=== PATIENT | male | born 1960 | race Hispanic/Latino ===

== ENCOUNTER 2017-05-25 09:56 | Inpatient (IN) | payer MEDICAID, OTHER ==
--- NOTE | 2017-05-25 10:19 | ED PDOC ---
Arrival/HPI - General Chief Complaint: Chest Pain Time Seen by Provider: 05/25/17 10:01 - History of Present Illness Narrative History of Present Illness (Text): 56 y/o M c PMHx cardiomyopathy BIBEMS s/p 100J cardioversion. Patient complaining of general weakness, abdominal pain x 1 week. Gradually worsening over the week and some chest pain that began yesterday. Patient called EMS this morning, found appearing pale, weak, and with ventricular tachycardia with a pulse. Patient was given Ketamine for sedation and cardioverted. Patient given amiodarone 150mg. Patient currently sedated, breathing spontaneously but unable to answer questions. HPI/ROS unobtainble. Past Medical History - Infectious Disease Hx of Infectious Diseases: None - Tetanus Immunization Tetanus Immunization: Unknown - Cardiac Hx Cardiac Arrhythmia: Yes (vtach) Hx Congestive Heart Failure: Yes Hx Hypertension: Yes Hx Peripheral Edema: Yes Other/Comment: cardiomyopathy - Pulmonary Hx Respiratory Disorders: No - Neurological Hx Neurological Disorder: No - HEENT Hx HEENT Disorder: No - Renal Hx Renal Disorder: No - Endocrine/Metabolic Hx Endocrine Disorders: No - Hematological/Oncological Hx Blood Disorders: No - Integumentary Hx Dermatological Disorder: No - Musculoskeletal/Rheumatological Hx Falls: No - Gastrointestinal Hx Gastrointestinal Disorders: No - Genitourinary/Gynecological Hx Genitourinary Disorders: No - Psychiatric Hx Psychophysiologic Disorder: (morbidly obese) Hx Substance Use: No - Suicidal Assessment Feels Threatened In Home Enviroment: No Family/Social History Family/Social History: Unknown Family HX Smoking Status: Never Smoked Hx Alcohol Use: No Hx Substance Use: No Allergies/Home Meds Allergies/Adverse Reactions: Allergies No Known Allergies Allergy (Verified 05/25/17 10:02) Home Medications: Home Meds Medication Instructions Recorded Confirmed Aspirin [Ecotrin] 81 mg PO DAILY 05/25/17 05/25/17 Atorvastatin [Lipitor] 20 mg PO DAILY 05/25/17 05/25/17 Carvedilol [Coreg] 25 mg PO DAILY 05/25/17 05/25/17 Eplerenone [Inspra] 25 mg PO DAILY 05/25/17 05/25/17 Furosemide [Lasix] 20 mg PO DAILY 05/25/17 05/25/17 Levothyroxine [Synthroid] 0.088 mg PO DAILY 05/25/17 05/25/17 Magnesium [[employer] Magnesium] 250 mg PO DAILY 05/25/17 05/25/17 Review of Systems - Review of Systems Systems not reviewed;Unavailable: Other (Sedated) Physical Exam - Physical Exam Narrative Physical Exam (Text): Gen: Sedated Head: NC Eyes: No scleral icterus ENT: MMM Neck: Supple Chest: No ICD Resp: Breathing spontaneously Abd: Soft Extremities: No swelling Neuro: Sedated Vital Signs Temp Pulse Resp BP Pulse Ox 05/25/17 13:10 56 L 18 99 05/25/17 12:56 70 140/50 L 05/25/17 12:33 57 L 18 140/50 L 100 05/25/17 11:25 52 L 16 96/55 L 100 05/25/17 10:34 52 L 16 69/34 L 100 05/25/17 10:08 97.4 F L 52 L 17 97/36 L 100 Medical Decision Making ED Course and Treatment: Plan: -- CT Abd & Pelvis W/O Contrast -- EKG -- Labs -- Chest X-ray -- amiodarone drip, Aspirin -- Reassess and disposition Progress Notes: EKG Afib, QRS 134ms, T wave inversions, no ST elevations PROCEDURE: Chest X-ray Dictator : Mercy Castaneda Report Date : 05/25/2017 11:08:54 IMPRESSION: Cardiomegaly with interval pulmonary venous congestion/ interstitial pulmonary edema. No gross pleural effusions noted Dr. Osorio consulted for cardiology, agrees with amiodarone drip, check magnesium. No further Vtach episodes, patient's BP stable. Dr. Costello accepts patient to ICU. Dr. Werner accepts patient to hospitalist service. - Lab Interpretations Lab Results: 05/25/17 10:10 05/25/17 10:10 Lab Results 05/25/17 10:10: Magnesium 3.8 H 05/25/17 10:10: Sodium 128 L, Potassium 4.8, Chloride 92 L, Carbon Dioxide 25, Anion Gap 16, BUN 93 H, Creatinine 2.8 H, Est GFR ( Amer) 29, Est GFR ( Non-Af Amer) 24, Random Glucose 116 H, Calcium 8.8, Total Bilirubin 0.9, AST 103 H, ALT 274 H, Alkaline Phosphatase 123, Total Creatine Kinase 58, Troponin I 0.10 D, NT-Pro-B Natriuret Pep 50695 H, Total Protein 6.2, Albumin 3.5, Globulin 2.7, Albumin/Globulin Ratio 1.3 05/25/17 10:10: PT 14.7 H, INR 1.27 H, APTT 23.5 L 05/25/17 10:10: WBC 15.9 H D, RBC 4.08, Hgb 12.6 L, Hct 36.5 L, MCV 89.5, MCH 30.9, MCHC 34.5, RDW 12.7, Plt Count 163, MPV 11.1 H, Gran % 75.1 H, Lymph % ( Auto) 12.2 L, [place] % (Auto) 12.6 H, Eos % (Auto) 0.1 L, Baso % (Auto) 0.0, Gran # 11.94 H, Lymph # (Auto) 1.9, [place] # (Auto) 2.0 H, Eos # (Auto) 0.0, Baso # ( Auto) 0.00 - RAD Interpretation Radiology Orders: 05/25/17 10:09 CHEST PORTABLE [RAD] Stat 05/25/17 10:15 ABD & PELVIS W/O PO OR IV CONT [CT] Stat - Medication Orders Current Medication Orders: Amiodarone HCl (Cordarone) 400 mg PO TID BEATRIZ Stop: 05/27/17 23:59 Amiodarone HCl (Cordarone) 200 mg PO DAILY BEATRIZ Aspirin (Ecotrin) 81 mg PO DAILY BEATRIZ Enoxaparin Sodium (Lovenox) 30 mg SC DAILY BEATRIZ PRN Reason: Protocol Furosemide (Lasix) 40 mg IV 0800,1400 BEATRIZ Amiodarone HCl/Dextrose (Nexterone 360 Mg In D5w 200 Ml (Premix)) 360 mg in 200 mls @ 33.333 mls/hr IV .Q6H BEATRIZ; 1 MG/MIN PRN Reason: Protocol Last Admin: 05/25/17 12:54 Dose: 33.333 mls/hr eMAR Start Stop Document 05/25/17 12:54 [email or web address] (Rec: 05/25/17 12:55 [email or web address] [facility] [id number] Intravenous Solution Start Date 05/25/17 Start Time 12:55 End Date 05/25/17 Sodium Chloride (Sodium Chloride 0.9%) 1,000 mls @ 50 mls/hr IV .Q20H BEATRIZ Stop: 05/26/17 23:59 Levothyroxine Sodium (Synthroid) 88 mcg PO 0730 BEATRIZ Lisinopril (Zestril) 2.5 mg PO DAILY BEATRIZ Pantoprazole Sodium (Protonix Ec Tab) 40 mg PO DAILY BEATRIZ Spironolactone (Aldactone) 25 mg PO BID BEATRIZ Discontinued Medications Amiodarone HCl (Cordarone) 400 mg PO STAT STA Stop: 05/25/17 12:46 Last Admin: 05/25/17 12:56 Dose: 400 mg MAR Pulse and Blood Pressure Document 05/25/17 12:56 [email or web address] (Rec: 05/25/17 12:56 [email or web address] [facility] [id number] Pulse Pulse Rate (60-90) 70 Blood Pressure Blood Pressure (100/60-150/90) 140/50 Aspirin (Aspirin) 325 mg PO STAT STA Stop: 05/25/17 11:38 Last Admin: 05/25/17 12:08 Dose: 325 mg Carvedilol (Coreg) 3.125 mg PO STAT STA Stop: 05/25/17 12:53 Furosemide (Lasix) 40 mg IV ONCE ONE Stop: 05/25/17 12:50 Disposition/Present on Arrival - Present on Arrival Any Indicators Present on Arrival: No History of DVT/PE: No History of Uncontrolled Diabetes: No Urinary Catheter: No History of Decub. Ulcer: No History Surgical Site Infection Following: None - Disposition Have Diagnosis and Disposition been Completed?: Yes Diagnosis: Ventricular tachycardia, Acute renal insufficiency, Congestive heart failure Disposition: HOSPITALIZED Disposition Time: 12:06 Patient Plan: Admission, ICU Condition: GUARDED
[2017-05-25 10:23] LABS: EOS % 0.1 % (1.5-5.0); GRAN # 11.94 (1.4-6.5); GRAN % 75.1 % (50.0-68.0); HEMOGLOBIN 12.6 g/dL (14.0-18.0); LYMPH # 1.9 (1.2-3.4); LYMPH % 12.2 % (22.0-35.0); MEAN CELL VOLUME 89.5 fl (80.0-105.0); MEAN CORPUSCULAR HEMOGLOBIN 30.9 pg (25.0-35.0); MEAN CORPUSCULAR HGB CONC 34.5 g/dl (31.0-37.0); MEAN PLATELET VOLUME 11.1 fl (7.0-11.0); MONO % 12.6 % (1.0-6.0); RBC 4.08 10^6/uL (3.5-6.1); RED CELL DISTRIBUTION WIDTH 12.7 % (11.5-14.5); WHITE BLOOD COUNT 15.9 10^3/ul (4.5-11.0)
[2017-05-25 10:32] LABS: PROTHROMBIN TIME 14.7 SECONDS (9.4-12.5)
[2017-05-25 10:33] LABS: INR 1.27 (0.93-1.08); PARTIAL THROMBOPLASTIN TIME 23.5 Seconds (25.1-36.5)
[2017-05-25 10:34] LABS: ALB/GLOB RATIO 1.3 (1.1-1.8); ALBUMIN 3.5 g/dL (3.0-4.8); CALCIUM 8.8 mg/dL (8.4-10.5)
[2017-05-25 10:46] LABS: TROPONIN I 0.1 ng/mL
--- NOTE | 2017-05-25 11:10 | RAD ---
HISTORY: ventricular tachycardia COMPARISON: 01/01/2013 FINDINGS: LUNGS: No consolidation PLEURA: No significant pleural effusion identified, no pneumothorax apparent. CARDIOVASCULAR: Cardiomegaly- similar Interval increase symmetrical bilateral pulmonary venous congestion -interstitial pulmonary edema suspect OSSEOUS STRUCTURES: No significant abnormalities. VISUALIZED UPPER ABDOMEN: Normal. OTHER FINDINGS: None. IMPRESSION: Cardiomegaly with interval pulmonary venous congestion/ interstitial pulmonary edema. No gross pleural effusions noted
[2017-05-25] MEDS ORDERED: Amiodarone 360 mg/D5W 200 ml 360 MG/200 ML BAG IV SCH (12:00)
[2017-05-25] MEDS ORDERED: Sodium Chloride 0.9% 1,000 ML IV SCH (13:00)
[2017-05-25] MEDS ORDERED: Enoxaparin 120 mg Syringe SC SCH (13:00)
--- NOTE | 2017-05-25 13:20 | CP.CCUPN ---
CCU Subjective - Physician Review Subjective (Free Text): 05/25/17 13:11 56yo male pt with h\\o CHF presented after an episode of Ventricular Tachycardia this morning. Pt stated he has not been feeling well since last week. He has multiple episodes of nausea and vomiting (NB, NB). Was lethargic and weak. he thought he had a "stomach virus" and did not seek any medical help. He tried to stay hydrated by drinking roxy-atif. Over the past few days his condition was getting worse, he was dizzy, weak , short of breath and unable to ambulate feeling near-syncope. Today he had chest pain. It was 5\\10 in intensity, sharp , would come and go, was located in the middle of his chest, was not radiating. Pt's family have called EMS . Upon EMS arrival pt was found in Ventricular Tachycardia. Pt was shocked and given amiodarone and transported to the hospital. In ED pt was started on Amiodarone drip and cardiology team was consulted. PMH: CHF, [place] PSH: denies Social: does not smoke or use ETOH or drugs CCU Objective - Vital Signs / Intake & Output Vital Signs (Last 4 hours): Vital Signs Pulse Resp BP Pulse Ox 05/25/17 13:10 56 L 18 99 05/25/17 12:56 70 140/50 L 05/25/17 12:33 57 L 18 140/50 L 100 - Physical Exam Head: Positive for: Atraumatic Pupils: Positive for: PERRL Conjunctiva: Positive for: Normal Mouth: Positive for: Moist Mucous Membranes Neck: Positive for: Normal Range of Motion. Negative for: JVD Respiratory/Chest: Positive for: Good Air Exchange, Rhonchi. Negative for: Respiratory Distress Cardiovascular: Positive for: Regular Rate and Rhythm, Normal S1, S2. Negative for: Murmurs Abdomen: Positive for: Normal Bowel Sounds. Negative for: Tenderness, Distention Upper Extremity: Positive for: Normal Inspection. Negative for: Edema, Erythema Lower Extremity: Positive for: Normal Inspection, Edema (non-pitting). Negative for: Erythema Neurological: Positive for: Speech Normal, Motor Func Grossly Intact Skin: Positive for: Warm, Dry. Negative for: Rashes Psychiatric: Positive for: Alert, Oriented x 3, Normal Insight - Medications Active Medications: Active Medications Generic Name Dose Route Start Last Admin Trade Name Freq PRN Reason Stop Dose Admin Amiodarone HCl 400 mg 05/25/17 14:00 Cordarone PO 05/27/17 23:59 TID BEATRIZ Amiodarone HCl 200 mg 05/28/17 10:00 Cordarone PO DAILY BEATRIZ Aspirin 81 mg 05/26/17 10:00 Ecotrin PO DAILY BEATRIZ Enoxaparin Sodium 30 mg 05/26/17 10:00 Lovenox SC DAILY BEATRIZ Protocol Furosemide 40 mg 05/26/17 08:00 Lasix IV 0800,1400 BEATRIZ Amiodarone HCl/Dextrose 360 mg in 200 mls @ 33.333 mls/hr 05/25/17 12:00 12:54 Nexterone 360 Mg In D5w 200 Ml (Premix) IV 33.333 mls/hr .Q6H BEATRIZ Administration Protocol 1 MG/MIN Sodium Chloride 1,000 mls @ 50 mls/hr 05/25/17 13:00 Sodium Chloride 0.9% IV 05/26/17 23:59 .Q20H BEATRIZ Levothyroxine Sodium 88 mcg 05/26/17 07:30 Synthroid PO 0730 BEATRIZ Lisinopril 2.5 mg 05/26/17 10:00 Zestril PO DAILY COUNTS INCLUDE 234 BEDS AT THE [facility] Spironolactone 25 mg 05/25/17 18:00 Aldactone PO BID BEATRIZ Review of Systems - Review of Systems Systems not reviewed;Unavailable: Acuity of Condition Critical Care Progress Note - Ventilator Checklist Head of Bed 30 Degrees: Yes PUD Prophalyxis: Yes DVT Prophylaxis: Yes Assessment/Plan - Assessment and Plan (Free Text) Plan: Ventricular Tachycardia\\ ho CHF \\ CAD \\ HUNTER \\ Elevated LFT \\ Hyponatremia \\ Hypothyroidism -hemodynamic monitoring to maintain MAP>65 -continue amiodarone drip as per cardiology team -f\\u serial CE and ECG; f\\u Echo -continue ASA; lisinopril and spironolactone if B\\P tolerates -o2 supplementation to maintain Spo2>90 Pao2>60; currently comfortable on NC -f\\u Bun\\Cr and U\\o; monitor and replace e-lites; monitor serial Na+ level -insert folley for accurate I\\O; renal US; renal team eval -f\\u LFT; RUQ US -continue synthroid and f\\u TSH -PO diet and aspiration precautions -DVT \\ PUD prophylaxis CCM eval time 37min
--- NOTE | 2017-05-25 13:44 | CP.PCM.HP ---
<TheresaKelporter - Last Filed: 05/25/17 15:43> History of Present Illness - History of Present Illness History of Present Illness: Lia Cardenas DO PGY1 - IM H&P for Dr. Werner CC: Fatigue, chest pain, abdominal pain HPI: 56 yo M with PMH of nonischemic cardiomyopathy with estimated EF 15-20% in 2013 presents brought by ambulance which was called because he was fatigued with chest pain at home. Patient was noted to be in ventricular tachycardia in the field and was successfully cardioverted in the field. Patient reports that he has been feeling ill for the past two weeks, with generalized weakness, fatigue, dyspnea on exertion, chest pain, abdominal pain, palpitations associated with chest pain, and a presyncopal episode yesterday. Patient reports that he can walk about 100 feet before he becomes dyspneic. Patient reports strict compliance with his medications and no recent dietary changes. Patient denies cough, fever, chills, diarrhea, constipation. Does admit to nausea with one episode of bilious, nonbloody emesis yesterday. Remainder of 12 point ROS was obtained and was negative. 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 All: NKDA Present on Admission - Present on Admission Any Indicators Present on Admission: No Past Patient History - Infectious Disease Hx of Infectious Diseases: None - Tetanus Immunizations Tetanus Immunization: Unknown - Past Social History Smoking Status: Never Smoked - CARDIAC Hx Cardia Arrhythmia: Yes (vtach) Hx Congestive Heart Failure: Yes Hx Hypertension: Yes Hx Peripheral Edema: Yes Other/Comment: cardiomyopathy - PULMONARY Hx Respiratory Disorders: No - NEUROLOGICAL Hx Neurological Disorder: No - HEENT Hx HEENT Problems: No - RENAL Hx Chronic Kidney Disease: No - ENDOCRINE/METABOLIC Hx Endocrine Disorders: No - HEMATOLOGICAL/ONCOLOGICAL Hx Blood Disorders: No - INTEGUMENTARY Hx Dermatological Problems: No - MUSCULOSKELETAL/RHEUMATOLOGICAL Hx Falls: No - GASTROINTESTINAL Hx Gastrointestinal Disorders: No - GENITOURINARY/GYNECOLOGICAL Hx Genitourinary Disorders: No - PSYCHIATRIC Hx Psychophysiologic Disorder: (morbidly obese) Hx Substance Use: No - SURGICAL HISTORY Hx Surgeries: Yes (throat) Meds Allergies/Adverse Reactions: Allergies Allergy/AdvReac Type Severity Reaction Status Date / Time No Known Allergies Allergy Verified 05/25/17 10:02 Physical Exam - Constitutional Appears: Non-toxic, No Acute Distress - Head Exam Head Exam: ATRAUMATIC, NORMOCEPHALIC - Eye Exam Eye Exam: EOMI, Normal appearance, PERRL - ENT Exam ENT Exam: Mucous Membranes Moist - Neck Exam Neck exam: Positive for: Normal Inspection Additional comments: No JVD - Respiratory Exam Respiratory Exam: Clear to Auscultation Bilateral, NORMAL BREATHING PATTERN. absent: Accessory Muscle Use, Rales, Rhonchi, Wheezes, Respiratory Distress - Cardiovascular Exam Cardiovascular Exam: Irregular Rhythm, +S1, +S2. absent: Diastolic murmur, JVD , +S4 Additional comments: Intermittent bradycardia and tachycardia - GI/Abdominal Exam GI & Abdominal Exam: Normal Bowel Sounds, Soft. absent: Distended, Firm, Rebound, Rigid, Tenderness - Extremities Exam Extremities exam: Positive for: normal capillary refill, normal inspection. 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% noted on cardiac cath in 2013 presents complaining of fatigue, chest pain, dyspnea, abdominal pain, now s/p cardioversion for vtach Chest pain, fatigue, and dyspnea, likely 2/2 CHF; r/o ACS - CXR on admission shows pulmonary vascular congestion; patient has severely elevated BNP - Initial troponin indeterminate; continue to trend - Initial EKG shows hyperacute T-wave inversions in leads II, III, and aVF; repeat EKG in AM - Ordered echocardiogram - Start Lasix 40mg IV BID - Strict I&O; HOB > 30; daily weight - A1c, lipid panel, TSH ordered - Continue BB, ASA; hold ACEi/ARB, statin, aldactone, as below Ventricular tachycardia s/p cardioversion - Admit to ICU for monitoring - Patient received IV and PO amiodarone in ER; will titrate to PO amiodarone tomorrow - Continue BB Acute renal failure - Likely 2/2 hypoperfusion 2/2 CHF vs ischemia 2/2 transient hypotension - Ordered urine urea and creatinine to calculate FEUrea - Hold ACEi/ARB and aldactone pending repeat labs - Gentle hydration with IVF - CT A/P and Abd US ordered - Renally dose medications - Requested nephro consult; appreciate recs Atrial fibrillation - ?new onset atrial fibrillation noted on EKG - patient does not endorse a history of afib - Will discuss with cardio for consideration for anticoagulation - Recheck EKG in AM Transaminemia - Likely 2/2 congestion 2/2 CHF vs ischemia 2/2 transient hypotension - Avoid hepatotoxic medications; hold statin - CT A/P ordered; Abd US ordered - Recheck with AM labs Leukocytosis - Likely reactive - Ordered procalcitonin, blood cultures, and UA - Recheck with AM labs Hyponatremia - Likely 2/2 hypervolemia 2/2 CHF and ARF - Should improve with IV lasix - Ordered Urine osmolality and random sodium; ordered serum osmolality - Recheck with AM labs History of hypothyroidism - Continue home synthroid - Ordered TSH GI/DVT Ppx: Protonix and Lovenox, renally dosed Case discussed and plan reviewed with attending, Dr. Werner <Lenny Werner - Last Filed: 05/27/17 16:24> Results - Vital Signs Recent Vital Signs: Last Vital Signs Temp 97.8 F 05/27/17 11:36 Pulse 63 05/27/17 11:36 Resp 16 05/27/17 11:36 BP 118/73 05/27/17 13:44 Pulse Ox 96 05/27/17 06:00 - Labs Result Diagrams: 05/27/17 06:20 05/27/17 06:20 Labs: Laboratory Results - last 24 hr 05/26/17 05/26/17 05/27/17 17:19 19:27 01:31 WBC RBC Hgb Hct MCV MCH MCHC RDW Plt Count MPV Gran % Lymph % (Auto) [place] % (Auto) Eos % (Auto) Baso % (Auto) Gran # Lymph # (Auto) [place] # (Auto) Eos # (Auto) Baso # (Auto) APTT 46.2 H Sodium 135 Potassium 4.6 Chloride 93 L Carbon Dioxide 30 Anion Gap 17 BUN 78 H Creatinine 1.8 H Est GFR ( Amer) 48 Est GFR (Non-Af Amer) 40 Random Glucose 107 Calcium 9.3 Total Bilirubin AST ALT Alkaline Phosphatase Total Protein Albumin Globulin Albumin/Globulin Ratio Ur Random Creatinine U Random Total Protein Urine Microalbumin < 6.0 05/27/17 05/27/17 05/27/17 01:31 01:35 06:20 WBC 11.9 H RBC 4.85 Hgb 15.0 Hct 43.2 MCV 89.1 MCH 30.9 MCHC 34.7 RDW 13.2 Plt Count 218 MPV 9.6 Gran % 56.0 Lymph % (Auto) 26.5 [place] % (Auto) 16.5 H Eos % (Auto) 0.9 L Baso % (Auto) 0.1 Gran # 6.67 H Lymph # (Auto) 3.2 [place] # (Auto) 2.0 H Eos # (Auto) 0.1 Baso # (Auto) 0.01 APTT 113.6 H* Sodium Potassium Chloride Carbon Dioxide Anion Gap BUN Creatinine Est GFR ( Amer) Est GFR (Non-Af Amer) Random Glucose Calcium Total Bilirubin AST ALT Alkaline Phosphatase Total Protein Albumin Globulin Albumin/Globulin Ratio Ur Random Creatinine 28 U Random Total Protein 11 Urine Microalbumin 05/27/17 05/27/17 06:20 09:20 WBC RBC Hgb Hct MCV MCH MCHC RDW Plt Count MPV Gran % Lymph % (Auto) [place] % (Auto) Eos % (Auto) Baso % (Auto) Gran # Lymph # (Auto) [place] # (Auto) Eos # (Auto) Baso # (Auto) APTT 73.0 H Sodium 137 Potassium 4.3 Chloride 96 L Carbon Dioxide 31 Anion Gap 15 BUN 59 H Creatinine 1.4 Est GFR ( Amer) > 60 Est GFR (Non-Af Amer) 53 Random Glucose 88 Calcium 8.8 Total Bilirubin 1.4 H AST 61 H D ALT 235 H Alkaline Phosphatase 114 Total Protein 6.7 Albumin 3.6 Globulin 3.1 Albumin/Globulin Ratio 1.2 Ur Random Creatinine U Random Total Protein Urine Microalbumin Attending/Attestation - Attestation I have personally seen and examined this patient.: Yes I have fully participated in the care of the patient.: Yes I have reviewed all pertinent clinical information: Yes Notes (Text): 05/27/17 16:16 Medical record note made by the resident after discussion with my direction and input after the patient was personally seen and examined by me. I have reviewed the chart and agree that the record accurately reflects by personal performance of the history, physical exam, data review, and medical decision-making, in the course for the patient. I have also personally directed the plan of care. 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 Patient is on Amiodrone, will start on IV lasix, will get 2D echo, will get BUN and creatinin. We will also monitor patient LFT. Management plan was discussed in detail with patient. Education was provided.
--- NOTE | 2017-05-25 14:22 | CT ---
PROCEDURE: CT Abdomen and Pelvis without intravenous contrast HISTORY: abdominal pain COMPARISON: None. TECHNIQUE: Without. Contrast Dose: None Radiation dose: Total exam DLP = 1033 mGy-cm. This CT exam was performed using one or more of the following dose reduction techniques: Automated exposure control, adjustment of the mA and/or kV according to patient size, and/or use of iterative reconstruction technique. FINDINGS: LOWER THORAX: Mostly posterior and lesser right middle lobe trace pleural thickening/minimal pleural effusion minimal discoid atelectatic changes. LIVER: Unremarkable. No gross lesion on this noncontrast study or ductal dilatation. GALLBLADDER AND BILE DUCTS: Small but otherwise unremarkable PANCREAS: Unremarkable. No gross lesion or ductal dilatation. SPLEEN: Unremarkable. ADRENALS: Unremarkable. No mass. KIDNEYS AND URETERS: Unremarkable. No hydronephrosis. No solid mass. VASCULATURE: Unremarkable. No aortic aneurysm. BOWEL: Probable scattered diverticulosis. No bowel obstruction or gross focal diverticulitis appearance appreciated. No obstruction. No gross mural thickening. APPENDIX: Identification of the appendix is problematic - what may be the appendix may have based appendicolith within it less than a cm in size. No definite inflammatory changes surrounding this site are noted. No mention of prior appendectomy PERITONEUM: There is nonspecific vague stranding inflammatory changes along the right posterior gutter. . Some nonspecific perirenal any ded abilio pancreatic and borderline abilio gallbladder fat trace inflammatory changes suggested. The chronicity of these findings is unknown -may be chronic. No free fluid. No free air. LYMPH NODES: Unremarkable. No enlarged lymph nodes. BLADDER: Unremarkable. REPRODUCTIVE: Unremarkable. BONES: Minimal compression deformity of the superior L2 and L1 vertebral bodies for (versus prominent Schmorl's node indentations here noted. The chronicity of this appearance is not known. Minimal anterior subluxation of L4 relative to L5 noted - this is attributed to degenerative ligamentous laxity given the facet hypertrophic arthrosis here and also at the L5-S1 level. Degenerative disc disease changes noted. No lytic lesions seen. No gross spondylolysis noted. OTHER FINDINGS: Please note peritoneal mid section for nonspecific thin tear rec peritoneal minimal stranding inflammatory changes present. Source and chronicity unclear Small fat only containing umbilical hernia IMPRESSION: No bowel obstruction or free air. . Nonspecific mesenteric and peritoneal mild stranding inflammatory changes as referenced above. Identification of normal appendix is problematic -possible appendicolith, sub cm without surrounding immediate inflammatory changes here noted. If patient has had a prior appendectomy,, then a calcified mesenteric lymph node would be favored Osseous changes as above
--- NOTE | 2017-05-25 14:37 | US ---
HISTORY: HUNTER and elevated lft COMPARISON: Correlation made with the same-day CT abdomen and pelvis TECHNIQUE: Sonographic evaluation of the abdomen. FINDINGS: LIVER: Measures 20.1 cm. Per this ultrasound the liver is enlarged Diffuse increase echogenicity of the liver parenchyma compatible with hepatic steatosis. No mass. No intrahepatic bile duct dilatation. (Less evident on the noncontrast CT study) GALLBLADDER: Unremarkable. No gallstones. COMMON BILE DUCT: Measures 1.7 mm. No stones. No dilatation. PANCREAS: Not visualized due to obscuring bowel gas. Limited exam due to large body habitus. RIGHT KIDNEY: Measures 10.7 x 5.7 x 5.5cm. Normal echogenicity. No calculus, mass, or hydronephrosis. LEFT KIDNEY: Measures 11.2 x 6.1 x 6.0cm. Normal echogenicity. No calculus, mass, or hydronephrosis. SPLEEN: Normal in size and contour. No mass. AORTA: No aneurysmal dilatation. IVC: Unremarkable. OTHER FINDINGS: None. IMPRESSION: Limited exam due to large patient, and gassy status. Per this exam (less apparent on the noncontrast CT), hepatic steatosis and liver enlargement suggested
[2017-05-25 16:57] VITALS: BMI 36.6
[2017-05-25] MEDS ORDERED: Influenza Vaccine 60 mcg/0.5 mL SYR (4YR UP) IM ONE (16:58)
[2017-05-25] MEDS ORDERED: Pneumococcal 23-Valent Vaccine IM ONE (16:58)
[2017-05-25 19:33] LABS: CREATININE,RANDOM URINE 69 mg/dL
[2017-05-25 21:43] LABS: CALCIUM 8.9 mg/dL (8.4-10.5)
[2017-05-25 22:28] LABS: TROPONIN I 3.24 ng/mL
--- NOTE | 2017-05-25 22:43 | CP.PCM.CON ---
History of Present Illness - History of Present Illness History of Present Illness: 56 yo M w/ pmh of htn, non-ischemic cardiomyopathy, called EMS after feeling fatigued and having palpitations; on the field, patient found to be in sustained V-tach and was cardioverted before being brought to ED; found to be in acute renal failure for which nephrology is being consulted; Patient's medical history pertinent for being found to have dilated cardiomyopathy with severe systolic dysfunction 5 years ago (EF ~15%); at that time, he was placed on inotropic support with improvement in symptoms and renal function; cardiac cath at that time revealed no CAD; patient was discharged and has since been 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[employer] [facility] at [facility]; AICD placement was contemplated but was deferred as EF had improved significantly (>50% per patient recently; patient's disability was subsequently cancelled a few months ago and 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 absent: Diarrhea - Genitourinary Genitourinary: absent: Dysuria Additional comments: somewhat weak urinary stream (chronic); - Musculoskeletal Musculoskeletal: absent: Arthralgias, Back Pain - Neurological Neurological: absent: Dizziness, Headaches Past Patient History - Infectious Disease Hx of Infectious Diseases: None - Tetanus Immunizations Tetanus Immunization: Unknown - Past Medical History & Family History Past Medical History?: Yes Past Family History: Reviewed and not pertinent - Past Social History Smoking Status: Never Smoked - CARDIAC Hx Cardia Arrhythmia: Yes (vtach) Hx Congestive Heart Failure: Yes Hx Hypertension: Yes Hx Peripheral Edema: Yes Other/Comment: cardiomyopathy - PULMONARY Hx Respiratory Disorders: No - NEUROLOGICAL Hx Neurological Disorder: No - HEENT Hx HEENT Problems: No - RENAL Hx Chronic Kidney Disease: No - ENDOCRINE/METABOLIC Hx Endocrine Disorders: No - HEMATOLOGICAL/ONCOLOGICAL Hx Blood Disorders: No - INTEGUMENTARY Hx Dermatological Problems: No - MUSCULOSKELETAL/RHEUMATOLOGICAL Hx Falls: No - GASTROINTESTINAL Hx Gastrointestinal Disorders: No - GENITOURINARY/GYNECOLOGICAL Hx Genitourinary Disorders: No - PSYCHIATRIC Hx Psychophysiologic Disorder: (morbidly obese) Hx Substance Use: No - SURGICAL HISTORY Hx Surgeries: Yes (throat) Meds Allergies/Adverse Reactions: Allergies Allergy/AdvReac Type Severity Reaction Status Date / Time No Known Allergies Allergy Verified 05/25/17 10:02 - Medications Medications: Current Medications Amiodarone HCl (Cordarone) 200 mg PO DAILY [facility] Aspirin (Ecotrin) 81 mg PO DAILY [facility] Enoxaparin Sodium (Lovenox) 30 mg SC DAILY [facility] PRN Reason: Protocol Furosemide (Lasix) 40 mg IV 0800,1400 [facility] Furosemide (Lasix) 40 mg IVP ONCE ONE Stop: 05/26/17 00:00 Levothyroxine Sodium (Synthroid) 88 mcg PO 0730 [facility] Lisinopril (Zestril) 2.5 mg PO DAILY [facility] Pantoprazole Sodium (Protonix Ec Tab) 40 mg PO DAILY [facility] Spironolactone (Aldactone) 25 mg PO BID [facility] Physical Exam - Constitutional Appears: Non-toxic, No Acute Distress - Eye Exam Eye Exam: absent: Scleral icterus - ENT Exam ENT Exam: Mucous Membranes Moist - Respiratory Exam Respiratory Exam: Clear to Auscultation Bilateral. absent: Rales, Rhonchi, Wheezes, Respiratory Distress - Cardiovascular Exam Cardiovascular Exam: RRR, +S1, +S2 Additional comments: mildly elevated JVD; - GI/Abdominal Exam GI & Abdominal Exam: Soft. absent: Distended, Tenderness - Exam Exam: absent: Scrotal Swelling, Bladder Distension Additional comments: guillen in place - Extremities Exam Additional comments: trace lower leg edema b/l - Neurological Exam Neurological exam: Alert, Oriented x3 - Psychiatric Exam Psychiatric exam: Normal Affect, Normal Mood - Skin Skin Exam: Normal Color Additional comments: distal ext cool to touch Results - Vital Signs Recent Vital Signs: Last Vital Signs Temp 97 F L 05/25/17 16:25 Pulse 74 05/25/17 18:05 Resp 17 05/25/17 16:25 BP 90/41 L 05/25/17 18:05 Pulse Ox 99 05/25/17 13:10 - Labs Result Diagrams: 05/25/17 10:10 05/25/17 21:25 Labs: Laboratory Results - last 24 hr 05/25/17 05/25/17 05/25/17 16:44 18:11 18:11 Sodium Potassium Chloride Carbon Dioxide Anion Gap BUN Creatinine Est GFR ( Amer) Est GFR (Non-Af Amer) Random Glucose Calcium Magnesium Lactate Dehydrogenase Total Creatine Kinase Troponin I 3.78 H* D Ur Random Creatinine 69 Ur Random Sodium 44 Ur Random Urea Nitrogn 521 05/25/17 21:25 Sodium 131 L Potassium 4.1 Chloride 92 L Carbon Dioxide 28 Anion Gap 16 BUN 99 H Creatinine 2.4 H Est GFR ( Amer) 34 Est GFR (Non-Af Amer) 28 Random Glucose 87 Calcium 8.9 Magnesium 3.2 H Lactate Dehydrogenase 586 Total Creatine Kinase 138 Troponin I 3.24 H* Ur Random Creatinine Ur Random Sodium Ur Random Urea Nitrogn - Imaging and Cardiology Chest x-ray Status: Image reviewed by me Additional comment: pulmonary edema noted; Assessment & Plan (1) Congestive heart failure Assessment and Plan: Acute severely decompensated systolic CHF; in the setting of NSTEMI and sustained v-tach; had been well-compensated per patient's history up until current events/symptoms; repeat echo done, awaiting results; -started on diuretics by cardiology, lasix 40 mg IVP given this afternoon; recommend to continue q8h and hold IVF; repeat bmp this evening to assess for improvement in renal function; -monitor K and maintain >4.0; Status: Acute (2) Acute renal insufficiency Assessment and Plan: Acute renal failure; responding to diuretics thus far with 700 cc UO after guillen placed (no hydronephrosis on US done earlier today); likely cardiorenal etiology but still awaiting urine studies (UA, lytes); -diuretics as above; may need inotropic support but patient had V-tach earlier and more recently with pauses on monitor, defer to cardiology; -avoid nephrotoxic agents Status: Acute (3) Hypermagnesemia Assessment and Plan: In the setting of acute renal failure and while on PO supplementation; level of 3.8 likely not high enough to cause cardiac conduction abnormalities; corrected Ca level normal; should correct with adequate urine output; continue to hold further supplementation unless patient becomes hypomagnesemic; Status: Acute (4) NSTEMI (non-ST elevated myocardial infarction) Assessment and Plan: Unclear if this is a result of sustained V-tach or the cause of it; if cardiac cath needed, should wait until renal function stabilizes; start IV contrast prophylaxis with IVF 6-12 hrs before procedure; Status: Acute (5) Ventricular tachycardia Assessment and Plan: Now on amiodarone; need to avoid hypokalemia; Status: Acute - Assessment and Plan (Free Text) Assessment: Critical care time spent > 35 minutes
--- NOTE | 2017-05-26 04:03 | CON ---
DATE: 05/25/2017 REASON FOR CONSULTATION AND FOLLOWUP: Feeling very weak; lethargy; V-fib, status post cardioverted. HISTORY OF PRESENT ILLNESS: This is a 56-year-old male with past medical history of nonischemic cardiomyopathy, status post cardiac catheterization 3 years ago, was sent to [facility] for defibrillator later on according to the patient, EF improved. Initially, the patient did not want defibrillator, but later on the EF improved and treating physician at [facility] deferred the defibrillator, who was having weak; lethargy symptoms; mild feverish feeling , nausea and vomiting, multiple times he vomited, so this morning, called the ambulance. While the patient was en route to the hospital, found to be V-fib cardioverted and now the patient is in the ER. Denies any chest pain, denies any palpitation, denies any shortness of breath, but feeling very weak and lethargic. Past history significant for nonischemic cardiomyopathy, history of similar episode in 2012, where the patient had a cardiac catheterization done later on and was sent to the [facility] for defibrillator; had history of dilated cardiomyopathy; chronic leg edema, and marked obesity at that time. PAST MEDICAL HISTORY: As mentioned; obesity and history of VTE at that time in 01/05/2013. PREVIOUS CARDIAC WORKUP: As follows; patient had a cardiac catheterization in 01/05/[address] Valentin Flynn that shows mitral regurgitation 1+; hypokinesis consistent with cardiomyopathy; nonischemic with left main essentially free of significant disease; LAD is free of significant disease, circumflex essentially is free of significant disease; right coronary artery was normal, so essentially the cardiac catheterization in 01/05/2013, shows normal coronaries; ejection fraction 15% to 20% dated 01/05/2013, and he was transferred to [facility] for defibrillator, but possibly the patient never got the defibrillator. SOCIAL HISTORY: Denies smoking. Denies any history of alcohol abuse. When the patient was young, heavy alcohol abuser. Most likely this is cardiomyopathy, nonischemic secondary to alcohol abuse. CURRENT MEDICATIONS: The patient is taking at home magnesium 250 mg daily, levothyroxine 0.88 mg daily, Lasix 20 mg daily, Inspra 25 mg daily, Coreg 25 mg daily, atorvastatin 25 mg daily, and baby aspirin 81 mg daily. REVIEW OF SYSTEMS: As per HPI. PHYSICAL EXAMINATION: GENERAL: Height of the patient is 6 feet, weight of 270 pounds, body mass index 36.7 kg/m2. VITAL SIGNS: Temperature afebrile, heart rate 70, blood pressure 140/50. HEENT: PERRLA. Extraocular muscles intact. NECK: Supple. No carotid bruit or thyromegaly. CHEST: Clear to auscultation. HEART: S1 and S2, regular. ABDOMEN: Soft. EXTREMITIES: Clubbing and cyanosis negative. LABORATORY DATA: On admission, EKG shows atrial fibrillation, incomplete left bundle T-wave inversion II, III, aVF. WBC 15.9, hemoglobin 12.6, hematocrit 36.5, and platelet count 163. Chemistry shows sodium 128, potassium 4.8, chloride 95, carbon dioxide 25, anion gap of 16, BUN 93, creatinine 2.8. IMPRESSION: Acute kidney injury; diabetes, hypertension; hyperlipidemia, elevated WBC; rule out flu; rule out sepsis and nonischemic cardiomyopathy, ejection fraction of 15%-20%, status post cardiac catheterization on 01/05/2013, absolutely normal coronaries, being followed at the [facility] and suggested defibrillator. According to the patient, later on, ejection fraction improved and was deferred. I recommended load with amiodarone. Continue gentle hydration. Continue IV Lasix. significant enlargement and congestive heart failure. We will discontinue Lovenox because the creatinine clearance is 24 mL an hour. We will put Lovenox from tomorrow for deep vein thrombosis prophylaxis and start Coreg 3.125 mg, low dose of NETTA inhibitors and we will put Aldactone 25 mg b.i.d. as well as put amiodarone. We will monitor. Get echo to assess left ventricular function, most likely the ventricular fibrillation is secondary to underlying nonischemic cardiomyopathy and flu-like symptoms and sepsis. We will put panculture. Start Aldactone as mentioned, Coreg, lisinopril and amiodarone 400 mg p.o. b.i.d. for 3 days followed by 200 mg once a day. Follow up the lab in the morning and echo to assist left ventricular function. Further recommendation during the hospital course. We will follow with you. We will also get lipid profile, TSH, and hemoglobin A1c. Follow up serial CPK, troponin. Thank you, Dr. Lenny Werner, for providing us the opportunity in taking care of Storm [place]. Lenny Osorio MD
[2017-05-26 06:55] LABS: BASO # 0.01 K/mm3 (0.0-2.0); BASO % 0.1 % (0.0-3.0); EOS % 0.1 % (1.5-5.0); GRAN # 11.18 (1.4-6.5); GRAN % 81.4 % (50.0-68.0); HEMOGLOBIN 14.2 g/dL (14.0-18.0); LYMPH # 1.2 (1.2-3.4); LYMPH % 8.8 % (22.0-35.0); MEAN CELL VOLUME 88.1 fl (80.0-105.0); MEAN CORPUSCULAR HEMOGLOBIN 30.7 pg (25.0-35.0); MEAN CORPUSCULAR HGB CONC 34.9 g/dl (31.0-37.0); MONO # 1.3 (0.1-0.6); MONO % 9.6 % (1.0-6.0); RBC 4.62 10^6/uL (3.5-6.1); RED CELL DISTRIBUTION WIDTH 12.6 % (11.5-14.5); WHITE BLOOD COUNT 13.7 10^3/ul (4.5-11.0)
[2017-05-26 07:07] LABS: ALB/GLOB RATIO 1.3 (1.1-1.8); ALBUMIN 3.8 g/dL (3.0-4.8); CALCIUM 9.2 mg/dL (8.4-10.5)
[2017-05-26 07:45] LABS: TROPONIN I 1.47 ng/mL
[2017-05-26] MEDS: Levothyroxine 88 MCG TAB PO SCH (08:30)
--- NOTE | 2017-05-26 09:02 | CP.PCM.PN ---
<Lia Cardenas - Last Filed: 05/26/17 13:16> Subjective - Date & Time of Evaluation Date of Evaluation: 05/26/17 Time of Evaluation: 07:30 - Subjective Subjective: Lia Cardenas DO PGY1 - IM Progress Note Patient seen and examined at bedside in the ICU. Patient reports resolution in chest pain and shortness of breath. Patient had elevated troponins overnight, but without chest pain. Denies any palpitations overnight. Denies fever, chills , nausea, vomiting, diarrhea, constipation. Reports that abdominal pain resolves when he passes gas, admits to feeling bloated, which resolves when he passes gas. Objective - Vital Signs/Intake and Output Vital Signs (last 24 hours): Temp Pulse Resp BP Pulse Ox 97.4 F L 89 26 H 110/62 98 05/26/17 06:00 05/26/17 06:00 05/26/17 06:00 05/26/17 06:00 05/26/17 06:00 Intake and Output: 05/26/17 05/26/17 06:59 18:59 Intake Total 0 Output Total 4300 Balance -4300 - Medications Medications: Current Medications Amiodarone HCl (Cordarone) 200 mg PO DAILY [facility] Aspirin (Ecotrin) 81 mg PO DAILY [facility] Enoxaparin Sodium (Lovenox) 30 mg SC DAILY [facility] PRN Reason: Protocol Furosemide (Lasix) 40 mg IV 0800,1400 [facility] Levothyroxine Sodium (Synthroid) 88 mcg PO 0730 [facility] Lisinopril (Zestril) 2.5 mg PO DAILY [facility] Pantoprazole Sodium (Protonix Ec Tab) 40 mg PO DAILY [facility] Spironolactone (Aldactone) 25 mg PO BID [facility] - Labs Labs: 05/26/17 06:25 05/26/17 06:25 PT 14.7 SECONDS (9.4-12.5) H 05/25/17 10:10 INR 1.27 (0.93-1.08) H 05/25/17 10:10 APTT 23.5 Seconds (25.1-36.5) L 05/25/17 10:10 - Constitutional Appears: Non-toxic, No Acute Distress - Head Exam Head Exam: ATRAUMATIC, NORMOCEPHALIC - Eye Exam Eye Exam: EOMI, Normal appearance, PERRL - ENT Exam ENT Exam: Mucous Membranes Moist - Neck Exam Neck Exam: Normal Inspection - Respiratory Exam Respiratory Exam: Clear to Ausculation Bilateral, NORMAL BREATHING PATTERN - Cardiovascular Exam Cardiovascular Exam: Irregular Rhythm, +S1, +S2 - GI/Abdominal Exam GI & Abdominal Exam: Soft, Normal Bowel Sounds. 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% noted on cardiac cath in 2013 presents complaining of fatigue, chest pain, dyspnea, abdominal pain, now s/p cardioversion for vtach Chest pain, fatigue, and dyspnea, likely 2/2 CHF; r/o ACS - Initial troponin indeterminate; serial trops trended up then plateued and downdtrended; likely 2/2 myocardial injury 2/2 cardioversion, less likely NSTEMI - Patient also has acute renal failure and CHF, which also contribute to troponin elevation - Start heparin drip for possible NSTEMI and new onset afib (as below) - Initial EKG shows hyperacute T-wave inversions in leads II, III, and aVF; repeat EKG pending - Echo done, pending read - Lasix decreased to 20mg IV BID per nephro - Patient diuresing well, I/O -4900 overnight; possibly overdiuresing - Strict I&O; HOB > 30; daily weight - A1c, lipid panel, TSH wnl - Continue BB, ASA; Resume aldactone; hold ACEi/ARB, statin, as below Ventricular tachycardia s/p cardioversion - Patient in ICU for monitoring; had intermittent bradycardia overnight per nurse - Patient intermittently tachycardic on exam today; continue amiodarone 200mg PO BID - Continue low dose BB; continue to monitor Acute renal failure - Improving; Likely 2/2 hypoperfusion 2/2 CHF vs ischemia 2/2 transient hypotension - FEUrea 18%, implies prerenal etiology - Continue to hold ACEi/ARB; resume aldactone - CT A/P shows nonspecific mild peritoneal stranding and inflammatory changes; Abd US unremarkable - Renally dose medications - Requested nephro consult; appreciate recs Atrial fibrillation - ?new onset atrial fibrillation noted on initial EKG - patient does not endorse a history of afib - HR on exam irregular and unstable, ranging 60's-100's - Start heparin drip as above - Repeat EKG pending Transaminemia - Likely 2/2 congestion 2/2 CHF vs ischemia 2/2 transient hypotension - Avoid hepatotoxic medications; hold statin - CT A/P ordered; Abd US ordered - Recheck with AM labs Leukocytosis - Likely reactive - Ordered procalcitonin, blood cultures, and UA - Recheck with AM labs Hyponatremia - Likely 2/2 hypervolemia 2/2 CHF and ARF - Resolved History of hypothyroidism - Continue home synthroid - TSH wnl GI/DVT Ppx: Protonix and heparin drip Case discussed and plan reviewed with attending, Dr. Werner <Lenny Werner - Last Filed: 05/27/17 16:26> Objective - Vital Signs/Intake and Output Vital Signs (last 24 hours): Temp Pulse Resp BP Pulse Ox 97.8 F 63 16 118/73 96 05/27/17 11:36 05/27/17 11:36 05/27/17 11:36 05/27/17 13:44 05/27/17 06:00 Intake and Output: 05/27/17 05/27/17 06:59 18:59 Intake Total 1160 300 Output Total 2300 400 Balance -1140 -100 - Medications Medications: Current Medications Amiodarone HCl (Cordarone) 200 mg PO DAILY [facility] Last Admin: 05/27/17 11:10 Dose: 200 mg Aspirin (Ecotrin) 81 mg PO DAILY [facility] Last Admin: 05/27/17 11:11 Dose: 81 mg Carvedilol (Coreg) 3.125 mg PO BID [facility] Furosemide (Lasix) 20 mg PO Q8H [facility] Last Admin: 05/27/17 13:44 Dose: 20 mg Heparin Sodium/Sodium Chloride (Heparin 31670 Units/250ml 1/2 Normal Saline) 25 ,000 units in 250 mls @ 14.724 mls/hr IV .[id number] [facility]; 12 UNITS/KG/HR PRN Reason: Protocol Last Admin: 05/27/17 03:21 Dose: Not Given Levothyroxine Sodium (Synthroid) 88 mcg PO 0730 [facility] Last Admin: 05/27/17 08:42 Dose: 88 mcg Lisinopril (Zestril) 2.5 mg PO DAILY [facility] Last Admin: 05/27/17 11:08 Dose: 2.5 mg Pantoprazole Sodium (Protonix Ec Tab) 40 mg PO DAILY [facility] Last Admin: 05/27/17 11:10 Dose: 40 mg Spironolactone (Aldactone) 25 mg PO BID [facility] Last Admin: 05/27/17 11:11 Dose: 25 mg Warfarin Sodium (Coumadin) 5 mg PO 1800 [facility] PRN Reason: Protocol Warfarin Sodium (Coumadin) 7.5 mg PO 1800 [facility] PRN Reason: Protocol Stop: 05/28/17 23:59 - Labs Labs: 05/27/17 06:20 05/27/17 06:20 PT 14.7 SECONDS (9.4-12.5) H 05/25/17 10:10 INR 1.27 (0.93-1.08) H 05/25/17 10:10 APTT 73.0 Seconds (25.1-36.5) H 05/27/17 09:20 Attending/Attestation - Attestation I have personally seen and examined this patient.: Yes I have fully participated in the care of the patient.: Yes I have reviewed all pertinent clinical information, including history, physical exam and plan: Yes Notes (Text): 05/27/17 16:24 Medical record note made by the resident after discussion with my direction and input after the patient was personally seen and examined by me. I have reviewed the chart and agree that the record accurately reflects by personal performance of the history, physical exam, data review, and medical decision-making, in the course for the patient. I have also personally directed the plan of care.
[2017-05-26] MEDS ORDERED: Potassium Chloride 20 mEq ER Tab PO STA (09:04)
[2017-05-26] MEDS: Pantoprazole 40 mg EC Tab PO SCH (09:40)
[2017-05-26] MEDS ORDERED: Enoxaparin 30 mg Syringe SC SCH (10:00)
--- NOTE | 2017-05-26 10:00 | CP.CCUPN ---
<Milan Ortiz - Last Filed: 05/26/17 10:21> CCU Subjective - Physician Review Subjective (Free Text): Patient seen and examined bedside. No issues overnight. Patient says he is feeling better. Denies chest pain, shortness of breath, nausea, vomiting or any other complaints at this time. 05/26/17 09:55 Critical Care Time Spent (in minutes): 35 CCU Objective - Vital Signs / Intake & Output Vital Signs (Last 4 hours): Vital Signs Temp Pulse Resp BP Pulse Ox 05/26/17 08:58 113/72 05/26/17 06:00 97.4 F L 89 26 H 110/62 98 Intake and Output (Last 8hrs): Intake & Output 05/25/17 05/26/17 05/26/17 22:59 06:59 14:59 Intake Total 560 0 Output Total 1050 4300 Balance -490 -4300 Weight 270 lb 8 oz Intake: IV 200 0 Left Forearm 200 0 Right Antecubital 0 Oral 360 0 Tube Feeding 0 TPN/PPN 0 Blood Product 0 Lipid 0 Albumin 0 Other 0 Output: Urine 1050 4300 Urethral (Hardy) 1050 4300 Stool 0 Urine/Stool Mix 0 Emesis 0 Oral Regurgitation 0 Other 0 Other: Voiding Method Urinal # Voids Urethral (Hardy) 0 # Bowel Movements 0 1 - Physical Exam Head: Positive for: Atraumatic, Normocephalic Pupils: Positive for: PERRL Conjunctiva: Positive for: Normal Mouth: Positive for: Moist Mucous Membranes Neck: Positive for: Normal Range of Motion. Negative for: JVD Respiratory/Chest: Positive for: Good Air Exchange. Negative for: Respiratory Distress Cardiovascular: Positive for: Regular Rate and Rhythm, Normal S1, S2. Negative for: Murmurs Abdomen: Positive for: Normal Bowel Sounds. Negative for: Tenderness, Distention Upper Extremity: Positive for: Normal Inspection. Negative for: Edema, Erythema Lower Extremity: Positive for: Normal Inspection, Edema (non-pitting). Negative for: Erythema Neurological: Positive for: GCS=15, CN II-XII Intact, Speech Normal, Motor Func Grossly Intact Skin: Positive for: Warm, Dry. Negative for: Rashes Psychiatric: Positive for: Alert, Oriented x 3, Normal Insight - Medications Active Medications: Active Medications Generic Name Dose Route Start Last Admin Trade Name Freq PRN Reason Stop Dose Admin Amiodarone HCl 200 mg 05/28/17 10:00 Cordarone PO DAILY BEATRIZ Aspirin 81 mg 05/26/17 10:00 05/26/17 09:39 Ecotrin PO 81 mg DAILY BEATRIZ Administration Enoxaparin Sodium 30 mg 05/26/17 10:00 05/26/17 09:40 Lovenox SC 30 mg DAILY BEATRIZ Administration Protocol Furosemide 40 mg 05/26/17 08:00 05/26/17 08:58 Lasix IV 40 mg 0800,1400 BEATRIZ Administration Levothyroxine Sodium 88 mcg 05/26/17 07:30 05/26/17 08:30 Synthroid PO 88 mcg 0730 BEATRIZ Administration Lisinopril 2.5 mg 05/26/17 10:00 Zestril PO DAILY BEATRIZ Pantoprazole Sodium 40 mg 05/26/17 10:00 05/26/17 09:40 Protonix Ec Tab PO 40 mg DAILY BEATRIZ Administration Spironolactone 25 mg 05/25/17 18:00 05/26/17 09:39 Aldactone PO 25 mg BID BEATRIZ Administration - Patient Studies Lab Studies: Lab Studies 05/26/17 05/26/17 05/26/17 Range/Units 06:25 06:25 06:25 WBC 13.7 H (4.5-11.0) 10^3/ul RBC 4.62 (3.5-6.1) 10^6/uL Hgb 14.2 (14.0-18.0) g/dL Hct 40.7 L (42.0-52.0) % MCV 88.1 (80.0-105.0) fl MCH 30.7 (25.0-35.0) pg MCHC 34.9 (31.0-37.0) g/dl RDW 12.6 (11.5-14.5) % Plt Count 206 (120.0-450.0) 10^3/uL MPV 10.0 (7.0-11.0) fl Gran % 81.4 H (50.0-68.0) % Lymph % (Auto) 8.8 L (22.0-35.0) % [place] % (Auto) 9.6 H (1.0-6.0) % Eos % (Auto) 0.1 L (1.5-5.0) % Baso % (Auto) 0.1 (0.0-3.0) % Gran # 11.18 H (1.4-6.5) Lymph # (Auto) 1.2 (1.2-3.4) [place] # (Auto) 1.3 H (0.1-0.6) Eos # (Auto) 0.0 (0.0-0.7) Baso # (Auto) 0.01 (0.0-2.0) K/mm3 Sodium 135 (132-148) mmol/L Potassium 3.8 (3.6-5.0) mmol/L Chloride 93 L (98-107) mmol/L Carbon Dioxide 31 (21-33) mmol/L Anion Gap 15 (10-20) BUN 92 H (7-21) mg/dL Creatinine 1.9 H (0.8-1.5) mg/dl Est GFR ( Amer) 45 Est GFR (Non-Af Amer) 37 Random Glucose 107 (70-110) mg/dL Calcium 9.2 (8.4-10.5) mg/dL Phosphorus 4.1 (2.5-4.5) mg/dL Magnesium 2.8 H (1.7-2.2) mg/dL Total Bilirubin 1.4 H (0.2-1.3) mg/dL AST 84 H (17-59) U/L ALT 273 H (7-56) U/L Alkaline Phosphatase 143 H (38-126) U/L Lactate Dehydrogenase 623 (333-699) U/L Total Creatine Kinase 88 (35-230) U/L Troponin I 1.47 H* D ng/mL Total Protein 6.7 (5.8-8.3) g/dL Albumin 3.8 (3.0-4.8) g/dL Globulin 3.0 gm/dL Albumin/Globulin Ratio 1.3 (1.1-1.8) Triglycerides 59 (35-160) mg/dL Cholesterol 73 L (130-200) mg/dL LDL Cholesterol Direct 35 (0-129) mg/dL HDL Cholesterol 33 (29-60) mg/dL TSH 3rd Generation 0.87 (0.46-4.68) mIU/mL Ur Random Creatinine mg/dL Ur Random Sodium meq/L Ur Random Urea Nitrogn mg/dL 05/25/17 05/25/17 05/25/17 Range/Units 21:25 18:11 18:11 WBC (4.5-11.0) 10^3/ul RBC (3.5-6.1) 10^6/uL Hgb (14.0-18.0) g/dL Hct (42.0-52.0) % MCV (80.0-105.0) fl MCH (25.0-35.0) pg MCHC (31.0-37.0) g/dl RDW (11.5-14.5) % Plt Count (120.0-450.0) 10^3/uL MPV (7.0-11.0) fl Gran % (50.0-68.0) % Lymph % (Auto) (22.0-35.0) % [place] % (Auto) (1.0-6.0) % Eos % (Auto) (1.5-5.0) % Baso % (Auto) (0.0-3.0) % Gran # (1.4-6.5) Lymph # (Auto) (1.2-3.4) [place] # (Auto) (0.1-0.6) Eos # (Auto) (0.0-0.7) Baso # (Auto) (0.0-2.0) K/mm3 Sodium 131 L (132-148) mmol/L Potassium 4.1 (3.6-5.0) mmol/L Chloride 92 L (98-107) mmol/L Carbon Dioxide 28 (21-33) mmol/L Anion Gap 16 (10-20) BUN 99 H (7-21) mg/dL Creatinine 2.4 H (0.8-1.5) mg/dl Est GFR ( Amer) 34 Est GFR (Non-Af Amer) 28 Random Glucose 87 (70-110) mg/dL Calcium 8.9 (8.4-10.5) mg/dL Phosphorus (2.5-4.5) mg/dL Magnesium 3.2 H (1.7-2.2) mg/dL Total Bilirubin (0.2-1.3) mg/dL AST (17-59) U/L ALT (7-56) U/L Alkaline Phosphatase (38-126) U/L Lactate Dehydrogenase 586 (333-699) U/L Total Creatine Kinase 138 (35-230) U/L Troponin I 3.24 H* ng/mL Total Protein (5.8-8.3) g/dL Albumin (3.0-4.8) g/dL Globulin gm/dL Albumin/Globulin Ratio (1.1-1.8) Triglycerides (35-160) mg/dL Cholesterol (130-200) mg/dL LDL Cholesterol Direct (0-129) mg/dL HDL Cholesterol (29-60) mg/dL TSH 3rd Generation (0.46-4.68) mIU/mL Ur Random Creatinine 69 mg/dL Ur Random Sodium 44 meq/L Ur Random Urea Nitrogn 521 mg/dL 05/25/17 Range/Units 16:44 WBC (4.5-11.0) 10^3/ul RBC (3.5-6.1) 10^6/uL Hgb (14.0-18.0) g/dL Hct (42.0-52.0) % MCV (80.0-105.0) fl MCH (25.0-35.0) pg MCHC (31.0-37.0) g/dl RDW (11.5-14.5) % Plt Count (120.0-450.0) 10^3/uL MPV (7.0-11.0) fl Gran % (50.0-68.0) % Lymph % (Auto) (22.0-35.0) % [place] % (Auto) (1.0-6.0) % Eos % (Auto) (1.5-5.0) % Baso % (Auto) (0.0-3.0) % Gran # (1.4-6.5) Lymph # (Auto) (1.2-3.4) [place] # (Auto) (0.1-0.6) Eos # (Auto) (0.0-0.7) Baso # (Auto) (0.0-2.0) K/mm3 Sodium (132-148) mmol/L Potassium (3.6-5.0) mmol/L Chloride (98-107) mmol/L Carbon Dioxide (21-33) mmol/L Anion Gap (10-20) BUN (7-21) mg/dL Creatinine (0.8-1.5) mg/dl Est GFR ( Amer) Est GFR (Non-Af Amer) Random Glucose (70-110) mg/dL Calcium (8.4-10.5) mg/dL Phosphorus (2.5-4.5) mg/dL Magnesium (1.7-2.2) mg/dL Total Bilirubin (0.2-1.3) mg/dL AST (17-59) U/L ALT (7-56) U/L Alkaline Phosphatase (38-126) U/L Lactate Dehydrogenase (333-699) U/L Total Creatine Kinase (35-230) U/L Troponin I 3.78 H* D ng/mL Total Protein (5.8-8.3) g/dL Albumin (3.0-4.8) g/dL Globulin gm/dL Albumin/Globulin Ratio (1.1-1.8) Triglycerides (35-160) mg/dL Cholesterol (130-200) mg/dL LDL Cholesterol Direct (0-129) mg/dL HDL Cholesterol (29-60) mg/dL TSH 3rd Generation (0.46-4.68) mIU/mL Ur Random Creatinine mg/dL Ur Random Sodium meq/L Ur Random Urea Nitrogn mg/dL Laboratory Results - last 24 hr 05/25/17 05/25/17 05/25/17 16:44 18:11 18:11 WBC RBC Hgb Hct MCV MCH MCHC RDW Plt Count MPV Gran % Lymph % (Auto) [place] % (Auto) Eos % (Auto) Baso % (Auto) Gran # Lymph # (Auto) [place] # (Auto) Eos # (Auto) Baso # (Auto) Sodium Potassium Chloride Carbon Dioxide Anion Gap BUN Creatinine Est GFR ( Amer) Est GFR (Non-Af Amer) Random Glucose Calcium Phosphorus Magnesium Total Bilirubin AST ALT Alkaline Phosphatase Lactate Dehydrogenase Total Creatine Kinase Troponin I 3.78 H* D Total Protein Albumin Globulin Albumin/Globulin Ratio Triglycerides Cholesterol LDL Cholesterol Direct HDL Cholesterol TSH 3rd Generation Ur Random Creatinine 69 Ur Random Sodium 44 Ur Random Urea Nitrogn 521 05/25/17 05/26/17 05/26/17 21:25 06:25 06:25 WBC 13.7 H RBC 4.62 Hgb 14.2 Hct 40.7 L MCV 88.1 MCH 30.7 MCHC 34.9 RDW 12.6 Plt Count 206 MPV 10.0 Gran % 81.4 H Lymph % (Auto) 8.8 L [place] % (Auto) 9.6 H Eos % (Auto) 0.1 L Baso % (Auto) 0.1 Gran # 11.18 H Lymph # (Auto) 1.2 [place] # (Auto) 1.3 H Eos # (Auto) 0.0 Baso # (Auto) 0.01 Sodium 131 L 135 Potassium 4.1 3.8 Chloride 92 L 93 L Carbon Dioxide 28 31 Anion Gap 16 15 BUN 99 H 92 H Creatinine 2.4 H 1.9 H Est GFR ( Amer) 34 45 Est GFR (Non-Af Amer) 28 37 Random Glucose 87 107 Calcium 8.9 9.2 Phosphorus 4.1 Magnesium 3.2 H 2.8 H Total Bilirubin 1.4 H AST 84 H ALT 273 H Alkaline Phosphatase 143 H Lactate Dehydrogenase 586 623 Total Creatine Kinase 138 88 Troponin I 3.24 H* 1.47 H* D Total Protein 6.7 Albumin 3.8 Globulin 3.0 Albumin/Globulin Ratio 1.3 Triglycerides 59 Cholesterol 73 L LDL Cholesterol Direct 35 HDL Cholesterol 33 TSH 3rd Generation Ur Random Creatinine Ur Random Sodium Ur Random Urea Nitrogn 05/26/17 06:25 WBC RBC Hgb Hct MCV MCH MCHC RDW Plt Count MPV Gran % Lymph % (Auto) [place] % (Auto) Eos % (Auto) Baso % (Auto) Gran # Lymph # (Auto) [place] # (Auto) Eos # (Auto) Baso # (Auto) Sodium Potassium Chloride Carbon Dioxide Anion Gap BUN Creatinine Est GFR ( Amer) Est GFR (Non-Af Amer) Random Glucose Calcium Phosphorus Magnesium Total Bilirubin AST ALT Alkaline Phosphatase Lactate Dehydrogenase Total Creatine Kinase Troponin I Total Protein Albumin Globulin Albumin/Globulin Ratio Triglycerides Cholesterol LDL Cholesterol Direct HDL Cholesterol TSH 3rd Generation 0.87 Ur Random Creatinine Ur Random Sodium Ur Random Urea Nitrogn EKG/Cardiology Studies: Cardiology / EKG Studies 05/26/17 EKG [ELECTROCARDIOGRAM] Urgent Comment: Reason For Exam: arrythmia 05/26/17 08:18 EKG [ELECTROCARDIOGRAM] Urgent Comment: Reason For Exam: arrythmia Review of Systems - Cardiovascular Cardiovascular: absent: Chest Pain, Chest Pain at Rest, Dyspnea - Respiratory Respiratory: absent: Cough, Dyspnea - Gastrointestinal Gastrointestinal: absent: Abdominal Pain, Nausea, Vomiting Critical Care Progress Note - Nutrition Nutrition: Nutrition Category Date Time Status Heart Healthy Diet [DIET] Diets 05/25/17 Dinner Ordered Assessment/Plan - Assessment and Plan (Free Text) Assessment: 56 yo M with PMH of 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 Patient was started on amiodarone drip, which was then held due to bradycardia. Patient currently on PO medication. Plan: Ventricular tachycardia s/p cardioversion - PO amiodarone - Continue meds - cardio following - f/u echo elevated Troponinis -troponins 1.47 -started on heparin per primary team -cardiology aware and following Acute renal failure - Renally dose medications - nephro, consulted, Mughni follow recs - follow renal function - IOs - replace lytes as needed - renal US Transamineminitis - Avoid hepatotoxic medications; hold statin - CT A/P ordered; Abd US: hepatic steatosis - follow up LFTS Leukocytosis - Likely reactive - procalcitonin, blood cultures, and UA pending - Recheck with AM labs Hyponatremia-resolved - Recheck with AM labs History of hypothyroidism - Continue home synthroid - Ordered TSH GI/DVT Ppx: Protonix and Lovenox, renally dosed <Marshall Alfred - Last Filed: 05/26/17 13:03> CCU Objective - Vital Signs / Intake & Output Vital Signs (Last 4 hours): Vital Signs Temp Pulse Resp BP 05/26/17 12:00 98.5 F 72 20 05/26/17 10:27 92 H 104/71 05/26/17 10:23 104/71 Intake and Output (Last 8hrs): Intake & Output 05/25/17 05/26/17 05/26/17 22:59 06:59 14:59 Intake Total 560 0 Output Total 1050 4300 Balance -490 -4300 Weight 270 lb 8 oz Intake: IV 200 0 Left Forearm 200 0 Right Antecubital 0 Oral 360 0 Tube Feeding 0 TPN/PPN 0 Blood Product 0 Lipid 0 Albumin 0 Other 0 Output: Urine 1050 4300 Urethral (Hardy) 1050 4300 Stool 0 Urine/Stool Mix 0 Emesis 0 Oral Regurgitation 0 Other 0 Other: Voiding Method Urinal # Voids Urethral (Hardy) 0 # Bowel Movements 0 1 - Medications Active Medications: Active Medications Generic Name Dose Route Start Last Admin Trade Name Freq PRN Reason Stop Dose Admin Amiodarone HCl 200 mg 05/26/17 10:15 05/26/17 10:27 Cordarone PO 200 mg DAILY BEATRIZ Administration Aspirin 81 mg 05/26/17 10:00 05/26/17 09:39 Ecotrin PO 81 mg DAILY BEATRIZ Administration Furosemide 20 mg 05/26/17 18:00 Lasix IVP BID BEATRIZ Heparin Sodium/Sodium Chloride 25,000 units in 250 mls @ 14.724 mls/hr 10:15 05/26/17 10:40 Heparin 72491 Units/250ml 1/2 Normal Saline IV 12 units/kg/hr .[id number] BEATRIZ 14.724 mls/hr Protocol Administration 12 UNITS/KG/HR Levothyroxine Sodium 88 mcg 05/26/17 07:30 05/26/17 08:30 Synthroid PO 88 mcg 0730 BEATRIZ Administration Lisinopril 2.5 mg 05/26/17 10:00 05/26/17 10:23 Zestril PO Not Given DAILY BEATRIZ Pantoprazole Sodium 40 mg 05/26/17 10:00 05/26/17 09:40 Protonix Ec Tab PO 40 mg DAILY BEATRIZ Administration Spironolactone 25 mg 05/25/17 18:00 05/26/17 09:39 Aldactone PO 25 mg BID BEATRIZ Administration - Patient Studies Lab Studies: Lab Studies 05/26/17 05/26/17 05/26/17 Range/Units 10:30 06:25 06:25 WBC (4.5-11.0) 10^3/ul RBC (3.5-6.1) 10^6/uL Hgb (14.0-18.0) g/dL Hct (42.0-52.0) % MCV (80.0-105.0) fl MCH (25.0-35.0) pg MCHC (31.0-37.0) g/dl RDW (11.5-14.5) % Plt Count (120.0-450.0) 10^3/uL MPV (7.0-11.0) fl Gran % (50.0-68.0) % Lymph % (Auto) (22.0-35.0) % [place] % (Auto) (1.0-6.0) % Eos % (Auto) (1.5-5.0) % Baso % (Auto) (0.0-3.0) % Gran # (1.4-6.5) Lymph # (Auto) (1.2-3.4) [place] # (Auto) (0.1-0.6) Eos # (Auto) (0.0-0.7) Baso # (Auto) (0.0-2.0) K/mm3 Sodium (132-148) mmol/L Potassium (3.6-5.0) mmol/L Chloride (98-107) mmol/L Carbon Dioxide (21-33) mmol/L Anion Gap (10-20) BUN (7-21) mg/dL Creatinine (0.8-1.5) mg/dl Est GFR ( Amer) Est GFR (Non-Af Amer) Random Glucose (70-110) mg/dL Hemoglobin A1c 5.7 (4.2-6.5) % Calcium (8.4-10.5) mg/dL Phosphorus (2.5-4.5) mg/dL Magnesium (1.7-2.2) mg/dL Total Bilirubin (0.2-1.3) mg/dL AST (17-59) U/L ALT (7-56) U/L Alkaline Phosphatase (38-126) U/L Lactate Dehydrogenase (333-699) U/L Total Creatine Kinase (35-230) U/L Troponin I ng/mL Total Protein (5.8-8.3) g/dL Albumin (3.0-4.8) g/dL Globulin gm/dL Albumin/Globulin Ratio (1.1-1.8) Triglycerides (35-160) mg/dL Cholesterol (130-200) mg/dL LDL Cholesterol Direct (0-129) mg/dL HDL Cholesterol (29-60) mg/dL TSH 3rd Generation 0.87 (0.46-4.68) mIU/mL Urine Color Light yellow (YELLOW) Urine Appearance Clear (CLEAR) Urine pH 6.0 (4.7-8.0) Ur Specific [place] 1.010 (1.005-1.035) Urine Protein Negative (<30 mg/dL) mg/dL Urine Glucose (UA) Negative (NEGATIVE) mg/dL Urine Ketones Negative (NEGATIVE) mg/dL Urine Blood Moderate H (NEGATIVE) Urine Nitrate Negative (NEGATIVE) Urine Bilirubin Negative (NEGATIVE) Urine Urobilinogen 0.2 (<1 E.U./dL) E.U./dL Ur Leukocyte Esterase Trace H (NEGATIVE) Dalila/uL Urine RBC 25 - 30 (0-2) /hpf Urine WBC 2 - 5 (0-6) /hpf Ur Epithelial Cells None (0-5) /hpf Amorphous Sediment Few Urine Bacteria Mod (NEG) Urine Osmolality (300-1000) mosm/kg Ur Random Creatinine mg/dL Ur Random Sodium meq/L Ur Random Urea Nitrogn mg/dL 05/26/17 05/26/17 05/25/17 Range/Units 06:25 06:25 21:25 WBC 13.7 H (4.5-11.0) 10^3/ul RBC 4.62 (3.5-6.1) 10^6/uL Hgb 14.2 (14.0-18.0) g/dL Hct 40.7 L (42.0-52.0) % MCV 88.1 (80.0-105.0) fl MCH 30.7 (25.0-35.0) pg MCHC 34.9 (31.0-37.0) g/dl RDW 12.6 (11.5-14.5) % Plt Count 206 (120.0-450.0) 10^3/uL MPV 10.0 (7.0-11.0) fl Gran % 81.4 H (50.0-68.0) % Lymph % (Auto) 8.8 L (22.0-35.0) % [place] % (Auto) 9.6 H (1.0-6.0) % Eos % (Auto) 0.1 L (1.5-5.0) % Baso % (Auto) 0.1 (0.0-3.0) % Gran # 11.18 H (1.4-6.5) Lymph # (Auto) 1.2 (1.2-3.4) [place] # (Auto) 1.3 H (0.1-0.6) Eos # (Auto) 0.0 (0.0-0.7) Baso # (Auto) 0.01 (0.0-2.0) K/mm3 Sodium 135 131 L (132-148) mmol/L Potassium 3.8 4.1 (3.6-5.0) mmol/L Chloride 93 L 92 L (98-107) mmol/L Carbon Dioxide 31 28 (21-33) mmol/L Anion Gap 15 16 (10-20) BUN 92 H 99 H (7-21) mg/dL Creatinine 1.9 H 2.4 H (0.8-1.5) mg/dl Est GFR ( Amer) 45 34 Est GFR (Non-Af Amer) 37 28 Random Glucose 107 87 (70-110) mg/dL Hemoglobin A1c (4.2-6.5) % Calcium 9.2 8.9 (8.4-10.5) mg/dL Phosphorus 4.1 (2.5-4.5) mg/dL Magnesium 2.8 H 3.2 H (1.7-2.2) mg/dL Total Bilirubin 1.4 H (0.2-1.3) mg/dL AST 84 H (17-59) U/L ALT 273 H (7-56) U/L Alkaline Phosphatase 143 H (38-126) U/L Lactate Dehydrogenase 623 586 (333-699) U/L Total Creatine Kinase 88 138 (35-230) U/L Troponin I 1.47 H* D 3.24 H* ng/mL Total Protein 6.7 (5.8-8.3) g/dL Albumin 3.8 (3.0-4.8) g/dL Globulin 3.0 gm/dL Albumin/Globulin Ratio 1.3 (1.1-1.8) Triglycerides 59 (35-160) mg/dL Cholesterol 73 L (130-200) mg/dL LDL Cholesterol Direct 35 (0-129) mg/dL HDL Cholesterol 33 (29-60) mg/dL TSH 3rd Generation (0.46-4.68) mIU/mL Urine Color (YELLOW) Urine Appearance (CLEAR) Urine pH (4.7-8.0) Ur Specific [place] (1.005-1.035) Urine Protein (<30 mg/dL) mg/dL Urine Glucose (UA) (NEGATIVE) mg/dL Urine Ketones (NEGATIVE) mg/dL Urine Blood (NEGATIVE) Urine Nitrate (NEGATIVE) Urine Bilirubin (NEGATIVE) Urine Urobilinogen (<1 E.U./dL) E.U./dL Ur Leukocyte Esterase (NEGATIVE) [place]/uL Urine RBC (0-2) /hpf Urine WBC (0-6) /hpf Ur Epithelial Cells (0-5) /hpf Amorphous Sediment Urine Bacteria (NEG) Urine Osmolality (300-1000) mosm/kg Ur Random Creatinine mg/dL Ur Random Sodium meq/L Ur Random Urea Nitrogn mg/dL 05/25/17 05/25/17 05/25/17 Range/Units 18:11 18:11 16:44 WBC (4.5-11.0) 10^3/ul RBC (3.5-6.1) 10^6/uL Hgb (14.0-18.0) g/dL Hct (42.0-52.0) % MCV (80.0-105.0) fl MCH (25.0-35.0) pg MCHC (31.0-37.0) g/dl RDW (11.5-14.5) % Plt Count (120.0-450.0) 10^3/uL MPV (7.0-11.0) fl Gran % (50.0-68.0) % Lymph % (Auto) (22.0-35.0) % [place] % (Auto) (1.0-6.0) % Eos % (Auto) (1.5-5.0) % Baso % (Auto) (0.0-3.0) % Gran # (1.4-6.5) Lymph # (Auto) (1.2-3.4) [place] # (Auto) (0.1-0.6) Eos # (Auto) (0.0-0.7) Baso # (Auto) (0.0-2.0) K/mm3 Sodium (132-148) mmol/L Potassium (3.6-5.0) mmol/L Chloride (98-107) mmol/L Carbon Dioxide (21-33) mmol/L Anion Gap (10-20) BUN (7-21) mg/dL Creatinine (0.8-1.5) mg/dl Est GFR ( Amer) Est GFR (Non-Af Amer) Random Glucose (70-110) mg/dL Hemoglobin A1c (4.2-6.5) % Calcium (8.4-10.5) mg/dL Phosphorus (2.5-4.5) mg/dL Magnesium (1.7-2.2) mg/dL Total Bilirubin (0.2-1.3) mg/dL AST (17-59) U/L ALT (7-56) U/L Alkaline Phosphatase (38-126) U/L Lactate Dehydrogenase (333-699) U/L Total Creatine Kinase (35-230) U/L Troponin I 3.78 H* D ng/mL Total Protein (5.8-8.3) g/dL Albumin (3.0-4.8) g/dL Globulin gm/dL Albumin/Globulin Ratio (1.1-1.8) Triglycerides (35-160) mg/dL Cholesterol (130-200) mg/dL LDL Cholesterol Direct (0-129) mg/dL HDL Cholesterol (29-60) mg/dL TSH 3rd Generation (0.46-4.68) mIU/mL Urine Color (YELLOW) Urine Appearance (CLEAR) Urine pH (4.7-8.0) Ur Specific [place] (1.005-1.035) Urine Protein (<30 mg/dL) mg/dL Urine Glucose (UA) (NEGATIVE) mg/dL Urine Ketones (NEGATIVE) mg/dL Urine Blood (NEGATIVE) Urine Nitrate (NEGATIVE) Urine Bilirubin (NEGATIVE) Urine Urobilinogen (<1 E.U./dL) E.U./dL Ur Leukocyte Esterase (NEGATIVE) [place]/uL Urine RBC (0-2) /hpf Urine WBC (0-6) /hpf Ur Epithelial Cells (0-5) /hpf Amorphous Sediment Urine Bacteria (NEG) Urine Osmolality 369 (300-1000) mosm/kg Ur Random Creatinine 69 mg/dL Ur Random Sodium 44 meq/L Ur Random Urea Nitrogn 521 mg/dL Laboratory Results - last 24 hr 05/25/17 05/25/17 05/25/17 16:44 18:11 18:11 WBC RBC Hgb Hct MCV MCH MCHC RDW Plt Count MPV Gran % Lymph % (Auto) [place] % (Auto) Eos % (Auto) Baso % (Auto) Gran # Lymph # (Auto) [place] # (Auto) Eos # (Auto) Baso # (Auto) Sodium Potassium Chloride Carbon Dioxide Anion Gap BUN Creatinine Est GFR ( Amer) Est GFR (Non-Af Amer) Random Glucose Hemoglobin A1c Calcium Phosphorus Magnesium Total Bilirubin AST ALT Alkaline Phosphatase Lactate Dehydrogenase Total Creatine Kinase Troponin I 3.78 H* D Total Protein Albumin Globulin Albumin/Globulin Ratio Triglycerides Cholesterol LDL Cholesterol Direct HDL Cholesterol TSH 3rd Generation Urine Color Urine Appearance Urine pH Ur Specific [place] Urine Protein Urine Glucose (UA) Urine Ketones Urine Blood Urine Nitrate Urine Bilirubin Urine Urobilinogen Ur Leukocyte Esterase Urine RBC Urine WBC Ur Epithelial Cells Amorphous Sediment Urine Bacteria Urine Osmolality 369 Ur Random Creatinine 69 Ur Random Sodium 44 Ur Random Urea Nitrogn 521 05/25/17 05/26/17 05/26/17 21:25 06:25 06:25 WBC 13.7 H RBC 4.62 Hgb 14.2 Hct 40.7 L MCV 88.1 MCH 30.7 MCHC 34.9 RDW 12.6 Plt Count 206 MPV 10.0 Gran % 81.4 H Lymph % (Auto) 8.8 L [place] % (Auto) 9.6 H Eos % (Auto) 0.1 L Baso % (Auto) 0.1 Gran # 11.18 H Lymph # (Auto) 1.2 [place] # (Auto) 1.3 H Eos # (Auto) 0.0 Baso # (Auto) 0.01 Sodium 131 L 135 Potassium 4.1 3.8 Chloride 92 L 93 L Carbon Dioxide 28 31 Anion Gap 16 15 BUN 99 H 92 H Creatinine 2.4 H 1.9 H Est GFR ( Amer) 34 45 Est GFR (Non-Af Amer) 28 37 Random Glucose 87 107 Hemoglobin A1c Calcium 8.9 9.2 Phosphorus 4.1 Magnesium 3.2 H 2.8 H Total Bilirubin 1.4 H AST 84 H ALT 273 H Alkaline Phosphatase 143 H Lactate Dehydrogenase 586 623 Total Creatine Kinase 138 88 Troponin I 3.24 H* 1.47 H* D Total Protein 6.7 Albumin 3.8 Globulin 3.0 Albumin/Globulin Ratio 1.3 Triglycerides 59 Cholesterol 73 L LDL Cholesterol Direct 35 HDL Cholesterol 33 TSH 3rd Generation Urine Color Urine Appearance Urine pH Ur Specific [place] Urine Protein Urine Glucose (UA) Urine Ketones Urine Blood Urine Nitrate Urine Bilirubin Urine Urobilinogen Ur Leukocyte Esterase Urine RBC Urine WBC Ur Epithelial Cells Amorphous Sediment Urine Bacteria Urine Osmolality Ur Random Creatinine Ur Random Sodium Ur Random Urea Nitrogn 03/21/18 03/21/18 03/21/18 06:25 06:25 10:30 WBC RBC Hgb Hct MCV MCH MCHC RDW Plt Count MPV Gran % Lymph % (Auto) [place] % (Auto) Eos % (Auto) Baso % (Auto) Gran # Lymph # (Auto) [place] # (Auto) Eos # (Auto) Baso # (Auto) Sodium Potassium Chloride Carbon Dioxide Anion Gap BUN Creatinine Est GFR ( Amer) Est GFR (Non-Af Amer) Random Glucose Hemoglobin A1c 5.7 Calcium Phosphorus Magnesium Total Bilirubin AST ALT Alkaline Phosphatase Lactate Dehydrogenase Total Creatine Kinase Troponin I Total Protein Albumin Globulin Albumin/Globulin Ratio Triglycerides Cholesterol LDL Cholesterol Direct HDL Cholesterol TSH 3rd Generation 0.87 Urine Color Light yellow Urine Appearance Clear Urine pH 6.0 Ur Specific [place] 1.010 Urine Protein Negative Urine Glucose (UA) Negative Urine Ketones Negative Urine Blood Moderate H Urine Nitrate Negative Urine Bilirubin Negative Urine Urobilinogen 0.2 Ur Leukocyte Esterase Trace H Urine RBC 25 - 30 Urine WBC 2 - 5 Ur Epithelial Cells None Amorphous Sediment Few Urine Bacteria Mod Urine Osmolality Ur Random Creatinine Ur Random Sodium Ur Random Urea Nitrogn EKG/Cardiology Studies: Cardiology / EKG Studies 05/26/17 EKG [ELECTROCARDIOGRAM] Urgent Comment: Reason For Exam: arrythmia 05/26/17 08:18 EKG [ELECTROCARDIOGRAM] Urgent Comment: Reason For Exam: arrythmia Critical Care Progress Note - Nutrition Nutrition: Nutrition Category Date Time Status Heart Healthy Diet [DIET] Diets 05/25/17 Dinner Ordered Attending/Attestation - Attestation I have personally seen and examined this patient.: Yes I have fully participated in the care of the patient.: Yes I have reviewed all pertinent clinical information: Yes Notes (Text): 05/26/17 13:03 The patient was seen and examined at the bedside. Patient care was discussed with resident and ICU team in MDR rounds. Medical records, lab studies, and imaging were reviewed and management issues were discussed and formulated. Last 24H events reviewed. Agree with above treatment plans as outlined in 's note CCM f\u 25min
[2017-05-26] MEDS: Heparin25000 units/250ml 1/2NS 25,000 UNITS/250 ML BAG IV SCH ×2 (10:40→23:32)
[2017-05-26 10:41] LABS: URINE BILIRUBIN NEGATIVE (NEGATIVE); URINE BLOOD MODERATE (NEGATIVE); URINE GLUCOSE (UA) NEGATIVE (NEGATIVE); URINE LEUKOCYTE ESTERASE TRACE Leu/uL (NEGATIVE); URINE PROTEIN NEGATIVE mg/dL (<30 mg/dL); URINE UROBILINOGEN 0.2 E.U./dL (<1 E.U./dL)
[2017-05-26 10:45] LABS: URINE APPEARANCE CLEAR (CLEAR); URINE COLOR LIGHT YELLOW (YELLOW)
[2017-05-26 10:54] LABS: URINE BACTERIA MOD (NEG); URINE RBC 25 - 30 /hpf (0-2)
[2017-05-26 10:55] LABS: URINE AMORPHOUS SEDIMENT FEW
--- NOTE | 2017-05-26 11:12 | CARD ---
APPROVED REPORT EKG Measurement Heart [id number] <Conclusion> Atrial fibrillation Left axis deviation Nonspecific intraventricular block T wave abnormality, consider inferior ischemia or digitalis effect Abnormal ECG
[2017-05-26 11:51] LABS: OSMOLALITY,URINE 369 mosm/kg (300-1000)
--- NOTE | 2017-05-26 11:51 | CARD ---
APPROVED REPORT EKG Measurement Heart [id number] <Conclusion> Atrial fibrillation with slow ventricular response with premature ventricular or aberrantly conducted complexes Left axis deviation Nonspecific intraventricular block Cannot rule out Septal infarct, age undetermined-Correlate Clinically. Marked T wave abnormality, consider inferolateral ischemia Abnormal ECG
--- NOTE | 2017-05-26 16:27 | PN ---
DATE: 05/26/2017 REASON FOR CONSULTATION: Followup status post wide-complex tachycardia status post V-fib, cardioverted; cardiomyopathy, nonischemic. SUBJECTIVE: The patient denies any chest pain, shortness of breath, any palpitation. OBJECTIVE: GENERAL: Not in any apparent distress. VITAL SIGNS: Temperature afebrile, heart rate 89, blood pressure 113/72. HEENT: PERRLA. Extraocular muscles intact. NECK: Supple. No carotid bruit. No thyromegaly. CHEST: Clear to auscultation. HEART: S1 and S2 regular. ABDOMEN: Soft. EXTREMITIES: Clubbing and cyanosis negative. LABORATORY DATA: Blood workup as follows; WBC 13.7, hemoglobin 14.8, hematocrit 40.7, platelet count 206. Chemistry shows sodium 135, potassium 3.8, chloride 93, carbon dioxide , anion gap of 15, BUN 19, creatinine 1.9. Creatinine clearance 37 mL an hour. Troponin 1.47. IMPRESSION: Acute kidney injury on chronic renal insufficiency, nonischemic cardiomyopathy, status post cardiac catheterization in 2012, normal coronaries. Positive troponin secondary to cardioversion as well as renal insufficiency. Creatinine clearance 20 mL an hour. Now, the patient is in atrial fibrillation. RECOMMENDATION: We will get echo to assess the LV function. EKG: Continue amiodarone, cut down to 200 mg daily because LFT is going up and monitor function. Low-dose carvedilol as blood pressure is tolerated. Not on NETTA inhibitors because of the renal insufficiency. Continue gentle hydration. Continue IV fluid. If remain renal function stable, we will start low-dose of NETTA inhibitors. We will try to get in the touch with Dr. Moura at [phone]. The patient needs defibrillator. Eventually, we will follow with you. Thank you, Dr. Werner, for providing us the opportunity in taking care of the patient, Brandin Parsons. Lenny Osorio MD
[2017-05-26 19:41] LABS: CALCIUM 9.3 mg/dL (8.4-10.5)
--- NOTE | 2017-05-26 22:57 | CARD ---
APPROVED REPORT EXAM: Two-dimensional and M-mode echocardiogram with Doppler and color Doppler. INDICATION CMP, S/P V FIB 2D DIMENSIONS Left Atrium (2D)6.1 (1.6-4.0cm)IVSd1.0 (0.7-1.1cm) LVDd5.6 (3.9-5.9cm)PWd1.1 (0.7-1.1cm) LVDs4.8 (2.5-4.0cm)FS (%) 15.6 % LVEF (%)32.7 (>50%) M-Mode DIMENSIONS Aortic Root3.10 (2.2-3.7cm)Aortic Cusp Exc.2.20 (1.5-2.0cm) Aortic Valve AoV Peak Hvzdbzin044.0cm/Marcus Peak GR.5mmHg Mitral Valve MV E Dhbbovyn14.3cm/sMV A Adjepwqd73.0cm/sE/A ratio2.0 TDI Lateral E' Peak V11.90cm/sE/Lateral E'8.3E/Medial E'0.0 Pulmonary Valve PV Peak Wreaedxc50.3cm/sPV Peak Grad.1mmHg Tricuspid Valve TR Peak Pkumruzm744jv/sRAP WANSYIJN17aiEaFZ Peak Gr.40mmHg SOBG02bhKd LEFT VENTRICLE The left ventricle is normal size. There is normal left ventricular wall thickness. The systolic function is moderately to severely impaired.EF-20-25% There is global hypokinesis of the left ventricle. A fib No left ventricle thrombus noted on this study. There is no ventricular septal defect visualized. There is no left ventricular aneurysm. There is no mass noted in the left ventricle. RIGHT VENTRICLE The right ventricle is mildly to moderately dilated. There is normal right ventricular wall thickness. Systolic function is mildly to moderately reduced. ATRIA The left atrium is moderately dilated. The right atrium is mildly dilated. The interatrial septum is intact with no evidence for an atrial septal defect. AORTIC VALVE The aortic valve is thickened but opens well. No aortic regurgitation is present. There is no aortic valvular stenosis. There is no aortic valvular vegetation. MITRAL VALVE The mitral valve is thickened but opens well. Mitral regurgitation is moderate. There is no mitral valve stenosis. There is no evidence of mitral valve prolapse. TRICUSPID VALVE The tricuspid valve leaflets are thickened , but open well. There is moderate tricuspid regurgitation.RVSP-50 mmof hg There is mild pulmonary hypertension. There is no tricuspid valve stenosis. There is no tricuspid valve prolapse or vegetation. PULMONIC VALVE The pulmonic valve is not well visualized. GREAT VESSELS The aortic root is normal in size. The ascending aorta is normal in size. The pulmonary artery is normal. The IVC is dilated. PERICARDIAL EFFUSION There is no pleural effusion. There is no pericardial effusion. <Conclusion> Four chamber dilatation, C/w CMP, Ef-20-25% Moderate MR/TR. RVSP-50 mmof Hg. no vegetattion or thrombus noted.
[2017-05-27 03:02] LABS: CREATININE,RANDOM URINE 28 mg/dL; TOTAL PROTEIN,RANDOM URINE 11 mg/L
[2017-05-27] MEDS: Heparin25000 units/250ml 1/2NS 25,000 UNITS/250 ML BAG IV SCH ×2 (03:21→20:32)
--- NOTE | 2017-05-27 04:52 | CP.PCM.PN ---
Subjective - Date & Time of Evaluation Date of Evaluation: 05/26/17 Time of Evaluation: 10:00 - Subjective Subjective: Patient denies any shortness of breath, chest pain or palpitations; responding well to diuretics; Objective - Vital Signs/Intake and Output Vital Signs (last 24 hours): Temp Pulse Resp BP Pulse Ox 98.9 F 96 H 20 122/70 100 05/27/17 00:01 05/27/17 02:00 05/27/17 00:01 05/27/17 00:01 05/27/17 00:01 Intake and Output: 05/26/17 05/27/17 18:59 06:59 Intake Total 1300 890 Output Total 2450 600 Balance -1150 290 - Medications Medications: Current Medications Amiodarone HCl (Cordarone) 200 mg PO DAILY [facility] Last Admin: 05/26/17 10:27 Dose: 200 mg Aspirin (Ecotrin) 81 mg PO DAILY [facility] Last Admin: 05/26/17 09:39 Dose: 81 mg Furosemide (Lasix) 20 mg IVP Q8H [facility] Last Admin: 05/26/17 23:38 Dose: 20 mg Heparin Sodium/Sodium Chloride (Heparin 50935 Units/250ml 1/2 Normal Saline) 25 ,000 units in 250 mls @ 14.724 mls/hr IV .[id number] [facility]; 12 UNITS/KG/HR PRN Reason: Protocol Last Admin: 05/27/17 03:21 Dose: Not Given Levothyroxine Sodium (Synthroid) 88 mcg PO 0730 [facility] Last Admin: 05/26/17 08:30 Dose: 88 mcg Lisinopril (Zestril) 2.5 mg PO DAILY [facility] Last Admin: 05/26/17 10:23 Dose: Not Given Pantoprazole Sodium (Protonix Ec Tab) 40 mg PO DAILY [facility] Last Admin: 05/26/17 09:40 Dose: 40 mg Spironolactone (Aldactone) 25 mg PO BID [facility] Last Admin: 05/26/17 17:25 Dose: 25 mg - Labs Labs: 05/26/17 06:25 05/26/17 19:27 PT 14.7 SECONDS (9.4-12.5) H 05/25/17 10:10 INR 1.27 (0.93-1.08) H 05/25/17 10:10 APTT 113.6 Seconds (25.1-36.5) H* 05/27/17 01:35 - Constitutional Appears: Well, No Acute Distress - Eye Exam Eye Exam: absent: Scleral icterus - ENT Exam ENT Exam: Mucous Membranes Moist - Respiratory Exam Respiratory Exam: Clear to Ausculation Bilateral. absent: Rales, Respiratory Distress - Cardiovascular Exam Cardiovascular Exam: Tachycardia, +S1, +S2 - GI/Abdominal Exam GI & Abdominal Exam: Soft. absent: Distended, Tenderness - Exam Additional comments: guillen in place - Extremities Exam Additional comments: trace leg edema; - Neurological Exam Neurological Exam: Alert, Awake - Psychiatric Exam Psychiatric exam: Normal Affect, Normal Mood. absent: Agitated - Skin Skin Exam: Warm. 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 (can expect some increase in serum creatiniine) -daily standing weights; I/O; Status: Acute (2) Acute renal insufficiency Assessment & Plan: No proteinuria on UA (still awaiting quantitative value), consistent with cardiorenal etiology of HUNTER; improving with volume removal via diuretics; repeat labs this evening showing BUN also decreasing; goal is to have gradual but continuous diuresis; -diuretic changes as above -avoid nephrotoxic agents -if cardiac cath deemed necessary due to NSTEMI, should wait till serum creatinine stabilizes Status: Acute (3) Hypermagnesemia Assessment & Plan: Improving, continue to hold mag supplementation and monitor dailiy; Status: Acute (4) NSTEMI (non-ST elevated myocardial infarction) Assessment & Plan: see above Status: Acute (5) Ventricular tachycardia Status: Acute (6) Transaminitis Assessment & Plan: Likely related to volume overload, continue diuresis as above; Status: Acute
[2017-05-27 07:15] LABS: BASO # 0.01 K/mm3 (0.0-2.0); BASO % 0.1 % (0.0-3.0); EOS # 0.1 (0.0-0.7); EOS % 0.9 % (1.5-5.0); GRAN # 6.67 (1.4-6.5); LYMPH # 3.2 (1.2-3.4); LYMPH % 26.5 % (22.0-35.0); MEAN CELL VOLUME 89.1 fl (80.0-105.0); MEAN CORPUSCULAR HEMOGLOBIN 30.9 pg (25.0-35.0); MEAN CORPUSCULAR HGB CONC 34.7 g/dl (31.0-37.0); MEAN PLATELET VOLUME 9.6 fl (7.0-11.0); MONO % 16.5 % (1.0-6.0); RBC 4.85 10^6/uL (3.5-6.1); RED CELL DISTRIBUTION WIDTH 13.2 % (11.5-14.5); WHITE BLOOD COUNT 11.9 10^3/ul (4.5-11.0)
[2017-05-27 07:45] LABS: ALB/GLOB RATIO 1.2 (1.1-1.8); ALBUMIN 3.6 g/dL (3.0-4.8); ALT/SGPT 235 U/L (7-56); AST/SGOT 61 U/L (17-59); BLOOD UREA NITROGEN 59 mg/dL (7-21); CALCIUM 8.8 mg/dL (8.4-10.5); GFR AFRICAN-AMERICAN > 60; GFR NON-AFRICAN AMERICAN 53
[2017-05-27] MEDS: Levothyroxine 88 MCG TAB PO SCH (08:42)
[2017-05-27] MEDS: Pantoprazole 40 mg EC Tab PO SCH (11:10)
--- NOTE | 2017-05-27 11:17 | CP.PCM.PN ---
<Lia Cardenas - Last Filed: 05/27/17 10:38> Subjective - Date & Time of Evaluation Date of Evaluation: 05/27/17 Time of Evaluation: 07:30 - Subjective Subjective: Lia Cardenas DO PGY1 - IM Progress Note Patient seen and examined at bedside. Patient denies chest pain or shortness of breath, and is no longer complaining of abdominal pain. Patient's heart rate was controlled. Denies any palpitations overnight. Denies fever, chills, nausea , vomiting, diarrhea, constipation. Patient is agreeable to starting anticoagulation, and is considering AICD placement, would like to discuss with his . Objective - Vital Signs/Intake and Output Vital Signs (last 24 hours): Temp Pulse Resp BP Pulse Ox 97.8 F 88 20 117/82 96 05/27/17 06:00 05/27/17 06:00 05/27/17 06:00 05/27/17 08:41 05/27/17 06:00 Intake and Output: 05/27/17 05/27/17 06:59 18:59 Intake Total 1160 Output Total 2300 Balance -1140 - Medications Medications: Current Medications Amiodarone HCl (Cordarone) 200 mg PO DAILY [facility] Last Admin: 05/26/17 10:27 Dose: 200 mg Aspirin (Ecotrin) 81 mg PO DAILY [facility] Last Admin: 05/26/17 09:39 Dose: 81 mg Furosemide (Lasix) 20 mg IVP Q8H [facility] Last Admin: 05/27/17 08:41 Dose: 20 mg Heparin Sodium/Sodium Chloride (Heparin 18201 Units/250ml 1/2 Normal Saline) 25 ,000 units in 250 mls @ 14.724 mls/hr IV .[id number] [facility]; 12 UNITS/KG/HR PRN Reason: Protocol Last Admin: 05/27/17 03:21 Dose: Not Given Levothyroxine Sodium (Synthroid) 88 mcg PO 0730 [facility] Last Admin: 05/27/17 08:42 Dose: 88 mcg Lisinopril (Zestril) 2.5 mg PO DAILY [facility] Last Admin: 05/26/17 10:23 Dose: Not Given Pantoprazole Sodium (Protonix Ec Tab) 40 mg PO DAILY [facility] Last Admin: 05/26/17 09:40 Dose: 40 mg Spironolactone (Aldactone) 25 mg PO BID [facility] Last Admin: 05/26/17 17:25 Dose: 25 mg Warfarin Sodium (Coumadin) 5 mg PO 1800 [facility] PRN Reason: Protocol - Labs Labs: 05/27/17 06:20 05/27/17 06:20 PT 14.7 SECONDS (9.4-12.5) H 05/25/17 10:10 INR 1.27 (0.93-1.08) H 05/25/17 10:10 APTT 73.0 Seconds (25.1-36.5) H 05/27/17 09:20 - Additional Findings Additional findings: - Constitutional Appears: Non-toxic, No Acute Distress - Head Exam Head Exam: ATRAUMATIC, NORMOCEPHALIC - Eye Exam Eye Exam: EOMI, Normal appearance, PERRL - ENT Exam ENT Exam: Mucous Membranes Moist - Neck Exam Neck Exam: Normal Inspection - Respiratory Exam Respiratory Exam: Clear to Ausculation Bilateral, NORMAL BREATHING PATTERN - Cardiovascular Exam Cardiovascular Exam: Irregular Rhythm, +S1, +S2 - GI/Abdominal Exam GI & Abdominal Exam: Soft, Normal Bowel Sounds. 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% noted on cardiac cath in 2013 presents complaining of fatigue, chest pain, dyspnea, abdominal pain, now s/p cardioversion for vtach; on heparin drip for new onset atrial fibrillation and possible NSTEMI Acute CHF exacerbation, with elevated troponins - Elevated troponins indicate possible NSTEMI, more likely 2/2 cardioversion - Continue heparin drip; Start coumadin 5mg PO; bridging to therapeutic INR - Initial EKG shows hyperacute T-wave inversions in leads II, III, and aVF; repeat EKG atrial fibrillation, T wave inversions improved - Echo shows four chamber dilation, EF 20-25%, moderate MR/TR, RVSP 50, no thrombus - Patient will require assessment for AICD placement - Lasix 20mg IV Q8, per nephro - Patient diuresing well, I/O -2300 - Strict I&O; HOB > 30; daily weight - Continue BB, ASA; Resume aldactone ACEi/ARB; hold statin, as below Ventricular tachycardia s/p cardioversion - Patient in telemetry for monitoring; no further episodes of bradycardia on monitor - Continue amiodarone 200mg PO daily per cardio - Continue low dose BB; continue to monitor Acute renal failure - Improving; Likely 2/2 hypoperfusion 2/2 CHF vs ischemia 2/2 transient hypotension - Resume ACEi/ARB; continue aldactone - Renally dose medications - Requested nephro consult; appreciate recs Atrial fibrillation - New onset atrial fibrillation noted on initial and repeat EKG - HR on exam irregular and unstable, ranging 60's-100's - Continue heparin drip for bridging; start coumadin 5mg daily with daily INR check Transaminemia - Improving; Likely 2/2 congestion 2/2 CHF vs ischemia 2/2 transient hypotension - Avoid hepatotoxic medications; hold statin - Recheck with AM labs Leukocytosis - Improving; Likely reactive - Ordered procalcitonin; blood cultures negative - Recheck with AM labs History of hypothyroidism - Continue home synthroid - TSH wnl GI/DVT Ppx: Protonix and heparin drip Case discussed and plan reviewed with attending, Dr. Werner <Lenny Werner - Last Filed: 05/27/17 16:31> Objective - Vital Signs/Intake and Output Vital Signs (last 24 hours): Temp Pulse Resp BP Pulse Ox 97.8 F 63 16 118/73 96 05/27/17 11:36 05/27/17 11:36 05/27/17 11:36 05/27/17 13:44 05/27/17 06:00 Intake and Output: 05/27/17 05/27/17 06:59 18:59 Intake Total 1160 300 Output Total 2300 400 Balance -1140 -100 - Medications Medications: Current Medications Amiodarone HCl (Cordarone) 200 mg PO DAILY [facility] Last Admin: 05/27/17 11:10 Dose: 200 mg Aspirin (Ecotrin) 81 mg PO DAILY [facility] Last Admin: 05/27/17 11:11 Dose: 81 mg Carvedilol (Coreg) 3.125 mg PO BID [facility] Furosemide (Lasix) 20 mg PO Q8H [facility] Last Admin: 05/27/17 13:44 Dose: 20 mg Heparin Sodium/Sodium Chloride (Heparin 38779 Units/250ml 1/2 Normal Saline) 25 ,000 units in 250 mls @ 14.724 mls/hr IV .[id number] [facility]; 12 UNITS/KG/HR PRN Reason: Protocol Last Admin: 05/27/17 03:21 Dose: Not Given Levothyroxine Sodium (Synthroid) 88 mcg PO 0730 [facility] Last Admin: 05/27/17 08:42 Dose: 88 mcg Lisinopril (Zestril) 2.5 mg PO DAILY [facility] Last Admin: 05/27/17 11:08 Dose: 2.5 mg Pantoprazole Sodium (Protonix Ec Tab) 40 mg PO DAILY [facility] Last Admin: 05/27/17 11:10 Dose: 40 mg Spironolactone (Aldactone) 25 mg PO BID [facility] Last Admin: 05/27/17 11:11 Dose: 25 mg Warfarin Sodium (Coumadin) 5 mg PO 1800 [facility] PRN Reason: Protocol Warfarin Sodium (Coumadin) 7.5 mg PO 1800 [facility] PRN Reason: Protocol Stop: 05/28/17 23:59 - Labs Labs: 05/27/17 06:20 05/27/17 06:20 PT 14.7 SECONDS (9.4-12.5) H 05/25/17 10:10 INR 1.27 (0.93-1.08) H 05/25/17 10:10 APTT 73.0 Seconds (25.1-36.5) H 05/27/17 09:20 Attending/Attestation - Attestation I have personally seen and examined this patient.: Yes I have fully participated in the care of the patient.: Yes I have reviewed all pertinent clinical information, including history, physical exam and plan: Yes Notes (Text): 05/27/17 16:29 Medical record note made by the resident after discussion with my direction and input after the patient was personally seen and examined by me. I have reviewed the chart and agree that the record accurately reflects by personal performance of the history, physical exam, data review, and medical decision-making, in the course for the patient. I have also personally directed the plan of care. 56 yrs old male with PMH Nonischemic dilated cardiomyopathy with LVEF 15-20% noted on cardiac cath in 2013 is admitted with episode of VT ,SP cardioversion in the field , patient is also found to have acute on chronic systolic CHF exacerbation, acute renal failure likely due to CHF , new AF and elevated LFT.Patient dyspnea is improving.Renal functions are getting better.LFT are improving.We will start patient on Warfarin for longterm anticoagulation. Management plan was discussed in detail with patient. Education was provided.
--- NOTE | 2017-05-27 15:53 | CARD ---
APPROVED REPORT EKG Measurement Heart [id number] [place] [id number] <Conclusion> Normal sinus rhythm Left axis deviation ILBB Abnormal ECG
--- NOTE | 2017-05-27 20:46 | CP.PCM.PN ---
Subjective - Date & Time of Evaluation Date of Evaluation: 05/27/17 Time of Evaluation: 11:00 - Subjective Subjective: Patient reports feeling well; no shortness of breath; tolerating diet; Objective - Vital Signs/Intake and Output Vital Signs (last 24 hours): Temp Pulse Resp BP Pulse Ox 97.8 F 92 H 18 107/68 97 05/27/17 18:00 05/27/17 18:00 05/27/17 18:00 05/27/17 18:00 05/27/17 18:00 Intake and Output: 05/27/17 05/28/17 18:59 06:59 Intake Total 300 Output Total 400 Balance -100 - Medications Medications: Current Medications Amiodarone HCl (Cordarone) 200 mg PO DAILY [facility] Last Admin: 05/27/17 11:10 Dose: 200 mg Aspirin (Ecotrin) 81 mg PO DAILY [facility] Last Admin: 05/27/17 11:11 Dose: 81 mg Carvedilol (Coreg) 3.125 mg PO BID [facility] Last Admin: 05/27/17 17:19 Dose: 3.125 mg Furosemide (Lasix) 20 mg PO Q8H [facility] Last Admin: 05/27/17 13:44 Dose: 20 mg Heparin Sodium/Sodium Chloride (Heparin 44466 Units/250ml 1/2 Normal Saline) 25 ,000 units in 250 mls @ 14.724 mls/hr IV .[id number] [facility]; 12 UNITS/KG/HR PRN Reason: Protocol Last Admin: 05/27/17 20:32 Dose: Not Given Levothyroxine Sodium (Synthroid) 88 mcg PO 0730 [facility] Last Admin: 05/27/17 08:42 Dose: 88 mcg Lisinopril (Zestril) 2.5 mg PO DAILY [facility] Last Admin: 05/27/17 11:08 Dose: 2.5 mg Pantoprazole Sodium (Protonix Ec Tab) 40 mg PO DAILY [facility] Last Admin: 05/27/17 11:10 Dose: 40 mg Spironolactone (Aldactone) 25 mg PO BID [facility] Last Admin: 05/27/17 17:21 Dose: 25 mg Warfarin Sodium (Coumadin) 5 mg PO 1800 [facility] PRN Reason: Protocol Warfarin Sodium (Coumadin) 7.5 mg PO 1800 [facility] PRN Reason: Protocol Stop: 05/28/17 23:59 Last Admin: 05/27/17 17:19 Dose: 7.5 mg - Labs Labs: 05/27/17 06:20 05/27/17 06:20 PT 14.7 SECONDS (9.4-12.5) H 05/25/17 10:10 INR 1.27 (0.93-1.08) H 05/25/17 10:10 APTT 59.1 Seconds (25.1-36.5) H 05/27/17 16:15 - Constitutional Appears: Non-toxic, No Acute Distress - Eye Exam Eye Exam: absent: Scleral icterus - ENT Exam ENT Exam: Mucous Membranes Moist - Respiratory Exam Respiratory Exam: Clear to Ausculation Bilateral. absent: Respiratory Distress - Cardiovascular Exam Cardiovascular Exam: Irregular Rhythm, +S1, +S2 - GI/Abdominal Exam GI & Abdominal Exam: Soft. absent: Distended, Tenderness - Extremities Exam Additional comments: minimal lower leg edema; - Neurological Exam Neurological Exam: Alert, Awake - Psychiatric Exam Psychiatric exam: Normal Affect, Normal Mood. absent: Agitated - Skin Skin Exam: Warm. absent: Cyanosis Assessment and Plan (1) Congestive heart failure Assessment & Plan: Acute severely decompensated systolic CHF, improving, responding well to diuretics; switching to PO lasix 20 mg q8h; continue aldactone 25 mg bid; goal is to achieve net neg 1-1.5L daily; Status: Acute (2) Acute renal insufficiency Assessment & Plan: Cardiorenal etiology, improving with diuresis; continue as above; Status: Acute (3) Hypermagnesemia Status: Acute (4) NSTEMI (non-ST elevated myocardial infarction) Assessment & Plan: Troponin trending downward; should continue to optimize volume status/renal function with diuretics as above before considering cath; Status: Acute (5) Ventricular tachycardia Status: Acute (6) Transaminitis Status: Acute (7) Metabolic alkalosis Assessment & Plan: Due to being on loop diuretics, relatively stable, being countered with aldactone, should improve with switching to PO lasix; Status: Acute
--- NOTE | 2017-05-27 21:17 | PN ---
DATE: REASON FOR CONSULTATION: Followup status post wide-complex tachycardia, status post cardioverted; cardiomyopathy, nonischemic. SUBJECTIVE: The patient denies any chest pain, shortness of breath, any palpitation. Feels a lot better. OBJECTIVE: GENERAL: Not in apparent distress. VITAL SIGNS: As follows: Temperature afebrile, heart rate 63, blood pressure 118/73. HEENT: PERRLA. Extraocular muscles intact. NECK: Supple. No carotid bruit or thyromegaly. CHEST: Clear to auscultation. HEART: S1 and S2 regular. ABDOMEN: Soft. EXTREMITIES: Clubbing and cyanosis negative. LABORATORY DATA: Blood workup as follows; WBC 11.9, hemoglobin 15, hematocrit 43.2, platelet count 218. Chemistry shows sodium 137, potassium 4.3, chloride 96, carbon dioxide 31, anion gap of 15, BUN 59, creatinine 1.4. IMPRESSION: Acute kidney injury on admission, wide-complex tachycardia, positive troponin, most likely secondary to cardioverted as well as acute kidney injury. At that time creatinine clearance on admission was 20 mL an hour, creatinine was 2.8. History of cardiac catheterization 3 or 4 years ago, normal coronaries; history of nonischemic cardiomyopathy. Discussed with Dr. Moura, his primary [facility], at telephone [phone]. She said that his left ventricular function improved significantly, it looks like a new deterioration. She also agreed that new arrhythmia is most likely the aberrant conduction atrial fibrillation. Agreed to continue heparin, we will start. Continue amiodarone. We will switch over to Coumadin, start 7.5 today and tomorrow, and then 5. Ideally, the patient could have gotten the novel anticoagulation including Eliquis, Xarelto, or Pradaxa, but affordability is an issue; the patient does not have insurance, so we will continue conventional Coumadin, and once therapeutic his INR, we will discharge the patient. Follow up with Dr. Moura. I explained the patient's condition update. The patient needs defibrillator. She says that she will follow up and depending upon the patient's condition that if he does not improve, will consider defibrillator. In the interim, continue amiodarone, continue spironolactone, continue gentle diuretics, continue aspirin. We will continue heparin until the INR get therapeutic. Continue low-dose lisinopril and Coreg heart failure therapy. Discussed with the patient this morning, discussed with the patient's and daughter. We will repeat the blood workup in the morning. We will repeat the blood magnesium and phosphate tomorrow. Discussed with the patient. The patient is quite understandable the overall situation. Thank you, Dr. Werner for providing us the opportunity in taking care of the patient, Brandin Parsons. Lenny Osorio MD
[2017-05-27 23:45] VITALS: RESP 20; O2SAT 98
[2017-05-28 07:54] LABS: BASO # 0.01 K/mm3 (0.0-2.0); BASO % 0.1 % (0.0-3.0); EOS # 0.2 (0.0-0.7); EOS % 2.3 % (1.5-5.0); GRAN # 6.23 (1.4-6.5); GRAN % 59.9 % (50.0-68.0); HEMOGLOBIN 14.8 g/dL (14.0-18.0); LYMPH # 2.6 (1.2-3.4); LYMPH % 25.4 % (22.0-35.0); MEAN CELL VOLUME 89.7 fl (80.0-105.0); MEAN CORPUSCULAR HGB CONC 34.6 g/dl (31.0-37.0); MEAN PLATELET VOLUME 9.5 fl (7.0-11.0); MONO # 1.3 (0.1-0.6); MONO % 12.3 % (1.0-6.0); RBC 4.77 10^6/uL (3.5-6.1); RED CELL DISTRIBUTION WIDTH 13.2 % (11.5-14.5); WHITE BLOOD COUNT 10.4 10^3/ul (4.5-11.0)
[2017-05-28] MEDS: Levothyroxine 88 MCG TAB PO SCH (08:11)
[2017-05-28] MEDS: Pantoprazole 40 mg EC Tab PO SCH ×2 (08:11→10:58)
[2017-05-28 08:19] LABS: ALB/GLOB RATIO 1.2 (1.1-1.8); ALBUMIN 3.7 g/dL (3.0-4.8); ALT/SGPT 217 U/L (7-56); AST/SGOT 55 U/L (17-59); BLOOD UREA NITROGEN 44 mg/dL (7-21); CALCIUM 9.2 mg/dL (8.4-10.5); GFR AFRICAN-AMERICAN > 60; GFR NON-AFRICAN AMERICAN > 60
[2017-05-28 08:20] LABS: PROTHROMBIN TIME 12.7 SECONDS (9.4-12.5)
[2017-05-28 08:21] LABS: INR 1.1 (0.93-1.08); PARTIAL THROMBOPLASTIN TIME 66.9 Seconds (25.1-36.5)
--- NOTE | 2017-05-28 08:34 | CP.PCM.PN ---
Subjective - Date & Time of Evaluation Date of Evaluation: 05/28/17 Time of Evaluation: 07:30 - Subjective Subjective: Lia Cardenas DO PGY1 - IM Progress Note Patient seen and examined at bedside. Per nursing staff, no acute events overnight. Patient is on heparin drip for bridging to therapeutic INR on coumadin, for atrial fibrillation. Patient denies chest pain, shortness of breath, palpitations or abdominal pain. Denies fever, chills, nausea, vomiting, diarrhea, constipation. Objective - Vital Signs/Intake and Output Vital Signs (last 24 hours): Temp Pulse Resp BP Pulse Ox 97.6 F 73 20 102/69 98 05/28/17 05:56 05/28/17 05:56 05/28/17 05:56 05/28/17 05:56 05/27/17 23:44 Intake and Output: 05/28/17 05/28/17 06:59 18:59 Intake Total 402 Output Total 400 Balance 2 - Medications Medications: Current Medications Amiodarone HCl (Cordarone) 200 mg PO DAILY [facility] Last Admin: 05/27/17 11:10 Dose: 200 mg Aspirin (Ecotrin) 81 mg PO DAILY [facility] Last Admin: 05/27/17 11:11 Dose: 81 mg Carvedilol (Coreg) 3.125 mg PO BID [facility] Last Admin: 05/27/17 17:19 Dose: 3.125 mg Furosemide (Lasix) 20 mg PO Q8H [facility] Last Admin: 05/28/17 05:20 Dose: 20 mg Heparin Sodium/Sodium Chloride (Heparin 24223 Units/250ml 1/2 Normal Saline) 25 ,000 units in 250 mls @ 14.724 mls/hr IV .[id number] [facility]; 12 UNITS/KG/HR PRN Reason: Protocol Last Admin: 05/27/17 20:32 Dose: Not Given Levothyroxine Sodium (Synthroid) 88 mcg PO 0730 [facility] Last Admin: 05/28/17 08:11 Dose: 88 mcg Lisinopril (Zestril) 2.5 mg PO DAILY [facility] Last Admin: 05/27/17 11:08 Dose: 2.5 mg Pantoprazole Sodium (Protonix Ec Tab) 40 mg PO DAILY [facility] Last Admin: 05/28/17 08:11 Dose: 40 mg Spironolactone (Aldactone) 25 mg PO BID [facility] Last Admin: 05/27/17 17:21 Dose: 25 mg Warfarin Sodium (Coumadin) 5 mg PO 1800 BEATRIZ PRN Reason: Protocol Warfarin Sodium (Coumadin) 7.5 mg PO 1800 BEATRIZ PRN Reason: Protocol Stop: 05/28/17 23:59 Last Admin: 05/27/17 17:19 Dose: 7.5 mg - Labs Labs: 05/28/17 07:15 05/28/17 07:15 PT 12.7 SECONDS (9.4-12.5) H 05/28/17 07:15 INR 1.10 (0.93-1.08) H 05/28/17 07:15 APTT 66.9 Seconds (25.1-36.5) H 05/28/17 07:15 - Eye Exam Pupil Exam: Mydriatic - Additional Findings Additional findings: - Constitutional Appears: Non-toxic, No Acute Distress - Head Exam Head Exam: ATRAUMATIC, NORMOCEPHALIC - Eye Exam Eye Exam: EOMI, Normal appearance, PERRL - ENT Exam ENT Exam: Mucous Membranes Moist - Neck Exam Neck Exam: Normal Inspection - Respiratory Exam Respiratory Exam: Clear to Ausculation Bilateral, NORMAL BREATHING PATTERN - Cardiovascular Exam Cardiovascular Exam: Irregular Rhythm, +S1, +S2 - GI/Abdominal Exam GI & Abdominal Exam: Soft, Normal Bowel Sounds. 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's street light repairer helper, and with patient, he will undergo maximal medical management with reevalution of cardiac function prior to reconsideration for AICD placement - Lasix 20mg PO Q8, per nephro - Strict I&O; HOB > 30; daily weight - Continue BB, ASA; Resume aldactone ACEi/ARB; hold statin, as below Ventricular tachycardia s/p cardioversion - Patient in telemetry for monitoring; no further episodes of bradycardia on monitor - Continue amiodarone 200mg PO daily per cardio - Continue low dose BB; continue to monitor Acute renal failure - Improving; Likely 2/2 hypoperfusion 2/2 CHF vs ischemia 2/2 transient hypotension - Continue aldactone and ACEi - Renally dose medications - Requested nephro consult; appreciate recs Atrial fibrillation - New onset atrial fibrillation noted on initial and repeat EKG - HR on exam irregular and unstable, ranging 60's-100's - Continue heparin drip for bridging; continue coumadin - INR not yet therapeutic Transaminemia - Improving; Likely 2/2 congestion 2/2 CHF vs ischemia 2/2 transient hypotension - Avoid hepatotoxic medications; hold statin - Recheck with AM labs Leukocytosis - Resolved; Likely reactive - Blood cultures negative History of hypothyroidism - Continue home synthroid - TSH wnl GI/DVT Ppx: Protonix and heparin drip, bridging to therapeutic INR Case discussed and plan reviewed with attending, Dr. Werner
[2017-05-28 13:00] VITALS: TEMP 98.1
--- NOTE | 2017-05-28 14:14 | PN ---
DATE: 05/28/2017 LOCATION: Patient in room 373, bed 1. REASON FOR CONSULTATION AND FOLLOWUP: Status post wide-complex tachycardia; status post cardioversion;cardiomyopathy, nonischemic type. SUBJECTIVE: The patient is lying flat in bed without any cardiac symptoms like chest pain, shortness of breath, palpitation. OBJECTIVE VITAL SIGNS: Blood pressure 102/69, respirations 20, pulse 73, temperature 97.6. HEENT: Head is normocephalic. Eyes, pupils are normal. Conjunctivae are normal. Nose and throat are normal. NECK: JVP low. Carotids are equal. THORAX: AP diameter normal. LUNGS: Clear. CARDIOVASCULAR: S1 and S2. ABDOMEN: Soft. No tenderness. No organomegaly. Bowel sounds are normal. EXTREMITIES: No clubbing. No cyanosis. LABORATORY DATA: WBC 10.4, hemoglobin 14.8, hematocrit 42.8, platelets 214,000. Sodium 134, potassium 4.2, BUN 44, creatinine 1.2, calcium 9.2, phosphorus 2.8, magnesium 2.3, AST 55, ALT 217. Total protein and albumin are normal. Prothrombin time 12.7 and INR 1.10. PTT is 66.9. DIAGNOSES: Wide-complex tachycardia, status post cardioversion; slight troponin elevation, probably new cardioversion as well as renal dysfunction; acute kidney injury. Patient had cardiac catheterization 3 to 4 years ago when the coronaries were normal; history of nonischemic cardiomyopathy. He discussed case with Dr. Moura, his primary nonprofit financial controller at [facility]. She said that his left ventricular function has significantly improved and now it looks to be a new deterioration. She is also agreeing that arrhythmia is most likely atrial fibrillation with aberrant conduction. PLAN: We will continue heparin and switch over to Coumadin once INR is therapeutic. Patient is not a candidate for new anticoagulation including Eliquis, Xarelto or Pradaxa, because there is an issue about the affordability of the medication, so we will go with Coumadin at the present time and try to bring the INR to therapeutic. Patient will follow up Dr. Moura as before as outpatient. Most likely, the patient needs defibrillator. She states that if patient's condition does improve, she will consider defibrillator. In the meantime, we will amiodarone, spironolactone, gentle diuretics, aspirin, low-dose lisinopril, Coreg and I will continue to follow with you. The patient will get 7.5 mg warfarin today and starting tomorrow, it will be 5 mg daily and the patient has already ordered for prothrombin time daily and we will follow that. Lenny Michelle MD
--- NOTE | 2017-05-28 15:37 | CARD ---
APPROVED REPORT EKG Measurement Heart [id number] <Conclusion> Normal sinus rhythm Left axis deviation Nonspecific intraventricular block T wave abnormality, consider inferolateral ischemia Abnormal ECG
--- NOTE | 2017-05-28 16:21 | CP.PCM.DIS ---
<Lia Cardenas - Last Filed: 05/28/17 16:07> Provider - Provider Date of Admission: 05/25/17 12:10 Attending physician: Lenny Werner MD Primary care physician: Pool Alicea MD Consults: Cardio: Devon Nephro: Kariei Time Spent in preparation of Discharge (in minutes): 55 Diagnosis - Discharge Diagnosis (1) Atrial fibrillation Status: Acute Priority: High (2) Acute renal insufficiency Status: Acute Priority: High (3) Congestive heart failure Status: Chronic Priority: High (4) Hypermagnesemia Status: Acute Priority: Medium (5) Ventricular tachycardia Status: Acute Priority: High Hospital Course - Lab Results Lab Results: Micro Results 05/25/17 16:45 Blood-Venous Blood Culture - Preliminary NO GROWTH AFTER 48 HOURS 05/25/17 16:45 Blood-Venous Blood Culture - Preliminary NO GROWTH AFTER 48 HOURS 05/25/17 14:00 Naris MRSA Culture (Admit) - Final MRSA NOT DETECTED Most Recent Lab Values WBC 10.4 10^3/ul (4.5-11.0) 05/28/17 07:15 RBC 4.77 10^6/uL (3.5-6.1) 05/28/17 07:15 Hgb 14.8 g/dL (14.0-18.0) 05/28/17 07:15 Hct 42.8 % (42.0-52.0) 05/28/17 07:15 MCV 89.7 fl (80.0-105.0) 05/28/17 07:15 MCH 31.0 pg (25.0-35.0) 05/28/17 07:15 MCHC 34.6 g/dl (31.0-37.0) 05/28/17 07:15 RDW 13.2 % (11.5-14.5) 05/28/17 07:15 Plt Count 214 10^3/uL (120.0-450.0) 05/28/17 07:15 MPV 9.5 fl (7.0-11.0) 05/28/17 07:15 Gran % 59.9 % (50.0-68.0) 05/28/17 07:15 Lymph % (Auto) 25.4 % (22.0-35.0) 05/28/17 07:15 Henderson % (Auto) 12.3 % (1.0-6.0) H 05/28/17 07:15 Eos % (Auto) 2.3 % (1.5-5.0) 05/28/17 07:15 Baso % (Auto) 0.1 % (0.0-3.0) 05/28/17 07:15 Gran # 6.23 (1.4-6.5) 05/28/17 07:15 Lymph # (Auto) 2.6 (1.2-3.4) 05/28/17 07:15 Henderson # (Auto) 1.3 (0.1-0.6) H 05/28/17 07:15 Eos # (Auto) 0.2 (0.0-0.7) 05/28/17 07:15 Baso # (Auto) 0.01 K/mm3 (0.0-2.0) 05/28/17 07:15 PT 12.7 SECONDS (9.4-12.5) H 05/28/17 07:15 INR 1.10 (0.93-1.08) H 05/28/17 07:15 APTT 66.9 Seconds (25.1-36.5) H 05/28/17 07:15 Sodium 134 mmol/L (132-148) 05/28/17 07:15 Potassium 4.2 mmol/L (3.6-5.0) 05/28/17 07:15 Chloride 94 mmol/L (98-107) L 05/28/17 07:15 Carbon Dioxide 30 mmol/L (21-33) 05/28/17 07:15 Anion Gap 14 (10-20) 05/28/17 07:15 BUN 44 mg/dL (7-21) H 05/28/17 07:15 Creatinine 1.2 mg/dl (0.8-1.5) 05/28/17 07:15 Est GFR ( Amer) > 60 05/28/17 07:15 Est GFR (Non-Af Amer) > 60 05/28/17 07:15 Random Glucose 84 mg/dL (70-110) 05/28/17 07:15 Hemoglobin A1c 5.7 % (4.2-6.5) 05/26/17 06:25 Serum Osmolality 298 mosm/kg (272-300) 05/25/17 10:10 Calcium 9.2 mg/dL (8.4-10.5) 05/28/17 07:15 Phosphorus 2.8 mg/dL (2.5-4.5) 05/28/17 07:15 Magnesium 2.3 mg/dL (1.7-2.2) H 05/28/17 07:15 Total Bilirubin 1.3 mg/dL (0.2-1.3) 05/28/17 07:15 AST 55 U/L (17-59) 05/28/17 07:15 ALT 217 U/L (7-56) H 05/28/17 07:15 Alkaline Phosphatase 99 U/L (38-126) 05/28/17 07:15 Lactate Dehydrogenase 623 U/L (333-699) 05/26/17 06:25 Total Creatine Kinase 88 U/L (35-230) 05/26/17 06:25 Troponin I 1.47 ng/mL H* D 05/26/17 06:25 NT-Pro-B Natriuret Pep 80941 pg/mL (0-450) H 05/25/17 10:10 Total Protein 6.9 g/dL (5.8-8.3) 05/28/17 07:15 Albumin 3.7 g/dL (3.0-4.8) 05/28/17 07:15 Globulin 3.1 gm/dL 05/28/17 07:15 Albumin/Globulin Ratio 1.2 (1.1-1.8) 05/28/17 07:15 Triglycerides 59 mg/dL (35-160) 05/26/17 06:25 Cholesterol 73 mg/dL (130-200) L 05/26/17 06:25 LDL Cholesterol Direct 35 mg/dL (0-129) 05/26/17 06:25 HDL Cholesterol 33 mg/dL (29-60) 05/26/17 06:25 TSH 3rd Generation 0.87 mIU/mL (0.46-4.68) 05/26/17 06:25 Urine Color Light yellow (YELLOW) 05/26/17 10:30 Urine Appearance Clear (CLEAR) 05/26/17 10:30 Urine pH 6.0 (4.7-8.0) 05/26/17 10:30 Ur Specific [place] 1.010 (1.005-1.035) 05/26/17 10:30 Urine Protein Negative mg/dL (<30 mg/dL) 05/26/17 10:30 Urine Glucose (UA) Negative mg/dL (NEGATIVE) 05/26/17 10:30 Urine Ketones Negative mg/dL (NEGATIVE) 05/26/17 10:30 Urine Blood Moderate (NEGATIVE) H 05/26/17 10:30 Urine Nitrate Negative (NEGATIVE) 05/26/17 10:30 Urine Bilirubin Negative (NEGATIVE) 05/26/17 10:30 Urine Urobilinogen 0.2 E.U./dL (<1 E.U./dL) 05/26/17 10:30 Ur Leukocyte Esterase Trace Dalila/uL (NEGATIVE) H 05/26/17 10:30 Urine RBC 25 - 30 /hpf (0-2) 05/26/17 10:30 Urine WBC 2 - 5 /hpf (0-6) 05/26/17 10:30 Ur Epithelial Cells None /hpf (0-5) 05/26/17 10:30 Amorphous Sediment Few 05/26/17 10:30 Urine Bacteria Mod (NEG) 05/26/17 10:30 Urine Osmolality 369 mosm/kg (300-1000) 05/25/17 18:11 Ur Random Creatinine 28 mg/dL 05/27/17 01:31 U Random Total Protein 11 mg/L 05/27/17 01:31 Ur Random Sodium 44 meq/L 05/25/17 18:11 Ur Random Urea Nitrogn 521 mg/dL 05/25/17 18:11 Urine Microalbumin < 6.0 mg/L (0.0-16.6) 05/27/17 01:31 - Hospital Course Hospital Course: 56 yo M with PMH of nonischemic cardiomyopathy with estimated EF 15-20% in 2013 presents brought by ambulance which was called because he was fatigued with chest pain at home. Patient was noted to be in ventricular tachycardia in the field and was successfully cardioverted in the field. patient was noted to be in acute CHF on admission, with EKG changes concerning for ischemia, as well as new onset atrial fibrillation. Patient also had acute renal failure, transaminemia, leukocytosis, and hyponatremia, attributed to the acute CHF. Patient improved with diuresis and amiodarone. Antihypertensives were adjusted throughout his hospitalization. New onset atrial fibrillation was confirmed with repeat EKG, and patient was started on heparin drip in the hospital, then switched to PO Eliquis before discharge. Today, patient denies any chest pain, shortness of breath, palpitations, or abdominal pain. He was observed ambulating around the halls without difficulty, dyspnea, or pain. He was given prescriptions for all his new medications, and instructions on follow up. Patient verbalized understanding and agreement with the plan. All questions were answered to his and his family's satisfaction, and he was discharged to home. Discharge Exam - Head Exam Head Exam: ATRAUMATIC, NORMOCEPHALIC - Eye Exam Eye Exam: EOMI, Normal appearance, PERRL - ENT Exam ENT Exam: Mucous Membranes Moist - Neck Exam Neck exam: Full Rom - Respiratory Exam Respiratory Exam: Clear to PA & Lateral, NORMAL BREATHING PATTERN - Cardiovascular Exam Cardiovascular Exam: RRR, +S1, +S2 - GI/Abdominal Exam GI & Abdominal Exam: Normal Bowel Sounds, Soft. absent: Tenderness - Extremities Exam Extremities exam: normal inspection - Neurological Exam Neurological exam: Alert, Oriented x3 - Psychiatric Exam Psychiatric exam: Normal Affect, Normal Mood - Skin Skin Exam: Dry, Intact, Normal Color Discharge Plan - Discharge Medications Prescriptions: Amiodarone [Cordarone] 200 mg PO DAILY #30 tab Apixaban [Eliquis] 5 mg PO BID #60 tab Aspirin [Ecotrin] 81 mg PO DAILY #30 tabec Carvedilol [Coreg] 3.125 mg PO BID #60 tab Furosemide [Lasix] 20 mg PO BID #60 tab Lisinopril [Zestril] 2.5 mg PO DAILY #30 tab - Follow Up Plan Condition: GUARDED Disposition: HOME/ ROUTINE Instructions: Atrial Fibrillation (DC), Kidney Failure (DC), Ventricular Tachycardia (DC), Myocardial Infarction (DC) Additional Instructions: 1. Discontinue home medications besides synthroid, eplerenone, aspirin, and lipitor 2. Start Coreg 3.125mg twice daily 3. Start Lasix 20mg twice daily 4. Start lisinopril 2.5mg once daily 5. Start Eliquis 5mg twice daily 6. Start Amiodarone 200mg once daily 7. Follow up with your PCP or the [facility] clinic within one week 8. Follow up with your director critical care within one week 9. For any new or worsening concerns, contact your PCP immediately or return to the ER Referrals: Pool Alicea MD [Primary Care Provider] - <Lenny Werner - Last Filed: 05/29/17 11:20> Provider - Provider Date of Admission: 05/25/17 12:10 Attending physician: Lenny Werner MD Primary care physician: Pool Alicea MD Hospital Course - Lab Results Lab Results: Micro Results 05/25/17 16:45 Blood-Venous Blood Culture - Preliminary NO GROWTH AFTER 3 DAYS 05/25/17 16:45 Blood-Venous Blood Culture - Preliminary NO GROWTH AFTER 3 DAYS 05/25/17 14:00 Naris MRSA Culture (Admit) - Final MRSA NOT DETECTED Most Recent Lab Values WBC 10.4 10^3/ul (4.5-11.0) 05/28/17 07:15 RBC 4.77 10^6/uL (3.5-6.1) 05/28/17 07:15 Hgb 14.8 g/dL (14.0-18.0) 05/28/17 07:15 Hct 42.8 % (42.0-52.0) 05/28/17 07:15 MCV 89.7 fl (80.0-105.0) 05/28/17 07:15 MCH 31.0 pg (25.0-35.0) 05/28/17 07:15 MCHC 34.6 g/dl (31.0-37.0) 05/28/17 07:15 RDW 13.2 % (11.5-14.5) 05/28/17 07:15 Plt Count 214 10^3/uL (120.0-450.0) 05/28/17 07:15 MPV 9.5 fl (7.0-11.0) 05/28/17 07:15 Gran % 59.9 % (50.0-68.0) 05/28/17 07:15 Lymph % (Auto) 25.4 % (22.0-35.0) 05/28/17 07:15 Henderson % (Auto) 12.3 % (1.0-6.0) H 05/28/17 07:15 Eos % (Auto) 2.3 % (1.5-5.0) 05/28/17 07:15 Baso % (Auto) 0.1 % (0.0-3.0) 05/28/17 07:15 Gran # 6.23 (1.4-6.5) 05/28/17 07:15 Lymph # (Auto) 2.6 (1.2-3.4) 05/28/17 07:15 Henderson # (Auto) 1.3 (0.1-0.6) H 05/28/17 07:15 Eos # (Auto) 0.2 (0.0-0.7) 05/28/17 07:15 Baso # (Auto) 0.01 K/mm3 (0.0-2.0) 05/28/17 07:15 PT 12.7 SECONDS (9.4-12.5) H 05/28/17 07:15 INR 1.10 (0.93-1.08) H 05/28/17 07:15 APTT 66.9 Seconds (25.1-36.5) H 05/28/17 07:15 Sodium 134 mmol/L (132-148) 05/28/17 07:15 Potassium 4.2 mmol/L (3.6-5.0) 05/28/17 07:15 Chloride 94 mmol/L (98-107) L 05/28/17 07:15 Carbon Dioxide 30 mmol/L (21-33) 05/28/17 07:15 Anion Gap 14 (10-20) 05/28/17 07:15 BUN 44 mg/dL (7-21) H 05/28/17 07:15 Creatinine 1.2 mg/dl (0.8-1.5) 05/28/17 07:15 Est GFR ( Amer) > 60 05/28/17 07:15 Est GFR (Non-Af Amer) > 60 05/28/17 07:15 Random Glucose 84 mg/dL (70-110) 05/28/17 07:15 Hemoglobin A1c 5.7 % (4.2-6.5) 05/26/17 06:25 Serum Osmolality 298 mosm/kg (272-300) 05/25/17 10:10 Calcium 9.2 mg/dL (8.4-10.5) 05/28/17 07:15 Phosphorus 2.8 mg/dL (2.5-4.5) 05/28/17 07:15 Magnesium 2.3 mg/dL (1.7-2.2) H 05/28/17 07:15 Total Bilirubin 1.3 mg/dL (0.2-1.3) 05/28/17 07:15 AST 55 U/L (17-59) 05/28/17 07:15 ALT 217 U/L (7-56) H 05/28/17 07:15 Alkaline Phosphatase 99 U/L (38-126) 05/28/17 07:15 Lactate Dehydrogenase 623 U/L (333-699) 05/26/17 06:25 Total Creatine Kinase 88 U/L (35-230) 05/26/17 06:25 Troponin I 1.47 ng/mL H* D 05/26/17 06:25 NT-Pro-B Natriuret Pep 70348 pg/mL (0-450) H 05/25/17 10:10 Total Protein 6.9 g/dL (5.8-8.3) 05/28/17 07:15 Albumin 3.7 g/dL (3.0-4.8) 05/28/17 07:15 Globulin 3.1 gm/dL 05/28/17 07:15 Albumin/Globulin Ratio 1.2 (1.1-1.8) 05/28/17 07:15 Triglycerides 59 mg/dL (35-160) 05/26/17 06:25 Cholesterol 73 mg/dL (130-200) L 05/26/17 06:25 LDL Cholesterol Direct 35 mg/dL (0-129) 05/26/17 06:25 HDL Cholesterol 33 mg/dL (29-60) 05/26/17 06:25 TSH 3rd Generation 0.87 mIU/mL (0.46-4.68) 05/26/17 06:25 Urine Color Light yellow (YELLOW) 05/26/17 10:30 Urine Appearance Clear (CLEAR) 05/26/17 10:30 Urine pH 6.0 (4.7-8.0) 05/26/17 10:30 Ur Specific [place] 1.010 (1.005-1.035) 05/26/17 10:30 Urine Protein Negative mg/dL (<30 mg/dL) 05/26/17 10:30 Urine Glucose (UA) Negative mg/dL (NEGATIVE) 05/26/17 10:30 Urine Ketones Negative mg/dL (NEGATIVE) 05/26/17 10:30 Urine Blood Moderate (NEGATIVE) H 05/26/17 10:30 Urine Nitrate Negative (NEGATIVE) 05/26/17 10:30 Urine Bilirubin Negative (NEGATIVE) 05/26/17 10:30 Urine Urobilinogen 0.2 E.U./dL (<1 E.U./dL) 05/26/17 10:30 Ur Leukocyte Esterase Trace Dalila/uL (NEGATIVE) H 05/26/17 10:30 Urine RBC 25 - 30 /hpf (0-2) 05/26/17 10:30 Urine WBC 2 - 5 /hpf (0-6) 05/26/17 10:30 Ur Epithelial Cells None /hpf (0-5) 05/26/17 10:30 Amorphous Sediment Few 05/26/17 10:30 Urine Bacteria Mod (NEG) 05/26/17 10:30 Urine Osmolality 369 mosm/kg (300-1000) 05/25/17 18:11 Ur Random Creatinine 28 mg/dL 05/27/17 01:31 U Random Total Protein 11 mg/L 05/27/17 01:31 Ur Random Sodium 44 meq/L 05/25/17 18:11 Ur Random Urea Nitrogn 521 mg/dL 05/25/17 18:11 Urine Microalbumin < 6.0 mg/L (0.0-16.6) 05/27/17 01:31 Attending/Attestation - Attestation I have personally seen and examined this patient.: Yes I have fully participated in the care of the patient.: Yes I have reviewed all pertinent clinical information, including history, physical exam and plan: Yes Notes (Text): 05/29/17 11:13 Medical record note made by the resident after discussion with my direction and input after the patient was personally seen and examined by me. I have reviewed the chart and agree that the record accurately reflects by personal performance of the history, physical exam, data review, and medical decision-making, in the course for the patient. I have also personally directed the plan of care. 56 yrs old male with PMH of Nonischemic dilated cardiomyopathy with LVEF 15-20 % noted on cardiac cath in 2012 was admitted with episode of VT ,SP cardioversion in the field by EMS , patient was also found to have acute on chronic systolic CHF exacerbation, acute renal failure likely due to CHF , new AF and elevated LFT.Patient dyspnea has improved, he has responded well to diuretics, has been switched to oral lasix and Inspra at the time of discharge.He is also on NETTA and Beta diallo at the time of discharge.He is opn room air and is ambulatory. Renal functions are improved with diuresis. LFT are improved, congested liver was most likely the etiology. Patient is in NSR ta the time of discharge, on anticoagulation with Apixiban at the time of discharge.The risk and benefit of anticoagulation was discussed in detail with him.He opted fro Apixiban rather than warfarin.Patient is on oral Amiodrone.lft ARE STABLE. Patient case was discussed by cardiology with his Primary director critical care and decision was made that patient would follow up with director critical care and will have further discussion with him regarding AICD. Management plan was discussed in detail with patient. Education was provided. 05/29/17 11:19
[2017-05-28 17:10] VITALS: BP 129/87; PULSE 83
--- NOTE | 2017-05-30 07:37 | CP.PCM.PN ---
Subjective - Date & Time of Evaluation Date of Evaluation: 05/28/17 Time of Evaluation: 12:00 - Subjective Subjective: Patient denies shortness of breath; Objective - Vital Signs/Intake and Output Vital Signs (last 24 hours): Temp Pulse Resp BP Pulse Ox 98.1 F 83 20 129/87 98 05/28/17 12:00 05/28/17 17:01 05/28/17 12:00 05/28/17 17:01 05/27/17 23:44 - Labs Labs: 05/28/17 07:15 05/28/17 07:15 PT 12.7 SECONDS (9.4-12.5) H 05/28/17 07:15 INR 1.10 (0.93-1.08) H 05/28/17 07:15 APTT 66.9 Seconds (25.1-36.5) H 05/28/17 07:15 - Constitutional Appears: Non-toxic, No Acute Distress - Eye Exam Eye Exam: Normal appearance. absent: Scleral icterus - ENT Exam ENT Exam: Mucous Membranes Moist - Respiratory Exam Respiratory Exam: Clear to Ausculation Bilateral. absent: Respiratory Distress - Cardiovascular Exam Cardiovascular Exam: RRR, +S1, +S2 - GI/Abdominal Exam GI & Abdominal Exam: Soft. absent: Distended, Tenderness - Extremities Exam Additional comments: no leg edema; - Neurological Exam Neurological Exam: Alert, Awake - Psychiatric Exam Psychiatric exam: Normal Mood. absent: Agitated - Skin Skin Exam: Warm. absent: Cyanosis Assessment and Plan (1) Congestive heart failure Assessment & Plan: Acute severely decompensated systolic chf; symptomatically much improved; agree with lasix 20 mg bid and aldacone 25 mg daily on d/c; advised to check weights daily; Status: Acute (2) Acute renal insufficiency Assessment & Plan: Cardiorenal etiology, improving with diuresis; continue as above; Status: Acute (3) Hypermagnesemia Status: Acute (4) NSTEMI (non-ST elevated myocardial infarction) Status: Acute (5) Ventricular tachycardia Status: Acute (6) Transaminitis Status: Acute (7) Metabolic alkalosis Assessment & Plan: Stable, continue aldactone as above; Status: Acute
== END 2017-05-28 17:56 | disposition home or self-care (01) | DRG 280 ==
LOC: ED 09:56 → ERH 12:10 → CCU 13:58 → 3RSO 05-26 11:23
PROVIDERS: ADMIT Internal Medicine; ATTEND Internal Medicine
DX: I47.2 Ventricular tachycardia (principal); I50.23 Acute on chronic systolic (congestive) heart failure; I21.4 Non-ST elevation (NSTEMI) myocardial infarction; N17.9 Acute kidney failure, unspecified; I42.0 Dilated cardiomyopathy; E87.1 Hypo-osmolality and hyponatremia; E83.41 Hypermagnesemia; I11.0 Hypertensive heart disease with heart failure; I48.91 Unspecified atrial fibrillation; E03.9 Hypothyroidism, unspecified; E78.5 Hyperlipidemia, unspecified; I34.0 Nonrheumatic mitral (valve) insufficiency; K76.1 Chronic passive congestion of liver; E66.9 Obesity, unspecified; Z68.34 Body mass index [BMI] 34.0-34.9, adult

== ENCOUNTER 2017-06-02 07:15 | Inpatient (IN) | payer MEDICAID, OTHER ==
--- NOTE | 2017-06-02 07:35 | ED PDOC ---
Arrival/HPI - General Chief Complaint: Palpitations Time Seen by Provider: 06/02/17 07:17 Historian: Patient - History of Present Illness Narrative History of Present Illness (Text): 06/02/17 07:30 Patient is a 56 M with a PMH of nonischemic cardiomyopathy, afib, hypothyroidism with an EF of 20-25 on most recent echo who comes to the ED with a CC of palpitations and feeling week this morning when whe woke up to go to the bathroom. He states he felt palpitations and SOB but denies any syncopal episodes or focal weakness. Patient states this is how he felt last time he was admitted on 05/25 with new onset afib. Patient is on eliquis and was planned to go for AICD. Describes the chest pain as substernal in location and pressure in quality. No fever, nausea, vomiting, diarrhea, constipation Time/Duration: Prior to Arrival Symptom Onset: Sudden Symptom Course: Unchanged Quality: Pressure Activities at Onset: Rest Context: Sitting, Walking Past Medical History - Infectious Disease Hx of Infectious Diseases: None - Tetanus Immunization Tetanus Immunization: Unknown - Cardiac Hx Cardiac Arrhythmia: Yes (vtach) Hx Congestive Heart Failure: Yes Hx Hypertension: Yes Hx Peripheral Edema: Yes Other/Comment: cardiomyopathy - Pulmonary Hx Respiratory Disorders: No - Neurological Hx Neurological Disorder: No - HEENT Hx HEENT Disorder: No - Renal Hx Renal Disorder: No - Endocrine/Metabolic Hx Endocrine Disorders: No - Hematological/Oncological Hx Blood Disorders: No - Integumentary Hx Dermatological Disorder: No - Musculoskeletal/Rheumatological Hx Falls: No - Gastrointestinal Hx Gastrointestinal Disorders: No - Genitourinary/Gynecological Hx Genitourinary Disorders: No - Psychiatric Hx Psychophysiologic Disorder: (morbidly obese) Hx Substance Use: No - Surgical History Hx Cardiac Catheterization: Yes (01/05/13) Other/Comment: pt had sleep apnea, had throat sx to have ovula removed, sleep apnea stopped post sx as per ptsharon picc 01/10/2013 in and out in 2 days as per pt - Suicidal Assessment Feels Threatened In Home Enviroment: No Family/Social History Family/Social History: Unknown Family HX Smoking Status: Never Smoked Hx Alcohol Use: No Hx Substance Use: No Allergies/Home Meds Allergies/Adverse Reactions: Allergies No Known Allergies Allergy (Verified 06/02/17 07:39) Home Medications: Home Meds Medication Instructions Recorded Confirmed Atorvastatin [Lipitor] 20 mg PO DAILY 05/25/17 06/02/17 Eplerenone [Inspra] 25 mg PO DAILY 05/25/17 06/02/17 Levothyroxine [Synthroid] 0.088 mg PO DAILY 05/25/17 06/02/17 Review of Systems - Review of Systems Constitutional: Fatigue Eyes: Normal ENT: Normal Respiratory: SOB Cardiovascular: Chest Pain, Palpitations. absent: Syncope Gastrointestinal: Normal. absent: Abdominal Pain Genitourinary Male: Normal Musculoskeletal: Normal Skin: Normal Neurological: Normal. absent: Dizziness, Focal Weakness Endocrine: absent: Diaphoresis Hemo/Lymphatic: Normal Psychiatric: Normal Physical Exam Vital Signs Reviewed: Yes Vital Signs Temp Pulse Pulse Resp BP Pulse Ox 06/02/17 13:57 114 H 18 114/72 99 06/02/17 13:28 97.9 F 99 H 99 H 19 114/50 L 06/02/17 12:24 104 H 18 127/53 L 100 06/02/17 09:52 99 H 19 114/50 L 99 06/02/17 07:38 97.9 F 101 H 20 123/59 L 99 Temperature: Afebrile Blood Pressure: Normal Pulse: Tachycardic Respiratory Rate: Normal Appearance: Positive for: Uncomfortable Pain Distress: None Mental Status: Positive for: Alert and Oriented X 3 - Systems Exam Head: Present: Atraumatic, Normocephalic Pupils: Present: PERRL Extroacular Muscles: Present: EOMI Conjunctiva: Present: Normal Mouth: Present: Moist Mucous Membranes Neck: Present: Normal Range of Motion Respiratory/Chest: Present: Clear to Auscultation, Good Air Exchange. No: Respiratory Distress, Accessory Muscle Use, Rhonchi Cardiovascular: Present: Regular Rate and Rhythm, Normal S1, S2. No: Murmurs Abdomen: Present: Normal Bowel Sounds. No: Tenderness, Distention, Peritoneal Signs Upper Extremity: Present: Normal Inspection. No: Cyanosis, Edema Lower Extremity: Present: Normal Inspection. No: Edema Neurological: Present: GCS=15, CN II-XII Intact, Speech Normal, Motor Func Grossly Intact, Normal Sensory Function Skin: Present: Warm, Dry, Normal Color. No: Rashes Psychiatric: Present: Alert, Oriented x 3 Medical Decision Making ED Course and Treatment: 06/02/17 07:44 Patient is a 56M with a PMH of Afib, nonischemic cardiomyopathy, hypothyroid, low EF 20-25% -CXR, EKG -Cardiac ISO, cbc, cmp, bnp - f/u and dispo - Lab Interpretations Lab Results: 06/02/17 07:34 06/02/17 07:34 Lab Results 06/02/17 07:46: TSH 3rd Generation 2.79 06/02/17 07:35: POC Glucose (mg/dL) 125 H 06/02/17 07:34: Sodium 134, Potassium 4.8, Chloride 100, Carbon Dioxide 22, Anion Gap 17, BUN 73 H, Creatinine 1.0, Est GFR ( Amer) > 60, Est GFR ( Non-Af Amer) > 60, Random Glucose 113 H, Calcium 9.6, Magnesium 1.9, Total Bilirubin 0.6, AST 27, ALT 97 H, Alkaline Phosphatase 56, Lactate Dehydrogenase 392, Total Creatine Kinase 51, Troponin I 0.02 D, NT-Pro-B Natriuret Pep 237, Total Protein 6.6, Albumin 3.7, Globulin 2.8, Albumin/Globulin Ratio 1.3 06/02/17 07:34: WBC 16.0 H D, RBC 3.88, Hgb 12.0 L D, Hct 34.2 L, MCV 88.1, MCH 30.9, MCHC 35.1, RDW 12.9, Plt Count 310, MPV 9.6, Gran % 83.7 H, Lymph % (Auto ) 11.3 L, [place] % (Auto) 4.3, Eos % (Auto) 0.6 L, Baso % (Auto) 0.1, Gran # 13.36 H, Lymph # (Auto) 1.8, [place] # (Auto) 0.7 H, Eos # (Auto) 0.1, Baso # (Auto ) 0.01 - RAD Interpretation Radiology Orders: 06/02/17 07:34 CHEST PORTABLE [RAD] Stat - Medication Orders Current Medication Orders: Amiodarone HCl (Cordarone) 200 mg PO DAILY BEATRIZ Apixaban (Eliquis) 5 mg PO BID BEATRIZ PRN Reason: Protocol Last Admin: 06/02/17 18:24 Dose: 5 mg Aspirin (Ecotrin) 81 mg PO DAILY BEATRIZ Atorvastatin Calcium (Lipitor) 20 mg PO DAILY BEATRIZ Carvedilol (Coreg) 3.125 mg PO BID BEATRIZ Famotidine (Pepcid) 20 mg PO DAILY BEATRIZ Furosemide (Lasix) 20 mg PO BID BEATRIZ Vancomycin HCl (Vancomycin 1gm) 1 gm in 250 mls @ 167 mls/hr IVPB Q12H BEATRIZ PRN Reason: Protocol Piperacillin Sod/Tazobactam Sod (Zosyn 3.375 In Ns 100ml) 100 mls @ 200 mls/hr IVPB Q6 BEATRIZ PRN Reason: Protocol Stop: 06/03/17 06:29 Levothyroxine Sodium (Synthroid) 88 mcg PO DAILY BEATRIZ Lisinopril (Zestril) 2.5 mg PO DAILY BEATRIZ Non-Formulary Medication (Eplerenone [Inspra]) 25 mg PO DAILY BEATRIZ Discontinued Medications Sodium Chloride (Sodium Chloride 0.9%) 500 mls @ 999 mls/hr IV .Q31M STA Stop: 06/02/17 15:19 Last Admin: 06/02/17 14:50 Dose: 999 mls/hr eMAR Start Stop Document 06/02/17 14:50 GINNA (Rec: 06/02/17 15:07 GINNA [facility] [id number]) Intravenous Solution Start Date 06/02/17 Start Time 15:07 Sodium Chloride (Sodium Chloride 0.9%) 250 mls @ 999 mls/hr IV .Q16M BEATRIZ Stop: 06/02/17 16:00 Last Admin: 06/02/17 15:52 Dose: 999 mls/hr eMAR Start Stop Document 06/02/17 15:52 GINNA (Rec: 06/02/17 15:52 GINNA [facility] [id number]) Intravenous Solution Start Date 06/02/17 Start Time 15:52 Pneumococcal Polyvalent Vaccine (Pneumovax 23 Vaccine) 0.5 ml IM .ONCE ONE Stop: 06/02/17 14:08 - PA / TAX MANAGER PUBLIC / Resident Statement / has reviewed & agrees with the documentation as recorded. / has examined the patient and agrees with the treatment plan. Disposition/Present on Arrival - Present on Arrival Any Indicators Present on Arrival: No History of DVT/PE: No History of Uncontrolled Diabetes: No Urinary Catheter: No History Surgical Site Infection Following: None - Disposition Have Diagnosis and Disposition been Completed?: Yes Diagnosis: Atrial fibrillation Disposition: HOSPITALIZED Disposition Time: 20:12 Patient Problems: Current Active Problems Problem Status Onset Atrial fibrillation Acute Condition: GUARDED
[2017-06-02 07:37] VITALS: BMI 34.9
[2017-06-02 08:29] LABS: BASO # 0.01 K/mm3 (0.0-2.0); BASO % 0.1 % (0.0-3.0); EOS # 0.1 (0.0-0.7); EOS % 0.6 % (1.5-5.0); GRAN # 13.36 (1.4-6.5); GRAN % 83.7 % (50.0-68.0); LYMPH # 1.8 (1.2-3.4); LYMPH % 11.3 % (22.0-35.0); MEAN CELL VOLUME 88.1 fl (80.0-105.0); MEAN CORPUSCULAR HEMOGLOBIN 30.9 pg (25.0-35.0); MEAN CORPUSCULAR HGB CONC 35.1 g/dl (31.0-37.0); MEAN PLATELET VOLUME 9.6 fl (7.0-11.0); MONO # 0.7 (0.1-0.6); MONO % 4.3 % (1.0-6.0); RBC 3.88 10^6/uL (3.5-6.1); RED CELL DISTRIBUTION WIDTH 12.9 % (11.5-14.5)
[2017-06-02 08:52] LABS: B-TYPE NATRIURETIC PEPTIDE 237 pg/mL (0-450); TROPONIN I 0.02 ng/mL
[2017-06-02 08:53] LABS: ALB/GLOB RATIO 1.3 (1.1-1.8); ALBUMIN 3.7 g/dL (3.0-4.8); ALT/SGPT 97 U/L (7-56); AST/SGOT 27 U/L (17-59); BLOOD UREA NITROGEN 73 mg/dL (7-21); CALCIUM 9.6 mg/dL (8.4-10.5); GFR AFRICAN-AMERICAN > 60; GFR NON-AFRICAN AMERICAN > 60
--- NOTE | 2017-06-02 09:36 | RAD ---
HISTORY: Chest pain COMPARISON: No prior. FINDINGS: LUNGS: No active pulmonary disease. PLEURA: No significant pleural effusion identified, no pneumothorax apparent. CARDIOVASCULAR: Normal. OSSEOUS STRUCTURES: No significant abnormalities. VISUALIZED UPPER ABDOMEN: Normal. OTHER FINDINGS: None. IMPRESSION: No active disease.
--- NOTE | 2017-06-02 12:45 | CP.PCM.HP ---
<Earnestine Espana - Last Filed: 06/02/17 15:11> History of Present Illness - History of Present Illness History of Present Illness: PGY-2 H&P for hospitalist 56 yo male with PMH of nonischemic cardiomyopathy (EF 20-25%), a, fib presented to ED for near syncopal episode. Patient states this morning he woke up to take AM meds and felt generalized weakness. Patient states that later that morning he got up to use the bathroom but said he began to feel faint, palpitations, chest tightness with dyspnea nad a cold sweat. He states he grabbed the wall and slide down to the floor. He denies any trauma to the head. Patient states that he could get up and EMS was called. Patient states that most of his symptoms improved or resolved by the time he arrived in [facility] ED however he continues to feel general weakness. Patient was recently admitted for similar episode, He was found to be in ventricular tachycardia in the field and was successfully cardioverted. He was found to be in a. fib and started on eliquis. Patient was advised to follow up his auto damage appraiser for possible AICD. He states that he has an appointment for next week. Patient denies cough, however report that he does cough at night. He denies fever, chills, diarrhea, constipation, dysuria. 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 absent: Chills, Fever, Headache - EENT Eyes: absent: Change in Vision Nose/Mouth/Throat: absent: Nasal Congestion, Nasal Discharge, Sore Throat - Cardiovascular Cardiovascular: Chest Pain, Diaphoresis, Dyspnea (with syncopal episode), Lightheadedness, Palpitations - Respiratory Respiratory: absent: Cough, Dyspnea - Gastrointestinal Gastrointestinal: absent: Abdominal Pain, Constipation, Diarrhea, Nausea, Vomiting - Genitourinary Genitourinary: absent: Difficulty Urinating, Dysuria - Musculoskeletal Musculoskeletal: absent: Arthralgias, Muscle Weakness, Numbness, Tingling - Integumentary Integumentary: absent: Pruritus, Rash, Skin Ulcer, Swelling - Neurological Neurological: Dizziness, Syncope, Weakness. absent: Numbness, Focal Weakness, Headaches, Tingling - Hematologic/Lymphatic Hematologic: absent: Easy Bleeding, Easy Bruising Past Patient History - Infectious Disease Hx of Infectious Diseases: None - Tetanus Immunizations Tetanus Immunization: Unknown - Past Medical History & Family History Past Medical History?: Yes - Past Social History Smoking Status: Never Smoked - CARDIAC Hx Cardia Arrhythmia: Yes (vtach) Hx Congestive Heart Failure: Yes Hx Hypertension: Yes Hx Peripheral Edema: Yes Other/Comment: cardiomyopathy - PULMONARY Hx Respiratory Disorders: No - NEUROLOGICAL Hx Neurological Disorder: No - HEENT Hx HEENT Problems: No - RENAL Hx Chronic Kidney Disease: No - ENDOCRINE/METABOLIC Hx Endocrine Disorders: No - HEMATOLOGICAL/ONCOLOGICAL Hx Blood Disorders: No - INTEGUMENTARY Hx Dermatological Problems: No - MUSCULOSKELETAL/RHEUMATOLOGICAL Hx Falls: No - GASTROINTESTINAL Hx Gastrointestinal Disorders: No - GENITOURINARY/GYNECOLOGICAL Hx Genitourinary Disorders: No - PSYCHIATRIC Hx Psychophysiologic Disorder: (morbidly obese) Hx Substance Use: No - SURGICAL HISTORY Hx Cardiac Catheterization: Yes (01/05/13) Other/Comment: pt had sleep apnea, had throat sx to have ovula removed, sleep apnea stopped post sx as per ptsharon picc 01/10/2013 in and out in 2 days as per pt - ANESTHESIA Hx Anesthesia: Yes Hx Anesthesia Reactions: No Hx Malignant Hyperthermia: No Meds Allergies/Adverse Reactions: Allergies Allergy/AdvReac Type Severity Reaction Status Date / Time No Known Allergies Allergy Verified 06/02/17 07:39 Physical Exam - Constitutional Appears: Well, No Acute Distress - Head Exam Head Exam: ATRAUMATIC, NORMAL INSPECTION, NORMOCEPHALIC - Eye Exam Eye Exam: EOMI, Normal appearance - ENT Exam ENT Exam: Mucous Membranes Moist - Respiratory Exam Respiratory Exam: Clear to Auscultation Bilateral, NORMAL BREATHING PATTERN. absent: Rales, Rhonchi, Wheezes, Respiratory Distress - Cardiovascular Exam Cardiovascular Exam: Irregular Rhythm. absent: Tachycardia, Diastolic murmur, Systolic Murmur - GI/Abdominal Exam GI & Abdominal Exam: Normal Bowel Sounds, Soft. absent: Distended, Firm, Guarding - Extremities Exam Extremities exam: Positive for: normal inspection. Negative for: pedal edema, tenderness - Neurological Exam Neurological exam: Alert, Oriented x3 - Skin Skin Exam: Dry, Intact, Normal Color, Warm Results - Vital Signs Recent Vital Signs: Last Vital Signs Temp 97.9 F 06/02/17 07:38 Pulse 104 H 06/02/17 12:24 Resp 18 06/02/17 12:24 BP 127/53 L 06/02/17 12:24 Pulse Ox 100 06/02/17 12:24 - Labs Result Diagrams: 06/02/17 07:34 06/02/17 07:34 Assessment & Plan - Assessment and Plan (Free Text) Assessment: 56 yo M with PMH of nonischemic dilated cardiomyopathy with LVEF 20-25%, a. kal presents with palpitation and near syncopal episode. Plan: palpitation with near syncope - possibly secondary to arrhythmia - admission to [facility], first one negative - cardiology consult Dr Brothers - CT head - orthostatic vitals - Echo from 05/25 shows four chamber dilation, EF 20-25%, moderate MR/TR, RVSP 50 , no thrombus - Patient will require assessment for AICD placement,most likely out patient - continue Lasix - Continue ASA, lipitor - Continue amiodarone, coreg, eplerenone Atrial fibrillation - continue eliquis for anticoagulation - continue coreg for rate control - continue to monitor Transaminemia - from previous admission, trending down - monitor with AM labs Leukocytosis - possibly reactive, patient is afebrile - UA pending - Ordered procalcitonin; blood and urine cultures ordered - cxr negative for acute disease History of hypothyroidism - Continue home synthroid GI/DVT Ppx: Pepcid and eliquis <Patricia Walton - Last Filed: 06/02/17 15:27> Results - Vital Signs Recent Vital Signs: Last Vital Signs Temp 97.9 F 06/02/17 13:28 Pulse 114 H 06/02/17 13:57 Resp 18 06/02/17 13:57 BP 114/72 06/02/17 13:57 Pulse Ox 99 06/02/17 13:57 - Labs Result Diagrams: 06/02/17 07:34 06/02/17 07:34 Labs: Laboratory Results - last 24 hr 06/02/17 06/02/17 14:29 14:45 POC Glucose (mg/dL) 126 H Lactate Dehydrogenase 350 Total Creatine Kinase 38 Troponin I 0.03 D Attending/Attestation - Attestation I have personally seen and examined this patient.: Yes I have fully participated in the care of the patient.: Yes I have reviewed all pertinent clinical information: Yes Notes (Text): 06/02/17 15:24 56 year old male with past medical history of cardioyopathy and atrial fibrillation who presents with complaint of chest pain and near syncope. Will obtain serial cardiac enzymes to rule out ACS. Cardiology evaluation is requested. Home medications are resumed. Leukocytosis noted; possibly reactive. Will monitor and check septic workup. Patient is afebrile and CXR was negative. Family is at bedside and questions were answered. Patricia Walton MD Hospitalist.
[2017-06-02] MEDS ORDERED: Influenza Vaccine 60 mcg/0.5 mL SYR (4YR UP) IM ONE (14:07)
[2017-06-02] MEDS ORDERED: Pneumococcal 23-Valent Vaccine IM ONE (14:07)
[2017-06-02] MEDS ORDERED: Sodium Chloride 0.9% 500 ML IV STA (14:49)
[2017-06-02 15:15] LABS: TROPONIN I 0.03 ng/mL
[2017-06-02] MEDS ORDERED: Sodium Chloride 0.9% 250 ML IV SCH ×2 (15:45→22:45)
[2017-06-02 19:31] LABS: BASO # 0.01 K/mm3 (0.0-2.0); GRAN # 18.16 (1.4-6.5); GRAN % 84.5 % (50.0-68.0); HEMOGLOBIN 9.4 g/dL (14.0-18.0); LYMPH # 2.4 (1.2-3.4); LYMPH % 11.2 % (22.0-35.0); MEAN CELL VOLUME 87.8 fl (80.0-105.0); MEAN CORPUSCULAR HEMOGLOBIN 30.9 pg (25.0-35.0); MEAN CORPUSCULAR HGB CONC 35.2 g/dl (31.0-37.0); MEAN PLATELET VOLUME 9.5 fl (7.0-11.0); MONO # 0.9 (0.1-0.6); MONO % 4.3 % (1.0-6.0); RBC 3.04 10^6/uL (3.5-6.1); RED CELL DISTRIBUTION WIDTH 13.1 % (11.5-14.5); WHITE BLOOD COUNT 21.5 10^3/ul (4.5-11.0)
--- NOTE | 2017-06-02 19:31 | CARD ---
APPROVED REPORT EKG Measurement Heart [id number] <Conclusion> Normal sinus rhythm Left axis deviation Incomplete left bundle branch block Abnormal ECG
[2017-06-02 19:32] LABS: VENOUS BLOOD GAS BASE EXCESS -3.3 mmol/L (0.0-2.0); VENOUS BLOOD GAS PO2 24 mm/Hg (30-55); VENOUS BLOOD PH 7.38 (7.32-7.43)
--- NOTE | 2017-06-02 19:39 | CP.PCM.PN ---
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 It was called because patient had lighthededness, was very diaphoretic and hypotensive.6(/),HR 120's. Denies chest pain, nausea, palpitations. FSBS -142 mg %. Earlier , patient received 500 CC + 250 CC of normal saline boluses for hypotensive episodes. We gave 250 CC IV bolus now. Medical record wsa reviewed. This 56 year old white male was admitted with syncopal episode, chest pain , palpitation,sob,leukocytosis. Has PMH of Ischemic cardiomyopathy, EF 20-25%,atrial fibrillation, ventricular tachycardia, HTN, throat surgery, obesity, lower extremity venous stasis,renal insufficiency,hypothyroidism. Objective - Vital Signs/Intake and Output Vital Signs (last 24 hours): Temp Pulse Resp BP Pulse Ox 98.4 F 118 H 18 114/67 99 06/02/17 17:41 06/02/17 17:41 06/02/17 17:41 06/02/17 17:41 06/02/17 17:41 - Medications Medications: Current Medications Amiodarone HCl (Cordarone) 200 mg PO DAILY [facility] Apixaban (Eliquis) 5 mg PO BID [facility] PRN Reason: Protocol Last Admin: 06/02/17 18:24 Dose: 5 mg Aspirin (Ecotrin) 81 mg PO DAILY [facility] Atorvastatin Calcium (Lipitor) 20 mg PO DAILY [facility] Carvedilol (Coreg) 3.125 mg PO BID [facility] Famotidine (Pepcid) 20 mg PO DAILY [facility] Furosemide (Lasix) 20 mg PO BID [facility] Levothyroxine Sodium (Synthroid) 88 mcg PO DAILY [facility] Lisinopril (Zestril) 2.5 mg PO DAILY [facility] Non-Formulary Medication (Eplerenone [Inspra]) 25 mg PO DAILY [facility] - Labs Labs: 06/02/17 19:29 Lab Studies 06/02/17 06/02/17 06/02/17 Range/Units 19:29 19:29 19:29 WBC (4.5-11.0) 10^3/ul RBC (3.5-6.1) 10^6/uL Hgb (14.0-18.0) g/dL Hct (42.0-52.0) % MCV (80.0-105.0) fl MCH (25.0-35.0) pg MCHC (31.0-37.0) g/dl RDW (11.5-14.5) % Plt Count (120.0-450.0) 10^3/uL MPV (7.0-11.0) fl Gran % (50.0-68.0) % Lymph % (Auto) (22.0-35.0) % [place] % (Auto) (1.0-6.0) % Eos % (Auto) (1.5-5.0) % Baso % (Auto) (0.0-3.0) % Gran # (1.4-6.5) Lymph # (Auto) (1.2-3.4) [place] # (Auto) (0.1-0.6) Eos # (Auto) (0.0-0.7) Baso # (Auto) (0.0-2.0) K/mm3 pO2 24 L (30-55) mm/Hg VBG pH 7.38 (7.32-7.43) VBG pCO2 36.0 L (40-60) VBG HCO3 21.3 (21-28) mmol/l VBG Total CO2 22.4 (22-28) mmol.L VBG O2 Sat (Calc) 43.2 (40-65) % VBG Base Excess -3.3 L (0.0-2.0) mmol/L VBG Potassium 4.8 (3.6-5.2) mmol/L Glucose 157 H (75-110) mg/dl Lactate 1.7 (0.7-2.1) mmol/L FiO2 21.0 % Sodium 131 L 130.0 L (132-148) mmol/L Potassium 4.7 (3.6-5.0) mmol/L Chloride 102 102.0 (98-107) mmol/L Carbon Dioxide 19 L (21-33) mmol/L Anion Gap 14 (10-20) BUN 86 H (7-21) mg/dL Creatinine 1.4 (0.8-1.5) mg/dl Est GFR ( Amer) > 60 Est GFR (Non-Af Amer) 53 POC Glucose (mg/dL) (65-110) mg/dL Random Glucose 151 H (70-110) mg/dL Calcium 8.8 (8.4-10.5) mg/dL Magnesium (1.7-2.2) mg/dL Total Bilirubin 0.5 (0.2-1.3) mg/dL AST 19 (17-59) U/L ALT 71 H (7-56) U/L Alkaline Phosphatase 42 (38-126) U/L Lactate Dehydrogenase (333-699) U/L Total Creatine Kinase (35-230) U/L Troponin I 0.05 D ng/mL NT-Pro-B Natriuret Pep 408 (0-450) pg/mL Total Protein 5.3 L (5.8-8.3) g/dL Albumin 2.8 L (3.0-4.8) g/dL Globulin 2.5 gm/dL Albumin/Globulin Ratio 1.1 (1.1-1.8) TSH 3rd Generation (0.46-4.68) mIU/mL Venous Blood Potassium 4.8 (3.6-5.2) mmol/L Urine Color (YELLOW) Urine Appearance (CLEAR) Urine pH (4.7-8.0) Ur Specific [place] (1.005-1.035) Urine Protein (<30 mg/dL) mg/dL Urine Glucose (UA) (NEGATIVE) mg/dL Urine Ketones (NEGATIVE) mg/dL Urine Blood (NEGATIVE) Urine Nitrate (NEGATIVE) Urine Bilirubin (NEGATIVE) Urine Urobilinogen (<1 E.U./dL) E.U./dL Ur Leukocyte Esterase (NEGATIVE) [place]/uL Digoxin 0.5 L (0.8-2.0) ng/mL 06/02/17 06/02/17 06/02/17 Range/Units 19:29 19:20 16:14 WBC 21.5 H D (4.5-11.0) 10^3/ul RBC 3.04 L (3.5-6.1) 10^6/uL Hgb 9.4 L D (14.0-18.0) g/dL Hct 26.7 L (42.0-52.0) % MCV 87.8 (80.0-105.0) fl MCH 30.9 (25.0-35.0) pg MCHC 35.2 (31.0-37.0) g/dl RDW 13.1 (11.5-14.5) % Plt Count 318 (120.0-450.0) 10^3/uL MPV 9.5 (7.0-11.0) fl Gran % 84.5 H (50.0-68.0) % Lymph % (Auto) 11.2 L (22.0-35.0) % [place] % (Auto) 4.3 (1.0-6.0) % Eos % (Auto) 0.0 L (1.5-5.0) % Baso % (Auto) 0.0 (0.0-3.0) % Gran # 18.16 H (1.4-6.5) Lymph # (Auto) 2.4 (1.2-3.4) [place] # (Auto) 0.9 H (0.1-0.6) Eos # (Auto) 0.0 (0.0-0.7) Baso # (Auto) 0.01 (0.0-2.0) K/mm3 pO2 (30-55) mm/Hg VBG pH (7.32-7.43) VBG pCO2 (40-60) VBG HCO3 (21-28) mmol/l VBG Total CO2 (22-28) mmol.L VBG O2 Sat (Calc) (40-65) % VBG Base Excess (0.0-2.0) mmol/L VBG Potassium (3.6-5.2) mmol/L Glucose (75-110) mg/dl Lactate (0.7-2.1) mmol/L FiO2 % Sodium (132-148) mmol/L Potassium (3.6-5.0) mmol/L Chloride (98-107) mmol/L Carbon Dioxide (21-33) mmol/L Anion Gap (10-20) BUN (7-21) mg/dL Creatinine (0.8-1.5) mg/dl Est GFR ( Amer) Est GFR (Non-Af Amer) POC Glucose (mg/dL) 142 H (65-110) mg/dL Random Glucose (70-110) mg/dL Calcium (8.4-10.5) mg/dL Magnesium (1.7-2.2) mg/dL Total Bilirubin (0.2-1.3) mg/dL AST (17-59) U/L ALT (7-56) U/L Alkaline Phosphatase (38-126) U/L Lactate Dehydrogenase (333-699) U/L Total Creatine Kinase (35-230) U/L Troponin I ng/mL NT-Pro-B Natriuret Pep (0-450) pg/mL Total Protein (5.8-8.3) g/dL Albumin (3.0-4.8) g/dL Globulin gm/dL Albumin/Globulin Ratio (1.1-1.8) TSH 3rd Generation (0.46-4.68) mIU/mL Venous Blood Potassium (3.6-5.2) mmol/L Urine Color Yellow (YELLOW) Urine Appearance Clear (CLEAR) Urine pH 6.0 (4.7-8.0) Ur Specific [place] 1.010 (1.005-1.035) Urine Protein Negative (<30 mg/dL) mg/dL Urine Glucose (UA) Negative (NEGATIVE) mg/dL Urine Ketones Negative (NEGATIVE) mg/dL Urine Blood Negative (NEGATIVE) Urine Nitrate Negative (NEGATIVE) Urine Bilirubin Negative (NEGATIVE) Urine Urobilinogen 0.2 (<1 E.U./dL) E.U./dL Ur Leukocyte Esterase Negative (NEGATIVE) [place]/uL Digoxin (0.8-2.0) ng/mL 06/02/17 06/02/17 06/02/17 Range/Units 14:45 14:29 07:46 WBC (4.5-11.0) 10^3/ul RBC (3.5-6.1) 10^6/uL Hgb (14.0-18.0) g/dL Hct (42.0-52.0) % MCV (80.0-105.0) fl MCH (25.0-35.0) pg MCHC (31.0-37.0) g/dl RDW (11.5-14.5) % Plt Count (120.0-450.0) 10^3/uL MPV (7.0-11.0) fl Gran % (50.0-68.0) % Lymph % (Auto) (22.0-35.0) % [place] % (Auto) (1.0-6.0) % Eos % (Auto) (1.5-5.0) % Baso % (Auto) (0.0-3.0) % Gran # (1.4-6.5) Lymph # (Auto) (1.2-3.4) [place] # (Auto) (0.1-0.6) Eos # (Auto) (0.0-0.7) Baso # (Auto) (0.0-2.0) K/mm3 pO2 (30-55) mm/Hg VBG pH (7.32-7.43) VBG pCO2 (40-60) VBG HCO3 (21-28) mmol/l VBG Total CO2 (22-28) mmol.L VBG O2 Sat (Calc) (40-65) % VBG Base Excess (0.0-2.0) mmol/L VBG Potassium (3.6-5.2) mmol/L Glucose (75-110) mg/dl Lactate (0.7-2.1) mmol/L FiO2 % Sodium (132-148) mmol/L Potassium (3.6-5.0) mmol/L Chloride (98-107) mmol/L Carbon Dioxide (21-33) mmol/L Anion Gap (10-20) BUN (7-21) mg/dL Creatinine (0.8-1.5) mg/dl Est GFR ( Amer) Est GFR (Non-Af Amer) POC Glucose (mg/dL) 126 H (65-110) mg/dL Random Glucose (70-110) mg/dL Calcium (8.4-10.5) mg/dL Magnesium (1.7-2.2) mg/dL Total Bilirubin (0.2-1.3) mg/dL AST (17-59) U/L ALT (7-56) U/L Alkaline Phosphatase (38-126) U/L Lactate Dehydrogenase 350 (333-699) U/L Total Creatine Kinase 38 (35-230) U/L Troponin I 0.03 D ng/mL NT-Pro-B Natriuret Pep (0-450) pg/mL Total Protein (5.8-8.3) g/dL Albumin (3.0-4.8) g/dL Globulin gm/dL Albumin/Globulin Ratio (1.1-1.8) TSH 3rd Generation 2.79 (0.46-4.68) mIU/mL Venous Blood Potassium (3.6-5.2) mmol/L Urine Color (YELLOW) Urine Appearance (CLEAR) Urine pH (4.7-8.0) Ur Specific [place] (1.005-1.035) Urine Protein (<30 mg/dL) mg/dL Urine Glucose (UA) (NEGATIVE) mg/dL Urine Ketones (NEGATIVE) mg/dL Urine Blood (NEGATIVE) Urine Nitrate (NEGATIVE) Urine Bilirubin (NEGATIVE) Urine Urobilinogen (<1 E.U./dL) E.U./dL Ur Leukocyte Esterase (NEGATIVE) [place]/uL Digoxin (0.8-2.0) ng/mL 06/02/17 06/02/17 06/02/17 Range/Units 07:35 07:34 07:34 WBC 16.0 H D (4.5-11.0) 10^3/ul RBC 3.88 (3.5-6.1) 10^6/uL Hgb 12.0 L D (14.0-18.0) g/dL Hct 34.2 L (42.0-52.0) % MCV 88.1 (80.0-105.0) fl MCH 30.9 (25.0-35.0) pg MCHC 35.1 (31.0-37.0) g/dl RDW 12.9 (11.5-14.5) % Plt Count 310 (120.0-450.0) 10^3/uL MPV 9.6 (7.0-11.0) fl Gran % 83.7 H (50.0-68.0) % Lymph % (Auto) 11.3 L (22.0-35.0) % [place] % (Auto) 4.3 (1.0-6.0) % Eos % (Auto) 0.6 L (1.5-5.0) % Baso % (Auto) 0.1 (0.0-3.0) % Gran # 13.36 H (1.4-6.5) Lymph # (Auto) 1.8 (1.2-3.4) [place] # (Auto) 0.7 H (0.1-0.6) Eos # (Auto) 0.1 (0.0-0.7) Baso # (Auto) 0.01 (0.0-2.0) K/mm3 pO2 (30-55) mm/Hg VBG pH (7.32-7.43) VBG pCO2 (40-60) VBG HCO3 (21-28) mmol/l VBG Total CO2 (22-28) mmol.L VBG O2 Sat (Calc) (40-65) % VBG Base Excess (0.0-2.0) mmol/L VBG Potassium (3.6-5.2) mmol/L Glucose (75-110) mg/dl Lactate (0.7-2.1) mmol/L FiO2 % Sodium 134 (132-148) mmol/L Potassium 4.8 (3.6-5.0) mmol/L Chloride 100 (98-107) mmol/L Carbon Dioxide 22 (21-33) mmol/L Anion Gap 17 (10-20) BUN 73 H (7-21) mg/dL Creatinine 1.0 (0.8-1.5) mg/dl Est GFR ( Amer) > 60 Est GFR (Non-Af Amer) > 60 POC Glucose (mg/dL) 125 H (65-110) mg/dL Random Glucose 113 H (70-110) mg/dL Calcium 9.6 (8.4-10.5) mg/dL Magnesium 1.9 (1.7-2.2) mg/dL Total Bilirubin 0.6 (0.2-1.3) mg/dL AST 27 (17-59) U/L ALT 97 H (7-56) U/L Alkaline Phosphatase 56 (38-126) U/L Lactate Dehydrogenase 392 (333-699) U/L Total Creatine Kinase 51 (35-230) U/L Troponin I 0.02 D ng/mL NT-Pro-B Natriuret Pep 237 (0-450) pg/mL Total Protein 6.6 (5.8-8.3) g/dL Albumin 3.7 (3.0-4.8) g/dL Globulin 2.8 gm/dL Albumin/Globulin Ratio 1.3 (1.1-1.8) TSH 3rd Generation (0.46-4.68) mIU/mL Venous Blood Potassium (3.6-5.2) mmol/L Urine Color (YELLOW) Urine Appearance (CLEAR) Urine pH (4.7-8.0) Ur Specific [place] (1.005-1.035) Urine Protein (<30 mg/dL) mg/dL Urine Glucose (UA) (NEGATIVE) mg/dL Urine Ketones (NEGATIVE) mg/dL Urine Blood (NEGATIVE) Urine Nitrate (NEGATIVE) Urine Bilirubin (NEGATIVE) Urine Urobilinogen (<1 E.U./dL) E.U./dL Ur Leukocyte Esterase (NEGATIVE) [place]/uL Digoxin (0.8-2.0) ng/mL - Constitutional Appears: Other (Ill looking.) - Eye Exam Eye Exam: Normal appearance - ENT Exam ENT Exam: Mucous Membranes Dry - Neck Exam Neck Exam: Normal Inspection - Respiratory Exam Respiratory Exam: NORMAL BREATHING PATTERN - Cardiovascular Exam Cardiovascular Exam: absent: JVD - GI/Abdominal Exam GI & Abdominal Exam: absent: Distended - Rectal Exam Rectal Exam: Deferred - Exam Additional comments: Deferred. - Extremities Exam Extremities Exam: Normal Inspection - Back Exam Back Exam: NORMAL INSPECTION - Neurological Exam Neurological Exam: Alert, Awake, Oriented x3 - Psychiatric Exam Psychiatric exam: Normal Affect, Normal Mood - Skin Skin Exam: Dry, Normal Color Assessment and Plan - Assessment and Plan (Free Text) Assessment: Lightheadedness. Diaphoresis. Hypotension.-hypovolemic(BUN 73-86), -septic, r/o ischemic event. Low EF. Cardiomyopathy. History hypertension. Atrial fibrillation. Leukocytosis. Low H & H-Dilutional? Elevated BUN. Obesity. History of hypothyroidism. PVC's on EKG. Plan: Normal saline 250 CC bolus. FSBS- 142 mg%. CBC,CMP,trop, vABG, septic work up. CT head which is pending. EKG-->S.Tach,PVC's. CXR. Transfer to ICU. CRITICAL CARE TIME SPENT: 30 minutes.
--- NOTE | 2017-06-02 19:40 | CARD ---
APPROVED REPORT EKG Measurement Heart [id number] <Conclusion> Sinus tachycardia with frequent premature ventricular complexes Left axis deviation Incomplete left bundle branch block T wave abnormality, consider lateral ischemia Abnormal ECG
[2017-06-02 19:42] LABS: URINE BILIRUBIN NEGATIVE (NEGATIVE); URINE BLOOD NEGATIVE (NEGATIVE); URINE GLUCOSE (UA) NEGATIVE (NEGATIVE); URINE LEUKOCYTE ESTERASE NEGATIVE Leu/uL (NEGATIVE); URINE PROTEIN NEGATIVE mg/dL (<30 mg/dL); URINE UROBILINOGEN 0.2 E.U./dL (<1 E.U./dL)
[2017-06-02 19:43] LABS: URINE APPEARANCE CLEAR (CLEAR); URINE COLOR YELLOW (YELLOW)
[2017-06-02 19:47] LABS: ALB/GLOB RATIO 1.1 (1.1-1.8); ALBUMIN 2.8 g/dL (3.0-4.8); ALT/SGPT 71 U/L (7-56); AST/SGOT 19 U/L (17-59); BLOOD UREA NITROGEN 86 mg/dL (7-21); CALCIUM 8.8 mg/dL (8.4-10.5); GFR AFRICAN-AMERICAN > 60; GFR NON-AFRICAN AMERICAN 53
--- NOTE | 2017-06-02 19:52 | CP.PCM.CON ---
<Nelly Hamlin - Last Filed: 06/02/17 23:23> History of Present Illness - History of Present Illness History of Present Illness: Reason for ICU consult: hypotension, in the setting of poor LVEF. Patient is a 59 y/o with pmhx of non ischemic cardiomyopathy with latest lvef of 25%, recent diagnosis of afib on eliquis, was recently admitted with vtach and was cardioverted on the field, and was discharged on 05/28, readmitted on the tele floor after patient presented with witnessed syncopal episode, and ICU is being consulted due to persistent hypotension. Earlier in the day patient became hypotensive, was giving 750 cc bolus of NS, then patient was noted again tonight to have sbp in the 60s thus PLANNING CONSULTANT was called. Patient received 500 cc bolus during PLANNING CONSULTANT with transient increase in BP. Patient was also noted to have urinary retention, had straight cath with removal of 800cc of urine. Due to instability in BP, patient is to be transferred to ICU for further monitoring. Patient denies cp, sob, nausea, vomiting or diarrhea. Patient admits to dizziness. No fever, admits to occasional chills. Patient denies hitting his head when he syncopied. 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 Past Patient History - Infectious Disease Hx of Infectious Diseases: None - Tetanus Immunizations Tetanus Immunization: Unknown - Past Medical History & Family History Past Medical History?: Yes - Past Social History Smoking Status: Never Smoked Alcohol: None Drugs: Denies Home Situation {Lives}: With Family - CARDIAC Hx Cardia Arrhythmia: Yes (vtach) Hx Congestive Heart Failure: Yes Hx Hypertension: Yes Hx Peripheral Edema: Yes Other/Comment: cardiomyopathy - PULMONARY Hx Respiratory Disorders: No - NEUROLOGICAL Hx Neurological Disorder: No - HEENT Hx HEENT Problems: No - RENAL Hx Chronic Kidney Disease: No - ENDOCRINE/METABOLIC Hx Endocrine Disorders: No - HEMATOLOGICAL/ONCOLOGICAL Hx Blood Disorders: No - INTEGUMENTARY Hx Dermatological Problems: No - MUSCULOSKELETAL/RHEUMATOLOGICAL Hx Falls: No - GASTROINTESTINAL Hx Gastrointestinal Disorders: No - GENITOURINARY/GYNECOLOGICAL Hx Genitourinary Disorders: No - PSYCHIATRIC Hx Psychophysiologic Disorder: (morbidly obese) Hx Substance Use: No - SURGICAL HISTORY Hx Cardiac Catheterization: Yes (01/05/13) Other/Comment: pt had sleep apnea, had throat sx to have ovula removed, sleep apnea stopped post sx as per pt, sharon picc 01/10/2013 in and out in 2 days as per pt - ANESTHESIA Hx Anesthesia: Yes Hx Anesthesia Reactions: No Hx Malignant Hyperthermia: No Meds Allergies/Adverse Reactions: Allergies Allergy/AdvReac Type Severity Reaction Status Date / Time No Known Allergies Allergy Verified 06/02/17 07:39 - Medications Medications: Current Medications Amiodarone HCl (Cordarone) 200 mg PO DAILY [facility] Apixaban (Eliquis) 5 mg PO BID [facility] PRN Reason: Protocol Last Admin: 06/02/17 18:24 Dose: 5 mg Aspirin (Ecotrin) 81 mg PO DAILY [facility] Atorvastatin Calcium (Lipitor) 20 mg PO DAILY [facility] Carvedilol (Coreg) 3.125 mg PO BID [facility] Famotidine (Pepcid) 20 mg PO DAILY [facility] Furosemide (Lasix) 20 mg PO BID [facility] Vancomycin HCl (Vancomycin 1gm) 1 gm in 250 mls @ 167 mls/hr IVPB Q12H [facility] PRN Reason: Protocol Piperacillin Sod/Tazobactam Sod (Zosyn 3.375 In Ns 100ml) 100 mls @ 200 mls/hr IVPB Q6 [facility] PRN Reason: Protocol Stop: 06/03/17 06:29 Levothyroxine Sodium (Synthroid) 88 mcg PO DAILY [facility] Lisinopril (Zestril) 2.5 mg PO DAILY [facility] Non-Formulary Medication (Eplerenone [Inspra]) 25 mg PO DAILY [facility] Physical Exam - Constitutional Appears: No Acute Distress, Older Than Stated Age, Chronically Ill - Head Exam Head Exam: ATRAUMATIC, NORMAL INSPECTION, NORMOCEPHALIC - Eye Exam Eye Exam: EOMI, Normal appearance, PERRL. absent: Scleral icterus Pupil Exam: NORMAL ACCOMODATION - ENT Exam ENT Exam: Mucous Membranes Moist - Neck Exam Neck exam: Positive for: Normal Inspection - Respiratory Exam Respiratory Exam: Clear to Auscultation Bilateral, NORMAL BREATHING PATTERN. absent: Rales, Rhonchi, Wheezes, Respiratory Distress, Stridor - Cardiovascular Exam Cardiovascular Exam: Tachycardia, REGULAR RHYTHM, RRR, +S1, +S2. absent: Gallop , JVD, Rubs, Systolic Murmur - GI/Abdominal Exam GI & Abdominal Exam: Normal Bowel Sounds, Soft. absent: Distended, Firm, Guarding, Rigid, Tenderness Additional comments: + obese abdomen. - Extremities Exam Extremities exam: Positive for: normal inspection. Negative for: pedal edema, tenderness - Back Exam Back exam: NORMAL INSPECTION - Neurological Exam Neurological exam: Alert, Oriented x3 - Psychiatric Exam Psychiatric exam: Normal Affect, Normal Mood - Skin Skin Exam: Dry, Intact, Normal Color, Warm Results - Vital Signs Recent Vital Signs: Last Vital Signs Temp 98.4 F 06/02/17 17:41 Pulse 118 H 06/02/17 17:41 Resp 18 06/02/17 17:41 BP 114/67 06/02/17 17:41 Pulse Ox 99 06/02/17 17:41 - Labs Result Diagrams: 06/02/17 19:29 06/02/17 19:29 Labs: Laboratory Results - last 24 hr 06/02/17 06/02/17 06/02/17 14:29 14:45 16:14 WBC RBC Hgb Hct MCV MCH MCHC RDW Plt Count MPV Gran % Lymph % (Auto) [place] % (Auto) Eos % (Auto) Baso % (Auto) Gran # Lymph # (Auto) [place] # (Auto) Eos # (Auto) Baso # (Auto) pO2 VBG pH VBG pCO2 VBG HCO3 VBG Total CO2 VBG O2 Sat (Calc) VBG Base Excess VBG Potassium Sodium Chloride Glucose Lactate FiO2 Potassium Carbon Dioxide Anion Gap BUN Creatinine Est GFR ( Amer) Est GFR (Non-Af Amer) POC Glucose (mg/dL) 126 H 142 H Random Glucose Calcium Total Bilirubin AST ALT Alkaline Phosphatase Lactate Dehydrogenase 350 Total Creatine Kinase 38 Troponin I 0.03 D Total Protein Albumin Globulin Albumin/Globulin Ratio Venous Blood Potassium Urine Color Urine Appearance Urine pH Ur Specific [place] Urine Protein Urine Glucose (UA) Urine Ketones Urine Blood Urine Nitrate Urine Bilirubin Urine Urobilinogen Ur Leukocyte Esterase Digoxin 06/02/17 06/02/17 06/02/17 19:20 19:29 19:29 WBC 21.5 H D RBC 3.04 L Hgb 9.4 L D Hct 26.7 L MCV 87.8 MCH 30.9 MCHC 35.2 RDW 13.1 Plt Count 318 MPV 9.5 Gran % 84.5 H Lymph % (Auto) 11.2 L [place] % (Auto) 4.3 Eos % (Auto) 0.0 L Baso % (Auto) 0.0 Gran # 18.16 H Lymph # (Auto) 2.4 [place] # (Auto) 0.9 H Eos # (Auto) 0.0 Baso # (Auto) 0.01 pO2 24 L VBG pH 7.38 VBG pCO2 36.0 L VBG HCO3 21.3 VBG Total CO2 22.4 VBG O2 Sat (Calc) 43.2 VBG Base Excess -3.3 L VBG Potassium 4.8 Sodium 130.0 L Chloride 102.0 Glucose 157 H Lactate 1.7 FiO2 21.0 Potassium Carbon Dioxide Anion Gap BUN Creatinine Est GFR ( Amer) Est GFR (Non-Af Amer) POC Glucose (mg/dL) Random Glucose Calcium Total Bilirubin AST ALT Alkaline Phosphatase Lactate Dehydrogenase Total Creatine Kinase Troponin I Total Protein Albumin Globulin Albumin/Globulin Ratio Venous Blood Potassium 4.8 Urine Color Yellow Urine Appearance Clear Urine pH 6.0 Ur Specific [place] 1.010 Urine Protein Negative Urine Glucose (UA) Negative Urine Ketones Negative Urine Blood Negative Urine Nitrate Negative Urine Bilirubin Negative Urine Urobilinogen 0.2 Ur Leukocyte Esterase Negative Digoxin 06/02/17 06/02/17 19:29 19:29 WBC RBC Hgb Hct MCV MCH MCHC RDW Plt Count MPV Gran % Lymph % (Auto) [place] % (Auto) Eos % (Auto) Baso % (Auto) Gran # Lymph # (Auto) [place] # (Auto) Eos # (Auto) Baso # (Auto) pO2 VBG pH VBG pCO2 VBG HCO3 VBG Total CO2 VBG O2 Sat (Calc) VBG Base Excess VBG Potassium Sodium 131 L Chloride 102 Glucose Lactate FiO2 Potassium 4.7 Carbon Dioxide 19 L Anion Gap 14 BUN 86 H Creatinine 1.4 Est GFR ( Amer) > 60 Est GFR (Non-Af Amer) 53 POC Glucose (mg/dL) Random Glucose 151 H Calcium 8.8 Total Bilirubin 0.5 AST 19 ALT 71 H Alkaline Phosphatase 42 Lactate Dehydrogenase Total Creatine Kinase Troponin I Total Protein 5.3 L Albumin 2.8 L Globulin 2.5 Albumin/Globulin Ratio 1.1 Venous Blood Potassium Urine Color Urine Appearance Urine pH Ur Specific [place] Urine Protein Urine Glucose (UA) Urine Ketones Urine Blood Urine Nitrate Urine Bilirubin Urine Urobilinogen Ur Leukocyte Esterase Digoxin 0.5 L Assessment & Plan - Assessment and Plan (Free Text) Assessment: Patient is a 56 y/o with pmh non ischemic dilated cardiomyopathy with recent LVEF of 25%, afib on eliquis, recently admitted with vtach and was cardioverted at the time, initially presented with syncopal episode at home, was found to have hypotension. Patient was giving 750 cc litter bolus with no significant response in BP. Tonight patient was found to be hypotensive with sbp in the 60s , PLANNING CONSULTANT was called, patient was giving another 500 cc bolus with transient improvement in BP. Patient was transferred to ICU for further management. Plan: Neuro: Witnessed syncopal episode at home, likely vasovagal due to urinary retention, versus arrhythmia, versus hypotension/septic versus cardiogenic shock r/o seizures, r/o CVA - Pending CT head to r/o any intra-cranial hemorrhage giving the fact that patient is on eliquis. - will consider neuro consult - Fall precaution and neuro checks. - Normal tsh, - Trop x2 negative - Will start levophed for hypotension - sepsis work up pending Pulm: Patient with likely underlying COPD due to h/o smoking, saturating in the 90-98 on 2 litters nasal cannula Head of bed above 35 degrees. Cardiac: Septic versus cardiogenic shock Central line to be obtained and patient be started on pressors top maintain MAP above 65%. Cardiology consulted H/O afib and v-tach, currently sinus tachycardia, beta diallo on hold due to hypotension, on eliquis. ID: SIRS r/o sepsis/septic shock - + leukocytosis, procal low, cultures pending - ID consultyed, ua negative - Started on zosyn and vanco, pending Renal: Slight jump in creat, will monitor renal function, stric I&O, and daily weight patient has urinary retentation, Hardy catheter to be inserted. Endo: Will maintain euglycemia. Heme: Transient drop in h/h likely due fluid boluses, no active signs of bleeding at this time. will monitor h/h GI: heart healthy diet, and protonix for gi prophylaxis. DVT prophylaxis: on eliquis Patient seen, examined and case discussed with Dr Calvo. - Date & Time Date: 06/02/17 Time: 10:40 <Lubna HERNANDEZ,Lopez - Last Filed: 06/03/17 08:20> Meds - Medications Medications: Current Medications Amiodarone HCl (Cordarone) 200 mg PO DAILY [facility] Apixaban (Eliquis) 5 mg PO BID [facility] PRN Reason: Protocol Last Admin: 06/02/17 18:24 Dose: 5 mg Aspirin (Ecotrin) 81 mg PO DAILY [facility] Atorvastatin Calcium (Lipitor) 20 mg PO DAILY [facility] Carvedilol (Coreg) 3.125 mg PO BID [facility] Famotidine (Pepcid) 20 mg PO DAILY [facility] Furosemide (Lasix) 20 mg PO BID [facility] Vancomycin HCl (Vancomycin 1gm) 1 gm in 250 mls @ 167 mls/hr IVPB Q12H [facility] PRN Reason: Protocol Last Admin: 06/03/17 08:16 Dose: 167 mls/hr NOREPINEPHRINE BIT/0.9 % NACL (Levophed 4 Mg/ 250 Ml Ns Premixed) 4 mg in 250 mls @ 15 mls/hr IV .[id number] PRN; Protocol; 4 MCG/MIN PRN Reason: TITRATE PER MD ORDER Last Titration: 06/03/17 01:00 Dose: 15 mcg/min, 56.25 mls/hr Levothyroxine Sodium (Synthroid) 88 mcg PO DAILY [facility] Lisinopril (Zestril) 2.5 mg PO DAILY [facility] Non-Formulary Medication (Eplerenone [Inspra]) 25 mg PO DAILY [facility] Results - Vital Signs Recent Vital Signs: Last Vital Signs Temp 97.9 F 06/03/17 04:00 Pulse 97 H 06/03/17 06:20 Resp 17 06/03/17 06:20 BP 99/63 L 06/03/17 06:15 Pulse Ox 100 06/03/17 06:20 - Labs Result Diagrams: 06/03/17 06:00 06/03/17 06:00 Labs: Laboratory Results - last 24 hr 06/02/17 06/02/17 06/02/17 14:29 14:45 14:45 WBC RBC Hgb Hct MCV MCH MCHC RDW Plt Count MPV Gran % Lymph % (Auto) [place] % (Auto) Eos % (Auto) Baso % (Auto) Gran # Lymph # (Auto) [place] # (Auto) Eos # (Auto) Baso # (Auto) pO2 VBG pH VBG pCO2 VBG HCO3 VBG Total CO2 VBG O2 Sat (Calc) VBG Base Excess VBG Potassium Sodium Chloride Glucose Lactate FiO2 Potassium Carbon Dioxide Anion Gap BUN Creatinine Est GFR ( Amer) Est GFR (Non-Af Amer) POC Glucose (mg/dL) 126 H Random Glucose Calcium Iron TIBC % Saturation Total Bilirubin AST ALT Alkaline Phosphatase Lactate Dehydrogenase 350 Total Creatine Kinase 38 Troponin I 0.03 D NT-Pro-B Natriuret Pep Total Protein Albumin Globulin Albumin/Globulin Ratio Procalcitonin < 0.05 L Venous Blood Potassium Urine Color Urine Appearance Urine pH Ur Specific [place] Urine Protein Urine Glucose (UA) Urine Ketones Urine Blood Urine Nitrate Urine Bilirubin Urine Urobilinogen Ur Leukocyte Esterase Digoxin Blood Type Antibody Screen BBK History Checked 06/02/17 06/02/17 06/02/17 16:14 19:12 19:20 WBC RBC Hgb Hct MCV MCH MCHC RDW Plt Count MPV Gran % Lymph % (Auto) [place] % (Auto) Eos % (Auto) Baso % (Auto) Gran # Lymph # (Auto) [place] # (Auto) Eos # (Auto) Baso # (Auto) pO2 VBG pH VBG pCO2 VBG HCO3 VBG Total CO2 VBG O2 Sat (Calc) VBG Base Excess VBG Potassium Sodium Chloride Glucose Lactate FiO2 Potassium Carbon Dioxide Anion Gap BUN Creatinine Est GFR ( Amer) Est GFR (Non-Af Amer) POC Glucose (mg/dL) 142 H 143 H Random Glucose Calcium Iron TIBC % Saturation Total Bilirubin AST ALT Alkaline Phosphatase Lactate Dehydrogenase Total Creatine Kinase Troponin I NT-Pro-B Natriuret Pep Total Protein Albumin Globulin Albumin/Globulin Ratio Procalcitonin Venous Blood Potassium Urine Color Yellow Urine Appearance Clear Urine pH 6.0 Ur Specific [place] 1.010 Urine Protein Negative Urine Glucose (UA) Negative Urine Ketones Negative Urine Blood Negative Urine Nitrate Negative Urine Bilirubin Negative Urine Urobilinogen 0.2 Ur Leukocyte Esterase Negative Digoxin Blood Type Antibody Screen BBK History Checked 06/02/17 06/02/17 06/02/17 19:29 19:29 19:29 WBC 21.5 H D RBC 3.04 L Hgb 9.4 L D Hct 26.7 L MCV 87.8 MCH 30.9 MCHC 35.2 RDW 13.1 Plt Count 318 MPV 9.5 Gran % 84.5 H Lymph % (Auto) 11.2 L [place] % (Auto) 4.3 Eos % (Auto) 0.0 L Baso % (Auto) 0.0 Gran # 18.16 H Lymph # (Auto) 2.4 [place] # (Auto) 0.9 H Eos # (Auto) 0.0 Baso # (Auto) 0.01 pO2 24 L VBG pH 7.38 VBG pCO2 36.0 L VBG HCO3 21.3 VBG Total CO2 22.4 VBG O2 Sat (Calc) 43.2 VBG Base Excess -3.3 L VBG Potassium 4.8 Sodium 130.0 L 131 L Chloride 102.0 102 Glucose 157 H Lactate 1.7 FiO2 21.0 Potassium 4.7 Carbon Dioxide 19 L Anion Gap 14 BUN 86 H Creatinine 1.4 Est GFR ( Amer) > 60 Est GFR (Non-Af Amer) 53 POC Glucose (mg/dL) Random Glucose 151 H Calcium 8.8 Iron TIBC % Saturation Total Bilirubin 0.5 AST 19 ALT 71 H Alkaline Phosphatase 42 Lactate Dehydrogenase Total Creatine Kinase Troponin I 0.05 D NT-Pro-B Natriuret Pep 408 Total Protein 5.3 L Albumin 2.8 L Globulin 2.5 Albumin/Globulin Ratio 1.1 Procalcitonin Venous Blood Potassium 4.8 Urine Color Urine Appearance Urine pH Ur Specific [place] Urine Protein Urine Glucose (UA) Urine Ketones Urine Blood Urine Nitrate Urine Bilirubin Urine Urobilinogen Ur Leukocyte Esterase Digoxin Blood Type Antibody Screen BBK History Checked 06/02/17 06/02/17 06/03/17 19:29 19:29 00:00 WBC RBC Hgb Hct MCV MCH MCHC RDW Plt Count MPV Gran % Lymph % (Auto) [place] % (Auto) Eos % (Auto) Baso % (Auto) Gran # Lymph # (Auto) [place] # (Auto) Eos # (Auto) Baso # (Auto) pO2 VBG pH VBG pCO2 VBG HCO3 VBG Total CO2 VBG O2 Sat (Calc) VBG Base Excess VBG Potassium Sodium Chloride Glucose Lactate FiO2 Potassium Carbon Dioxide Anion Gap BUN Creatinine Est GFR ( Amer) Est GFR (Non-Af Amer) POC Glucose (mg/dL) 138 H Random Glucose Calcium Iron 10 L TIBC 174 L % Saturation 6 L Total Bilirubin AST ALT Alkaline Phosphatase Lactate Dehydrogenase Total Creatine Kinase Troponin I NT-Pro-B Natriuret Pep Total Protein Albumin Globulin Albumin/Globulin Ratio Procalcitonin Venous Blood Potassium Urine Color Urine Appearance Urine pH Ur Specific [place] Urine Protein Urine Glucose (UA) Urine Ketones Urine Blood Urine Nitrate Urine Bilirubin Urine Urobilinogen Ur Leukocyte Esterase Digoxin 0.5 L Blood Type Antibody Screen BBK History Checked 06/03/17 06/03/17 06/03/17 00:35 06:00 06:00 WBC 31.2 H* D RBC 2.69 L Hgb 8.2 L Hct 23.4 L MCV 87.0 MCH 30.5 MCHC 35.0 RDW 13.2 Plt Count 370 MPV 9.7 Gran % 85.0 H Lymph % (Auto) 9.2 L [place] % (Auto) 5.7 Eos % (Auto) 0.0 L Baso % (Auto) 0.1 Gran # 26.50 H Lymph # (Auto) 2.9 [place] # (Auto) 1.8 H Eos # (Auto) 0.0 Baso # (Auto) 0.02 pO2 VBG pH VBG pCO2 VBG HCO3 VBG Total CO2 VBG O2 Sat (Calc) VBG Base Excess VBG Potassium Sodium 131 L Chloride 101 Glucose Lactate FiO2 Potassium 4.0 Carbon Dioxide 19 L Anion Gap 15 BUN 77 H Creatinine 1.2 Est GFR ( Amer) > 60 Est GFR (Non-Af Amer) > 60 POC Glucose (mg/dL) Random Glucose 155 H Calcium 8.7 Iron TIBC % Saturation Total Bilirubin 0.6 AST 23 ALT 63 H Alkaline Phosphatase 44 Lactate Dehydrogenase 335 Total Creatine Kinase 36 Troponin I 0.05 NT-Pro-B Natriuret Pep Total Protein 5.3 L Albumin 2.8 L Globulin 2.4 Albumin/Globulin Ratio 1.2 Procalcitonin Venous Blood Potassium Urine Color Urine Appearance Urine pH Ur Specific [place] Urine Protein Urine Glucose (UA) Urine Ketones Urine Blood Urine Nitrate Urine Bilirubin Urine Urobilinogen Ur Leukocyte Esterase Digoxin Blood Type Antibody Screen BBK History Checked 06/03/17 06/03/17 06:25 07:22 WBC RBC Hgb Hct MCV MCH MCHC RDW Plt Count MPV Gran % Lymph % (Auto) [place] % (Auto) Eos % (Auto) Baso % (Auto) Gran # Lymph # (Auto) [place] # (Auto) Eos # (Auto) Baso # (Auto) pO2 VBG pH VBG pCO2 VBG HCO3 VBG Total CO2 VBG O2 Sat (Calc) VBG Base Excess VBG Potassium Sodium Chloride Glucose Lactate FiO2 Potassium Carbon Dioxide Anion Gap BUN Creatinine Est GFR ( Amer) Est GFR (Non-Af Amer) POC Glucose (mg/dL) 153 H Random Glucose Calcium Iron TIBC % Saturation Total Bilirubin AST ALT Alkaline Phosphatase Lactate Dehydrogenase Total Creatine Kinase Troponin I NT-Pro-B Natriuret Pep Total Protein Albumin Globulin Albumin/Globulin Ratio Procalcitonin Venous Blood Potassium Urine Color Urine Appearance Urine pH Ur Specific [place] Urine Protein Urine Glucose (UA) Urine Ketones Urine Blood Urine Nitrate Urine Bilirubin Urine Urobilinogen Ur Leukocyte Esterase Digoxin Blood Type A NEGATIVE Antibody Screen Negative BBK History Checked No verified bt Attending/Attestation - Attestation I have personally seen and examined this patient.: Yes I have fully participated in the care of the patient.: Yes I have reviewed all pertinent clinical information: Yes Notes (Text): -I agree with the above ICU consult note completed by the resident physician with the following additions and/or changes: -The patient is a 59 year old man with a recent history of v-tach (s/p cardioversion), atrial fibrillation (recently started on Eliquis) and non- ischemic cardiomyopathy (EF=25%), who was admitted to the tele [place] earlier this morning for syncope. Throughout the day, he reportedly SBPs ranging in the upper 80s for which he received a total of 1-1.5L of IVF boluses. This evening, he again became hypotensive, tachycardic (SBP=70s and PK=[phone]) and diaphoretic. Given his low EF, he will be upgraded to the ICU for closer monitoring and treatment with Levophed drip (after placement of TLC). Sepsis work up ordered including cultures and procalcitonin. Empiric IV Zosyn and Vanco started. CT-head (done earlier in day) negative for acute findings. DDx for shock includes: sepsis vs cardiogenic vs hemorrhagic. Of note, the patient denies any recent history of black or bloody stool, vomiting and/or abdominal pain. Cardiology consult already on board. Critical Care Time Spent: 90-120minutes
[2017-06-02 19:53] LABS: B-TYPE NATRIURETIC PEPTIDE 408 pg/mL (0-450); TROPONIN I 0.05 ng/mL
--- NOTE | 2017-06-02 19:59 | PCM.RRT ---
HERBICIDE SPRAYER Nurse Assessment - Situation Date: 06/02/17 Time HERBICIDE SPRAYER was called: 19:09 HERBICIDE SPRAYER Responder Arrival Time: 19:12 HERBICIDE SPRAYER Location:: [address] [place] [address] Room Number: [id number] HERBICIDE SPRAYER Reason for Call: Tachycardia, Hypotension HERBICIDE SPRAYER Called By: Other Disciplines - IV IV Inserted during HERBICIDE SPRAYER?: No IV Fluids Initiated During HERBICIDE SPRAYER?: Normal Saline Bolus 250cc - Respiratory Oxygen Delivery Method: Nasal Cannula @L/min (2) Oxygen Flow Rate: 2 Received Nebulizer Treatments:: No Was the Patient Ventilated with Bag/Mask 100% O2?: No Secretions Suctioned?: No Was the Patient Intubated?: No Was the Patient Placed on a Ventilator?: No - Medication Medications Administered During HERBICIDE SPRAYER: N/A - Diagnostic Test Ordered EKG: Yes Chest X-Ray: Yes CT Scan: No - Stat Labs Ordered HERBICIDE SPRAYER Stat Labs Ordered: CBC, TROPONIN, BLOOD C&S X2 HERBICIDE SPRAYER Other Labs Ordered: Procaclitonin, Digoxin, CMP, VBG, u/a, urine culture, BNP CPR started during HERBICIDE SPRAYER?: No - Vital Signs Vital Sign: Rapid Response Vital Sign Blood Pressure 68/48 Pulse Rate 129 Respiratory Rate 24 Temperature 98.7 F Oxygen Saturation 90 - Finger Stick Blood Glucose Finger Stick Blood Glucose: 143 - [place] Coma Scale Coma Scale Eye Opening: Spontaneous Coma Scale Motor: Obeys Commands Movement Coma Scale Verbal: Oriented - Sepsis Screen Part 1 Sepsis Screen Part 1: Hypotensive - Sepsis Screen Part 2 Sepsis Screen Part 2: WBC over 12,000 - Time HERBICIDE SPRAYER Ended Time HERBICIDE SPRAYER Ended: 07:34 - Vital Signs at end of HERBICIDE SPRAYER Vital Signs at end of HERBICIDE SPRAYER: Rapid Response End Vital Sign Blood Pressure 96/45 Pulse Rate 119 Respiratory Rate 22 Temperature 98.7 F O2 Sat by Pulse Oximetry 96 - Recommendations 5) HERBICIDE SPRAYER Level of Care Recommendations: Transfer to ICU Notifications: Attending Physician, Consultations, Family or Designated Caregiver I.Reason for HERBICIDE SPRAYER - A) Acute Change in Patient: (Select all that apply): Acute change in SBP below (90/60) - Neurological Status (Select all that apply): Responsive, Oriented, Verbal, Follows Commands, Lethargic - Respiratory Oxygen Delivery Method: Nasal Cannula @L/min Oxygen Flow Rate: 2 - Constitutional Appears: Non-toxic, No Acute Distress Additional Comments: Tired, arousable - Head Head Exam: ATRAUMATIC, NORMOCEPHALIC - Eyes Eye Exam: EOMI, Normal appearance, PERRL Additional Comments: Mild conjunctival pallor - Respiratory Exam Respiratory Exam: Clear to Ausculation Bilateral, NORMAL BREATHING PATTERN. absent: Rales, Rhonchi, Wheezes - Cardiovascular Exam Cardiovascular Exam: Tachycardia, Irregular Rhythm, +S1, +S2. absent: JVD - GI/Abdominal Exam GI & Abdominal Exam: Soft, Normal Bowel Sounds. absent: Distended, Firm, Guarding, Rigid, Tenderness - Neurological Exam Neurological Exam: Awake, CN II-XII Intact, Oriented x3 - Extremities Exam Extremities Exam: Full ROM, Normal Inspection. absent: Calf Tenderness, Pedal Edema Plan - Assessment of Findings&Treatment Plan Gave 250mL bolus. Patient may have had vasovagal syncope 2/2 relief of large volume urinary retention. Ordered CBC, CMP, Trop, BNP, VBG shock panel, UA, Urine culture, Blood cultures, Procalcitonin, digoxin level. Also ordered EKG, noted to be in afib, with known LBBB. Ordered CXR to rule out pneumonia or pneumo- or hydro-thorax. Patient already had CT head ordered, instructed nurses to obtain CT head stat. Transferring patient to ICU for closer monitoring, Q15min BP. Discussed possibility of central line placement and vasopressor support with patient and family, who consented after discussing risks and benefits.
[2017-06-02 20:33] LABS: % IRON SATURATION 6 % (20-55); IRON 10 ug/dL (45-180); TOTAL IRON BINDING CAPACITY 174 ug/dL (261-462)
--- NOTE | 2017-06-02 20:58 | CT ---
EXAM: CT Head Without Intravenous Contrast EXAM DATE/TIME: 06/02/2017 2:55 PM CLINICAL HISTORY: The patient age is 56 years old and is male; Signs and symptoms; Dizziness; Additional info: Near syncope Facility exam id and description: Ct heads head w/o contrast TECHNIQUE: Axial computed tomography images of the head/brain without intravenous contrast. All CT scans at this facility use one or more dose reduction techniques, viz.: automated exposure control; ma/kV adjustment per patient size (including targeted exams where dose is matched to indication; i.e. head); or iterative reconstruction technique. Coronal and sagittal reformatted images were created and reviewed. COMPARISON: No relevant prior studies available. FINDINGS: Brain: The white-marcano differentiation is preserved demonstrating no acute territorial type infarct. No acute intracranial hemorrhage is seen. Midline shift: There is no midline shift. Ventricles: No ventriculomegaly. Bones/joints: The calvarium demonstrates no evidence for a depressed fracture. Soft tissues: No acute abnormality. Sinuses: Unremarkable as visualized. No acute sinusitis. Mastoid air cells: No mastoid effusion. IMPRESSION: 1. No acute intracranial abnormality.
[2017-06-02] MEDS: Vancomycin 1gm in NS 250ml 1 GM/250 ML BAG IVPB SCH (22:02)
[2017-06-02] MEDS ORDERED: Sodium Chloride 0.9% 250 ML IV STA ×2 (22:06→22:44)
[2017-06-02] MEDS: NOREPINEPHRINE BIT/0.9 % NACL 4 MG/250 ML BAG IV PRN (22:30)
--- NOTE | 2017-06-02 23:05 | PCM.PROC ---
Procedures Attestation:: I certify that I have explained the specified Operation(s) or Procedure(s), risks, benefits and reasonable alternatives to the Patient and/or other person responsible. The opportunity was given to ask questions and all questions answered - Central Line Placement Right Internal Jugular Aseptic technique was employed throughout the procedure: Hand Hygiene done prior to procedure, Full sterile barriers (mask, hair cover, sterile gown, sterile gloves), Full body sterile drape, Chloraprep Antiseptic: 30 second prep for IJ or SC sites CVP Time Out Performed: Yes Pt. 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
[2017-06-03] MEDS: Piperacillin/Tazobact 3.375 gm 100 ML IVPB SCH ×2 (00:05→05:11)
[2017-06-03 01:12] LABS: TROPONIN I 0.05 ng/mL
[2017-06-03 06:27] LABS: BASO # 0.02 K/mm3 (0.0-2.0); BASO % 0.1 % (0.0-3.0); GRAN # 26.5 (1.4-6.5); HEMOGLOBIN 8.2 g/dL (14.0-18.0); LYMPH # 2.9 (1.2-3.4); LYMPH % 9.2 % (22.0-35.0); MEAN CORPUSCULAR HEMOGLOBIN 30.5 pg (25.0-35.0); MEAN PLATELET VOLUME 9.7 fl (7.0-11.0); MONO # 1.8 (0.1-0.6); MONO % 5.7 % (1.0-6.0); RBC 2.69 10^6/uL (3.5-6.1); RED CELL DISTRIBUTION WIDTH 13.2 % (11.5-14.5)
[2017-06-03 06:58] LABS: WHITE BLOOD COUNT 31.2 10^3/ul (4.5-11.0)
[2017-06-03 07:11] LABS: ALB/GLOB RATIO 1.2 (1.1-1.8); ALBUMIN 2.8 g/dL (3.0-4.8); ALT/SGPT 63 U/L (7-56); AST/SGOT 23 U/L (17-59); BLOOD UREA NITROGEN 77 mg/dL (7-21); CALCIUM 8.7 mg/dL (8.4-10.5); GFR AFRICAN-AMERICAN > 60; GFR NON-AFRICAN AMERICAN > 60
--- NOTE | 2017-06-03 07:50 | RAD ---
HISTORY: s/p right ij COMPARISON: Portable chest 04/27/2017. FINDINGS: A right center venous catheter in place by an apparent internal jugular approach with its tip turning at the proximal superior vena cava region. LUNGS: No active pulmonary disease. PLEURA: No significant pleural effusion identified, no pneumothorax apparent. CARDIOVASCULAR: Normal. OSSEOUS STRUCTURES: No significant abnormalities. VISUALIZED UPPER ABDOMEN: Normal. OTHER FINDINGS: None. IMPRESSION: Status post right center venous catheter placement with tip terminating at the proximal superior vena cava region. No pneumothorax bilaterally. No infiltrate or pleural effusions in the interval.
--- NOTE | 2017-06-03 07:52 | RAD ---
HISTORY: triple lumen COMPARISON: Portable chest 04/27/2017 10:05 p.m.. FINDINGS: Right central venous line not deployed terminating in the cavoatrial junction region. LUNGS: No active pulmonary disease. PLEURA: No significant pleural effusion identified, no pneumothorax apparent. CARDIOVASCULAR: Normal. OSSEOUS STRUCTURES: No significant abnormalities. VISUALIZED UPPER ABDOMEN: Normal. OTHER FINDINGS: None. IMPRESSION: No interval acute cardiopulmonary disease. Right center venous line now terminates at cavoatrial junction region in the chest.
--- NOTE | 2017-06-03 07:52 | RAD ---
HISTORY: placement COMPARISON: Portable chest 06/02/2017 9:35 a.m.. FINDINGS: LUNGS: No active pulmonary disease. Right center venous catheter is been adjusted but now terminates at the right neck likely in the upper right internal jugular vein. Consider interventional assistance in re- deploying this catheter into distal superior vena cava. PLEURA: No significant pleural effusion identified, no pneumothorax apparent. CARDIOVASCULAR: Normal. OSSEOUS STRUCTURES: No significant abnormalities. VISUALIZED UPPER ABDOMEN: Normal. OTHER FINDINGS: None. IMPRESSION: 1. Right center venous line coiled in cervical portion of right internal jugular vein terminating cephalad rather than within the superior vena cava. Consider endovaginal assistance cm upon the catheter into the distal superior vena cava. 2. No acute interval cardiopulmonary disease appreciated.
--- NOTE | 2017-06-03 07:54 | RAD ---
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 FINDINGS: LUNGS: Diminished inspiratory volume. No acute infiltrate bilaterally. PLEURA: No significant pleural effusion identified, no pneumothorax apparent. CARDIOVASCULAR: Normal. OSSEOUS STRUCTURES: No significant abnormalities. VISUALIZED UPPER ABDOMEN: Normal. OTHER FINDINGS: None. IMPRESSION: Diminished inspiratory volume. No acute infiltrate bilaterally or interval pleural effusion or pneumothorax either.
[2017-06-03] MEDS: Vancomycin 1gm in NS 250ml 1 GM/250 ML BAG IVPB SCH (08:16)
[2017-06-03] MEDS: DOBUTamine 500mg/250ml D5W 500 MG/250 ML BAG IV PRN (09:07)
--- NOTE | 2017-06-03 09:11 | CP.PCM.PN ---
<Earnestine Espana - Last Filed: 06/03/17 13:32> Subjective - Date & Time of Evaluation Date of Evaluation: 06/03/17 Time of Evaluation: 09:08 - Subjective Subjective: pgy 2 progress note for hospitalist patient seen and examined at bedside in ICU. 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 patient was transferred to icu and placed on pressors. this morning patient states that he is feeling a little better but continues to have nausea. His dizziness has improved. He continues to report urinary retention with mild abd pain. Objective - Vital Signs/Intake and Output Vital Signs (last 24 hours): Temp Pulse Resp BP Pulse Ox 97.9 F 97 H 17 99/63 L 100 06/03/17 04:00 06/03/17 06:20 06/03/17 06:20 06/03/17 06:15 06/03/17 06:20 Intake and Output: 06/03/17 06/03/17 06:59 18:59 Intake Total 2332 20 Output Total 1375 Balance 957 20 - Medications Medications: Current Medications Amiodarone HCl (Cordarone) 200 mg PO DAILY [facility] Apixaban (Eliquis) 5 mg PO BID [facility] PRN Reason: Protocol Last Admin: 06/02/17 18:24 Dose: 5 mg Aspirin (Ecotrin) 81 mg PO DAILY [facility] Atorvastatin Calcium (Lipitor) 20 mg PO DAILY [facility] Carvedilol (Coreg) 3.125 mg PO BID [facility] Famotidine (Pepcid) 20 mg PO DAILY [facility] Furosemide (Lasix) 20 mg PO BID [facility] Vancomycin HCl (Vancomycin 1gm) 1 gm in 250 mls @ 167 mls/hr IVPB Q12H [facility] PRN Reason: Protocol Last Admin: 06/03/17 08:16 Dose: 167 mls/hr NOREPINEPHRINE BIT/0.9 % NACL (Levophed 4 Mg/ 250 Ml Ns Premixed) 4 mg in 250 mls @ 15 mls/hr IV .[id number] PRN; Protocol; 4 MCG/MIN PRN Reason: TITRATE PER MD ORDER Last Titration: 06/03/17 08:35 Dose: 12 mcg/min, 45 mls/hr Dobutamine HCl/Dextrose (Dobutamine/Dextrose 5% 500mg/250ml) 500 mg in 250 mls @ 8.301 mls/hr IV .Q24H PRN; Protocol; 2.5 MCG/KG/MIN PRN Reason: TITRATE PER PROTOCOL Levothyroxine Sodium (Synthroid) 88 mcg PO DAILY [facility] Lisinopril (Zestril) 2.5 mg PO DAILY [facility] Midodrine (Proamatine) 10 mg PO TID [facility] Non-Formulary Medication (Eplerenone [Inspra]) 25 mg PO DAILY [facility] - Labs Labs: 06/03/17 06:00 06/03/17 06:00 - Head Exam Head Exam: ATRAUMATIC, NORMAL INSPECTION, NORMOCEPHALIC - Eye Exam Eye Exam: Normal appearance - Respiratory Exam Respiratory Exam: Clear to Ausculation Bilateral. absent: Rhonchi, Wheezes, Respiratory Distress - Cardiovascular Exam Cardiovascular Exam: REGULAR RHYTHM, +S1, +S2. absent: Tachycardia, Diastolic murmur, Murmur - GI/Abdominal Exam GI & Abdominal Exam: Soft. 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 fib presents with palpitation and near syncopal episode. Patient developed hypotension with tachycardia was transferred to ICU and started on levophed, dobutamine and midodrine. Plan: Hypotension - possible Septic versus cardiogenic shock - patient on levophed, dobutamine and midodrine - maintain MAP above 65%. - Cardiology consulted - will contact patient private oracle apex developer Dr. Moura [phone] - continue to hold blood pressure medication syncope - Witnessed syncopal episode, possibly vasovagal due to urinary retention, versus arrhythmia, versus hypotension/septic versus cardiogenic shock - CT head: no abnormalities - Fall precaution and neuro checks. - Normal tsh, - last trop 0.05 - sepsis work up pending - cardiology consult Dr Brothers - Echo from 05/25 shows four chamber dilation, EF 20-25%, moderate MR/TR, RVSP 50 , no thrombus - Patient will require assessment for AICD placement,most likely out patient Leukocytosis - increased to 31.2, patient is afebrile - UA negative - procalcitonin low - blood and urine cultures pending - cxr negative for acute disease - abd CT negative - started on vancomycin and meropenem - ID consulted Urinary retention - will attempt to insert guillen for strict I&O as well as retension - will consider bladder scan and straight cath PRN if unable to insert guillen nonischemic cardiomyopathy - will contact patient's oracle apex developer - hold Lasix, coreg, eplerenone due to hypotension - Continue ASA, lipitor - Continue amiodarone - cardiology consulted Atrial fibrillation - continue eliquis for anticoagulation - hold coreg for hypotension - continue to monitor Transaminemia - from previous admission - continues to trending down - will continue to monitor History of hypothyroidism - Continue home synthroid GI/DVT Ppx: Pepcid and eliquis <Patricia Walton - Last Filed: 06/04/17 18:45> Objective - Vital Signs/Intake and Output Vital Signs (last 24 hours): Temp Pulse Resp BP Pulse Ox 97.8 F 101 H 18 100/40 L 99 06/04/17 16:00 06/04/17 16:50 06/04/17 16:50 06/04/17 16:30 06/04/17 16:50 Intake and Output: 06/04/17 06/04/17 06:59 18:59 Intake Total 1499 1021 Output Total 775 800 Balance 724 221 - Medications Medications: Current Medications Amiodarone HCl (Cordarone) 200 mg PO DAILY [facility] Last Admin: 06/04/17 10:52 Dose: 200 mg Apixaban (Eliquis) 5 mg PO BID [facility] PRN Reason: Protocol Last Admin: 06/03/17 09:17 Dose: 5 mg Aspirin (Ecotrin) 81 mg PO DAILY [facility] Last Admin: 06/03/17 09:17 Dose: 81 mg Atorvastatin Calcium (Lipitor) 20 mg PO DAILY [facility] Last Admin: 06/04/17 10:52 Dose: 20 mg Carvedilol (Coreg) 3.125 mg PO BID [facility] Famotidine (Pepcid) 20 mg PO DAILY [facility] Last Admin: 06/04/17 10:55 Dose: 20 mg Furosemide (Lasix) 20 mg PO BID [facility] NOREPINEPHRINE BIT/0.9 % NACL (Levophed 4 Mg/ 250 Ml Ns Premixed) 4 mg in 250 mls @ 15 mls/hr IV .[id number] PRN; Protocol; 4 MCG/MIN PRN Reason: TITRATE PER MD ORDER Last Titration: 06/04/17 12:00 Dose: 0 mcg/min, 0 mls/hr Dobutamine HCl/Dextrose (Dobutamine/Dextrose 5% 500mg/250ml) 500 mg in 250 mls @ 8.301 mls/hr IV .Q24H PRN; Protocol; 2.5 MCG/KG/MIN PRN Reason: TITRATE PER PROTOCOL Last Titration: 06/03/17 14:00 Dose: 5 mcg/kg/min, 16.602 mls/hr Meropenem (Merrem Iv 1 Gm Premix) 50 mls @ 100 mls/hr IVPB Q12 [facility] PRN Reason: Protocol Stop: 06/12/17 13:16 Last Admin: 06/04/17 10:54 Dose: 100 mls/hr Levothyroxine Sodium (Synthroid) 88 mcg PO DAILY [facility] Last Admin: 06/04/17 10:56 Dose: 88 mcg Lisinopril (Zestril) 2.5 mg PO DAILY [facility] Midodrine (Proamatine) 10 mg PO TID [facility] Last Admin: 06/04/17 17:58 Dose: 10 mg Non-Formulary Medication (Eplerenone [Inspra]) 25 mg PO DAILY [facility] Ondansetron HCl (Zofran Inj) 4 mg IVP Q4H PRN PRN Reason: Nausea/Vomiting Last Admin: 06/03/17 11:24 Dose: 4 mg - Labs Labs: 06/04/17 05:45 06/04/17 05:45 Attending/Attestation - Attestation I have personally seen and examined this patient.: Yes I have fully participated in the care of the patient.: Yes I have reviewed all pertinent clinical information, including history, physical exam and plan: Yes Notes (Text): 06/03/17 56 year old male with past medical history of cardioyopathy and atrial fibrillation who presents with complaint of chest pain and near syncope. Serial cardiac enzymes were negative and ACS was ruled out. Overnight events were reviewed; patient was hypotensive and transferred to ICU. He is started on pressors. Worsening leukocytosis today noted as well. Case was discussed with both cardiology and ID today. Continue with broad spectrum antibiotics while awaiting cultures. Family is at bedside and questions were answered. Patricia Walton MD Hospitalist.
[2017-06-03] MEDS: Levothyroxine 88 MCG TAB PO SCH (09:18)
[2017-06-03] MEDS ORDERED: EPLERENONE 25 MG PO SCH (10:00)
[2017-06-03] MEDS ORDERED: Meropenem 500 MG in Sodium Chloride 0.9% 50 ML IVPB SCH (11:45)
[2017-06-03 12:00] LABS: AMYLASE 43 U/L (35-125); LIPASE 122 U/L (23-300)
--- NOTE | 2017-06-03 12:59 | CT ---
PROCEDURE: CT Abdomen and Pelvis without intravenous contrast HISTORY: abdominal pain COMPARISON: None. TECHNIQUE: Without contrast. Contrast Dose: Without contrast Radiation dose: Total exam DLP = Total exam DLP = 1113 mGy-cm. This CT exam was performed using one or more of the following dose reduction techniques: Automated exposure control, adjustment of the mA and/or kV according to patient size, and/or use of iterative reconstruction technique. FINDINGS: LOWER THORAX: Unremarkable. LIVER: Unremarkable. No gross lesion or ductal dilatation. GALLBLADDER AND BILE DUCTS: Unremarkable. PANCREAS: Unremarkable. No gross lesion or ductal dilatation. SPLEEN: Unremarkable. ADRENALS: Unremarkable. No mass. KIDNEYS AND URETERS: Unremarkable. No hydronephrosis. No solid mass. VASCULATURE: Unremarkable. No aortic aneurysm. BOWEL: Unremarkable. No obstruction. No gross mural thickening. APPENDIX: Unremarkable. Normal appendix. PERITONEUM: Unremarkable. No free fluid. No free air. LYMPH NODES: Unremarkable. No enlarged lymph nodes. BLADDER: Unremarkable. REPRODUCTIVE: Unremarkable. BONES: No acute fracture. OTHER FINDINGS: None. IMPRESSION: No acute intra-abdominal findings
--- NOTE | 2017-06-03 14:30 | CP.CCUPN ---
<Philip Licona - Last Filed: 06/03/17 14:31> CCU Subjective - Physician Review Subjective (Free Text): Patient seen and examined at bedside. Patient complaining of mild abdominal pain. Denies chest pain, shortness of breath, nausea, diarrhea, syncope, dizziness. CCU Objective - Vital Signs / Intake & Output Vital Signs (Last 4 hours): Vital Signs Pulse Resp BP Pulse Ox 06/03/17 10:50 119 H 19 100 06/03/17 10:40 123 H 13 100 06/03/17 10:30 110 H 22 107/64 99 Intake and Output (Last 8hrs): Intake & Output 06/02/17 06/03/17 06/03/17 22:59 06:59 14:59 Intake Total 2332 20 Output Total 1375 Balance 957 20 Intake: IV 1432 20 Right Hand 850 Right Internal Jugular 510 Oral 900 Output: Urine 1375 Urethral (Hardy) 1375 - Physical Exam Head: Positive for: Atraumatic, Normocephalic Pupils: Positive for: PERRL Extroacular Muscles: Positive for: EOMI Conjunctiva: Positive for: Normal Mouth: Positive for: Moist Mucous Membranes Neck: Positive for: Normal Range of Motion Respiratory/Chest: Positive for: Clear to Auscultation, Good Air Exchange. Negative for: Respiratory Distress, Accessory Muscle Use, Rhonchi Cardiovascular: Positive for: Regular Rate and Rhythm, Normal S1, S2. Negative for: Murmurs Abdomen: Positive for: Normal Bowel Sounds. Negative for: Tenderness, Distention, Peritoneal Signs Upper Extremity: Positive for: Normal Inspection. Negative for: Cyanosis, Edema Lower Extremity: Positive for: Normal Inspection. Negative for: Edema Neurological: Positive for: GCS=15, CN II-XII Intact, Speech Normal, Motor Func Grossly Intact, Normal Sensory Function Skin: Positive for: Warm, Dry, Normal Color. Negative for: Rashes Psychiatric: Positive for: Alert, Oriented x 3 - Medications Active Medications: Active Medications Generic Name Dose Route Start Last Admin Trade Name Freq PRN Reason Stop Dose Admin Amiodarone HCl 200 mg 06/03/17 10:00 06/03/17 09:16 Cordarone PO 200 mg DAILY BEATRIZ Administration Apixaban 5 mg 06/02/17 18:00 06/03/17 09:17 Eliquis PO 5 mg BID BEATRIZ Administration Protocol Aspirin 81 mg 06/03/17 10:00 06/03/17 09:17 Ecotrin PO 81 mg DAILY BEATRIZ Administration Atorvastatin Calcium 20 mg 06/03/17 10:00 06/03/17 09:17 Lipitor PO 20 mg DAILY BEATRIZ Administration Carvedilol 3.125 mg 06/02/17 18:00 Coreg PO BID BEATRIZ Famotidine 20 mg 06/03/17 10:00 06/03/17 09:17 Pepcid PO 20 mg DAILY BEATRIZ Administration Furosemide 20 mg 06/02/17 18:00 Lasix PO BID BEATRIZ Vancomycin HCl 1 gm in 250 mls @ 167 mls/hr 06/02/17 20:00 06/03/17 08:16 Vancomycin 1gm IVPB 167 mls/hr Q12H BEATRIZ Administration Protocol NOREPINEPHRINE BIT/0.9 % NACL 4 mg in 250 mls @ 15 mls/hr 06/02/17 22:06 08:35 Levophed 4 Mg/ 250 Ml Ns Premixed IV 12 mcg/min .[id number] PRN 45 mls/hr TITRATE PER MD ORDER Titration Protocol 4 MCG/MIN Dobutamine HCl/Dextrose 500 mg in 250 mls @ 8.301 mls/hr 06/03/17 08:35 06/03 09:07 Dobutamine/Dextrose 5% 500mg/250ml IV 2.5 mcg/kg/min .Q24H PRN 8.301 mls/hr TITRATE PER PROTOCOL Administration Protocol 2.5 MCG/KG/MIN Meropenem 50 mls @ 100 mls/hr 06/03/17 13:15 Merrem Iv 1 Gm Premix IVPB 06/12/17 13:16 Q12 [facility] Protocol Levothyroxine Sodium 88 mcg 06/03/17 10:00 06/03/17 09:18 Synthroid PO 88 mcg DAILY BEATRIZ Administration Lisinopril 2.5 mg 06/03/17 10:00 Zestril PO DAILY [facility] Midodrine 10 mg 06/03/17 10:00 06/03/17 09:17 Proamatine PO 10 mg TID BEATRIZ Administration Non-Formulary Medication 25 mg 06/03/17 10:00 Eplerenone [Inspra] PO DAILY [facility] Ondansetron HCl 4 mg 06/03/17 11:15 06/03/17 11:24 Zofran Inj IVP 4 mg Q4H PRN Administration Nausea/Vomiting - Patient Studies Lab Studies: Lab Studies 06/03/17 06/03/17 06/03/17 Range/Units 13:20 11:45 11:05 WBC (4.5-11.0) 10^3/ul RBC (3.5-6.1) 10^6/uL Hgb (14.0-18.0) g/dL Hct (42.0-52.0) % MCV (80.0-105.0) fl MCH (25.0-35.0) pg MCHC (31.0-37.0) g/dl RDW (11.5-14.5) % Plt Count (120.0-450.0) 10^3/uL MPV (7.0-11.0) fl Gran % (50.0-68.0) % Lymph % (Auto) (22.0-35.0) % Baca % (Auto) (1.0-6.0) % Eos % (Auto) (1.5-5.0) % Baso % (Auto) (0.0-3.0) % Gran # (1.4-6.5) Lymph # (Auto) (1.2-3.4) [place]aca # (Auto) (0.1-0.6) Eos # (Auto) (0.0-0.7) Baso # (Auto) (0.0-2.0) K/mm3 pO2 (30-55) mm/Hg VBG pH (7.32-7.43) VBG pCO2 (40-60) VBG HCO3 (21-28) mmol/l VBG Total CO2 (22-28) mmol.L VBG O2 Sat (Calc) (40-65) % VBG Base Excess (0.0-2.0) mmol/L VBG Potassium (3.6-5.2) mmol/L Sodium (132-148) mmol/L Chloride (98-107) mmol/L Glucose (75-110) mg/dl Lactate (0.7-2.1) mmol/L FiO2 % Potassium (3.6-5.0) mmol/L Carbon Dioxide (21-33) mmol/L Anion Gap (10-20) BUN (7-21) mg/dL Creatinine (0.8-1.5) mg/dl Est GFR ( Amer) Est GFR (Non-Af Amer) POC Glucose (mg/dL) 174 H (65-110) mg/dL Random Glucose (70-110) mg/dL Lactic Acid 1.5 (0.7-2.1) mmol/L Calcium (8.4-10.5) mg/dL Iron (45-180) ug/dL TIBC (261-462) ug/dL % Saturation (20-55) % Ferritin ng/mL Total Bilirubin (0.2-1.3) mg/dL AST (17-59) U/L ALT (7-56) U/L Alkaline Phosphatase (38-126) U/L Lactate Dehydrogenase (333-699) U/L Total Creatine Kinase (35-230) U/L Troponin I ng/mL NT-Pro-B Natriuret Pep (0-450) pg/mL Total Protein (5.8-8.3) g/dL Albumin (3.0-4.8) g/dL Globulin gm/dL Albumin/Globulin Ratio (1.1-1.8) Amylase 43 (35-125) U/L Lipase 122 (23-300) U/L Procalcitonin (0.19-0.49) NG/ML Venous Blood Potassium (3.6-5.2) mmol/L Urine Color (YELLOW) Urine Appearance (CLEAR) Urine pH (4.7-8.0) Ur Specific Lutz (1.005-1.035) Urine Protein (<30 mg/dL) mg/dL Urine Glucose (UA) (NEGATIVE) mg/dL Urine Ketones (NEGATIVE) mg/dL Urine Blood (NEGATIVE) Urine Nitrate (NEGATIVE) Urine Bilirubin (NEGATIVE) Urine Urobilinogen (<1 E.U./dL) E.U./dL Ur Leukocyte Esterase (NEGATIVE) Dalila/uL Digoxin (0.8-2.0) ng/mL Blood Type Antibody Screen BBK History Checked 06/03/17 06/03/17 06/03/17 Range/Units 07:22 06:25 06:00 WBC (4.5-11.0) 10^3/ul RBC (3.5-6.1) 10^6/uL Hgb (14.0-18.0) g/dL Hct (42.0-52.0) % MCV (80.0-105.0) fl MCH (25.0-35.0) pg MCHC (31.0-37.0) g/dl RDW (11.5-14.5) % Plt Count (120.0-450.0) 10^3/uL MPV (7.0-11.0) fl Gran % (50.0-68.0) % Lymph % (Auto) (22.0-35.0) % Baca % (Auto) (1.0-6.0) % Eos % (Auto) (1.5-5.0) % Baso % (Auto) (0.0-3.0) % Gran # (1.4-6.5) Lymph # (Auto) (1.2-3.4) [place] # (Auto) (0.1-0.6) Eos # (Auto) (0.0-0.7) Baso # (Auto) (0.0-2.0) K/mm3 pO2 (30-55) mm/Hg VBG pH (7.32-7.43) VBG pCO2 (40-60) VBG HCO3 (21-28) mmol/l VBG Total CO2 (22-28) mmol.L VBG O2 Sat (Calc) (40-65) % VBG Base Excess (0.0-2.0) mmol/L VBG Potassium (3.6-5.2) mmol/L Sodium 131 L (132-148) mmol/L Chloride 101 (98-107) mmol/L Glucose (75-110) mg/dl Lactate (0.7-2.1) mmol/L FiO2 % Potassium 4.0 (3.6-5.0) mmol/L Carbon Dioxide 19 L (21-33) mmol/L Anion Gap 15 (10-20) BUN 77 H (7-21) mg/dL Creatinine 1.2 (0.8-1.5) mg/dl Est GFR ( Amer) > 60 Est GFR (Non-Af Amer) > 60 POC Glucose (mg/dL) 153 H (65-110) mg/dL Random Glucose 155 H (70-110) mg/dL Lactic Acid (0.7-2.1) mmol/L Calcium 8.7 (8.4-10.5) mg/dL Iron (45-180) ug/dL TIBC (261-462) ug/dL % Saturation (20-55) % Ferritin ng/mL Total Bilirubin 0.6 (0.2-1.3) mg/dL AST 23 (17-59) U/L ALT 63 H (7-56) U/L Alkaline Phosphatase 44 (38-126) U/L Lactate Dehydrogenase (333-699) U/L Total Creatine Kinase (35-230) U/L Troponin I ng/mL NT-Pro-B Natriuret Pep (0-450) pg/mL Total Protein 5.3 L (5.8-8.3) g/dL Albumin 2.8 L (3.0-4.8) g/dL Globulin 2.4 gm/dL Albumin/Globulin Ratio 1.2 (1.1-1.8) Amylase (35-125) U/L Lipase (23-300) U/L Procalcitonin (0.19-0.49) NG/ML Venous Blood Potassium (3.6-5.2) mmol/L Urine Color (YELLOW) Urine Appearance (CLEAR) Urine pH (4.7-8.0) Ur Specific Lutz (1.005-1.035) Urine Protein (<30 mg/dL) mg/dL Urine Glucose (UA) (NEGATIVE) mg/dL Urine Ketones (NEGATIVE) mg/dL Urine Blood (NEGATIVE) Urine Nitrate (NEGATIVE) Urine Bilirubin (NEGATIVE) Urine Urobilinogen (<1 E.U./dL) E.U./dL Ur Leukocyte Esterase (NEGATIVE) Dalila/uL Digoxin (0.8-2.0) ng/mL Blood Type A NEGATIVE Antibody Screen Negative BBK History Checked No verified bt 06/03/17 06/03/17 06/03/17 Range/Units 06:00 00:35 00:00 WBC 31.2 H* D (4.5-11.0) 10^3/ul RBC 2.69 L (3.5-6.1) 10^6/uL Hgb 8.2 L (14.0-18.0) g/dL Hct 23.4 L (42.0-52.0) % MCV 87.0 (80.0-105.0) fl MCH 30.5 (25.0-35.0) pg MCHC 35.0 (31.0-37.0) g/dl RDW 13.2 (11.5-14.5) % Plt Count 370 (120.0-450.0) 10^3/uL MPV 9.7 (7.0-11.0) fl Gran % 85.0 H (50.0-68.0) % Lymph % (Auto) 9.2 L (22.0-35.0) % Baca % (Auto) 5.7 (1.0-6.0) % Eos % (Auto) 0.0 L (1.5-5.0) % Baso % (Auto) 0.1 (0.0-3.0) % Gran # 26.50 H (1.4-6.5) Lymph # (Auto) 2.9 (1.2-3.4) [place] # (Auto) 1.8 H (0.1-0.6) Eos # (Auto) 0.0 (0.0-0.7) Baso # (Auto) 0.02 (0.0-2.0) K/mm3 pO2 (30-55) mm/Hg VBG pH (7.32-7.43) VBG pCO2 (40-60) VBG HCO3 (21-28) mmol/l VBG Total CO2 (22-28) mmol.L VBG O2 Sat (Calc) (40-65) % VBG Base Excess (0.0-2.0) mmol/L VBG Potassium (3.6-5.2) mmol/L Sodium (132-148) mmol/L Chloride (98-107) mmol/L Glucose (75-110) mg/dl Lactate (0.7-2.1) mmol/L FiO2 % Potassium (3.6-5.0) mmol/L Carbon Dioxide (21-33) mmol/L Anion Gap (10-20) BUN (7-21) mg/dL Creatinine (0.8-1.5) mg/dl Est GFR ( Amer) Est GFR (Non-Af Amer) POC Glucose (mg/dL) 138 H (65-110) mg/dL Random Glucose (70-110) mg/dL Lactic Acid (0.7-2.1) mmol/L Calcium (8.4-10.5) mg/dL Iron (45-180) ug/dL TIBC (261-462) ug/dL % Saturation (20-55) % Ferritin ng/mL Total Bilirubin (0.2-1.3) mg/dL AST (17-59) U/L ALT (7-56) U/L Alkaline Phosphatase (38-126) U/L Lactate Dehydrogenase 335 (333-699) U/L Total Creatine Kinase 36 (35-230) U/L Troponin I 0.05 ng/mL NT-Pro-B Natriuret Pep (0-450) pg/mL Total Protein (5.8-8.3) g/dL Albumin (3.0-4.8) g/dL Globulin gm/dL Albumin/Globulin Ratio (1.1-1.8) Amylase (35-125) U/L Lipase (23-300) U/L Procalcitonin (0.19-0.49) NG/ML Venous Blood Potassium (3.6-5.2) mmol/L Urine Color (YELLOW) Urine Appearance (CLEAR) Urine pH (4.7-8.0) Ur Specific Lutz (1.005-1.035) Urine Protein (<30 mg/dL) mg/dL Urine Glucose (UA) (NEGATIVE) mg/dL Urine Ketones (NEGATIVE) mg/dL Urine Blood (NEGATIVE) Urine Nitrate (NEGATIVE) Urine Bilirubin (NEGATIVE) Urine Urobilinogen (<1 E.U./dL) E.U./dL Ur Leukocyte Esterase (NEGATIVE) Dalila/uL Digoxin (0.8-2.0) ng/mL Blood Type Antibody Screen BBK History Checked 06/02/17 06/02/17 06/02/17 Range/Units 20:34 19:29 19:29 WBC (4.5-11.0) 10^3/ul RBC (3.5-6.1) 10^6/uL Hgb (14.0-18.0) g/dL Hct (42.0-52.0) % MCV (80.0-105.0) fl MCH (25.0-35.0) pg MCHC (31.0-37.0) g/dl RDW (11.5-14.5) % Plt Count (120.0-450.0) 10^3/uL MPV (7.0-11.0) fl Gran % (50.0-68.0) % Lymph % (Auto) (22.0-35.0) % [place] % (Auto) (1.0-6.0) % Eos % (Auto) (1.5-5.0) % Baso % (Auto) (0.0-3.0) % Gran # (1.4-6.5) Lymph # (Auto) (1.2-3.4) [place] # (Auto) (0.1-0.6) Eos # (Auto) (0.0-0.7) Baso # (Auto) (0.0-2.0) K/mm3 pO2 (30-55) mm/Hg VBG pH (7.32-7.43) VBG pCO2 (40-60) VBG HCO3 (21-28) mmol/l VBG Total CO2 (22-28) mmol.L VBG O2 Sat (Calc) (40-65) % VBG Base Excess (0.0-2.0) mmol/L VBG Potassium (3.6-5.2) mmol/L Sodium (132-148) mmol/L Chloride (98-107) mmol/L Glucose (75-110) mg/dl Lactate (0.7-2.1) mmol/L FiO2 % Potassium (3.6-5.0) mmol/L Carbon Dioxide (21-33) mmol/L Anion Gap (10-20) BUN (7-21) mg/dL Creatinine (0.8-1.5) mg/dl Est GFR ( Amer) Est GFR (Non-Af Amer) POC Glucose (mg/dL) (65-110) mg/dL Random Glucose (70-110) mg/dL Lactic Acid (0.7-2.1) mmol/L Calcium (8.4-10.5) mg/dL Iron 10 L (45-180) ug/dL TIBC 174 L (261-462) ug/dL % Saturation 6 L (20-55) % Ferritin 201.0 ng/mL Total Bilirubin (0.2-1.3) mg/dL AST (17-59) U/L ALT (7-56) U/L Alkaline Phosphatase (38-126) U/L Lactate Dehydrogenase (333-699) U/L Total Creatine Kinase (35-230) U/L Troponin I ng/mL NT-Pro-B Natriuret Pep (0-450) pg/mL Total Protein (5.8-8.3) g/dL Albumin (3.0-4.8) g/dL Globulin gm/dL Albumin/Globulin Ratio (1.1-1.8) Amylase (35-125) U/L Lipase (23-300) U/L Procalcitonin < 0.05 L (0.19-0.49) NG/ML Venous Blood Potassium (3.6-5.2) mmol/L Urine Color (YELLOW) Urine Appearance (CLEAR) Urine pH (4.7-8.0) Ur Specific Lutz (1.005-1.035) Urine Protein (<30 mg/dL) mg/dL Urine Glucose (UA) (NEGATIVE) mg/dL Urine Ketones (NEGATIVE) mg/dL Urine Blood (NEGATIVE) Urine Nitrate (NEGATIVE) Urine Bilirubin (NEGATIVE) Urine Urobilinogen (<1 E.U./dL) E.U./dL Ur Leukocyte Esterase (NEGATIVE) Dalila/uL Digoxin (0.8-2.0) ng/mL Blood Type Antibody Screen BBK History Checked 06/02/17 06/02/17 06/02/17 Range/Units 19:29 19:29 19:29 WBC (4.5-11.0) 10^3/ul RBC (3.5-6.1) 10^6/uL Hgb (14.0-18.0) g/dL Hct (42.0-52.0) % MCV (80.0-105.0) fl MCH (25.0-35.0) pg MCHC (31.0-37.0) g/dl RDW (11.5-14.5) % Plt Count (120.0-450.0) 10^3/uL MPV (7.0-11.0) fl Gran % (50.0-68.0) % Lymph % (Auto) (22.0-35.0) % [place] % (Auto) (1.0-6.0) % Eos % (Auto) (1.5-5.0) % Baso % (Auto) (0.0-3.0) % Gran # (1.4-6.5) Lymph # (Auto) (1.2-3.4) [place] # (Auto) (0.1-0.6) Eos # (Auto) (0.0-0.7) Baso # (Auto) (0.0-2.0) K/mm3 pO2 24 L (30-55) mm/Hg VBG pH 7.38 (7.32-7.43) VBG pCO2 36.0 L (40-60) VBG HCO3 21.3 (21-28) mmol/l VBG Total CO2 22.4 (22-28) mmol.L VBG O2 Sat (Calc) 43.2 (40-65) % VBG Base Excess -3.3 L (0.0-2.0) mmol/L VBG Potassium 4.8 (3.6-5.2) mmol/L Sodium 131 L 130.0 L (132-148) mmol/L Chloride 102 102.0 (98-107) mmol/L Glucose 157 H (75-110) mg/dl Lactate 1.7 (0.7-2.1) mmol/L FiO2 21.0 % Potassium 4.7 (3.6-5.0) mmol/L Carbon Dioxide 19 L (21-33) mmol/L Anion Gap 14 (10-20) BUN 86 H (7-21) mg/dL Creatinine 1.4 (0.8-1.5) mg/dl Est GFR ( Amer) > 60 Est GFR (Non-Af Amer) 53 POC Glucose (mg/dL) (65-110) mg/dL Random Glucose 151 H (70-110) mg/dL Lactic Acid (0.7-2.1) mmol/L Calcium 8.8 (8.4-10.5) mg/dL Iron (45-180) ug/dL TIBC (261-462) ug/dL % Saturation (20-55) % Ferritin ng/mL Total Bilirubin 0.5 (0.2-1.3) mg/dL AST 19 (17-59) U/L ALT 71 H (7-56) U/L Alkaline Phosphatase 42 (38-126) U/L Lactate Dehydrogenase (333-699) U/L Total Creatine Kinase (35-230) U/L Troponin I 0.05 D ng/mL NT-Pro-B Natriuret Pep 408 (0-450) pg/mL Total Protein 5.3 L (5.8-8.3) g/dL Albumin 2.8 L (3.0-4.8) g/dL Globulin 2.5 gm/dL Albumin/Globulin Ratio 1.1 (1.1-1.8) Amylase (35-125) U/L Lipase (23-300) U/L Procalcitonin (0.19-0.49) NG/ML Venous Blood Potassium 4.8 (3.6-5.2) mmol/L Urine Color (YELLOW) Urine Appearance (CLEAR) Urine pH (4.7-8.0) Ur Specific Lutz (1.005-1.035) Urine Protein (<30 mg/dL) mg/dL Urine Glucose (UA) (NEGATIVE) mg/dL Urine Ketones (NEGATIVE) mg/dL Urine Blood (NEGATIVE) Urine Nitrate (NEGATIVE) Urine Bilirubin (NEGATIVE) Urine Urobilinogen (<1 E.U./dL) E.U./dL Ur Leukocyte Esterase (NEGATIVE) Dalila/uL Digoxin 0.5 L (0.8-2.0) ng/mL Blood Type Antibody Screen BBK History Checked 06/02/17 06/02/17 06/02/17 Range/Units 19:29 19:20 19:12 WBC 21.5 H D (4.5-11.0) 10^3/ul RBC 3.04 L (3.5-6.1) 10^6/uL Hgb 9.4 L D (14.0-18.0) g/dL Hct 26.7 L (42.0-52.0) % MCV 87.8 (80.0-105.0) fl MCH 30.9 (25.0-35.0) pg MCHC 35.2 (31.0-37.0) g/dl RDW 13.1 (11.5-14.5) % Plt Count 318 (120.0-450.0) 10^3/uL MPV 9.5 (7.0-11.0) fl Gran % 84.5 H (50.0-68.0) % Lymph % (Auto) 11.2 L (22.0-35.0) % [place] % (Auto) 4.3 (1.0-6.0) % Eos % (Auto) 0.0 L (1.5-5.0) % Baso % (Auto) 0.0 (0.0-3.0) % Gran # 18.16 H (1.4-6.5) Lymph # (Auto) 2.4 (1.2-3.4) [place] # (Auto) 0.9 H (0.1-0.6) Eos # (Auto) 0.0 (0.0-0.7) Baso # (Auto) 0.01 (0.0-2.0) K/mm3 pO2 (30-55) mm/Hg VBG pH (7.32-7.43) VBG pCO2 (40-60) VBG HCO3 (21-28) mmol/l VBG Total CO2 (22-28) mmol.L VBG O2 Sat (Calc) (40-65) % VBG Base Excess (0.0-2.0) mmol/L VBG Potassium (3.6-5.2) mmol/L Sodium (132-148) mmol/L Chloride (98-107) mmol/L Glucose (75-110) mg/dl Lactate (0.7-2.1) mmol/L FiO2 % Potassium (3.6-5.0) mmol/L Carbon Dioxide (21-33) mmol/L Anion Gap (10-20) BUN (7-21) mg/dL Creatinine (0.8-1.5) mg/dl Est GFR ( Amer) Est GFR (Non-Af Amer) POC Glucose (mg/dL) 143 H (65-110) mg/dL Random Glucose (70-110) mg/dL Lactic Acid (0.7-2.1) mmol/L Calcium (8.4-10.5) mg/dL Iron (45-180) ug/dL TIBC (261-462) ug/dL % Saturation (20-55) % Ferritin ng/mL Total Bilirubin (0.2-1.3) mg/dL AST (17-59) U/L ALT (7-56) U/L Alkaline Phosphatase (38-126) U/L Lactate Dehydrogenase (333-699) U/L Total Creatine Kinase (35-230) U/L Troponin I ng/mL NT-Pro-B Natriuret Pep (0-450) pg/mL Total Protein (5.8-8.3) g/dL Albumin (3.0-4.8) g/dL Globulin gm/dL Albumin/Globulin Ratio (1.1-1.8) Amylase (35-125) U/L Lipase (23-300) U/L Procalcitonin (0.19-0.49) NG/ML Venous Blood Potassium (3.6-5.2) mmol/L Urine Color Yellow (YELLOW) Urine Appearance Clear (CLEAR) Urine pH 6.0 (4.7-8.0) Ur Specific Lutz 1.010 (1.005-1.035) Urine Protein Negative (<30 mg/dL) mg/dL Urine Glucose (UA) Negative (NEGATIVE) mg/dL Urine Ketones Negative (NEGATIVE) mg/dL Urine Blood Negative (NEGATIVE) Urine Nitrate Negative (NEGATIVE) Urine Bilirubin Negative (NEGATIVE) Urine Urobilinogen 0.2 (<1 E.U./dL) E.U./dL Ur Leukocyte Esterase Negative (NEGATIVE) Dalila/uL Digoxin (0.8-2.0) ng/mL Blood Type Antibody Screen BBK History Checked 06/02/17 06/02/17 06/02/17 Range/Units 16:14 14:45 14:45 WBC (4.5-11.0) 10^3/ul RBC (3.5-6.1) 10^6/uL Hgb (14.0-18.0) g/dL Hct (42.0-52.0) % MCV (80.0-105.0) fl MCH (25.0-35.0) pg MCHC (31.0-37.0) g/dl RDW (11.5-14.5) % Plt Count (120.0-450.0) 10^3/uL MPV (7.0-11.0) fl Gran % (50.0-68.0) % Lymph % (Auto) (22.0-35.0) % [place] % (Auto) (1.0-6.0) % Eos % (Auto) (1.5-5.0) % Baso % (Auto) (0.0-3.0) % Gran # (1.4-6.5) Lymph # (Auto) (1.2-3.4) [place] # (Auto) (0.1-0.6) Eos # (Auto) (0.0-0.7) Baso # (Auto) (0.0-2.0) K/mm3 pO2 (30-55) mm/Hg VBG pH (7.32-7.43) VBG pCO2 (40-60) VBG HCO3 (21-28) mmol/l VBG Total CO2 (22-28) mmol.L VBG O2 Sat (Calc) (40-65) % VBG Base Excess (0.0-2.0) mmol/L VBG Potassium (3.6-5.2) mmol/L Sodium (132-148) mmol/L Chloride (98-107) mmol/L Glucose (75-110) mg/dl Lactate (0.7-2.1) mmol/L FiO2 % Potassium (3.6-5.0) mmol/L Carbon Dioxide (21-33) mmol/L Anion Gap (10-20) BUN (7-21) mg/dL Creatinine (0.8-1.5) mg/dl Est GFR ( Amer) Est GFR (Non-Af Amer) POC Glucose (mg/dL) 142 H (65-110) mg/dL Random Glucose (70-110) mg/dL Lactic Acid (0.7-2.1) mmol/L Calcium (8.4-10.5) mg/dL Iron (45-180) ug/dL TIBC (261-462) ug/dL % Saturation (20-55) % Ferritin ng/mL Total Bilirubin (0.2-1.3) mg/dL AST (17-59) U/L ALT (7-56) U/L Alkaline Phosphatase (38-126) U/L Lactate Dehydrogenase 350 (333-699) U/L Total Creatine Kinase 38 (35-230) U/L Troponin I 0.03 D ng/mL NT-Pro-B Natriuret Pep (0-450) pg/mL Total Protein (5.8-8.3) g/dL Albumin (3.0-4.8) g/dL Globulin gm/dL Albumin/Globulin Ratio (1.1-1.8) Amylase (35-125) U/L Lipase (23-300) U/L Procalcitonin < 0.05 L (0.19-0.49) NG/ML Venous Blood Potassium (3.6-5.2) mmol/L Urine Color (YELLOW) Urine Appearance (CLEAR) Urine pH (4.7-8.0) Ur Specific Lutz (1.005-1.035) Urine Protein (<30 mg/dL) mg/dL Urine Glucose (UA) (NEGATIVE) mg/dL Urine Ketones (NEGATIVE) mg/dL Urine Blood (NEGATIVE) Urine Nitrate (NEGATIVE) Urine Bilirubin (NEGATIVE) Urine Urobilinogen (<1 E.U./dL) E.U./dL Ur Leukocyte Esterase (NEGATIVE) [place]/uL Digoxin (0.8-2.0) ng/mL Blood Type Antibody Screen BBK History Checked 06/02/17 Range/Units 14:29 WBC (4.5-11.0) 10^3/ul RBC (3.5-6.1) 10^6/uL Hgb (14.0-18.0) g/dL Hct (42.0-52.0) % MCV (80.0-105.0) fl MCH (25.0-35.0) pg MCHC (31.0-37.0) g/dl RDW (11.5-14.5) % Plt Count (120.0-450.0) 10^3/uL MPV (7.0-11.0) fl Gran % (50.0-68.0) % Lymph % (Auto) (22.0-35.0) % [place] % (Auto) (1.0-6.0) % Eos % (Auto) (1.5-5.0) % Baso % (Auto) (0.0-3.0) % Gran # (1.4-6.5) Lymph # (Auto) (1.2-3.4) [place] # (Auto) (0.1-0.6) Eos # (Auto) (0.0-0.7) Baso # (Auto) (0.0-2.0) K/mm3 pO2 (30-55) mm/Hg VBG pH (7.32-7.43) VBG pCO2 (40-60) VBG HCO3 (21-28) mmol/l VBG Total CO2 (22-28) mmol.L VBG O2 Sat (Calc) (40-65) % VBG Base Excess (0.0-2.0) mmol/L VBG Potassium (3.6-5.2) mmol/L Sodium (132-148) mmol/L Chloride (98-107) mmol/L Glucose (75-110) mg/dl Lactate (0.7-2.1) mmol/L FiO2 % Potassium (3.6-5.0) mmol/L Carbon Dioxide (21-33) mmol/L Anion Gap (10-20) BUN (7-21) mg/dL Creatinine (0.8-1.5) mg/dl Est GFR ( Amer) Est GFR (Non-Af Amer) POC Glucose (mg/dL) 126 H (65-110) mg/dL Random Glucose (70-110) mg/dL Lactic Acid (0.7-2.1) mmol/L Calcium (8.4-10.5) mg/dL Iron (45-180) ug/dL TIBC (261-462) ug/dL % Saturation (20-55) % Ferritin ng/mL Total Bilirubin (0.2-1.3) mg/dL AST (17-59) U/L ALT (7-56) U/L Alkaline Phosphatase (38-126) U/L Lactate Dehydrogenase (333-699) U/L Total Creatine Kinase (35-230) U/L Troponin I ng/mL NT-Pro-B Natriuret Pep (0-450) pg/mL Total Protein (5.8-8.3) g/dL Albumin (3.0-4.8) g/dL Globulin gm/dL Albumin/Globulin Ratio (1.1-1.8) Amylase (35-125) U/L Lipase (23-300) U/L Procalcitonin (0.19-0.49) NG/ML Venous Blood Potassium (3.6-5.2) mmol/L Urine Color (YELLOW) Urine Appearance (CLEAR) Urine pH (4.7-8.0) Ur Specific Lutz (1.005-1.035) Urine Protein (<30 mg/dL) mg/dL Urine Glucose (UA) (NEGATIVE) mg/dL Urine Ketones (NEGATIVE) mg/dL Urine Blood (NEGATIVE) Urine Nitrate (NEGATIVE) Urine Bilirubin (NEGATIVE) Urine Urobilinogen (<1 E.U./dL) E.U./dL Ur Leukocyte Esterase (NEGATIVE) [place]/uL Digoxin (0.8-2.0) ng/mL Blood Type Antibody Screen BBK History Checked Laboratory Results - last 24 hr 06/02/17 06/02/17 06/02/17 14:29 14:45 14:45 WBC RBC Hgb Hct MCV MCH MCHC RDW Plt Count MPV Gran % Lymph % (Auto) [place] % (Auto) Eos % (Auto) Baso % (Auto) Gran # Lymph # (Auto) [place] # (Auto) Eos # (Auto) Baso # (Auto) pO2 VBG pH VBG pCO2 VBG HCO3 VBG Total CO2 VBG O2 Sat (Calc) VBG Base Excess VBG Potassium Sodium Chloride Glucose Lactate FiO2 Potassium Carbon Dioxide Anion Gap BUN Creatinine Est GFR ( Amer) Est GFR (Non-Af Amer) POC Glucose (mg/dL) 126 H Random Glucose Lactic Acid Calcium Iron TIBC % Saturation Ferritin Total Bilirubin AST ALT Alkaline Phosphatase Lactate Dehydrogenase 350 Total Creatine Kinase 38 Troponin I 0.03 D NT-Pro-B Natriuret Pep Total Protein Albumin Globulin Albumin/Globulin Ratio Amylase Lipase Procalcitonin < 0.05 L Venous Blood Potassium Urine Color Urine Appearance Urine pH Ur Specific Lutz Urine Protein Urine Glucose (UA) Urine Ketones Urine Blood Urine Nitrate Urine Bilirubin Urine Urobilinogen Ur Leukocyte Esterase Digoxin Blood Type Antibody Screen BBK History Checked 06/02/17 06/02/17 06/02/17 16:14 19:12 19:20 WBC RBC Hgb Hct MCV MCH MCHC RDW Plt Count MPV Gran % Lymph % (Auto) [place] % (Auto) Eos % (Auto) Baso % (Auto) Gran # Lymph # (Auto) [place] # (Auto) Eos # (Auto) Baso # (Auto) pO2 VBG pH VBG pCO2 VBG HCO3 VBG Total CO2 VBG O2 Sat (Calc) VBG Base Excess VBG Potassium Sodium Chloride Glucose Lactate FiO2 Potassium Carbon Dioxide Anion Gap BUN Creatinine Est GFR ( Amer) Est GFR (Non-Af Amer) POC Glucose (mg/dL) 142 H 143 H Random Glucose Lactic Acid Calcium Iron TIBC % Saturation Ferritin Total Bilirubin AST ALT Alkaline Phosphatase Lactate Dehydrogenase Total Creatine Kinase Troponin I NT-Pro-B Natriuret Pep Total Protein Albumin Globulin Albumin/Globulin Ratio Amylase Lipase Procalcitonin Venous Blood Potassium Urine Color Yellow Urine Appearance Clear Urine pH 6.0 Ur Specific Lutz 1.010 Urine Protein Negative Urine Glucose (UA) Negative Urine Ketones Negative Urine Blood Negative Urine Nitrate Negative Urine Bilirubin Negative Urine Urobilinogen 0.2 Ur Leukocyte Esterase Negative Digoxin Blood Type Antibody Screen BBK History Checked 06/02/17 06/02/17 06/02/17 19:29 19:29 19:29 WBC 21.5 H D RBC 3.04 L Hgb 9.4 L D Hct 26.7 L MCV 87.8 MCH 30.9 MCHC 35.2 RDW 13.1 Plt Count 318 MPV 9.5 Gran % 84.5 H Lymph % (Auto) 11.2 L [place] % (Auto) 4.3 Eos % (Auto) 0.0 L Baso % (Auto) 0.0 Gran # 18.16 H Lymph # (Auto) 2.4 [place] # (Auto) 0.9 H Eos # (Auto) 0.0 Baso # (Auto) 0.01 pO2 24 L VBG pH 7.38 VBG pCO2 36.0 L VBG HCO3 21.3 VBG Total CO2 22.4 VBG O2 Sat (Calc) 43.2 VBG Base Excess -3.3 L VBG Potassium 4.8 Sodium 130.0 L 131 L Chloride 102.0 102 Glucose 157 H Lactate 1.7 FiO2 21.0 Potassium 4.7 Carbon Dioxide 19 L Anion Gap 14 BUN 86 H Creatinine 1.4 Est GFR ( Amer) > 60 Est GFR (Non-Af Amer) 53 POC Glucose (mg/dL) Random Glucose 151 H Lactic Acid Calcium 8.8 Iron TIBC % Saturation Ferritin Total Bilirubin 0.5 AST 19 ALT 71 H Alkaline Phosphatase 42 Lactate Dehydrogenase Total Creatine Kinase Troponin I 0.05 D NT-Pro-B Natriuret Pep 408 Total Protein 5.3 L Albumin 2.8 L Globulin 2.5 Albumin/Globulin Ratio 1.1 Amylase Lipase Procalcitonin Venous Blood Potassium 4.8 Urine Color Urine Appearance Urine pH Ur Specific Lutz Urine Protein Urine Glucose (UA) Urine Ketones Urine Blood Urine Nitrate Urine Bilirubin Urine Urobilinogen Ur Leukocyte Esterase Digoxin Blood Type Antibody Screen BBK History Checked 06/02/17 06/02/17 06/02/17 19:29 19:29 19:29 WBC RBC Hgb Hct MCV MCH MCHC RDW Plt Count MPV Gran % Lymph % (Auto) [place] % (Auto) Eos % (Auto) Baso % (Auto) Gran # Lymph # (Auto) [place] # (Auto) Eos # (Auto) Baso # (Auto) pO2 VBG pH VBG pCO2 VBG HCO3 VBG Total CO2 VBG O2 Sat (Calc) VBG Base Excess VBG Potassium Sodium Chloride Glucose Lactate FiO2 Potassium Carbon Dioxide Anion Gap BUN Creatinine Est GFR ( Amer) Est GFR (Non-Af Amer) POC Glucose (mg/dL) Random Glucose Lactic Acid Calcium Iron 10 L TIBC 174 L % Saturation 6 L Ferritin Total Bilirubin AST ALT Alkaline Phosphatase Lactate Dehydrogenase Total Creatine Kinase Troponin I NT-Pro-B Natriuret Pep Total Protein Albumin Globulin Albumin/Globulin Ratio Amylase Lipase Procalcitonin < 0.05 L Venous Blood Potassium Urine Color Urine Appearance Urine pH Ur Specific Lutz Urine Protein Urine Glucose (UA) Urine Ketones Urine Blood Urine Nitrate Urine Bilirubin Urine Urobilinogen Ur Leukocyte Esterase Digoxin 0.5 L Blood Type Antibody Screen BBK History Checked 06/02/17 06/03/17 06/03/17 20:34 00:00 00:35 WBC RBC Hgb Hct MCV MCH MCHC RDW Plt Count MPV Gran % Lymph % (Auto) [place] % (Auto) Eos % (Auto) Baso % (Auto) Gran # Lymph # (Auto) [place] # (Auto) Eos # (Auto) Baso # (Auto) pO2 VBG pH VBG pCO2 VBG HCO3 VBG Total CO2 VBG O2 Sat (Calc) VBG Base Excess VBG Potassium Sodium Chloride Glucose Lactate FiO2 Potassium Carbon Dioxide Anion Gap BUN Creatinine Est GFR ( Amer) Est GFR (Non-Af Amer) POC Glucose (mg/dL) 138 H Random Glucose Lactic Acid Calcium Iron TIBC % Saturation Ferritin 201.0 Total Bilirubin AST ALT Alkaline Phosphatase Lactate Dehydrogenase 335 Total Creatine Kinase 36 Troponin I 0.05 NT-Pro-B Natriuret Pep Total Protein Albumin Globulin Albumin/Globulin Ratio Amylase Lipase Procalcitonin Venous Blood Potassium Urine Color Urine Appearance Urine pH Ur Specific Lutz Urine Protein Urine Glucose (UA) Urine Ketones Urine Blood Urine Nitrate Urine Bilirubin Urine Urobilinogen Ur Leukocyte Esterase Digoxin Blood Type Antibody Screen BBK History Checked 06/03/17 06/03/17 06/03/17 06:00 06:00 06:25 WBC 31.2 H* D RBC 2.69 L Hgb 8.2 L Hct 23.4 L MCV 87.0 MCH 30.5 MCHC 35.0 RDW 13.2 Plt Count 370 MPV 9.7 Gran % 85.0 H Lymph % (Auto) 9.2 L [place] % (Auto) 5.7 Eos % (Auto) 0.0 L Baso % (Auto) 0.1 Gran # 26.50 H Lymph # (Auto) 2.9 [place] # (Auto) 1.8 H Eos # (Auto) 0.0 Baso # (Auto) 0.02 pO2 VBG pH VBG pCO2 VBG HCO3 VBG Total CO2 VBG O2 Sat (Calc) VBG Base Excess VBG Potassium Sodium 131 L Chloride 101 Glucose Lactate FiO2 Potassium 4.0 Carbon Dioxide 19 L Anion Gap 15 BUN 77 H Creatinine 1.2 Est GFR ( Amer) > 60 Est GFR (Non-Af Amer) > 60 POC Glucose (mg/dL) Random Glucose 155 H Lactic Acid Calcium 8.7 Iron TIBC % Saturation Ferritin Total Bilirubin 0.6 AST 23 ALT 63 H Alkaline Phosphatase 44 Lactate Dehydrogenase Total Creatine Kinase Troponin I NT-Pro-B Natriuret Pep Total Protein 5.3 L Albumin 2.8 L Globulin 2.4 Albumin/Globulin Ratio 1.2 Amylase Lipase Procalcitonin Venous Blood Potassium Urine Color Urine Appearance Urine pH Ur Specific Lutz Urine Protein Urine Glucose (UA) Urine Ketones Urine Blood Urine Nitrate Urine Bilirubin Urine Urobilinogen Ur Leukocyte Esterase Digoxin Blood Type A NEGATIVE Antibody Screen Negative BBK History Checked No verified bt 06/03/17 06/03/17 06/03/17 07:22 11:05 11:45 WBC RBC Hgb Hct MCV MCH MCHC RDW Plt Count MPV Gran % Lymph % (Auto) [place] % (Auto) Eos % (Auto) Baso % (Auto) Gran # Lymph # (Auto) [place] # (Auto) Eos # (Auto) Baso # (Auto) pO2 VBG pH VBG pCO2 VBG HCO3 VBG Total CO2 VBG O2 Sat (Calc) VBG Base Excess VBG Potassium Sodium Chloride Glucose Lactate FiO2 Potassium Carbon Dioxide Anion Gap BUN Creatinine Est GFR ( Amer) Est GFR (Non-Af Amer) POC Glucose (mg/dL) 153 H 174 H Random Glucose Lactic Acid Calcium Iron TIBC % Saturation Ferritin Total Bilirubin AST ALT Alkaline Phosphatase Lactate Dehydrogenase Total Creatine Kinase Troponin I NT-Pro-B Natriuret Pep Total Protein Albumin Globulin Albumin/Globulin Ratio Amylase 43 Lipase 122 Procalcitonin Venous Blood Potassium Urine Color Urine Appearance Urine pH Ur Specific Lutz Urine Protein Urine Glucose (UA) Urine Ketones Urine Blood Urine Nitrate Urine Bilirubin Urine Urobilinogen Ur Leukocyte Esterase Digoxin Blood Type Antibody Screen BBK History Checked 06/03/17 13:20 WBC RBC Hgb Hct MCV MCH MCHC RDW Plt Count MPV Gran % Lymph % (Auto) [place] % (Auto) Eos % (Auto) Baso % (Auto) Gran # Lymph # (Auto) [place] # (Auto) Eos # (Auto) Baso # (Auto) pO2 VBG pH VBG pCO2 VBG HCO3 VBG Total CO2 VBG O2 Sat (Calc) VBG Base Excess VBG Potassium Sodium Chloride Glucose Lactate FiO2 Potassium Carbon Dioxide Anion Gap BUN Creatinine Est GFR ( Amer) Est GFR (Non-Af Amer) POC Glucose (mg/dL) Random Glucose Lactic Acid 1.5 Calcium Iron TIBC % Saturation Ferritin Total Bilirubin AST ALT Alkaline Phosphatase Lactate Dehydrogenase Total Creatine Kinase Troponin I NT-Pro-B Natriuret Pep Total Protein Albumin Globulin Albumin/Globulin Ratio Amylase Lipase Procalcitonin Venous Blood Potassium Urine Color Urine Appearance Urine pH Ur Specific Lutz Urine Protein Urine Glucose (UA) Urine Ketones Urine Blood Urine Nitrate Urine Bilirubin Urine Urobilinogen Ur Leukocyte Esterase Digoxin Blood Type Antibody Screen BBK History Checked EKG/Cardiology Studies: Cardiology / EKG Studies 06/02/17 19:18 EKG [ELECTROCARDIOGRAM] Stat Comment: Reason For Exam: hypotension/[employer] Fingerstick Blood Sugar Results: 138 Critical Care Progress Note - Nutrition Nutrition: Nutrition Category Date Time Status Heart Healthy Diet [DIET] Diets 06/02/17 Lunch Ordered Assessment/Plan - Assessment and Plan (Free Text) Plan: 56 y/o with PMH 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 Patient was transferred to the ICU for hypotension and was started on Levophed. Patient has been transitioned to Dobutamine at this time. He also developed nausea and vomiting, CT of abdomen/pelvis did not demonstrate any abnormalities. Patient will continue to be monitored on dobutamine drip. Merrem started as per ID. Neuro: AAOx3 Pulm: Supp O2 prn Maintain O2 sat >90% Cardiac: Levophed transitioned to Dobutamine Cardiogenic shock Maintain MAP >65 Heme/ID: Afebrile, Worsening leukocytosis Procal negative Vanco/Merrem Received Vanco/Zosyn previously Eliquis Follow cultures Renal: Maintain euvolemia Replete electrolytes as needed Hardy catheter in place Strict I's and O's Daily weights Endo: maintain euglycemia GI: heart healthy diet Protonix Amylase/lipase negative Monae, PGY-2 <Rivera Brown B - Last Filed: 06/03/17 16:22> CCU Objective - Vital Signs / Intake & Output Intake and Output (Last 8hrs): Intake & Output 06/03/17 06/03/17 06/03/17 06:59 14:59 22:59 Intake Total 2332 20 Output Total 1375 Balance 957 20 Intake: IV 1432 20 Right Hand 850 Right Internal Jugular 510 Oral 900 Output: Urine 1375 Urethral (Hardy) 1375 - Medications Active Medications: Active Medications Generic Name Dose Route Start Last Admin Trade Name Freq PRN Reason Stop Dose Admin Amiodarone HCl 200 mg 06/03/17 10:00 06/03/17 09:16 Cordarone PO 200 mg DAILY BEATRIZ Administration Apixaban 5 mg 06/02/17 18:00 06/03/17 09:17 Eliquis PO 5 mg BID BEATRIZ Administration Protocol Aspirin 81 mg 06/03/17 10:00 06/03/17 09:17 Ecotrin PO 81 mg DAILY BEATRIZ Administration Atorvastatin Calcium 20 mg 06/03/17 10:00 06/03/17 09:17 Lipitor PO 20 mg DAILY BEATRIZ Administration Carvedilol 3.125 mg 06/02/17 18:00 Coreg PO BID BEATRIZ Famotidine 20 mg 06/03/17 10:00 06/03/17 09:17 Pepcid PO 20 mg DAILY BEATRIZ Administration Furosemide 20 mg 06/02/17 18:00 Lasix PO BID BEATRIZ Vancomycin HCl 1 gm in 250 mls @ 167 mls/hr 06/02/17 20:00 06/03/17 08:16 Vancomycin 1gm IVPB 167 mls/hr Q12H BEATRIZ Administration Protocol NOREPINEPHRINE BIT/0.9 % NACL 4 mg in 250 mls @ 15 mls/hr 06/02/17 22:06 08:35 Levophed 4 Mg/ 250 Ml Ns Premixed IV 12 mcg/min .[id number] PRN 45 mls/hr TITRATE PER MD ORDER Titration Protocol 4 MCG/MIN Dobutamine HCl/Dextrose 500 mg in 250 mls @ 8.301 mls/hr 06/03/17 08:35 06/03 09:07 Dobutamine/Dextrose 5% 500mg/250ml IV 2.5 mcg/kg/min .Q24H PRN 8.301 mls/hr TITRATE PER PROTOCOL Administration Protocol 2.5 MCG/KG/MIN Meropenem 50 mls @ 100 mls/hr 06/03/17 13:15 Merrem Iv 1 Gm Premix IVPB 06/12/17 13:16 Q12 BEATRIZ Protocol Lactated Ringer's 1,000 mls @ 999 mls/hr 06/03/17 15:30 Lactated Ringer's IV 06/03/17 16:30 .[id number] [facility] Levothyroxine Sodium 88 mcg 06/03/17 10:00 06/03/17 09:18 Synthroid PO 88 mcg DAILY BEATRIZ Administration Lisinopril 2.5 mg 06/03/17 10:00 Zestril PO DAILY [facility] Midodrine 10 mg 06/03/17 10:00 06/03/17 09:17 Proamatine PO 10 mg TID BEATRIZ Administration Non-Formulary Medication 25 mg 06/03/17 10:00 Eplerenone [Inspra] PO DAILY [facility] Ondansetron HCl 4 mg 06/03/17 11:15 06/03/17 11:24 Zofran Inj IVP 4 mg Q4H PRN Administration Nausea/Vomiting - Patient Studies Lab Studies: Microbiology Studies 06/02/17 14:30 Blood Culture - Preliminary Blood NO GROWTH AFTER 24 HOURS Lab Studies 06/03/17 06/03/17 06/03/17 Range/Units 15:57 15:57 15:48 WBC 28.6 H* (4.5-11.0) 10^3/ul RBC 2.41 L (3.5-6.1) 10^6/uL Hgb 7.6 L (14.0-18.0) g/dL Hct 21.0 L (42.0-52.0) % MCV 87.1 (80.0-105.0) fl MCH 31.5 (25.0-35.0) pg MCHC 36.2 (31.0-37.0) g/dl RDW 13.4 (11.5-14.5) % Plt Count 284 (120.0-450.0) 10^3/uL MPV 9.2 (7.0-11.0) fl Gran % (50.0-68.0) % Lymph % (Auto) (22.0-35.0) % Baca % (Auto) (1.0-6.0) % Eos % (Auto) (1.5-5.0) % Baso % (Auto) (0.0-3.0) % Gran # (1.4-6.5) Lymph # (Auto) (1.2-3.4) [place] # (Auto) (0.1-0.6) Eos # (Auto) (0.0-0.7) Baso # (Auto) (0.0-2.0) K/mm3 pO2 51 (30-55) mm/Hg VBG pH 7.41 (7.32-7.43) VBG pCO2 33.0 L (40-60) VBG HCO3 20.9 L (21-28) mmol/l VBG Total CO2 21.9 L (22-28) mmol.L VBG O2 Sat (Calc) 91.4 H (40-65) % VBG Base Excess -2.9 L (0.0-2.0) mmol/L VBG Potassium 4.5 (3.6-5.2) mmol/L Sodium 130.0 L (132-148) mmol/L Chloride 105.0 (98-107) mmol/L Glucose 159 H (75-110) mg/dl Lactate 1.3 (0.7-2.1) mmol/L FiO2 21.0 % Potassium (3.6-5.0) mmol/L Carbon Dioxide (21-33) mmol/L Anion Gap (10-20) BUN (7-21) mg/dL Creatinine (0.8-1.5) mg/dl Est GFR ( Amer) Est GFR (Non-Af Amer) POC Glucose (mg/dL) 157 H (65-110) mg/dL Random Glucose (70-110) mg/dL Lactic Acid (0.7-2.1) mmol/L Calcium (8.4-10.5) mg/dL Iron (45-180) ug/dL TIBC (261-462) ug/dL % Saturation (20-55) % Ferritin ng/mL Total Bilirubin (0.2-1.3) mg/dL AST (17-59) U/L ALT (7-56) U/L Alkaline Phosphatase (38-126) U/L Lactate Dehydrogenase (333-699) U/L Total Creatine Kinase (35-230) U/L Troponin I ng/mL NT-Pro-B Natriuret Pep (0-450) pg/mL Total Protein (5.8-8.3) g/dL Albumin (3.0-4.8) g/dL Globulin gm/dL Albumin/Globulin Ratio (1.1-1.8) Amylase (35-125) U/L Lipase (23-300) U/L Procalcitonin (0.19-0.49) NG/ML Venous Blood Potassium 4.5 (3.6-5.2) mmol/L Urine Color (YELLOW) Urine Appearance (CLEAR) Urine pH (4.7-8.0) Ur Specific Lutz (1.005-1.035) Urine Protein (<30 mg/dL) mg/dL Urine Glucose (UA) (NEGATIVE) mg/dL Urine Ketones (NEGATIVE) mg/dL Urine Blood (NEGATIVE) Urine Nitrate (NEGATIVE) Urine Bilirubin (NEGATIVE) Urine Urobilinogen (<1 E.U./dL) E.U./dL Ur Leukocyte Esterase (NEGATIVE) Dalila/uL Digoxin (0.8-2.0) ng/mL Blood Type Antibody Screen Crossmatch BBK History Checked 06/03/17 06/03/17 06/03/17 Range/Units 13:20 11:45 11:05 WBC (4.5-11.0) 10^3/ul RBC (3.5-6.1) 10^6/uL Hgb (14.0-18.0) g/dL Hct (42.0-52.0) % MCV (80.0-105.0) fl MCH (25.0-35.0) pg MCHC (31.0-37.0) g/dl RDW (11.5-14.5) % Plt Count (120.0-450.0) 10^3/uL MPV (7.0-11.0) fl Gran % (50.0-68.0) % Lymph % (Auto) (22.0-35.0) % Baca % (Auto) (1.0-6.0) % Eos % (Auto) (1.5-5.0) % Baso % (Auto) (0.0-3.0) % Gran # (1.4-6.5) Lymph # (Auto) (1.2-3.4) Baca # (Auto) (0.1-0.6) Eos # (Auto) (0.0-0.7) Baso # (Auto) (0.0-2.0) K/mm3 pO2 (30-55) mm/Hg VBG pH (7.32-7.43) VBG pCO2 (40-60) VBG HCO3 (21-28) mmol/l VBG Total CO2 (22-28) mmol.L VBG O2 Sat (Calc) (40-65) % VBG Base Excess (0.0-2.0) mmol/L VBG Potassium (3.6-5.2) mmol/L Sodium (132-148) mmol/L Chloride (98-107) mmol/L Glucose (75-110) mg/dl Lactate (0.7-2.1) mmol/L FiO2 % Potassium (3.6-5.0) mmol/L Carbon Dioxide (21-33) mmol/L Anion Gap (10-20) BUN (7-21) mg/dL Creatinine (0.8-1.5) mg/dl Est GFR ( Amer) Est GFR (Non-Af Amer) POC Glucose (mg/dL) 174 H (65-110) mg/dL Random Glucose (70-110) mg/dL Lactic Acid 1.5 (0.7-2.1) mmol/L Calcium (8.4-10.5) mg/dL Iron (45-180) ug/dL TIBC (261-462) ug/dL % Saturation (20-55) % Ferritin ng/mL Total Bilirubin (0.2-1.3) mg/dL AST (17-59) U/L ALT (7-56) U/L Alkaline Phosphatase (38-126) U/L Lactate Dehydrogenase (333-699) U/L Total Creatine Kinase (35-230) U/L Troponin I ng/mL NT-Pro-B Natriuret Pep (0-450) pg/mL Total Protein (5.8-8.3) g/dL Albumin (3.0-4.8) g/dL Globulin gm/dL Albumin/Globulin Ratio (1.1-1.8) Amylase 43 (35-125) U/L Lipase 122 (23-300) U/L Procalcitonin (0.19-0.49) NG/ML Venous Blood Potassium (3.6-5.2) mmol/L Urine Color (YELLOW) Urine Appearance (CLEAR) Urine pH (4.7-8.0) Ur Specific Lutz (1.005-1.035) Urine Protein (<30 mg/dL) mg/dL Urine Glucose (UA) (NEGATIVE) mg/dL Urine Ketones (NEGATIVE) mg/dL Urine Blood (NEGATIVE) Urine Nitrate (NEGATIVE) Urine Bilirubin (NEGATIVE) Urine Urobilinogen (<1 E.U./dL) E.U./dL Ur Leukocyte Esterase (NEGATIVE) Dalila/uL Digoxin (0.8-2.0) ng/mL Blood Type Antibody Screen Crossmatch BBK History Checked 06/03/17 06/03/17 06/03/17 Range/Units 07:22 06:25 06:00 WBC (4.5-11.0) 10^3/ul RBC (3.5-6.1) 10^6/uL Hgb (14.0-18.0) g/dL Hct (42.0-52.0) % MCV (80.0-105.0) fl MCH (25.0-35.0) pg MCHC (31.0-37.0) g/dl RDW (11.5-14.5) % Plt Count (120.0-450.0) 10^3/uL MPV (7.0-11.0) fl Gran % (50.0-68.0) % Lymph % (Auto) (22.0-35.0) % [place] % (Auto) (1.0-6.0) % Eos % (Auto) (1.5-5.0) % Baso % (Auto) (0.0-3.0) % Gran # (1.4-6.5) Lymph # (Auto) (1.2-3.4) Baca # (Auto) (0.1-0.6) Eos # (Auto) (0.0-0.7) Baso # (Auto) (0.0-2.0) K/mm3 pO2 (30-55) mm/Hg VBG pH (7.32-7.43) VBG pCO2 (40-60) VBG HCO3 (21-28) mmol/l VBG Total CO2 (22-28) mmol.L VBG O2 Sat (Calc) (40-65) % VBG Base Excess (0.0-2.0) mmol/L VBG Potassium (3.6-5.2) mmol/L Sodium 131 L (132-148) mmol/L Chloride 101 (98-107) mmol/L Glucose (75-110) mg/dl Lactate (0.7-2.1) mmol/L FiO2 % Potassium 4.0 (3.6-5.0) mmol/L Carbon Dioxide 19 L (21-33) mmol/L Anion Gap 15 (10-20) BUN 77 H (7-21) mg/dL Creatinine 1.2 (0.8-1.5) mg/dl Est GFR ( Amer) > 60 Est GFR (Non-Af Amer) > 60 POC Glucose (mg/dL) 153 H (65-110) mg/dL Random Glucose 155 H (70-110) mg/dL Lactic Acid (0.7-2.1) mmol/L Calcium 8.7 (8.4-10.5) mg/dL Iron (45-180) ug/dL TIBC (261-462) ug/dL % Saturation (20-55) % Ferritin ng/mL Total Bilirubin 0.6 (0.2-1.3) mg/dL AST 23 (17-59) U/L ALT 63 H (7-56) U/L Alkaline Phosphatase 44 (38-126) U/L Lactate Dehydrogenase (333-699) U/L Total Creatine Kinase (35-230) U/L Troponin I ng/mL NT-Pro-B Natriuret Pep (0-450) pg/mL Total Protein 5.3 L (5.8-8.3) g/dL Albumin 2.8 L (3.0-4.8) g/dL Globulin 2.4 gm/dL Albumin/Globulin Ratio 1.2 (1.1-1.8) Amylase (35-125) U/L Lipase (23-300) U/L Procalcitonin (0.19-0.49) NG/ML Venous Blood Potassium (3.6-5.2) mmol/L Urine Color (YELLOW) Urine Appearance (CLEAR) Urine pH (4.7-8.0) Ur Specific Lutz (1.005-1.035) Urine Protein (<30 mg/dL) mg/dL Urine Glucose (UA) (NEGATIVE) mg/dL Urine Ketones (NEGATIVE) mg/dL Urine Blood (NEGATIVE) Urine Nitrate (NEGATIVE) Urine Bilirubin (NEGATIVE) Urine Urobilinogen (<1 E.U./dL) E.U./dL Ur Leukocyte Esterase (NEGATIVE) Dalila/uL Digoxin (0.8-2.0) ng/mL Blood Type A NEGATIVE Antibody Screen Negative Crossmatch See Detail BBK History Checked No verified bt 06/03/17 06/03/17 06/03/17 Range/Units 06:00 00:35 00:00 WBC 31.2 H* D (4.5-11.0) 10^3/ul RBC 2.69 L (3.5-6.1) 10^6/uL Hgb 8.2 L (14.0-18.0) g/dL Hct 23.4 L (42.0-52.0) % MCV 87.0 (80.0-105.0) fl MCH 30.5 (25.0-35.0) pg MCHC 35.0 (31.0-37.0) g/dl RDW 13.2 (11.5-14.5) % Plt Count 370 (120.0-450.0) 10^3/uL MPV 9.7 (7.0-11.0) fl Gran % 85.0 H (50.0-68.0) % Lymph % (Auto) 9.2 L (22.0-35.0) % [place] % (Auto) 5.7 (1.0-6.0) % Eos % (Auto) 0.0 L (1.5-5.0) % Baso % (Auto) 0.1 (0.0-3.0) % Gran # 26.50 H (1.4-6.5) Lymph # (Auto) 2.9 (1.2-3.4) [place] # (Auto) 1.8 H (0.1-0.6) Eos # (Auto) 0.0 (0.0-0.7) Baso # (Auto) 0.02 (0.0-2.0) K/mm3 pO2 (30-55) mm/Hg VBG pH (7.32-7.43) VBG pCO2 (40-60) VBG HCO3 (21-28) mmol/l VBG Total CO2 (22-28) mmol.L VBG O2 Sat (Calc) (40-65) % VBG Base Excess (0.0-2.0) mmol/L VBG Potassium (3.6-5.2) mmol/L Sodium (132-148) mmol/L Chloride (98-107) mmol/L Glucose (75-110) mg/dl Lactate (0.7-2.1) mmol/L FiO2 % Potassium (3.6-5.0) mmol/L Carbon Dioxide (21-33) mmol/L Anion Gap (10-20) BUN (7-21) mg/dL Creatinine (0.8-1.5) mg/dl Est GFR ( Amer) Est GFR (Non-Af Amer) POC Glucose (mg/dL) 138 H (65-110) mg/dL Random Glucose (70-110) mg/dL Lactic Acid (0.7-2.1) mmol/L Calcium (8.4-10.5) mg/dL Iron (45-180) ug/dL TIBC (261-462) ug/dL % Saturation (20-55) % Ferritin ng/mL Total Bilirubin (0.2-1.3) mg/dL AST (17-59) U/L ALT (7-56) U/L Alkaline Phosphatase (38-126) U/L Lactate Dehydrogenase 335 (333-699) U/L Total Creatine Kinase 36 (35-230) U/L Troponin I 0.05 ng/mL NT-Pro-B Natriuret Pep (0-450) pg/mL Total Protein (5.8-8.3) g/dL Albumin (3.0-4.8) g/dL Globulin gm/dL Albumin/Globulin Ratio (1.1-1.8) Amylase (35-125) U/L Lipase (23-300) U/L Procalcitonin (0.19-0.49) NG/ML Venous Blood Potassium (3.6-5.2) mmol/L Urine Color (YELLOW) Urine Appearance (CLEAR) Urine pH (4.7-8.0) Ur Specific Lutz (1.005-1.035) Urine Protein (<30 mg/dL) mg/dL Urine Glucose (UA) (NEGATIVE) mg/dL Urine Ketones (NEGATIVE) mg/dL Urine Blood (NEGATIVE) Urine Nitrate (NEGATIVE) Urine Bilirubin (NEGATIVE) Urine Urobilinogen (<1 E.U./dL) E.U./dL Ur Leukocyte Esterase (NEGATIVE) Dalila/uL Digoxin (0.8-2.0) ng/mL Blood Type Antibody Screen Crossmatch BBK History Checked 06/02/17 06/02/17 06/02/17 Range/Units 20:34 19:29 19:29 WBC (4.5-11.0) 10^3/ul RBC (3.5-6.1) 10^6/uL Hgb (14.0-18.0) g/dL Hct (42.0-52.0) % MCV (80.0-105.0) fl MCH (25.0-35.0) pg MCHC (31.0-37.0) g/dl RDW (11.5-14.5) % Plt Count (120.0-450.0) 10^3/uL MPV (7.0-11.0) fl Gran % (50.0-68.0) % Lymph % (Auto) (22.0-35.0) % [place] % (Auto) (1.0-6.0) % Eos % (Auto) (1.5-5.0) % Baso % (Auto) (0.0-3.0) % Gran # (1.4-6.5) Lymph # (Auto) (1.2-3.4) [place] # (Auto) (0.1-0.6) Eos # (Auto) (0.0-0.7) Baso # (Auto) (0.0-2.0) K/mm3 pO2 (30-55) mm/Hg VBG pH (7.32-7.43) VBG pCO2 (40-60) VBG HCO3 (21-28) mmol/l VBG Total CO2 (22-28) mmol.L VBG O2 Sat (Calc) (40-65) % VBG Base Excess (0.0-2.0) mmol/L VBG Potassium (3.6-5.2) mmol/L Sodium (132-148) mmol/L Chloride (98-107) mmol/L Glucose (75-110) mg/dl Lactate (0.7-2.1) mmol/L FiO2 % Potassium (3.6-5.0) mmol/L Carbon Dioxide (21-33) mmol/L Anion Gap (10-20) BUN (7-21) mg/dL Creatinine (0.8-1.5) mg/dl Est GFR ( Amer) Est GFR (Non-Af Amer) POC Glucose (mg/dL) (65-110) mg/dL Random Glucose (70-110) mg/dL Lactic Acid (0.7-2.1) mmol/L Calcium (8.4-10.5) mg/dL Iron 10 L (45-180) ug/dL TIBC 174 L (261-462) ug/dL % Saturation 6 L (20-55) % Ferritin 201.0 ng/mL Total Bilirubin (0.2-1.3) mg/dL AST (17-59) U/L ALT (7-56) U/L Alkaline Phosphatase (38-126) U/L Lactate Dehydrogenase (333-699) U/L Total Creatine Kinase (35-230) U/L Troponin I ng/mL NT-Pro-B Natriuret Pep (0-450) pg/mL Total Protein (5.8-8.3) g/dL Albumin (3.0-4.8) g/dL Globulin gm/dL Albumin/Globulin Ratio (1.1-1.8) Amylase (35-125) U/L Lipase (23-300) U/L Procalcitonin < 0.05 L (0.19-0.49) NG/ML Venous Blood Potassium (3.6-5.2) mmol/L Urine Color (YELLOW) Urine Appearance (CLEAR) Urine pH (4.7-8.0) Ur Specific Lutz (1.005-1.035) Urine Protein (<30 mg/dL) mg/dL Urine Glucose (UA) (NEGATIVE) mg/dL Urine Ketones (NEGATIVE) mg/dL Urine Blood (NEGATIVE) Urine Nitrate (NEGATIVE) Urine Bilirubin (NEGATIVE) Urine Urobilinogen (<1 E.U./dL) E.U./dL Ur Leukocyte Esterase (NEGATIVE) Dalila/uL Digoxin (0.8-2.0) ng/mL Blood Type Antibody Screen Crossmatch BBK History Checked 06/02/17 06/02/17 06/02/17 Range/Units 19:29 19:29 19:29 WBC (4.5-11.0) 10^3/ul RBC (3.5-6.1) 10^6/uL Hgb (14.0-18.0) g/dL Hct (42.0-52.0) % MCV (80.0-105.0) fl MCH (25.0-35.0) pg MCHC (31.0-37.0) g/dl RDW (11.5-14.5) % Plt Count (120.0-450.0) 10^3/uL MPV (7.0-11.0) fl Gran % (50.0-68.0) % Lymph % (Auto) (22.0-35.0) % Baca % (Auto) (1.0-6.0) % Eos % (Auto) (1.5-5.0) % Baso % (Auto) (0.0-3.0) % Gran # (1.4-6.5) Lymph # (Auto) (1.2-3.4) Baca # (Auto) (0.1-0.6) Eos # (Auto) (0.0-0.7) Baso # (Auto) (0.0-2.0) K/mm3 pO2 24 L (30-55) mm/Hg VBG pH 7.38 (7.32-7.43) VBG pCO2 36.0 L (40-60) VBG HCO3 21.3 (21-28) mmol/l VBG Total CO2 22.4 (22-28) mmol.L VBG O2 Sat (Calc) 43.2 (40-65) % VBG Base Excess -3.3 L (0.0-2.0) mmol/L VBG Potassium 4.8 (3.6-5.2) mmol/L Sodium 131 L 130.0 L (132-148) mmol/L Chloride 102 102.0 (98-107) mmol/L Glucose 157 H (75-110) mg/dl Lactate 1.7 (0.7-2.1) mmol/L FiO2 21.0 % Potassium 4.7 (3.6-5.0) mmol/L Carbon Dioxide 19 L (21-33) mmol/L Anion Gap 14 (10-20) BUN 86 H (7-21) mg/dL Creatinine 1.4 (0.8-1.5) mg/dl Est GFR ( Amer) > 60 Est GFR (Non-Af Amer) 53 POC Glucose (mg/dL) (65-110) mg/dL Random Glucose 151 H (70-110) mg/dL Lactic Acid (0.7-2.1) mmol/L Calcium 8.8 (8.4-10.5) mg/dL Iron (45-180) ug/dL TIBC (261-462) ug/dL % Saturation (20-55) % Ferritin ng/mL Total Bilirubin 0.5 (0.2-1.3) mg/dL AST 19 (17-59) U/L ALT 71 H (7-56) U/L Alkaline Phosphatase 42 (38-126) U/L Lactate Dehydrogenase (333-699) U/L Total Creatine Kinase (35-230) U/L Troponin I 0.05 D ng/mL NT-Pro-B Natriuret Pep 408 (0-450) pg/mL Total Protein 5.3 L (5.8-8.3) g/dL Albumin 2.8 L (3.0-4.8) g/dL Globulin 2.5 gm/dL Albumin/Globulin Ratio 1.1 (1.1-1.8) Amylase (35-125) U/L Lipase (23-300) U/L Procalcitonin (0.19-0.49) NG/ML Venous Blood Potassium 4.8 (3.6-5.2) mmol/L Urine Color (YELLOW) Urine Appearance (CLEAR) Urine pH (4.7-8.0) Ur Specific Lutz (1.005-1.035) Urine Protein (<30 mg/dL) mg/dL Urine Glucose (UA) (NEGATIVE) mg/dL Urine Ketones (NEGATIVE) mg/dL Urine Blood (NEGATIVE) Urine Nitrate (NEGATIVE) Urine Bilirubin (NEGATIVE) Urine Urobilinogen (<1 E.U./dL) E.U./dL Ur Leukocyte Esterase (NEGATIVE) Dalila/uL Digoxin 0.5 L (0.8-2.0) ng/mL Blood Type Antibody Screen Crossmatch BBK History Checked 06/02/17 06/02/17 06/02/17 Range/Units 19:29 19:20 19:12 WBC 21.5 H D (4.5-11.0) 10^3/ul RBC 3.04 L (3.5-6.1) 10^6/uL Hgb 9.4 L D (14.0-18.0) g/dL Hct 26.7 L (42.0-52.0) % MCV 87.8 (80.0-105.0) fl MCH 30.9 (25.0-35.0) pg MCHC 35.2 (31.0-37.0) g/dl RDW 13.1 (11.5-14.5) % Plt Count 318 (120.0-450.0) 10^3/uL MPV 9.5 (7.0-11.0) fl Gran % 84.5 H (50.0-68.0) % Lymph % (Auto) 11.2 L (22.0-35.0) % Baca % (Auto) 4.3 (1.0-6.0) % Eos % (Auto) 0.0 L (1.5-5.0) % Baso % (Auto) 0.0 (0.0-3.0) % Gran # 18.16 H (1.4-6.5) Lymph # (Auto) 2.4 (1.2-3.4) Baca # (Auto) 0.9 H (0.1-0.6) Eos # (Auto) 0.0 (0.0-0.7) Baso # (Auto) 0.01 (0.0-2.0) K/mm3 pO2 (30-55) mm/Hg VBG pH (7.32-7.43) VBG pCO2 (40-60) VBG HCO3 (21-28) mmol/l VBG Total CO2 (22-28) mmol.L VBG O2 Sat (Calc) (40-65) % VBG Base Excess (0.0-2.0) mmol/L VBG Potassium (3.6-5.2) mmol/L Sodium (132-148) mmol/L Chloride (98-107) mmol/L Glucose (75-110) mg/dl Lactate (0.7-2.1) mmol/L FiO2 % Potassium (3.6-5.0) mmol/L Carbon Dioxide (21-33) mmol/L Anion Gap (10-20) BUN (7-21) mg/dL Creatinine (0.8-1.5) mg/dl Est GFR ( Amer) Est GFR (Non-Af Amer) POC Glucose (mg/dL) 143 H (65-110) mg/dL Random Glucose (70-110) mg/dL Lactic Acid (0.7-2.1) mmol/L Calcium (8.4-10.5) mg/dL Iron (45-180) ug/dL TIBC (261-462) ug/dL % Saturation (20-55) % Ferritin ng/mL Total Bilirubin (0.2-1.3) mg/dL AST (17-59) U/L ALT (7-56) U/L Alkaline Phosphatase (38-126) U/L Lactate Dehydrogenase (333-699) U/L Total Creatine Kinase (35-230) U/L Troponin I ng/mL NT-Pro-B Natriuret Pep (0-450) pg/mL Total Protein (5.8-8.3) g/dL Albumin (3.0-4.8) g/dL Globulin gm/dL Albumin/Globulin Ratio (1.1-1.8) Amylase (35-125) U/L Lipase (23-300) U/L Procalcitonin (0.19-0.49) NG/ML Venous Blood Potassium (3.6-5.2) mmol/L Urine Color Yellow (YELLOW) Urine Appearance Clear (CLEAR) Urine pH 6.0 (4.7-8.0) Ur Specific Lutz 1.010 (1.005-1.035) Urine Protein Negative (<30 mg/dL) mg/dL Urine Glucose (UA) Negative (NEGATIVE) mg/dL Urine Ketones Negative (NEGATIVE) mg/dL Urine Blood Negative (NEGATIVE) Urine Nitrate Negative (NEGATIVE) Urine Bilirubin Negative (NEGATIVE) Urine Urobilinogen 0.2 (<1 E.U./dL) E.U./dL Ur Leukocyte Esterase Negative (NEGATIVE) Dalila/uL Digoxin (0.8-2.0) ng/mL Blood Type Antibody Screen Crossmatch BBK History Checked 06/02/17 06/02/17 Range/Units 16:14 14:45 WBC (4.5-11.0) 10^3/ul RBC (3.5-6.1) 10^6/uL Hgb (14.0-18.0) g/dL Hct (42.0-52.0) % MCV (80.0-105.0) fl MCH (25.0-35.0) pg MCHC (31.0-37.0) g/dl RDW (11.5-14.5) % Plt Count (120.0-450.0) 10^3/uL MPV (7.0-11.0) fl Gran % (50.0-68.0) % Lymph % (Auto) (22.0-35.0) % Baca % (Auto) (1.0-6.0) % Eos % (Auto) (1.5-5.0) % Baso % (Auto) (0.0-3.0) % Gran # (1.4-6.5) Lymph # (Auto) (1.2-3.4) Baca # (Auto) (0.1-0.6) Eos # (Auto) (0.0-0.7) Baso # (Auto) (0.0-2.0) K/mm3 pO2 (30-55) mm/Hg VBG pH (7.32-7.43) VBG pCO2 (40-60) VBG HCO3 (21-28) mmol/l VBG Total CO2 (22-28) mmol.L VBG O2 Sat (Calc) (40-65) % VBG Base Excess (0.0-2.0) mmol/L VBG Potassium (3.6-5.2) mmol/L Sodium (132-148) mmol/L Chloride (98-107) mmol/L Glucose (75-110) mg/dl Lactate (0.7-2.1) mmol/L FiO2 % Potassium (3.6-5.0) mmol/L Carbon Dioxide (21-33) mmol/L Anion Gap (10-20) BUN (7-21) mg/dL Creatinine (0.8-1.5) mg/dl Est GFR ( Amer) Est GFR (Non-Af Amer) POC Glucose (mg/dL) 142 H (65-110) mg/dL Random Glucose (70-110) mg/dL Lactic Acid (0.7-2.1) mmol/L Calcium (8.4-10.5) mg/dL Iron (45-180) ug/dL TIBC (261-462) ug/dL % Saturation (20-55) % Ferritin ng/mL Total Bilirubin (0.2-1.3) mg/dL AST (17-59) U/L ALT (7-56) U/L Alkaline Phosphatase (38-126) U/L Lactate Dehydrogenase (333-699) U/L Total Creatine Kinase (35-230) U/L Troponin I ng/mL NT-Pro-B Natriuret Pep (0-450) pg/mL Total Protein (5.8-8.3) g/dL Albumin (3.0-4.8) g/dL Globulin gm/dL Albumin/Globulin Ratio (1.1-1.8) Amylase (35-125) U/L Lipase (23-300) U/L Procalcitonin < 0.05 L (0.19-0.49) NG/ML Venous Blood Potassium (3.6-5.2) mmol/L Urine Color (YELLOW) Urine Appearance (CLEAR) Urine pH (4.7-8.0) Ur Specific Lutz (1.005-1.035) Urine Protein (<30 mg/dL) mg/dL Urine Glucose (UA) (NEGATIVE) mg/dL Urine Ketones (NEGATIVE) mg/dL Urine Blood (NEGATIVE) Urine Nitrate (NEGATIVE) Urine Bilirubin (NEGATIVE) Urine Urobilinogen (<1 E.U./dL) E.U./dL Ur Leukocyte Esterase (NEGATIVE) Dailla/uL Digoxin (0.8-2.0) ng/mL Blood Type Antibody Screen Crossmatch BBK History Checked Laboratory Results - last 24 hr 06/02/17 06/02/17 06/02/17 14:45 16:14 19:12 WBC RBC Hgb Hct MCV MCH MCHC RDW Plt Count MPV Gran % Lymph % (Auto) Baca % (Auto) Eos % (Auto) Baso % (Auto) Gran # Lymph # (Auto) Baca # (Auto) Eos # (Auto) Baso # (Auto) pO2 VBG pH VBG pCO2 VBG HCO3 VBG Total CO2 VBG O2 Sat (Calc) VBG Base Excess VBG Potassium Sodium Chloride Glucose Lactate FiO2 Potassium Carbon Dioxide Anion Gap BUN Creatinine Est GFR ( Amer) Est GFR (Non-Af Amer) POC Glucose (mg/dL) 142 H 143 H Random Glucose Lactic Acid Calcium Iron TIBC % Saturation Ferritin Total Bilirubin AST ALT Alkaline Phosphatase Lactate Dehydrogenase Total Creatine Kinase Troponin I NT-Pro-B Natriuret Pep Total Protein Albumin Globulin Albumin/Globulin Ratio Amylase Lipase Procalcitonin < 0.05 L Venous Blood Potassium Urine Color Urine Appearance Urine pH Ur Specific Lutz Urine Protein Urine Glucose (UA) Urine Ketones Urine Blood Urine Nitrate Urine Bilirubin Urine Urobilinogen Ur Leukocyte Esterase Digoxin Blood Type Antibody Screen Crossmatch BBK History Checked 06/02/17 06/02/17 06/02/17 19:20 19:29 19:29 WBC 21.5 H D RBC 3.04 L Hgb 9.4 L D Hct 26.7 L MCV 87.8 MCH 30.9 MCHC 35.2 RDW 13.1 Plt Count 318 MPV 9.5 Gran % 84.5 H Lymph % (Auto) 11.2 L Baca % (Auto) 4.3 Eos % (Auto) 0.0 L Baso % (Auto) 0.0 Gran # 18.16 H Lymph # (Auto) 2.4 Baca # (Auto) 0.9 H Eos # (Auto) 0.0 Baso # (Auto) 0.01 pO2 24 L VBG pH 7.38 VBG pCO2 36.0 L VBG HCO3 21.3 VBG Total CO2 22.4 VBG O2 Sat (Calc) 43.2 VBG Base Excess -3.3 L VBG Potassium 4.8 Sodium 130.0 L Chloride 102.0 Glucose 157 H Lactate 1.7 FiO2 21.0 Potassium Carbon Dioxide Anion Gap BUN Creatinine Est GFR ( Amer) Est GFR (Non-Af Amer) POC Glucose (mg/dL) Random Glucose Lactic Acid Calcium Iron TIBC % Saturation Ferritin Total Bilirubin AST ALT Alkaline Phosphatase Lactate Dehydrogenase Total Creatine Kinase Troponin I NT-Pro-B Natriuret Pep Total Protein Albumin Globulin Albumin/Globulin Ratio Amylase Lipase Procalcitonin Venous Blood Potassium 4.8 Urine Color Yellow Urine Appearance Clear Urine pH 6.0 Ur Specific Lutz 1.010 Urine Protein Negative Urine Glucose (UA) Negative Urine Ketones Negative Urine Blood Negative Urine Nitrate Negative Urine Bilirubin Negative Urine Urobilinogen 0.2 Ur Leukocyte Esterase Negative Digoxin Blood Type Antibody Screen Crossmatch BBK History Checked 06/02/17 06/02/17 06/02/17 19:29 19:29 19:29 WBC RBC Hgb Hct MCV MCH MCHC RDW Plt Count MPV Gran % Lymph % (Auto) Baca % (Auto) Eos % (Auto) Baso % (Auto) Gran # Lymph # (Auto) Baca # (Auto) Eos # (Auto) Baso # (Auto) pO2 VBG pH VBG pCO2 VBG HCO3 VBG Total CO2 VBG O2 Sat (Calc) VBG Base Excess VBG Potassium Sodium 131 L Chloride 102 Glucose Lactate FiO2 Potassium 4.7 Carbon Dioxide 19 L Anion Gap 14 BUN 86 H Creatinine 1.4 Est GFR ( Amer) > 60 Est GFR (Non-Af Amer) 53 POC Glucose (mg/dL) Random Glucose 151 H Lactic Acid Calcium 8.8 Iron TIBC % Saturation Ferritin Total Bilirubin 0.5 AST 19 ALT 71 H Alkaline Phosphatase 42 Lactate Dehydrogenase Total Creatine Kinase Troponin I 0.05 D NT-Pro-B Natriuret Pep 408 Total Protein 5.3 L Albumin 2.8 L Globulin 2.5 Albumin/Globulin Ratio 1.1 Amylase Lipase Procalcitonin < 0.05 L Venous Blood Potassium Urine Color Urine Appearance Urine pH Ur Specific Lutz Urine Protein Urine Glucose (UA) Urine Ketones Urine Blood Urine Nitrate Urine Bilirubin Urine Urobilinogen Ur Leukocyte Esterase Digoxin 0.5 L Blood Type Antibody Screen Crossmatch BBK History Checked 06/02/17 06/02/17 06/03/17 19:29 20:34 00:00 WBC RBC Hgb Hct MCV MCH MCHC RDW Plt Count MPV Gran % Lymph % (Auto) Baca % (Auto) Eos % (Auto) Baso % (Auto) Gran # Lymph # (Auto) Baca # (Auto) Eos # (Auto) Baso # (Auto) pO2 VBG pH VBG pCO2 VBG HCO3 VBG Total CO2 VBG O2 Sat (Calc) VBG Base Excess VBG Potassium Sodium Chloride Glucose Lactate FiO2 Potassium Carbon Dioxide Anion Gap BUN Creatinine Est GFR ( Amer) Est GFR (Non-Af Amer) POC Glucose (mg/dL) 138 H Random Glucose Lactic Acid Calcium Iron 10 L TIBC 174 L % Saturation 6 L Ferritin 201.0 Total Bilirubin AST ALT Alkaline Phosphatase Lactate Dehydrogenase Total Creatine Kinase Troponin I NT-Pro-B Natriuret Pep Total Protein Albumin Globulin Albumin/Globulin Ratio Amylase Lipase Procalcitonin Venous Blood Potassium Urine Color Urine Appearance Urine pH Ur Specific Lutz Urine Protein Urine Glucose (UA) Urine Ketones Urine Blood Urine Nitrate Urine Bilirubin Urine Urobilinogen Ur Leukocyte Esterase Digoxin Blood Type Antibody Screen Crossmatch BBK History Checked 06/03/17 06/03/17 06/03/17 00:35 06:00 06:00 WBC 31.2 H* D RBC 2.69 L Hgb 8.2 L Hct 23.4 L MCV 87.0 MCH 30.5 MCHC 35.0 RDW 13.2 Plt Count 370 MPV 9.7 Gran % 85.0 H Lymph % (Auto) 9.2 L Baca % (Auto) 5.7 Eos % (Auto) 0.0 L Baso % (Auto) 0.1 Gran # 26.50 H Lymph # (Auto) 2.9 Baca # (Auto) 1.8 H Eos # (Auto) 0.0 Baso # (Auto) 0.02 pO2 VBG pH VBG pCO2 VBG HCO3 VBG Total CO2 VBG O2 Sat (Calc) VBG Base Excess VBG Potassium Sodium 131 L Chloride 101 Glucose Lactate FiO2 Potassium 4.0 Carbon Dioxide 19 L Anion Gap 15 BUN 77 H Creatinine 1.2 Est GFR ( Amer) > 60 Est GFR (Non-Af Amer) > 60 POC Glucose (mg/dL) Random Glucose 155 H Lactic Acid Calcium 8.7 Iron TIBC % Saturation Ferritin Total Bilirubin 0.6 AST 23 ALT 63 H Alkaline Phosphatase 44 Lactate Dehydrogenase 335 Total Creatine Kinase 36 Troponin I 0.05 NT-Pro-B Natriuret Pep Total Protein 5.3 L Albumin 2.8 L Globulin 2.4 Albumin/Globulin Ratio 1.2 Amylase Lipase Procalcitonin Venous Blood Potassium Urine Color Urine Appearance Urine pH Ur Specific Lutz Urine Protein Urine Glucose (UA) Urine Ketones Urine Blood Urine Nitrate Urine Bilirubin Urine Urobilinogen Ur Leukocyte Esterase Digoxin Blood Type Antibody Screen Crossmatch BBK History Checked 06/03/17 06/03/17 06/03/17 06:25 07:22 11:05 WBC RBC Hgb Hct MCV MCH MCHC RDW Plt Count MPV Gran % Lymph % (Auto) Baca % (Auto) Eos % (Auto) Baso % (Auto) Gran # Lymph # (Auto) Baca # (Auto) Eos # (Auto) Baso # (Auto) pO2 VBG pH VBG pCO2 VBG HCO3 VBG Total CO2 VBG O2 Sat (Calc) VBG Base Excess VBG Potassium Sodium Chloride Glucose Lactate FiO2 Potassium Carbon Dioxide Anion Gap BUN Creatinine Est GFR ( Amer) Est GFR (Non-Af Amer) POC Glucose (mg/dL) 153 H 174 H Random Glucose Lactic Acid Calcium Iron TIBC % Saturation Ferritin Total Bilirubin AST ALT Alkaline Phosphatase Lactate Dehydrogenase Total Creatine Kinase Troponin I NT-Pro-B Natriuret Pep Total Protein Albumin Globulin Albumin/Globulin Ratio Amylase Lipase Procalcitonin Venous Blood Potassium Urine Color Urine Appearance Urine pH Ur Specific Lutz Urine Protein Urine Glucose (UA) Urine Ketones Urine Blood Urine Nitrate Urine Bilirubin Urine Urobilinogen Ur Leukocyte Esterase Digoxin Blood Type A NEGATIVE Antibody Screen Negative Crossmatch See Detail BBK History Checked No verified bt 06/03/17 06/03/17 06/03/17 11:45 13:20 15:48 WBC RBC Hgb Hct MCV MCH MCHC RDW Plt Count MPV Gran % Lymph % (Auto) Baca % (Auto) Eos % (Auto) Baso % (Auto) Gran # Lymph # (Auto) Baca # (Auto) Eos # (Auto) Baso # (Auto) pO2 VBG pH VBG pCO2 VBG HCO3 VBG Total CO2 VBG O2 Sat (Calc) VBG Base Excess VBG Potassium Sodium Chloride Glucose Lactate FiO2 Potassium Carbon Dioxide Anion Gap BUN Creatinine Est GFR ( Amer) Est GFR (Non-Af Amer) POC Glucose (mg/dL) 157 H Random Glucose Lactic Acid 1.5 Calcium Iron TIBC % Saturation Ferritin Total Bilirubin AST ALT Alkaline Phosphatase Lactate Dehydrogenase Total Creatine Kinase Troponin I NT-Pro-B Natriuret Pep Total Protein Albumin Globulin Albumin/Globulin Ratio Amylase 43 Lipase 122 Procalcitonin Venous Blood Potassium Urine Color Urine Appearance Urine pH Ur Specific Lutz Urine Protein Urine Glucose (UA) Urine Ketones Urine Blood Urine Nitrate Urine Bilirubin Urine Urobilinogen Ur Leukocyte Esterase Digoxin Blood Type Antibody Screen Crossmatch BBK History Checked 06/03/17 06/03/17 15:57 15:57 WBC 28.6 H* RBC 2.41 L Hgb 7.6 L Hct 21.0 L MCV 87.1 MCH 31.5 MCHC 36.2 RDW 13.4 Plt Count 284 MPV 9.2 Gran % Lymph % (Auto) Baca % (Auto) Eos % (Auto) Baso % (Auto) Gran # Lymph # (Auto) Baca # (Auto) Eos # (Auto) Baso # (Auto) pO2 51 VBG pH 7.41 VBG pCO2 33.0 L VBG HCO3 20.9 L VBG Total CO2 21.9 L VBG O2 Sat (Calc) 91.4 H VBG Base Excess -2.9 L VBG Potassium 4.5 Sodium 130.0 L Chloride 105.0 Glucose 159 H Lactate 1.3 FiO2 21.0 Potassium Carbon Dioxide Anion Gap BUN Creatinine Est GFR ( Amer) Est GFR (Non-Af Amer) POC Glucose (mg/dL) Random Glucose Lactic Acid Calcium Iron TIBC % Saturation Ferritin Total Bilirubin AST ALT Alkaline Phosphatase Lactate Dehydrogenase Total Creatine Kinase Troponin I NT-Pro-B Natriuret Pep Total Protein Albumin Globulin Albumin/Globulin Ratio Amylase Lipase Procalcitonin Venous Blood Potassium 4.5 Urine Color Urine Appearance Urine pH Ur Specific Lutz Urine Protein Urine Glucose (UA) Urine Ketones Urine Blood Urine Nitrate Urine Bilirubin Urine Urobilinogen Ur Leukocyte Esterase Digoxin Blood Type Antibody Screen Crossmatch BBK History Checked EKG/Cardiology Studies: Cardiology / EKG Studies 06/02/17 19:18 EKG [ELECTROCARDIOGRAM] Stat Comment: Reason For Exam: hypotension/[employer]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 No signs of acute myocardial ischemia as well. Cardiology--Dr. Brothers saw the patient in am and recommended AICD, meanwhile patient is on amiodarone. Levophed at 10 mcg/min and dobutamine 5 mcg/kg/min. HR 110-120. CT abdomen/pelvis did not reveal acute intra-abdominal pathology. I have low suspicion for acute mesenteric ischemia in the absence of lactic acidosis, and lack of abdominal pain, despite few episodes of vomiting. Even though CT abdomen and pelvis was without contrast, had acute mesenteric ischemia been present I would anticipate to see signs of ischemic colitis, which were absent based on official report. Drop in Hb--most likely dilutional, but provided severe HF, would maintain Hb around 9 to maintain D02 (along with dobutamine). Careful with the fluids, would rather work with pressors to maintain coronary perfusion. DVT/GI prophylaxis ccm time 40 min
[2017-06-03] MEDS ORDERED: Lactated Ringer's 1,000 ML IV SCH (15:30)
[2017-06-03 16:01] LABS: HEMOGLOBIN 7.6 g/dL (14.0-18.0); MEAN CELL VOLUME 87.1 fl (80.0-105.0); MEAN CORPUSCULAR HEMOGLOBIN 31.5 pg (25.0-35.0); MEAN CORPUSCULAR HGB CONC 36.2 g/dl (31.0-37.0); MEAN PLATELET VOLUME 9.2 fl (7.0-11.0); RBC 2.41 10^6/uL (3.5-6.1); RED CELL DISTRIBUTION WIDTH 13.4 % (11.5-14.5); VENOUS BLOOD GAS BASE EXCESS -2.9 mmol/L (0.0-2.0); VENOUS BLOOD GAS PO2 51 mm/Hg (30-55); VENOUS BLOOD PH 7.41 (7.32-7.43)
[2017-06-03 16:03] LABS: WHITE BLOOD COUNT 28.6 10^3/ul (4.5-11.0)
--- NOTE | 2017-06-03 16:47 | CON ---
DATE: 06/03/2017 INDICATIONS: Cardiomyopathy, atrial fibrillation, ventricular tachycardia, hypotension. HISTORY OF PRESENT ILLNESS: This is a 56-year-old man with known nonischemic cardiomyopathy, recently in [facility] after an episode of syncope and ventricular tachycardia which required cardioversion, also atrial fibrillation apparently. Yesterday, he felt weak with near syncope and palpitations. He also had chest discomfort and shortness of breath. He came to the emergency room and was admitted initially to the telemetry floor. Subsequently, he had episode of atrial fibrillation and hypotension. He was transferred to the CCU. He has been placed on Levophed and dopamine drips. This morning, he is resting comfortably in bed. He does not have chest pain, shortness of breath or palpitations. There is no fever, chills, cough, sputum production or hemoptysis. No abdominal pain, nausea, vomiting, diarrhea, constipation or melena. PAST MEDICAL HISTORY: His past medical history is complex. He has a known cardiomyopathy. He has been cared for by number of cardiologists. He underwent a cardiac catheterization by Dr. Flynn. Apparently, the coronary arteries were normal. His ejection fraction was about 20%. At some point, he was referred for a defibrillator. He has been under the care of a quarter folder at [facility], but the defibrillator has not been implanted as of yet. He has a history of heavy alcohol use in the past, ventricular tachycardia, hypothyroidism, hypertension, sleep apnea with uvulectomy and obesity. There is no history of rheumatic fever, myocardial infarction, diabetes, stroke or gout. MEDICATIONS: At the time of admission were amiodarone, Coreg, aspirin, Eliquis, Inspra, Lasix, Lipitor, Synthroid, lisinopril. ALLERGIES: THERE ARE NO KNOWN MEDICATION ALLERGIES. SOCIAL HISTORY: He lives at home. 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 He is ambulatory. He does not smoke. He no longer drinks. FAMILY HISTORY: Noncontributory. REVIEW OF SYSTEMS: A 10-point review of systems is otherwise unremarkable except as noted above. PHYSICAL EXAMINATION GENERAL: He is a well-developed male, sitting on bed in the CCU, in no acute distress. VITAL SIGNS: Notable for sinus rhythm at 97-118 beats per minute. He is afebrile. Most recent blood pressure 99/63, repeat 101/64; respirations 17-21; O2 sat 99%-100% on nasal cannula. HEENT: Reveals no neck vein distention, thyromegaly, or carotid bruits. Mucous membranes moist. Conjunctivae pink. NECK: Supple. LUNGS: Lung buenrostro clear. HEART: Reveals a regular rhythm, normal first and second heart sounds. ABDOMEN: Soft. Bowel sounds present. No mass, organomegaly, tenderness, rebound or guarding. EXTREMITIES: Reveal no cyanosis, clubbing, or edema. NEUROLOGIC: Awake, alert and oriented. PSYCHIATRIC: Normal as to mood and affect. SKIN: Warm and dry. No rash or cellulitis. LABORATORY AND IMAGING: A CT scan of the head revealed no acute intracranial abnormality. A portable chest x-ray revealed no active disease. EKG initially revealed sinus rhythm, PVCs, left anterior hemiblock, poor R-wave progression, nonspecific ST-wave changes. White count 31,200, hemoglobin 8.2, hematocrit 23.4, platelet count normal. Venous blood gases are noted. Electrolytes: BUN and creatinine are noted, BUN 77, creatinine 1.2, potassium 4.0, sodium 131, troponins are negative. Procalcitonin is low. Urinalysis unremarkable. Digoxin level 0.5. IMPRESSION: Brandin Parsons is a 56-year-old man with known cardiomyopathy, history of ventricular tachycardia and paroxysmal atrial fibrillation with hypotension, presenting with weakness and near syncope. PLAN: I will review his records. He has a Cardiology team at [facility] where ICD has been considered and he has been treated for the last five years. Once stabilized, he should be transfered to their care to maintain continuity. 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 He is on amiodarone and Coreg. He gets aspirin, Inspra, Lipitor, Lasix. I would hold the Lasix and lisinopril today; once his blood pressure is stabilized, these can be resumed. I will review his echocardiogram. He can be out of bed to chair as tolerated. He is on Eliquis. I will follow along with you. I will make additional recommendations based on his clinical course. He will have a GI evaluation in the setting of abdominal pain and anemia. Sherwin Elkind, MD MTDDisha
--- NOTE | 2017-06-03 17:55 | CP.PCM.CON ---
History of Present Illness - History of Present Illness History of Present Illness: Surgery: Dr. Montelongo Reason for consult: r/o mesenteric ischemia CC: lower abdominal pain, n/v HPI: Patient is a 56 y/o male sign pmhx of cardiomyopathy (EF25%) who is currently admitted in the ICU for work up of syncope this am started complaining of lower abdominal pain, n/v. He states the abdominal pain started acutely and was severe in nature. He reports the nausea and vomiting started before the pain and vomiting made the pain worse. He states the emesis was nonbloody. He reports normal bowel movements, no dark tarry stools or melena. He states the pain eventually resolved as well as the n/v. He denies f/c. He reports flatus. Patient denies chest pain or SOB. PMH: cardiomyopathy (EF25%) PSH: none Social: denies etoh, tobacco or drug use Family hx: noncontributory Review of Systems - Constitutional Constitutional: absent: Anorexia, Chills, Fever - EENT Eyes: absent: Blurred Vision, Change in Vision Ears: absent: Disequilibrium, Dizziness Nose/Mouth/Throat: absent: Epistaxis, Nasal Trauma - Cardiovascular Cardiovascular: absent: Chest Pain, Dyspnea - Respiratory Respiratory: absent: Cough, Dyspnea - Gastrointestinal Gastrointestinal: Abdominal Pain, Nausea, Vomiting. absent: Bloating, Hematochezia, Melena - Genitourinary Genitourinary: absent: Hematuria, Pyuria - Musculoskeletal Musculoskeletal: absent: Atrophy, Back Pain - Integumentary Integumentary: absent: Bleeding Lesions, Wounds - Neurological Neurological: absent: Dizziness, Numbness - Psychiatric Psychiatric: absent: Anxiety, Confusion - Endocrine Endocrine: absent: Polydipsia, Polyphagia - Hematologic/Lymphatic Hematologic: absent: Easy Bleeding, Easy Bruising Past Patient History - Infectious Disease Hx of Infectious Diseases: None - Tetanus Immunizations Tetanus Immunization: Unknown - Past Medical History & Family History Past Medical History?: Yes - Past Social History Smoking Status: Never Smoked Alcohol: None Drugs: Denies Home Situation {Lives}: With Family - CARDIAC Hx Cardia Arrhythmia: Yes (vtach) Hx Congestive Heart Failure: Yes Hx Hypertension: Yes Hx Peripheral Edema: Yes Other/Comment: cardiomyopathy - PULMONARY Hx Respiratory Disorders: No - NEUROLOGICAL Hx Neurological Disorder: No - HEENT Hx HEENT Problems: No - RENAL Hx Chronic Kidney Disease: No - ENDOCRINE/METABOLIC Hx Endocrine Disorders: No - HEMATOLOGICAL/ONCOLOGICAL Hx Blood Disorders: No - INTEGUMENTARY Hx Dermatological Problems: No - MUSCULOSKELETAL/RHEUMATOLOGICAL Hx Falls: No - GASTROINTESTINAL Hx Gastrointestinal Disorders: No - GENITOURINARY/GYNECOLOGICAL Hx Genitourinary Disorders: No - PSYCHIATRIC Hx Psychophysiologic Disorder: (morbidly obese) Hx Substance Use: No - SURGICAL HISTORY Hx Cardiac Catheterization: Yes (01/05/13) Other/Comment: pt had sleep apnea, had throat sx to have ovula removed, sleep apnea stopped post sx as per pt, sharon picc 01/10/2013 in and out in 2 days as per pt - ANESTHESIA Hx Anesthesia: Yes Hx Anesthesia Reactions: No Hx Malignant Hyperthermia: No Meds Allergies/Adverse Reactions: Allergies Allergy/AdvReac Type Severity Reaction Status Date / Time No Known Allergies Allergy Verified 06/02/17 07:39 - Medications Medications: Current Medications Amiodarone HCl (Cordarone) 200 mg PO DAILY [facility] Last Admin: 06/03/17 09:16 Dose: 200 mg Apixaban (Eliquis) 5 mg PO BID [facility] PRN Reason: Protocol Last Admin: 06/03/17 09:17 Dose: 5 mg Aspirin (Ecotrin) 81 mg PO DAILY [facility] Last Admin: 06/03/17 09:17 Dose: 81 mg Atorvastatin Calcium (Lipitor) 20 mg PO DAILY [facility] Last Admin: 06/03/17 09:17 Dose: 20 mg Carvedilol (Coreg) 3.125 mg PO BID [facility] Famotidine (Pepcid) 20 mg PO DAILY [facility] Last Admin: 06/03/17 09:17 Dose: 20 mg Furosemide (Lasix) 20 mg PO BID [facility] Vancomycin HCl (Vancomycin 1gm) 1 gm in 250 mls @ 167 mls/hr IVPB Q12H [facility] PRN Reason: Protocol Last Admin: 06/03/17 08:16 Dose: 167 mls/hr NOREPINEPHRINE BIT/0.9 % NACL (Levophed 4 Mg/ 250 Ml Ns Premixed) 4 mg in 250 mls @ 15 mls/hr IV .[id number] PRN; Protocol; 4 MCG/MIN PRN Reason: TITRATE PER MD ORDER Last Titration: 06/03/17 08:35 Dose: 12 mcg/min, 45 mls/hr Dobutamine HCl/Dextrose (Dobutamine/Dextrose 5% 500mg/250ml) 500 mg in 250 mls @ 8.301 mls/hr IV .Q24H PRN; Protocol; 2.5 MCG/KG/MIN PRN Reason: TITRATE PER PROTOCOL Last Admin: 06/03/17 09:07 Dose: 2.5 mcg/kg/min, 8.301 mls/hr Meropenem (Merrem Iv 1 Gm Premix) 50 mls @ 100 mls/hr IVPB Q12 [facility] PRN Reason: Protocol Stop: 06/12/17 13:16 Levothyroxine Sodium (Synthroid) 88 mcg PO DAILY [facility] Last Admin: 06/03/17 09:18 Dose: 88 mcg Lisinopril (Zestril) 2.5 mg PO DAILY [facility] Midodrine (Proamatine) 10 mg PO TID [facility] Last Admin: 06/03/17 09:17 Dose: 10 mg Non-Formulary Medication (Eplerenone [Inspra]) 25 mg PO DAILY [facility] Ondansetron HCl (Zofran Inj) 4 mg IVP Q4H PRN PRN Reason: Nausea/Vomiting Last Admin: 06/03/17 11:24 Dose: 4 mg Physical Exam - Constitutional Appears: Non-toxic, No Acute Distress - Head Exam Head Exam: ATRAUMATIC, NORMOCEPHALIC - Eye Exam Eye Exam: EOMI, Normal appearance - ENT Exam ENT Exam: Mucous Membranes Moist - Respiratory Exam Respiratory Exam: NORMAL BREATHING PATTERN. absent: Respiratory Distress - Cardiovascular Exam Cardiovascular Exam: Tachycardia Additional comments: hypotension - GI/Abdominal Exam GI & Abdominal Exam: Soft. absent: Distended, Guarding, Hernia, Rebound, Rigid , Tenderness - Extremities Exam Extremities exam: Positive for: normal inspection. Negative for: calf tenderness - Neurological Exam Neurological exam: Alert, Oriented x3 - Psychiatric Exam Psychiatric exam: Normal Affect, Normal Mood - Skin Skin Exam: Dry, Pallor Results - Vital Signs Recent Vital Signs: Last Vital Signs Temp 97.9 F 06/03/17 04:00 Pulse 119 H 06/03/17 10:50 Resp 19 06/03/17 10:50 BP 107/64 06/03/17 10:30 Pulse Ox 100 06/03/17 10:50 - Labs Result Diagrams: 06/03/17 15:57 06/03/17 06:00 Labs: Laboratory Results - last 24 hr 06/02/17 06/02/17 06/02/17 14:45 19:12 19:20 WBC RBC Hgb Hct MCV MCH MCHC RDW Plt Count MPV Gran % Lymph % (Auto) Jenkins % (Auto) Eos % (Auto) Baso % (Auto) Gran # Lymph # (Auto) Jenkins # (Auto) Eos # (Auto) Baso # (Auto) pO2 VBG pH VBG pCO2 VBG HCO3 VBG Total CO2 VBG O2 Sat (Calc) VBG Base Excess VBG Potassium Sodium Chloride Glucose Lactate FiO2 Potassium Carbon Dioxide Anion Gap BUN Creatinine Est GFR ( Amer) Est GFR (Non-Af Amer) POC Glucose (mg/dL) 143 H Random Glucose Lactic Acid Calcium Iron TIBC % Saturation Ferritin Total Bilirubin AST ALT Alkaline Phosphatase Lactate Dehydrogenase Total Creatine Kinase Troponin I NT-Pro-B Natriuret Pep Total Protein Albumin Globulin Albumin/Globulin Ratio Amylase Lipase Procalcitonin < 0.05 L Venous Blood Potassium Urine Color Yellow Urine Appearance Clear Urine pH 6.0 Ur Specific [place] 1.010 Urine Protein Negative Urine Glucose (UA) Negative Urine Ketones Negative Urine Blood Negative Urine Nitrate Negative Urine Bilirubin Negative Urine Urobilinogen 0.2 Ur Leukocyte Esterase Negative Digoxin Blood Type Blood Type Confirm Antibody Screen Crossmatch BBK History Checked 06/02/17 06/02/17 06/02/17 19:29 19:29 19:29 WBC 21.5 H D RBC 3.04 L Hgb 9.4 L D Hct 26.7 L MCV 87.8 MCH 30.9 MCHC 35.2 RDW 13.1 Plt Count 318 MPV 9.5 Gran % 84.5 H Lymph % (Auto) 11.2 L Jenkins % (Auto) 4.3 Eos % (Auto) 0.0 L Baso % (Auto) 0.0 Gran # 18.16 H Lymph # (Auto) 2.4 Jenkins # (Auto) 0.9 H Eos # (Auto) 0.0 Baso # (Auto) 0.01 pO2 24 L VBG pH 7.38 VBG pCO2 36.0 L VBG HCO3 21.3 VBG Total CO2 22.4 VBG O2 Sat (Calc) 43.2 VBG Base Excess -3.3 L VBG Potassium 4.8 Sodium 130.0 L 131 L Chloride 102.0 102 Glucose 157 H Lactate 1.7 FiO2 21.0 Potassium 4.7 Carbon Dioxide 19 L Anion Gap 14 BUN 86 H Creatinine 1.4 Est GFR ( Amer) > 60 Est GFR (Non-Af Amer) 53 POC Glucose (mg/dL) Random Glucose 151 H Lactic Acid Calcium 8.8 Iron TIBC % Saturation Ferritin Total Bilirubin 0.5 AST 19 ALT 71 H Alkaline Phosphatase 42 Lactate Dehydrogenase Total Creatine Kinase Troponin I 0.05 D NT-Pro-B Natriuret Pep 408 Total Protein 5.3 L Albumin 2.8 L Globulin 2.5 Albumin/Globulin Ratio 1.1 Amylase Lipase Procalcitonin Venous Blood Potassium 4.8 Urine Color Urine Appearance Urine pH Ur Specific [place] Urine Protein Urine Glucose (UA) Urine Ketones Urine Blood Urine Nitrate Urine Bilirubin Urine Urobilinogen Ur Leukocyte Esterase Digoxin Blood Type Blood Type Confirm Antibody Screen Crossmatch BBK History Checked 06/02/17 06/02/17 06/02/17 19:29 19:29 19:29 WBC RBC Hgb Hct MCV MCH MCHC RDW Plt Count MPV Gran % Lymph % (Auto) Jenkins % (Auto) Eos % (Auto) Baso % (Auto) Gran # Lymph # (Auto) Jenkins # (Auto) Eos # (Auto) Baso # (Auto) pO2 VBG pH VBG pCO2 VBG HCO3 VBG Total CO2 VBG O2 Sat (Calc) VBG Base Excess VBG Potassium Sodium Chloride Glucose Lactate FiO2 Potassium Carbon Dioxide Anion Gap BUN Creatinine Est GFR ( Amer) Est GFR (Non-Af Amer) POC Glucose (mg/dL) Random Glucose Lactic Acid Calcium Iron 10 L TIBC 174 L % Saturation 6 L Ferritin Total Bilirubin AST ALT Alkaline Phosphatase Lactate Dehydrogenase Total Creatine Kinase Troponin I NT-Pro-B Natriuret Pep Total Protein Albumin Globulin Albumin/Globulin Ratio Amylase Lipase Procalcitonin < 0.05 L Venous Blood Potassium Urine Color Urine Appearance Urine pH Ur Specific [place] Urine Protein Urine Glucose (UA) Urine Ketones Urine Blood Urine Nitrate Urine Bilirubin Urine Urobilinogen Ur Leukocyte Esterase Digoxin 0.5 L Blood Type Blood Type Confirm Antibody Screen Crossmatch BBK History Checked 06/02/17 06/03/17 06/03/17 20:34 00:00 00:35 WBC RBC Hgb Hct MCV MCH MCHC RDW Plt Count MPV Gran % Lymph % (Auto) Jenkins % (Auto) Eos % (Auto) Baso % (Auto) Gran # Lymph # (Auto) Jenkins # (Auto) Eos # (Auto) Baso # (Auto) pO2 VBG pH VBG pCO2 VBG HCO3 VBG Total CO2 VBG O2 Sat (Calc) VBG Base Excess VBG Potassium Sodium Chloride Glucose Lactate FiO2 Potassium Carbon Dioxide Anion Gap BUN Creatinine Est GFR ( Amer) Est GFR (Non-Af Amer) POC Glucose (mg/dL) 138 H Random Glucose Lactic Acid Calcium Iron TIBC % Saturation Ferritin 201.0 Total Bilirubin AST ALT Alkaline Phosphatase Lactate Dehydrogenase 335 Total Creatine Kinase 36 Troponin I 0.05 NT-Pro-B Natriuret Pep Total Protein Albumin Globulin Albumin/Globulin Ratio Amylase Lipase Procalcitonin Venous Blood Potassium Urine Color Urine Appearance Urine pH Ur Specific [place] Urine Protein Urine Glucose (UA) Urine Ketones Urine Blood Urine Nitrate Urine Bilirubin Urine Urobilinogen Ur Leukocyte Esterase Digoxin Blood Type Blood Type Confirm Antibody Screen Crossmatch BBK History Checked 06/03/17 06/03/17 06/03/17 06:00 06:00 06:25 WBC 31.2 H* D RBC 2.69 L Hgb 8.2 L Hct 23.4 L MCV 87.0 MCH 30.5 MCHC 35.0 RDW 13.2 Plt Count 370 MPV 9.7 Gran % 85.0 H Lymph % (Auto) 9.2 L Jenkins % (Auto) 5.7 Eos % (Auto) 0.0 L Baso % (Auto) 0.1 Gran # 26.50 H Lymph # (Auto) 2.9 Jenkins # (Auto) 1.8 H Eos # (Auto) 0.0 Baso # (Auto) 0.02 pO2 VBG pH VBG pCO2 VBG HCO3 VBG Total CO2 VBG O2 Sat (Calc) VBG Base Excess VBG Potassium Sodium 131 L Chloride 101 Glucose Lactate FiO2 Potassium 4.0 Carbon Dioxide 19 L Anion Gap 15 BUN 77 H Creatinine 1.2 Est GFR ( Amer) > 60 Est GFR (Non-Af Amer) > 60 POC Glucose (mg/dL) Random Glucose 155 H Lactic Acid Calcium 8.7 Iron TIBC % Saturation Ferritin Total Bilirubin 0.6 AST 23 ALT 63 H Alkaline Phosphatase 44 Lactate Dehydrogenase Total Creatine Kinase Troponin I NT-Pro-B Natriuret Pep Total Protein 5.3 L Albumin 2.8 L Globulin 2.4 Albumin/Globulin Ratio 1.2 Amylase Lipase Procalcitonin Venous Blood Potassium Urine Color Urine Appearance Urine pH Ur Specific [place] Urine Protein Urine Glucose (UA) Urine Ketones Urine Blood Urine Nitrate Urine Bilirubin Urine Urobilinogen Ur Leukocyte Esterase Digoxin Blood Type A NEGATIVE Blood Type Confirm Antibody Screen Negative Crossmatch See Detail BBK History Checked No verified bt 06/03/17 06/03/17 06/03/17 07:22 11:05 11:45 WBC RBC Hgb Hct MCV MCH MCHC RDW Plt Count MPV Gran % Lymph % (Auto) Jenkins % (Auto) Eos % (Auto) Baso % (Auto) Gran # Lymph # (Auto) Jenkins # (Auto) Eos # (Auto) Baso # (Auto) pO2 VBG pH VBG pCO2 VBG HCO3 VBG Total CO2 VBG O2 Sat (Calc) VBG Base Excess VBG Potassium Sodium Chloride Glucose Lactate FiO2 Potassium Carbon Dioxide Anion Gap BUN Creatinine Est GFR ( Amer) Est GFR (Non-Af Amer) POC Glucose (mg/dL) 153 H 174 H Random Glucose Lactic Acid Calcium Iron TIBC % Saturation Ferritin Total Bilirubin AST ALT Alkaline Phosphatase Lactate Dehydrogenase Total Creatine Kinase Troponin I NT-Pro-B Natriuret Pep Total Protein Albumin Globulin Albumin/Globulin Ratio Amylase 43 Lipase 122 Procalcitonin Venous Blood Potassium Urine Color Urine Appearance Urine pH Ur Specific [place] Urine Protein Urine Glucose (UA) Urine Ketones Urine Blood Urine Nitrate Urine Bilirubin Urine Urobilinogen Ur Leukocyte Esterase Digoxin Blood Type Blood Type Confirm Antibody Screen Crossmatch BBK History Checked 06/03/17 06/03/17 06/03/17 13:20 15:48 15:57 WBC RBC Hgb Hct MCV MCH MCHC RDW Plt Count MPV Gran % Lymph % (Auto) Jenkins % (Auto) Eos % (Auto) Baso % (Auto) Gran # Lymph # (Auto) Jenkins # (Auto) Eos # (Auto) Baso # (Auto) pO2 VBG pH VBG pCO2 VBG HCO3 VBG Total CO2 VBG O2 Sat (Calc) VBG Base Excess VBG Potassium Sodium Chloride Glucose Lactate FiO2 Potassium Carbon Dioxide Anion Gap BUN Creatinine Est GFR ( Amer) Est GFR (Non-Af Amer) POC Glucose (mg/dL) 157 H Random Glucose Lactic Acid 1.5 Calcium Iron TIBC % Saturation Ferritin Total Bilirubin AST ALT Alkaline Phosphatase Lactate Dehydrogenase Total Creatine Kinase Troponin I NT-Pro-B Natriuret Pep Total Protein Albumin Globulin Albumin/Globulin Ratio Amylase Lipase Procalcitonin Venous Blood Potassium Urine Color Urine Appearance Urine pH Ur Specific [place] Urine Protein Urine Glucose (UA) Urine Ketones Urine Blood Urine Nitrate Urine Bilirubin Urine Urobilinogen Ur Leukocyte Esterase Digoxin Blood Type Blood Type Confirm A NEGATIVE Antibody Screen Crossmatch BBK History Checked 06/03/17 06/03/17 15:57 15:57 WBC 28.6 H* RBC 2.41 L Hgb 7.6 L Hct 21.0 L MCV 87.1 MCH 31.5 MCHC 36.2 RDW 13.4 Plt Count 284 MPV 9.2 Gran % Lymph % (Auto) Jenkins % (Auto) Eos % (Auto) Baso % (Auto) Gran # Lymph # (Auto) Jenkins # (Auto) Eos # (Auto) Baso # (Auto) pO2 51 VBG pH 7.41 VBG pCO2 33.0 L VBG HCO3 20.9 L VBG Total CO2 21.9 L VBG O2 Sat (Calc) 91.4 H VBG Base Excess -2.9 L VBG Potassium 4.5 Sodium 130.0 L Chloride 105.0 Glucose 159 H Lactate 1.3 FiO2 21.0 Potassium Carbon Dioxide Anion Gap BUN Creatinine Est GFR ( Amer) Est GFR (Non-Af Amer) POC Glucose (mg/dL) Random Glucose Lactic Acid Calcium Iron TIBC % Saturation Ferritin Total Bilirubin AST ALT Alkaline Phosphatase Lactate Dehydrogenase Total Creatine Kinase Troponin I NT-Pro-B Natriuret Pep Total Protein Albumin Globulin Albumin/Globulin Ratio Amylase Lipase Procalcitonin Venous Blood Potassium 4.5 Urine Color Urine Appearance Urine pH Ur Specific [place] Urine Protein Urine Glucose (UA) Urine Ketones Urine Blood Urine Nitrate Urine Bilirubin Urine Urobilinogen Ur Leukocyte Esterase Digoxin Blood Type Blood Type Confirm Antibody Screen Crossmatch BBK History Checked Assessment & Plan - Assessment and Plan (Free Text) Assessment: 56 y/o male w/ abdominal pain, concern for GI bleed Plan: -abdominal exam benign -Hgb 12-> 8.2, and unstable vitals = recommending transfuse 2 units PRBC -1 liter fluid bolus -resuscitate appropriately and attempt to decrease Levophed: if mesenteric ischemia concerned, would be most likely low flow due to hypotension -repeat am labs -cont abx -when patient resuscitated and stable recommending CT angio of abd/pelvis -needs GI evaluation -fecal occult blood -no acute surgical intervention at this time -will follow -discussed with Dr. Reginald Mtz PGY3 - Date & Time Date: 06/03/17 Time: 15:00
[2017-06-03] MEDS: Meropenem IV 1 gm in NS 50 ML IVPB SCH ×2 (18:08→22:06)
[2017-06-03] MEDS: NOREPINEPHRINE BIT/0.9 % NACL 4 MG/250 ML BAG IV PRN (20:01)
--- NOTE | 2017-06-03 21:03 | CON ---
DATE: 06/03/2017 HISTORY OF PRESENT ILLNESS: This is a 56-year-old gentleman with history of dilated cardiomyopathy, atrial fibrillation, hypothyroidism, who presented to emergency room with palpitation and feeling weak. These symptoms started yesterday morning and continued throughout the day. He denied any syncopal episode, focal weakness. He had similar episode about a week ago when he presented with new-onset atrial fibrillation. At that time, he was placed on Eliquis. Prior to this admission,the patient also had one documented episode of ventricular tachycardia, which is likely related to nonischemic cardiomyopathy and was scheduled to go for AICD; however, was admitted at this time to [facility]. He denies nausea, vomiting, diarrhea, or constipation. He denies chest tightness or shortness of breath at present time. Despite his non-restful night in the ICU, he reports that he is feeling stronger and better than yesterday. PAST MEDICAL HISTORY: Atrial fibrillation; nonischemic cardiomyopathy with four-chamber dilatation, ejection fraction of left ventricle is 20% to 25% on most recent echo; hypothyroidism. SOCIAL HISTORY: The patient is a lifelong nonsmoker. He used to be binge drinker, however, stopped about 5 years ago. No illicit drug abuse. ALLERGIES NKDA. FAMILY HISTORY: Noncontributory. MEDICATIONS AT HOME : Lisinopril, Synthroid, Lasix, Inspra, Coreg, Lipitor, aspirin, Eliquis, and amiodarone. CURRENT MEDICATIONS: Amiodarone, Eliquis, aspirin, Lipitor, Coreg, Pepcid, dobutamine, Synthroid, midodrine, norepinephrine, and vancomycin. LABORATORY DATA: WBC 31.2, hemoglobin 8.2, platelet count 317. Sodium 131, potassium 4, chloride 101, carbon dioxide 19, BUN 77, creatinine 1.2 down from 1.4, glucose 153. AST 23, ALT 63, total bilirubin 0.6. ProBNP 408. Troponin x2 negative. Albumin 2.8. Chest x-ray, no active pulmonary disease, right IJ CVC present. EKG showed sinus tachycardia with PVCs, left axis deviation. Head CT, no acute intracranial abnormality. ASSESSMENT AND PLAN: This 56-year-old gentleman who presented to Intensive Care Unit with likely cardiogenic shock, which, however, substantially improved with initial fluid resuscitation and vasopressor support. At the present time, we will start dobutamine, we will continue with amiodarone, we will start to taper down Levophed with simultaneous starting p.o. midodrine to expedite weaning off norepinephrine. The patient does need automated implantable cardioverter defibrillator at some point. Timing thereof will be deferred to Cardiology service. Leukocytosis is concerning. The patient is on vancomycin, no obvious source. Chest x-ray is clear. Abdomen exam is soft. The patient is alert, awake, and oriented x3, very comfortable. No signs of cellulitis. CT abdo--no acute intracranial pathology. I will get ID consult to obtain their insight. Septic workup was initiated. We will maintain euvolemia, euglycemia, normothermia, and oxygen saturation more than 90%. We will continue with gastrointestinal prophylaxis. ccm time 40 min Rivera Brown MD SAMANTHA
[2017-06-04 05:15] LABS: URINE BILIRUBIN NEGATIVE (NEGATIVE); URINE BLOOD NEGATIVE (NEGATIVE); URINE GLUCOSE (UA) NEGATIVE (NEGATIVE); URINE LEUKOCYTE ESTERASE NEGATIVE Leu/uL (NEGATIVE); URINE PROTEIN NEGATIVE mg/dL (<30 mg/dL); URINE UROBILINOGEN 0.2 E.U./dL (<1 E.U./dL)
[2017-06-04 05:32] LABS: URINE APPEARANCE CLEAR (CLEAR); URINE COLOR YELLOW (YELLOW)
--- NOTE | 2017-06-04 05:44 | CON ---
DATE: LOCATION: Patient is seen earlier this morning in the ICU, room #129, bed 2. CHIEF COMPLAINT: Abdominal pain, times several days duration. HISTORY OF PRESENT ILLNESS: This is a 56-year-old male with obesity with a BMI of 35 with a history of acute kidney injury, history of ventricular tachycardia, history of nonischemic cardiomyopathy with ejection fraction of 20%, had a cardiac catheterization which showed normal coronaries, history of hypertension, was admitted with a diagnosis of chest pain, atrial fibrillation. This morning, the patient's white count has increased up to 31,000; Infectious Disease consultation requested. On admission, patient"s white count was 16,000. His and daughter are at the bedside, who state that he had abdominal pain. He states that the his abdominal pain is epigastric in location and associated with nausea. No headaches, no blurry vision. No dysuria or frequency. No chest pain now. He does have mild shortness of breath. PAST MEDICAL HISTORY: Significant for nonischemic cardiomyopathy, ejection fraction of 20%, but normal coronaries, hypertension, ventricular tachycardia, acute kidney injury and obesity with a BMI of 35, and sleep apnea. PAST SURGICAL HISTORY: Significant for cardiac catheterization which showed normal coronaries. ALLERGIES: PATIENT HAS NO KNOWN ALLERGIES. MEDICATIONS AT HOME: Reveals the patient is on lisinopril, Synthroid, Lasix, carvedilol, atorvastatin, aspirin, apixaban, amiodarone. PHYSICAL EXAMINATION: GENERAL: Patient is in bed, pain, epigastric and abdominal pain. VITAL SIGNS: Temperature of 98.4, heart rate of 126, respiratory rate of 35, blood pressure is 104/60, saturating at 100%. HEENT: Unremarkable. NECK: Supple. LUNGS: Have decreased breath sounds. HEART: Normal S1 and S2. ABDOMEN: Distended. No rebound or guarding. No masses. LABORATORY DATA: Reveals a white count of 31,000, hemoglobin of 8, platelets of 370, and 85% granulocytosis. Chemistries reveal the BUN of 77, creatinine of 1.2. Procalcitonin is noted, less than 0.05. Urinalysis is noted. Toxicology is noted. Microbiology reveals the blood cultures are negative. CAT scan of the abdomen and pelvis reported to be negative. Chest x-ray is reported no active disease. CAT scan of the abdomen shows lower thorax is unremarkable. ASSESSMENT AND PLAN: This is a 56-year-old male with hypertension, nonischemic cardiomyopathy, ejection fraction of 20%, ventricular tachycardia, acute kidney injury, obesity, sleep apnea, hypothyroidism, high cholesterol with tachycardia, leukocytosis, dyspnea, abdominal pain, sepsis, gastrointestinal sores, mesenteric ischemia versus ischemic colitis. Also had a CAT scan that is reported to be negative without p.o. or IV contrast. We will treat the patient with meropenem pending surgical evaluation, GI evaluation and cultures results. Amylase and lipase is reported to be negative. We will follow closely with you. Yohannes Barnes MD
[2017-06-04 07:19] LABS: BASO # 0.02 K/mm3 (0.0-2.0); BASO % 0.1 % (0.0-3.0); GRAN # 18.63 (1.4-6.5); GRAN % 84.3 % (50.0-68.0); HEMOGLOBIN 8.1 g/dL (14.0-18.0); LYMPH # 1.7 (1.2-3.4); LYMPH % 7.7 % (22.0-35.0); MEAN CELL VOLUME 87.4 fl (80.0-105.0); MEAN CORPUSCULAR HEMOGLOBIN 30.9 pg (25.0-35.0); MEAN CORPUSCULAR HGB CONC 35.4 g/dl (31.0-37.0); MEAN PLATELET VOLUME 9.6 fl (7.0-11.0); MONO # 1.8 (0.1-0.6); MONO % 7.9 % (1.0-6.0); RBC 2.62 10^6/uL (3.5-6.1); RED CELL DISTRIBUTION WIDTH 14.8 % (11.5-14.5); WHITE BLOOD COUNT 22.1 10^3/ul (4.5-11.0)
[2017-06-04 08:01] LABS: ALB/GLOB RATIO 1.2 (1.1-1.8); ALBUMIN 2.7 g/dL (3.0-4.8); ALT/SGPT 53 U/L (7-56); AST/SGOT 19 U/L (17-59); BLOOD UREA NITROGEN 39 mg/dL (7-21); CALCIUM 8.8 mg/dL (8.4-10.5); GFR AFRICAN-AMERICAN > 60; GFR NON-AFRICAN AMERICAN > 60
--- NOTE | 2017-06-04 08:39 | CP.PCM.PN ---
Subjective - Date & Time of Evaluation Date of Evaluation: 06/04/17 Time of Evaluation: 07:00 - Subjective Subjective: Stable in CCU today. No CP or SOB. V/S noted. RSR/ST PE: Lungs: Clear Cor.: S1S2 Abd.: soft Ext.: no edema Neuro.: alert I/O= 3097/1425 Labs: H/H 8.1/22.9, WBC 22,100, CMP pending BC X 3 NG at [address] A/P noted. No acute findings Objective - Vital Signs/Intake and Output Vital Signs (last 24 hours): Temp Pulse Resp BP Pulse Ox 98.2 F 92 H 18 125/61 100 06/04/17 04:00 06/04/17 06:00 06/04/17 06:00 06/04/17 06:00 06/04/17 06:00 Intake and Output: 06/04/17 06/04/17 06:59 18:59 Intake Total 1499 Output Total 775 Balance 724 - Medications Medications: Current Medications Amiodarone HCl (Cordarone) 200 mg PO DAILY [facility] Last Admin: 06/03/17 09:16 Dose: 200 mg Apixaban (Eliquis) 5 mg PO BID [facility] PRN Reason: Protocol Last Admin: 06/03/17 09:17 Dose: 5 mg Aspirin (Ecotrin) 81 mg PO DAILY [facility] Last Admin: 06/03/17 09:17 Dose: 81 mg Atorvastatin Calcium (Lipitor) 20 mg PO DAILY [facility] Last Admin: 06/03/17 09:17 Dose: 20 mg Carvedilol (Coreg) 3.125 mg PO BID [facility] Famotidine (Pepcid) 20 mg PO DAILY [facility] Last Admin: 06/03/17 09:17 Dose: 20 mg Furosemide (Lasix) 20 mg PO BID [facility] NOREPINEPHRINE BIT/0.9 % NACL (Levophed 4 Mg/ 250 Ml Ns Premixed) 4 mg in 250 mls @ 15 mls/hr IV .[id number] PRN; Protocol; 4 MCG/MIN PRN Reason: TITRATE PER MD ORDER Last Titration: 06/04/17 04:00 Dose: 5 mcg/min, 18.75 mls/hr Dobutamine HCl/Dextrose (Dobutamine/Dextrose 5% 500mg/250ml) 500 mg in 250 mls @ 8.301 mls/hr IV .Q24H PRN; Protocol; 2.5 MCG/KG/MIN PRN Reason: TITRATE PER PROTOCOL Last Admin: 06/03/17 09:07 Dose: 2.5 mcg/kg/min, 8.301 mls/hr Meropenem (Merrem Iv 1 Gm Premix) 50 mls @ 100 mls/hr IVPB Q12 [facility] PRN Reason: Protocol Stop: 06/12/17 13:16 Last Admin: 06/03/17 22:06 Dose: 100 mls/hr Levothyroxine Sodium (Synthroid) 88 mcg PO DAILY [facility] Last Admin: 06/03/17 09:18 Dose: 88 mcg Lisinopril (Zestril) 2.5 mg PO DAILY [facility] Midodrine (Proamatine) 10 mg PO TID [facility] Last Admin: 06/03/17 18:09 Dose: Not Given Non-Formulary Medication (Eplerenone [Inspra]) 25 mg PO DAILY [facility] Ondansetron HCl (Zofran Inj) 4 mg IVP Q4H PRN PRN Reason: Nausea/Vomiting Last Admin: 06/03/17 11:24 Dose: 4 mg - Labs Labs: 06/04/17 05:45 06/04/17 05:45 Assessment and Plan - Assessment and Plan (Free Text) Assessment: Weak/Near syncope initially Anemia Abdominal Pain H/O VT with cadioversion last admission PAF CCM with nl cors at cath 2012 H/O ETOH HBP Hypothyroidism [place]LEY/Uvulectomy Plan: Wean off drips as able Continue cardiac meds: amiod., Coreg, ASA, Eliquis, Inspira, lisinopril, atorvastatin EP evaluation for ICD: 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 Brown In-house EP evaluation by Dr. Burleson is an option as well GI evaluation Check stool for OB Monitor: labs, I/O, sats., cultures, etc. OOB to chair as vince.
--- NOTE | 2017-06-04 08:58 | CP.PCM.PN ---
Subjective - Date & Time of Evaluation Date of Evaluation: 06/04/17 Time of Evaluation: 08:45 - Subjective Subjective: Surgery: Dr. Castellon covering for Dr. Montelongo Patient clinically improved overnight s/p blood transfusion. Levophed weaned. Patient reports feeling overall improved Objective - Vital Signs/Intake and Output Vital Signs (last 24 hours): Temp Pulse Resp BP Pulse Ox 98.2 F 92 H 18 125/61 100 06/04/17 04:00 06/04/17 06:00 06/04/17 06:00 06/04/17 06:00 06/04/17 06:00 Intake and Output: 06/04/17 06/04/17 06:59 18:59 Intake Total 1499 Output Total 775 Balance 724 - Medications Medications: Current Medications Amiodarone HCl (Cordarone) 200 mg PO DAILY [facility] Last Admin: 06/03/17 09:16 Dose: 200 mg Apixaban (Eliquis) 5 mg PO BID [facility] PRN Reason: Protocol Last Admin: 06/03/17 09:17 Dose: 5 mg Aspirin (Ecotrin) 81 mg PO DAILY [facility] Last Admin: 06/03/17 09:17 Dose: 81 mg Atorvastatin Calcium (Lipitor) 20 mg PO DAILY [facility] Last Admin: 06/03/17 09:17 Dose: 20 mg Carvedilol (Coreg) 3.125 mg PO BID [facility] Famotidine (Pepcid) 20 mg PO DAILY [facility] Last Admin: 06/03/17 09:17 Dose: 20 mg Furosemide (Lasix) 20 mg PO BID [facility] NOREPINEPHRINE BIT/0.9 % NACL (Levophed 4 Mg/ 250 Ml Ns Premixed) 4 mg in 250 mls @ 15 mls/hr IV .[id number] PRN; Protocol; 4 MCG/MIN PRN Reason: TITRATE PER MD ORDER Last Titration: 06/04/17 04:00 Dose: 5 mcg/min, 18.75 mls/hr Dobutamine HCl/Dextrose (Dobutamine/Dextrose 5% 500mg/250ml) 500 mg in 250 mls @ 8.301 mls/hr IV .Q24H PRN; Protocol; 2.5 MCG/KG/MIN PRN Reason: TITRATE PER PROTOCOL Last Admin: 06/03/17 09:07 Dose: 2.5 mcg/kg/min, 8.301 mls/hr Meropenem (Merrem Iv 1 Gm Premix) 50 mls @ 100 mls/hr IVPB Q12 [facility] PRN Reason: Protocol Stop: 06/12/17 13:16 Last Admin: 06/03/17 22:06 Dose: 100 mls/hr Levothyroxine Sodium (Synthroid) 88 mcg PO DAILY [facility] Last Admin: 06/03/17 09:18 Dose: 88 mcg Lisinopril (Zestril) 2.5 mg PO DAILY [facility] Midodrine (Proamatine) 10 mg PO TID [facility] Last Admin: 06/03/17 18:09 Dose: Not Given Non-Formulary Medication (Eplerenone [Inspra]) 25 mg PO DAILY [facility] Ondansetron HCl (Zofran Inj) 4 mg IVP Q4H PRN PRN Reason: Nausea/Vomiting Last Admin: 06/03/17 11:24 Dose: 4 mg - Labs Labs: 06/04/17 05:45 06/04/17 05:45 - Constitutional Appears: No Acute Distress - Head Exam Head Exam: ATRAUMATIC, NORMOCEPHALIC - Eye Exam Eye Exam: EOMI, Normal appearance - ENT Exam ENT Exam: Mucous Membranes Moist - Respiratory Exam Respiratory Exam: NORMAL BREATHING PATTERN. absent: Respiratory Distress - Cardiovascular Exam Cardiovascular Exam: Tachycardia - GI/Abdominal Exam GI & Abdominal Exam: Soft. absent: Distended, Tenderness, Rebound - Neurological Exam Neurological Exam: Alert, Awake - Psychiatric Exam Psychiatric exam: Normal Affect, Normal Mood Assessment and Plan - Assessment and Plan (Free Text) Assessment: 56 y/o male w/ abdominal pain, resolved, and symptomatic anemia r/o GI bleed Plan: -s/p transfusions, vital signs improved -hgb 8.1 this am s/p 2 units- patient needs fecal OB test -GI evaluation -transfuse prn -wean pressors, -CTA abd/pelvis when stable -cont NPO -recommending IVF hydration -strict Is&Os -d/w Dr. Ravinder Mtz PGY3
[2017-06-04] MEDS: Meropenem IV 1 gm in NS 50 ML IVPB SCH ×2 (10:54→21:41)
[2017-06-04] MEDS: Levothyroxine 88 MCG TAB PO SCH (10:56)
--- NOTE | 2017-06-04 12:00 | CP.PCM.PN ---
<Lia Cardenas - Last Filed: 06/04/17 20:23> Subjective - Date & Time of Evaluation Date of Evaluation: 06/04/17 Time of Evaluation: 07:30 - Subjective Subjective: Lia Cardenas DO PGY1 - IM Progress Note Patient seen and examined at bedside in the ICU. Per nursing staff, no acute events overnight. Patient denies abdominal pain today, no fever, chills, nausea , vomiting, diarrhea, constipation. Patient is passing gas, but no bowel movements. Patient weaning off pressors. Objective - Vital Signs/Intake and Output Vital Signs (last 24 hours): Temp Pulse Resp BP Pulse Ox 98.2 F 97 H 18 126/62 100 06/04/17 04:00 06/04/17 10:52 06/04/17 06:00 06/04/17 10:52 06/04/17 06:00 Intake and Output: 06/04/17 06/04/17 06:59 18:59 Intake Total 1499 Output Total 775 Balance 724 - Medications Medications: Current Medications Amiodarone HCl (Cordarone) 200 mg PO DAILY [facility] Last Admin: 06/04/17 10:52 Dose: 200 mg Apixaban (Eliquis) 5 mg PO BID [facility] PRN Reason: Protocol Last Admin: 06/03/17 09:17 Dose: 5 mg Aspirin (Ecotrin) 81 mg PO DAILY [facility] Last Admin: 06/03/17 09:17 Dose: 81 mg Atorvastatin Calcium (Lipitor) 20 mg PO DAILY [facility] Last Admin: 06/04/17 10:52 Dose: 20 mg Carvedilol (Coreg) 3.125 mg PO BID [facility] Famotidine (Pepcid) 20 mg PO DAILY [facility] Last Admin: 06/04/17 10:55 Dose: 20 mg Furosemide (Lasix) 20 mg PO BID [facility] NOREPINEPHRINE BIT/0.9 % NACL (Levophed 4 Mg/ 250 Ml Ns Premixed) 4 mg in 250 mls @ 15 mls/hr IV .[id number] PRN; Protocol; 4 MCG/MIN PRN Reason: TITRATE PER MD ORDER Last Titration: 06/04/17 04:00 Dose: 5 mcg/min, 18.75 mls/hr Dobutamine HCl/Dextrose (Dobutamine/Dextrose 5% 500mg/250ml) 500 mg in 250 mls @ 8.301 mls/hr IV .Q24H PRN; Protocol; 2.5 MCG/KG/MIN PRN Reason: TITRATE PER PROTOCOL Last Admin: 06/03/17 09:07 Dose: 2.5 mcg/kg/min, 8.301 mls/hr Meropenem (Merrem Iv 1 Gm Premix) 50 mls @ 100 mls/hr IVPB Q12 [facility] PRN Reason: Protocol Stop: 06/12/17 13:16 Last Admin: 06/04/17 10:54 Dose: 100 mls/hr Levothyroxine Sodium (Synthroid) 88 mcg PO DAILY [facility] Last Admin: 06/04/17 10:56 Dose: 88 mcg Lisinopril (Zestril) 2.5 mg PO DAILY [facility] Midodrine (Proamatine) 10 mg PO TID [facility] Last Admin: 06/04/17 10:55 Dose: 10 mg Non-Formulary Medication (Eplerenone [Inspra]) 25 mg PO DAILY [facility] Ondansetron HCl (Zofran Inj) 4 mg IVP Q4H PRN PRN Reason: Nausea/Vomiting Last Admin: 06/03/17 11:24 Dose: 4 mg - Labs Labs: 06/04/17 05:45 06/04/17 05:45 - Additional Findings Additional findings: - Head Exam Head Exam: ATRAUMATIC, NORMAL INSPECTION, NORMOCEPHALIC - Eye Exam Eye Exam: Normal appearance - Respiratory Exam Respiratory Exam: Clear to Ausculation Bilateral. absent: Rhonchi, Wheezes, Respiratory Distress - Cardiovascular Exam Cardiovascular Exam: REGULAR RHYTHM, +S1, +S2. absent: Tachycardia, Diastolic murmur, Murmur - GI/Abdominal Exam GI & Abdominal Exam: Soft. 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 fib presents with palpitation and near syncopal episode. Patient developed hypotension with tachycardia was transferred to ICU and started on levophed, dobutamine and midodrine. Plan: Hypotension and syncope - Possible Septic vs cardiogenic shock vs hemorrhagic - Patient on levophed, dobutamine and midodrine; titrating off per ICU - maintain MAP above 65%. - continue to hold blood pressure medication - Fall precaution and neuro checks. 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 for possible transfer for AICD [employer] - Echo from 05/25 shows four chamber dilation, EF 20-25%, moderate MR/TR, RVSP 50 , no thrombus Leukocytosis - Downtrending; patient is afebrile; likely reactive - r/o mesenteric ischemia, as below - UA negative, UCx, and Blood cultures; procalcitonin low - CXR negative for acute disease - Noncontrast CT A/P negative - On meropenem per ID - ID consulted Anemia - Likely acute on chronic; H&H downtrending since admission - Normocytic anemia with normal RDW; Iron studies remarkable for low serum iron , TIBC, and %sat; ferritin WNL, can be falsely elevated in acutely ill state - s/p 2u PRBC; with only mild improvement in H&H since yesterday; possibly still bleeding, unknown source of bleed - r/o abdominal bleed, r/o mesenteric ischemia; unlikely as patient is not having abdominal pain or bloody bowel movements; no blood or melena noted on rectal exam - Consider CTA of the abdomen when stable - Will discuss with GI for possibility of GIB Urinary retention - Maintain guillen - Large boggy prostate noted on rectal exam - Will start flomax when BP is stable Nonischemic cardiomyopathy - Will contact patient's bakelite molder, as above - Holding lasix, coreg, eplerenone due to hypotension - Continue lipitor; holding ASA due to possible bleed - Continue amiodarone - Cardiology on consult Atrial fibrillation - Currently rate controlled; on amiodarone - Holding eliquis for potential bleed - Hold coreg for hypotension - Continue to monitor Transaminemia - Resolved History of hypothyroidism - Continue home synthroid - TSH wnl GI/DVT Ppx: Pepcid; holding eliquis due to potential bleed; SCDs <Patricia Walton - Last Filed: 06/05/17 07:22> Objective - Vital Signs/Intake and Output Vital Signs (last 24 hours): Temp Pulse Resp BP Pulse Ox 98 F 89 20 150/74 99 06/05/17 06:00 06/05/17 06:00 06/05/17 06:00 06/05/17 06:00 06/05/17 06:00 Intake and Output: 06/05/17 06/05/17 06:59 18:59 Intake Total 498 Output Total 750 Balance -252 - Medications Medications: Current Medications Amiodarone HCl (Cordarone) 200 mg PO DAILY [facility] Last Admin: 06/04/17 10:52 Dose: 200 mg Apixaban (Eliquis) 5 mg PO BID [facility] PRN Reason: Protocol Last Admin: 06/03/17 09:17 Dose: 5 mg Aspirin (Ecotrin) 81 mg PO DAILY [facility] Last Admin: 06/03/17 09:17 Dose: 81 mg Atorvastatin Calcium (Lipitor) 20 mg PO DAILY [facility] Last Admin: 06/04/17 10:52 Dose: 20 mg Carvedilol (Coreg) 3.125 mg PO BID [facility] Famotidine (Pepcid) 20 mg PO DAILY [facility] Last Admin: 06/04/17 10:55 Dose: 20 mg Furosemide (Lasix) 20 mg PO BID [facility] Dobutamine HCl/Dextrose (Dobutamine/Dextrose 5% 500mg/250ml) 500 mg in 250 mls @ 8.301 mls/hr IV .Q24H PRN; Protocol; 2.5 MCG/KG/MIN PRN Reason: TITRATE PER PROTOCOL Last Admin: 06/04/17 18:52 Dose: 5 mcg/kg/min, 16.602 mls/hr Meropenem (Merrem Iv 1 Gm Premix) 50 mls @ 100 mls/hr IVPB Q12 [facility] PRN Reason: Protocol Stop: 06/12/17 13:16 Last Admin: 06/04/17 21:41 Dose: 100 mls/hr Levothyroxine Sodium (Synthroid) 88 mcg PO DAILY [facility] Last Admin: 06/04/17 10:56 Dose: 88 mcg Lisinopril (Zestril) 2.5 mg PO DAILY [facility] Midodrine (Proamatine) 10 mg PO TID [facility] Last Admin: 06/04/17 17:58 Dose: 10 mg Non-Formulary Medication (Eplerenone [Inspra]) 25 mg PO DAILY [facility] Ondansetron HCl (Zofran Inj) 4 mg IVP Q4H PRN PRN Reason: Nausea/Vomiting Last Admin: 06/03/17 11:24 Dose: 4 mg - Labs Labs: 06/04/17 05:45 06/04/17 05:45 Attending/Attestation - Attestation I have personally seen and examined this patient.: Yes I have fully participated in the care of the patient.: Yes I have reviewed all pertinent clinical information, including history, physical exam and plan: Yes Notes (Text): 06/04/17 56 year old male with past medical history of cardioyopathy and atrial fibrillation who presented with complaint of chest pain and near syncope. Serial cardiac enzymes were negative and ACS was ruled out. He later became hypotensive, started on pressore and transferred to ICU. Blood pressure is improving. Wean off pressors and slowly resume cardiac medications as BP tolerates. Cardiology is following. 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 Leukocytosis is slowly improving. Continue with broad spectrum antibiotics for now as per ID while awaiting cultures. GI evaluation was requested for anemia. He was transfused prbc for anemia. Will continue to monitor LFTs closely. Surgery is also following; will follow up recommendations. His abdominal pain has resolved. Patricia Walton MD Hospitalist.
--- NOTE | 2017-06-04 13:53 | CP.CCUPN ---
<Milan Ortiz - Last Filed: 06/04/17 14:04> CCU Subjective - Physician Review Subjective (Free Text): Patient seen and evaluated bedside. No acute issues overnight. Patient denies chest pain, shortness of breath, abdominal pain, or any other complaints at this time. 06/04/17 13:49 CCU Objective - Vital Signs / Intake & Output Vital Signs (Last 4 hours): Vital Signs Pulse BP 06/04/17 10:52 97 H 126/62 Intake and Output (Last 8hrs): Intake & Output 06/03/17 06/04/17 06/04/17 22:59 06:59 14:59 Intake Total 1862 1057 Output Total 650 775 Balance 1212 282 Intake: IV 927 732 Right Internal Jugular 860 600 Oral 240 Blood Product 645 325 Red Blood Cells Cpd As1 325 Lr Unit [id number] Other 50 Red Blood Cells Cpd As1 50 Lr Unit [id number] Output: Urine 550 775 Urethral (Hardy) 550 775 Emesis 100 - Physical Exam Head: Positive for: Atraumatic, Normocephalic Pupils: Positive for: PERRL Extroacular Muscles: Positive for: EOMI Conjunctiva: Positive for: Normal Mouth: Positive for: Moist Mucous Membranes Neck: Positive for: Normal Range of Motion Respiratory/Chest: Positive for: Clear to Auscultation, Good Air Exchange. Negative for: Respiratory Distress, Accessory Muscle Use, Rhonchi Cardiovascular: Positive for: Regular Rate and Rhythm, Normal S1, S2. Negative for: Murmurs Abdomen: Positive for: Normal Bowel Sounds. Negative for: Tenderness, Distention, Peritoneal Signs Upper Extremity: Positive for: Normal Inspection. Negative for: Cyanosis, Edema Lower Extremity: Positive for: Normal Inspection. Negative for: Edema Neurological: Positive for: GCS=15, CN II-XII Intact, Speech Normal, Motor Func Grossly Intact, Normal Sensory Function Skin: Positive for: Warm, Dry, Normal Color. Negative for: Rashes Psychiatric: Positive for: Alert, Oriented x 3 - Medications Active Medications: Active Medications Generic Name Dose Route Start Last Admin Trade Name Freq PRN Reason Stop Dose Admin Amiodarone HCl 200 mg 06/03/17 10:00 06/04/17 10:52 Cordarone PO 200 mg DAILY BEATRIZ Administration Apixaban 5 mg 06/02/17 18:00 06/03/17 09:17 Eliquis PO 5 mg BID BEATRIZ Administration Protocol Aspirin 81 mg 06/03/17 10:00 06/03/17 09:17 Ecotrin PO 81 mg DAILY BEATRIZ Administration Atorvastatin Calcium 20 mg 06/03/17 10:00 06/04/17 10:52 Lipitor PO 20 mg DAILY BEATRIZ Administration Carvedilol 3.125 mg 06/02/17 18:00 Coreg PO BID BEATRIZ Famotidine 20 mg 06/03/17 10:00 06/04/17 10:55 Pepcid PO 20 mg DAILY BEATRIZ Administration Furosemide 20 mg 06/02/17 18:00 Lasix PO BID BEATRIZ NOREPINEPHRINE BIT/0.9 % NACL 4 mg in 250 mls @ 15 mls/hr 06/02/17 22:06 04:00 Levophed 4 Mg/ 250 Ml Ns Premixed IV 5 mcg/min .[id number] PRN 18.75 mls/hr TITRATE PER MD ORDER Titration Protocol 4 MCG/MIN Dobutamine HCl/Dextrose 500 mg in 250 mls @ 8.301 mls/hr 06/03/17 08:35 06/03 09:07 Dobutamine/Dextrose 5% 500mg/250ml IV 2.5 mcg/kg/min .Q24H PRN 8.301 mls/hr TITRATE PER PROTOCOL Administration Protocol 2.5 MCG/KG/MIN Meropenem 50 mls @ 100 mls/hr 06/03/17 13:15 06/04/17 10:54 Merrem Iv 1 Gm Premix IVPB 06/12/17 13:16 100 mls/hr Q12 BEATRIZ Administration Protocol Levothyroxine Sodium 88 mcg 06/03/17 10:00 06/04/17 10:56 Synthroid PO 88 mcg DAILY BEATRIZ Administration Lisinopril 2.5 mg 06/03/17 10:00 Zestril PO DAILY BEATRIZ Midodrine 10 mg 06/03/17 10:00 06/04/17 10:55 Proamatine PO 10 mg TID BEATRIZ Administration Non-Formulary Medication 25 mg 06/03/17 10:00 Eplerenone [Inspra] PO DAILY [facility] Ondansetron HCl 4 mg 06/03/17 11:15 06/03/17 11:24 Zofran Inj IVP 4 mg Q4H PRN Administration Nausea/Vomiting - Patient Studies Lab Studies: Microbiology Studies 06/02/17 20:30 MRSA Culture (Admit) - Final Naris MRSA NOT DETECTED 06/02/17 19:20 Urine Culture - Final Urine No Growth (<1,000 CFU/ML) 06/02/17 19:29 Blood Culture - Preliminary Blood-Venous NO GROWTH AFTER 24 HOURS 06/02/17 19:29 Blood Culture - Preliminary Blood-Venous NO GROWTH AFTER 24 HOURS 06/02/17 14:30 Blood Culture - Preliminary Blood NO GROWTH AFTER 24 HOURS Lab Studies 06/04/17 06/04/17 06/04/17 Range/Units 11:11 07:43 05:45 WBC (4.5-11.0) 10^3/ul RBC (3.5-6.1) 10^6/uL Hgb (14.0-18.0) g/dL Hct (42.0-52.0) % MCV (80.0-105.0) fl MCH (25.0-35.0) pg MCHC (31.0-37.0) g/dl RDW (11.5-14.5) % Plt Count (120.0-450.0) 10^3/uL MPV (7.0-11.0) fl Gran % (50.0-68.0) % Lymph % (Auto) (22.0-35.0) % [place] % (Auto) (1.0-6.0) % Eos % (Auto) (1.5-5.0) % Baso % (Auto) (0.0-3.0) % Gran # (1.4-6.5) Lymph # (Auto) (1.2-3.4) [place] # (Auto) (0.1-0.6) Eos # (Auto) (0.0-0.7) Baso # (Auto) (0.0-2.0) K/mm3 pO2 (30-55) mm/Hg VBG pH (7.32-7.43) VBG pCO2 (40-60) VBG HCO3 (21-28) mmol/l VBG Total CO2 (22-28) mmol.L VBG O2 Sat (Calc) (40-65) % VBG Base Excess (0.0-2.0) mmol/L VBG Potassium (3.6-5.2) mmol/L Sodium 132 (132-148) mmol/L Chloride 103 (98-107) mmol/L Glucose (75-110) mg/dl Lactate (0.7-2.1) mmol/L FiO2 % Potassium 4.4 (3.6-5.0) mmol/L Carbon Dioxide 23 (21-33) mmol/L Anion Gap 11 (10-20) BUN 39 H (7-21) mg/dL Creatinine 1.0 (0.8-1.5) mg/dl Est GFR ( Amer) > 60 Est GFR (Non-Af Amer) > 60 POC Glucose (mg/dL) 141 H 120 H (65-110) mg/dL Random Glucose 114 H (70-110) mg/dL Calcium 8.8 (8.4-10.5) mg/dL Total Bilirubin 1.2 (0.2-1.3) mg/dL AST 19 (17-59) U/L ALT 53 (7-56) U/L Alkaline Phosphatase 41 (38-126) U/L Total Protein 5.1 L (5.8-8.3) g/dL Albumin 2.7 L (3.0-4.8) g/dL Globulin 2.3 gm/dL Albumin/Globulin Ratio 1.2 (1.1-1.8) Venous Blood Potassium (3.6-5.2) mmol/L Urine Color (YELLOW) Urine Appearance (CLEAR) Urine pH (4.7-8.0) Ur Specific [place] (1.005-1.035) Urine Protein (<30 mg/dL) mg/dL Urine Glucose (UA) (NEGATIVE) mg/dL Urine Ketones (NEGATIVE) mg/dL Urine Blood (NEGATIVE) Urine Nitrate (NEGATIVE) Urine Bilirubin (NEGATIVE) Urine Urobilinogen (<1 E.U./dL) E.U./dL Ur Leukocyte Esterase (NEGATIVE) Dalila/uL Blood Type Blood Type Confirm Antibody Screen Crossmatch BBK History Checked 06/04/17 06/03/17 06/03/17 Range/Units 05:45 21:28 21:20 WBC 22.1 H D (4.5-11.0) 10^3/ul RBC 2.62 L (3.5-6.1) 10^6/uL Hgb 8.1 L (14.0-18.0) g/dL Hct 22.9 L (42.0-52.0) % MCV 87.4 (80.0-105.0) fl MCH 30.9 (25.0-35.0) pg MCHC 35.4 (31.0-37.0) g/dl RDW 14.8 H (11.5-14.5) % Plt Count 244 (120.0-450.0) 10^3/uL MPV 9.6 (7.0-11.0) fl Gran % 84.3 H (50.0-68.0) % Lymph % (Auto) 7.7 L (22.0-35.0) % [place] % (Auto) 7.9 H (1.0-6.0) % Eos % (Auto) 0.0 L (1.5-5.0) % Baso % (Auto) 0.1 (0.0-3.0) % Gran # 18.63 H (1.4-6.5) Lymph # (Auto) 1.7 (1.2-3.4) [place] # (Auto) 1.8 H (0.1-0.6) Eos # (Auto) 0.0 (0.0-0.7) Baso # (Auto) 0.02 (0.0-2.0) K/mm3 pO2 (30-55) mm/Hg VBG pH (7.32-7.43) VBG pCO2 (40-60) VBG HCO3 (21-28) mmol/l VBG Total CO2 (22-28) mmol.L VBG O2 Sat (Calc) (40-65) % VBG Base Excess (0.0-2.0) mmol/L VBG Potassium (3.6-5.2) mmol/L Sodium (132-148) mmol/L Chloride (98-107) mmol/L Glucose (75-110) mg/dl Lactate (0.7-2.1) mmol/L FiO2 % Potassium (3.6-5.0) mmol/L Carbon Dioxide (21-33) mmol/L Anion Gap (10-20) BUN (7-21) mg/dL Creatinine (0.8-1.5) mg/dl Est GFR ( Amer) Est GFR (Non-Af Amer) POC Glucose (mg/dL) 138 H (65-110) mg/dL Random Glucose (70-110) mg/dL Calcium (8.4-10.5) mg/dL Total Bilirubin (0.2-1.3) mg/dL AST (17-59) U/L ALT (7-56) U/L Alkaline Phosphatase (38-126) U/L Total Protein (5.8-8.3) g/dL Albumin (3.0-4.8) g/dL Globulin gm/dL Albumin/Globulin Ratio (1.1-1.8) Venous Blood Potassium (3.6-5.2) mmol/L Urine Color Yellow (YELLOW) Urine Appearance Clear (CLEAR) Urine pH 6.0 (4.7-8.0) Ur Specific [place] 1.015 (1.005-1.035) Urine Protein Negative (<30 mg/dL) mg/dL Urine Glucose (UA) Negative (NEGATIVE) mg/dL Urine Ketones Negative (NEGATIVE) mg/dL Urine Blood Negative (NEGATIVE) Urine Nitrate Negative (NEGATIVE) Urine Bilirubin Negative (NEGATIVE) Urine Urobilinogen 0.2 (<1 E.U./dL) E.U./dL Ur Leukocyte Esterase Negative (NEGATIVE) Dalila/uL Blood Type Blood Type Confirm Antibody Screen Crossmatch BBK History Checked 06/03/17 06/03/17 06/03/17 Range/Units 15:57 15:57 15:57 WBC 28.6 H* (4.5-11.0) 10^3/ul RBC 2.41 L (3.5-6.1) 10^6/uL Hgb 7.6 L (14.0-18.0) g/dL Hct 21.0 L (42.0-52.0) % MCV 87.1 (80.0-105.0) fl MCH 31.5 (25.0-35.0) pg MCHC 36.2 (31.0-37.0) g/dl RDW 13.4 (11.5-14.5) % Plt Count 284 (120.0-450.0) 10^3/uL MPV 9.2 (7.0-11.0) fl Gran % (50.0-68.0) % Lymph % (Auto) (22.0-35.0) % [place] % (Auto) (1.0-6.0) % Eos % (Auto) (1.5-5.0) % Baso % (Auto) (0.0-3.0) % Gran # (1.4-6.5) Lymph # (Auto) (1.2-3.4) [place] # (Auto) (0.1-0.6) Eos # (Auto) (0.0-0.7) Baso # (Auto) (0.0-2.0) K/mm3 pO2 51 (30-55) mm/Hg VBG pH 7.41 (7.32-7.43) VBG pCO2 33.0 L (40-60) VBG HCO3 20.9 L (21-28) mmol/l VBG Total CO2 21.9 L (22-28) mmol.L VBG O2 Sat (Calc) 91.4 H (40-65) % VBG Base Excess -2.9 L (0.0-2.0) mmol/L VBG Potassium 4.5 (3.6-5.2) mmol/L Sodium 130.0 L (132-148) mmol/L Chloride 105.0 (98-107) mmol/L Glucose 159 H (75-110) mg/dl Lactate 1.3 (0.7-2.1) mmol/L FiO2 21.0 % Potassium (3.6-5.0) mmol/L Carbon Dioxide (21-33) mmol/L Anion Gap (10-20) BUN (7-21) mg/dL Creatinine (0.8-1.5) mg/dl Est GFR ( Amer) Est GFR (Non-Af Amer) POC Glucose (mg/dL) (65-110) mg/dL Random Glucose (70-110) mg/dL Calcium (8.4-10.5) mg/dL Total Bilirubin (0.2-1.3) mg/dL AST (17-59) U/L ALT (7-56) U/L Alkaline Phosphatase (38-126) U/L Total Protein (5.8-8.3) g/dL Albumin (3.0-4.8) g/dL Globulin gm/dL Albumin/Globulin Ratio (1.1-1.8) Venous Blood Potassium 4.5 (3.6-5.2) mmol/L Urine Color (YELLOW) Urine Appearance (CLEAR) Urine pH (4.7-8.0) Ur Specific [place] (1.005-1.035) Urine Protein (<30 mg/dL) mg/dL Urine Glucose (UA) (NEGATIVE) mg/dL Urine Ketones (NEGATIVE) mg/dL Urine Blood (NEGATIVE) Urine Nitrate (NEGATIVE) Urine Bilirubin (NEGATIVE) Urine Urobilinogen (<1 E.U./dL) E.U./dL Ur Leukocyte Esterase (NEGATIVE) Dalila/uL Blood Type Blood Type Confirm A NEGATIVE Antibody Screen Crossmatch BBK History Checked 06/03/17 06/03/17 Range/Units 15:48 06:25 WBC (4.5-11.0) 10^3/ul RBC (3.5-6.1) 10^6/uL Hgb (14.0-18.0) g/dL Hct (42.0-52.0) % MCV (80.0-105.0) fl MCH (25.0-35.0) pg MCHC (31.0-37.0) g/dl RDW (11.5-14.5) % Plt Count (120.0-450.0) 10^3/uL MPV (7.0-11.0) fl Gran % (50.0-68.0) % Lymph % (Auto) (22.0-35.0) % [place] % (Auto) (1.0-6.0) % Eos % (Auto) (1.5-5.0) % Baso % (Auto) (0.0-3.0) % Gran # (1.4-6.5) Lymph # (Auto) (1.2-3.4) [place] # (Auto) (0.1-0.6) Eos # (Auto) (0.0-0.7) Baso # (Auto) (0.0-2.0) K/mm3 pO2 (30-55) mm/Hg VBG pH (7.32-7.43) VBG pCO2 (40-60) VBG HCO3 (21-28) mmol/l VBG Total CO2 (22-28) mmol.L VBG O2 Sat (Calc) (40-65) % VBG Base Excess (0.0-2.0) mmol/L VBG Potassium (3.6-5.2) mmol/L Sodium (132-148) mmol/L Chloride (98-107) mmol/L Glucose (75-110) mg/dl Lactate (0.7-2.1) mmol/L FiO2 % Potassium (3.6-5.0) mmol/L Carbon Dioxide (21-33) mmol/L Anion Gap (10-20) BUN (7-21) mg/dL Creatinine (0.8-1.5) mg/dl Est GFR ( Amer) Est GFR (Non-Af Amer) POC Glucose (mg/dL) 157 H (65-110) mg/dL Random Glucose (70-110) mg/dL Calcium (8.4-10.5) mg/dL Total Bilirubin (0.2-1.3) mg/dL AST (17-59) U/L ALT (7-56) U/L Alkaline Phosphatase (38-126) U/L Total Protein (5.8-8.3) g/dL Albumin (3.0-4.8) g/dL Globulin gm/dL Albumin/Globulin Ratio (1.1-1.8) Venous Blood Potassium (3.6-5.2) mmol/L Urine Color (YELLOW) Urine Appearance (CLEAR) Urine pH (4.7-8.0) Ur Specific [place] (1.005-1.035) Urine Protein (<30 mg/dL) mg/dL Urine Glucose (UA) (NEGATIVE) mg/dL Urine Ketones (NEGATIVE) mg/dL Urine Blood (NEGATIVE) Urine Nitrate (NEGATIVE) Urine Bilirubin (NEGATIVE) Urine Urobilinogen (<1 E.U./dL) E.U./dL Ur Leukocyte Esterase (NEGATIVE) Dalila/uL Blood Type A NEGATIVE Blood Type Confirm Antibody Screen Negative Crossmatch See Detail BBK History Checked No verified bt Laboratory Results - last 24 hr 06/03/17 06/03/17 06/03/17 06:25 15:48 15:57 WBC RBC Hgb Hct MCV MCH MCHC RDW Plt Count MPV Gran % Lymph % (Auto) [place] % (Auto) Eos % (Auto) Baso % (Auto) Gran # Lymph # (Auto) [place] # (Auto) Eos # (Auto) Baso # (Auto) pO2 VBG pH VBG pCO2 VBG HCO3 VBG Total CO2 VBG O2 Sat (Calc) VBG Base Excess VBG Potassium Sodium Chloride Glucose Lactate FiO2 Potassium Carbon Dioxide Anion Gap BUN Creatinine Est GFR ( Amer) Est GFR (Non-Af Amer) POC Glucose (mg/dL) 157 H Random Glucose Calcium Total Bilirubin AST ALT Alkaline Phosphatase Total Protein Albumin Globulin Albumin/Globulin Ratio Venous Blood Potassium Urine Color Urine Appearance Urine pH Ur Specific [place] Urine Protein Urine Glucose (UA) Urine Ketones Urine Blood Urine Nitrate Urine Bilirubin Urine Urobilinogen Ur Leukocyte Esterase Blood Type A NEGATIVE Blood Type Confirm A NEGATIVE Antibody Screen Negative Crossmatch See Detail BBK History Checked No verified bt 06/03/17 06/03/17 06/03/17 15:57 15:57 21:20 WBC 28.6 H* RBC 2.41 L Hgb 7.6 L Hct 21.0 L MCV 87.1 MCH 31.5 MCHC 36.2 RDW 13.4 Plt Count 284 MPV 9.2 Gran % Lymph % (Auto) [place] % (Auto) Eos % (Auto) Baso % (Auto) Gran # Lymph # (Auto) [place] # (Auto) Eos # (Auto) Baso # (Auto) pO2 51 VBG pH 7.41 VBG pCO2 33.0 L VBG HCO3 20.9 L VBG Total CO2 21.9 L VBG O2 Sat (Calc) 91.4 H VBG Base Excess -2.9 L VBG Potassium 4.5 Sodium 130.0 L Chloride 105.0 Glucose 159 H Lactate 1.3 FiO2 21.0 Potassium Carbon Dioxide Anion Gap BUN Creatinine Est GFR ( Amer) Est GFR (Non-Af Amer) POC Glucose (mg/dL) Random Glucose Calcium Total Bilirubin AST ALT Alkaline Phosphatase Total Protein Albumin Globulin Albumin/Globulin Ratio Venous Blood Potassium 4.5 Urine Color Yellow Urine Appearance Clear Urine pH 6.0 Ur Specific [place] 1.015 Urine Protein Negative Urine Glucose (UA) Negative Urine Ketones Negative Urine Blood Negative Urine Nitrate Negative Urine Bilirubin Negative Urine Urobilinogen 0.2 Ur Leukocyte Esterase Negative Blood Type Blood Type Confirm Antibody Screen Crossmatch BBK History Checked 06/03/17 06/04/17 06/04/17 21:28 05:45 05:45 WBC 22.1 H D RBC 2.62 L Hgb 8.1 L Hct 22.9 L MCV 87.4 MCH 30.9 MCHC 35.4 RDW 14.8 H Plt Count 244 MPV 9.6 Gran % 84.3 H Lymph % (Auto) 7.7 L [place] % (Auto) 7.9 H Eos % (Auto) 0.0 L Baso % (Auto) 0.1 Gran # 18.63 H Lymph # (Auto) 1.7 [place] # (Auto) 1.8 H Eos # (Auto) 0.0 Baso # (Auto) 0.02 pO2 VBG pH VBG pCO2 VBG HCO3 VBG Total CO2 VBG O2 Sat (Calc) VBG Base Excess VBG Potassium Sodium 132 Chloride 103 Glucose Lactate FiO2 Potassium 4.4 Carbon Dioxide 23 Anion Gap 11 BUN 39 H Creatinine 1.0 Est GFR ( Amer) > 60 Est GFR (Non-Af Amer) > 60 POC Glucose (mg/dL) 138 H Random Glucose 114 H Calcium 8.8 Total Bilirubin 1.2 AST 19 ALT 53 Alkaline Phosphatase 41 Total Protein 5.1 L Albumin 2.7 L Globulin 2.3 Albumin/Globulin Ratio 1.2 Venous Blood Potassium Urine Color Urine Appearance Urine pH Ur Specific [place] Urine Protein Urine Glucose (UA) Urine Ketones Urine Blood Urine Nitrate Urine Bilirubin Urine Urobilinogen Ur Leukocyte Esterase Blood Type Blood Type Confirm Antibody Screen Crossmatch BBK History Checked 06/04/17 06/04/17 07:43 11:11 WBC RBC Hgb Hct MCV MCH MCHC RDW Plt Count MPV Gran % Lymph % (Auto) [place] % (Auto) Eos % (Auto) Baso % (Auto) Gran # Lymph # (Auto) [place] # (Auto) Eos # (Auto) Baso # (Auto) pO2 VBG pH VBG pCO2 VBG HCO3 VBG Total CO2 VBG O2 Sat (Calc) VBG Base Excess VBG Potassium Sodium Chloride Glucose Lactate FiO2 Potassium Carbon Dioxide Anion Gap BUN Creatinine Est GFR ( Amer) Est GFR (Non-Af Amer) POC Glucose (mg/dL) 120 H 141 H Random Glucose Calcium Total Bilirubin AST ALT Alkaline Phosphatase Total Protein Albumin Globulin Albumin/Globulin Ratio Venous Blood Potassium Urine Color Urine Appearance Urine pH Ur Specific [place] Urine Protein Urine Glucose (UA) Urine Ketones Urine Blood Urine Nitrate Urine Bilirubin Urine Urobilinogen Ur Leukocyte Esterase Blood Type Blood Type Confirm Antibody Screen Crossmatch BBK History Checked Fingerstick Blood Sugar Results: 138 Review of Systems - Cardiovascular Cardiovascular: absent: Chest Pain - Respiratory Respiratory: absent: Cough, Dyspnea, Wheezing - Gastrointestinal Gastrointestinal: absent: Abdominal Pain, Nausea, Vomiting Critical Care Progress Note - Nutrition Nutrition: Nutrition Category Date Time Status NPO Diet [DIET] Diets 06/03/17 Dinner Ordered Assessment/Plan - Assessment and Plan (Free Text) Assessment: 56 y/o with PMH 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 Patient was transferred to the ICU for hypotension. Patient was transfused 2 units PRBC. HGb stable this AM. transfer to telemetry. Plan: Neuro: AAOx3 Pulm: Supp O2 prn Maintain O2 sat >90% Cardiac: Dobutamine Cardiogenic shock Maintain MAP >65 Heme/ID: Afebrile, improving leukocytosis continue abx Eliquis Follow cultures Hgb 8.1 Renal: Maintain euvolemia Replete electrolytes as needed Hardy catheter in place Strict I's and O's Daily weights Endo: maintain euglycemia GI: heart healthy diet Protonix Amylase/lipase negative Dispo: transfer to telemetry <Rivera Brown - Last Filed: 06/04/17 17:46> CCU Objective - Vital Signs / Intake & Output Vital Signs (Last 4 hours): Vital Signs Temp Pulse Resp BP Pulse Ox 06/04/17 16:50 101 H 18 99 06/04/17 16:40 98 H 18 100 06/04/17 16:30 101 H 49 H 100/40 L 100 06/04/17 16:20 104 H 18 99 06/04/17 16:10 99 H 20 92 L 06/04/17 16:00 97.8 F 100 H 16 115/51 L 99 06/04/17 15:50 96 H 17 99 06/04/17 15:40 97 H 17 99 06/04/17 15:30 103 H 20 112/52 L 97 06/04/17 15:20 101 H 17 96 06/04/17 15:10 101 H 18 96 06/04/17 15:00 98 H 18 119/61 96 06/04/17 14:50 112 H 51 H 97 06/04/17 14:40 117 H 40 H 95 06/04/17 14:30 114 H 17 123/67 100 06/04/17 14:20 94 H 45 H 100 06/04/17 14:10 101 H 22 100 06/04/17 14:00 98 H 25 H 114/51 L 98 06/04/17 13:50 94 H 21 100 Intake and Output (Last 8hrs): Intake & Output 06/04/17 06/04/17 06/04/17 06:59 14:59 22:59 Intake Total 1057 Output Total 775 Balance 282 Weight 244 lb Intake: IV 732 Right Internal Jugular 600 Blood Product 325 Output: Urine 775 Urethral (Hardy) 775 - Medications Active Medications: Active Medications Generic Name Dose Route Start Last Admin Trade Name Freq PRN Reason Stop Dose Admin Amiodarone HCl 200 mg 06/03/17 10:00 06/04/17 10:52 Cordarone PO 200 mg DAILY BEATRIZ Administration Apixaban 5 mg 06/02/17 18:00 06/03/17 09:17 Eliquis PO 5 mg BID BEATRIZ Administration Protocol Aspirin 81 mg 06/03/17 10:00 06/03/17 09:17 Ecotrin PO 81 mg DAILY BEATRIZ Administration Atorvastatin Calcium 20 mg 06/03/17 10:00 06/04/17 10:52 Lipitor PO 20 mg DAILY BEATRIZ Administration Carvedilol 3.125 mg 06/02/17 18:00 Coreg PO BID BEATRIZ Famotidine 20 mg 06/03/17 10:00 06/04/17 10:55 Pepcid PO 20 mg DAILY BEATRIZ Administration Furosemide 20 mg 06/02/17 18:00 Lasix PO BID BEATRIZ NOREPINEPHRINE BIT/0.9 % NACL 4 mg in 250 mls @ 15 mls/hr 06/02/17 22:06 04:00 Levophed 4 Mg/ 250 Ml Ns Premixed IV 5 mcg/min .[id number] PRN 18.75 mls/hr TITRATE PER MD ORDER Titration Protocol 4 MCG/MIN Dobutamine HCl/Dextrose 500 mg in 250 mls @ 8.301 mls/hr 06/03/17 08:35 06/03 14:00 Dobutamine/Dextrose 5% 500mg/250ml IV 5 mcg/kg/min .Q24H PRN 16.602 mls/hr TITRATE PER PROTOCOL Titration Protocol 2.5 MCG/KG/MIN Meropenem 50 mls @ 100 mls/hr 06/03/17 13:15 06/04/17 10:54 Merrem Iv 1 Gm Premix IVPB 06/12/17 13:16 100 mls/hr Q12 BEATRIZ Administration Protocol Levothyroxine Sodium 88 mcg 06/03/17 10:00 06/04/17 10:56 Synthroid PO 88 mcg DAILY BEATRIZ Administration Lisinopril 2.5 mg 06/03/17 10:00 Zestril PO DAILY BEATRIZ Midodrine 10 mg 06/03/17 10:00 06/04/17 14:09 Proamatine PO 10 mg TID BEATRIZ Administration Non-Formulary Medication 25 mg 06/03/17 10:00 Eplerenone [Inspra] PO DAILY BEATRIZ Ondansetron HCl 4 mg 06/03/17 11:15 06/03/17 11:24 Zofran Inj IVP 4 mg Q4H PRN Administration Nausea/Vomiting - Patient Studies Lab Studies: Microbiology Studies 06/02/17 14:30 Blood Culture - Preliminary Blood NO GROWTH AFTER 48 HOURS 06/02/17 20:30 MRSA Culture (Admit) - Final Naris MRSA NOT DETECTED 06/02/17 19:20 Urine Culture - Final Urine No Growth (<1,000 CFU/ML) 06/02/17 19:29 Blood Culture - Preliminary Blood-Venous NO GROWTH AFTER 24 HOURS 06/02/17 19:29 Blood Culture - Preliminary Blood-Venous NO GROWTH AFTER 24 HOURS Lab Studies 06/04/17 06/04/17 06/04/17 Range/Units 16:40 11:11 07:43 WBC (4.5-11.0) 10^3/ul RBC (3.5-6.1) 10^6/uL Hgb (14.0-18.0) g/dL Hct (42.0-52.0) % MCV (80.0-105.0) fl MCH (25.0-35.0) pg MCHC (31.0-37.0) g/dl RDW (11.5-14.5) % Plt Count (120.0-450.0) 10^3/uL MPV (7.0-11.0) fl Gran % (50.0-68.0) % Lymph % (Auto) (22.0-35.0) % [place] % (Auto) (1.0-6.0) % Eos % (Auto) (1.5-5.0) % Baso % (Auto) (0.0-3.0) % Gran # (1.4-6.5) Lymph # (Auto) (1.2-3.4) [place] # (Auto) (0.1-0.6) Eos # (Auto) (0.0-0.7) Baso # (Auto) (0.0-2.0) K/mm3 Sodium (132-148) mmol/L Potassium (3.6-5.0) mmol/L Chloride (98-107) mmol/L Carbon Dioxide (21-33) mmol/L Anion Gap (10-20) BUN (7-21) mg/dL Creatinine (0.8-1.5) mg/dl Est GFR ( Amer) Est GFR (Non-Af Amer) POC Glucose (mg/dL) 187 H 141 H 120 H (65-110) mg/dL Random Glucose (70-110) mg/dL Calcium (8.4-10.5) mg/dL Total Bilirubin (0.2-1.3) mg/dL AST (17-59) U/L ALT (7-56) U/L Alkaline Phosphatase (38-126) U/L Total Protein (5.8-8.3) g/dL Albumin (3.0-4.8) g/dL Globulin gm/dL Albumin/Globulin Ratio (1.1-1.8) Urine Color (YELLOW) Urine Appearance (CLEAR) Urine pH (4.7-8.0) Ur Specific [place] (1.005-1.035) Urine Protein (<30 mg/dL) mg/dL Urine Glucose (UA) (NEGATIVE) mg/dL Urine Ketones (NEGATIVE) mg/dL Urine Blood (NEGATIVE) Urine Nitrate (NEGATIVE) Urine Bilirubin (NEGATIVE) Urine Urobilinogen (<1 E.U./dL) E.U./dL Ur Leukocyte Esterase (NEGATIVE) [place]/uL Blood Type Antibody Screen Crossmatch BBK History Checked 06/04/17 06/04/17 06/03/17 Range/Units 05:45 05:45 21:28 WBC 22.1 H D (4.5-11.0) 10^3/ul RBC 2.62 L (3.5-6.1) 10^6/uL Hgb 8.1 L (14.0-18.0) g/dL Hct 22.9 L (42.0-52.0) % MCV 87.4 (80.0-105.0) fl MCH 30.9 (25.0-35.0) pg MCHC 35.4 (31.0-37.0) g/dl RDW 14.8 H (11.5-14.5) % Plt Count 244 (120.0-450.0) 10^3/uL MPV 9.6 (7.0-11.0) fl Gran % 84.3 H (50.0-68.0) % Lymph % (Auto) 7.7 L (22.0-35.0) % [place] % (Auto) 7.9 H (1.0-6.0) % Eos % (Auto) 0.0 L (1.5-5.0) % Baso % (Auto) 0.1 (0.0-3.0) % Gran # 18.63 H (1.4-6.5) Lymph # (Auto) 1.7 (1.2-3.4) [place] # (Auto) 1.8 H (0.1-0.6) Eos # (Auto) 0.0 (0.0-0.7) Baso # (Auto) 0.02 (0.0-2.0) K/mm3 Sodium 132 (132-148) mmol/L Potassium 4.4 (3.6-5.0) mmol/L Chloride 103 (98-107) mmol/L Carbon Dioxide 23 (21-33) mmol/L Anion Gap 11 (10-20) BUN 39 H (7-21) mg/dL Creatinine 1.0 (0.8-1.5) mg/dl Est GFR ( Amer) > 60 Est GFR (Non-Af Amer) > 60 POC Glucose (mg/dL) 138 H (65-110) mg/dL Random Glucose 114 H (70-110) mg/dL Calcium 8.8 (8.4-10.5) mg/dL Total Bilirubin 1.2 (0.2-1.3) mg/dL AST 19 (17-59) U/L ALT 53 (7-56) U/L Alkaline Phosphatase 41 (38-126) U/L Total Protein 5.1 L (5.8-8.3) g/dL Albumin 2.7 L (3.0-4.8) g/dL Globulin 2.3 gm/dL Albumin/Globulin Ratio 1.2 (1.1-1.8) Urine Color (YELLOW) Urine Appearance (CLEAR) Urine pH (4.7-8.0) Ur Specific [place] (1.005-1.035) Urine Protein (<30 mg/dL) mg/dL Urine Glucose (UA) (NEGATIVE) mg/dL Urine Ketones (NEGATIVE) mg/dL Urine Blood (NEGATIVE) Urine Nitrate (NEGATIVE) Urine Bilirubin (NEGATIVE) Urine Urobilinogen (<1 E.U./dL) E.U./dL Ur Leukocyte Esterase (NEGATIVE) [place]/uL Blood Type Antibody Screen Crossmatch BBK History Checked 06/03/17 06/03/17 Range/Units 21:20 06:25 WBC (4.5-11.0) 10^3/ul RBC (3.5-6.1) 10^6/uL Hgb (14.0-18.0) g/dL Hct (42.0-52.0) % MCV (80.0-105.0) fl MCH (25.0-35.0) pg MCHC (31.0-37.0) g/dl RDW (11.5-14.5) % Plt Count (120.0-450.0) 10^3/uL MPV (7.0-11.0) fl Gran % (50.0-68.0) % Lymph % (Auto) (22.0-35.0) % [place] % (Auto) (1.0-6.0) % Eos % (Auto) (1.5-5.0) % Baso % (Auto) (0.0-3.0) % Gran # (1.4-6.5) Lymph # (Auto) (1.2-3.4) [place] # (Auto) (0.1-0.6) Eos # (Auto) (0.0-0.7) Baso # (Auto) (0.0-2.0) K/mm3 Sodium (132-148) mmol/L Potassium (3.6-5.0) mmol/L Chloride (98-107) mmol/L Carbon Dioxide (21-33) mmol/L Anion Gap (10-20) BUN (7-21) mg/dL Creatinine (0.8-1.5) mg/dl Est GFR ( Amer) Est GFR (Non-Af Amer) POC Glucose (mg/dL) (65-110) mg/dL Random Glucose (70-110) mg/dL Calcium (8.4-10.5) mg/dL Total Bilirubin (0.2-1.3) mg/dL AST (17-59) U/L ALT (7-56) U/L Alkaline Phosphatase (38-126) U/L Total Protein (5.8-8.3) g/dL Albumin (3.0-4.8) g/dL Globulin gm/dL Albumin/Globulin Ratio (1.1-1.8) Urine Color Yellow (YELLOW) Urine Appearance Clear (CLEAR) Urine pH 6.0 (4.7-8.0) Ur Specific [place] 1.015 (1.005-1.035) Urine Protein Negative (<30 mg/dL) mg/dL Urine Glucose (UA) Negative (NEGATIVE) mg/dL Urine Ketones Negative (NEGATIVE) mg/dL Urine Blood Negative (NEGATIVE) Urine Nitrate Negative (NEGATIVE) Urine Bilirubin Negative (NEGATIVE) Urine Urobilinogen 0.2 (<1 E.U./dL) E.U./dL Ur Leukocyte Esterase Negative (NEGATIVE) Dalila/uL Blood Type A NEGATIVE Antibody Screen Negative Crossmatch See Detail BBK History Checked No verified bt Laboratory Results - last 24 hr 06/03/17 06/03/17 06/03/17 06:25 21:20 21:28 WBC RBC Hgb Hct MCV MCH MCHC RDW Plt Count MPV Gran % Lymph % (Auto) [place] % (Auto) Eos % (Auto) Baso % (Auto) Gran # Lymph # (Auto) [place] # (Auto) Eos # (Auto) Baso # (Auto) Sodium Potassium Chloride Carbon Dioxide Anion Gap BUN Creatinine Est GFR ( Amer) Est GFR (Non-Af Amer) POC Glucose (mg/dL) 138 H Random Glucose Calcium Total Bilirubin AST ALT Alkaline Phosphatase Total Protein Albumin Globulin Albumin/Globulin Ratio Urine Color Yellow Urine Appearance Clear Urine pH 6.0 Ur Specific [place] 1.015 Urine Protein Negative Urine Glucose (UA) Negative Urine Ketones Negative Urine Blood Negative Urine Nitrate Negative Urine Bilirubin Negative Urine Urobilinogen 0.2 Ur Leukocyte Esterase Negative Blood Type A NEGATIVE Antibody Screen Negative Crossmatch See Detail BBK History Checked No verified bt 06/04/17 06/04/17 06/04/17 05:45 05:45 07:43 WBC 22.1 H D RBC 2.62 L Hgb 8.1 L Hct 22.9 L MCV 87.4 MCH 30.9 MCHC 35.4 RDW 14.8 H Plt Count 244 MPV 9.6 Gran % 84.3 H Lymph % (Auto) 7.7 L [place] % (Auto) 7.9 H Eos % (Auto) 0.0 L Baso % (Auto) 0.1 Gran # 18.63 H Lymph # (Auto) 1.7 [place] # (Auto) 1.8 H Eos # (Auto) 0.0 Baso # (Auto) 0.02 Sodium 132 Potassium 4.4 Chloride 103 Carbon Dioxide 23 Anion Gap 11 BUN 39 H Creatinine 1.0 Est GFR ( Amer) > 60 Est GFR (Non-Af Amer) > 60 POC Glucose (mg/dL) 120 H Random Glucose 114 H Calcium 8.8 Total Bilirubin 1.2 AST 19 ALT 53 Alkaline Phosphatase 41 Total Protein 5.1 L Albumin 2.7 L Globulin 2.3 Albumin/Globulin Ratio 1.2 Urine Color Urine Appearance Urine pH Ur Specific [place] Urine Protein Urine Glucose (UA) Urine Ketones Urine Blood Urine Nitrate Urine Bilirubin Urine Urobilinogen Ur Leukocyte Esterase Blood Type Antibody Screen Crossmatch BBK History Checked 06/04/17 06/04/17 11:11 16:40 WBC RBC Hgb Hct MCV MCH MCHC RDW Plt Count MPV Gran % Lymph % (Auto) [place] % (Auto) Eos % (Auto) Baso % (Auto) Gran # Lymph # (Auto) [place] # (Auto) Eos # (Auto) Baso # (Auto) Sodium Potassium Chloride Carbon Dioxide Anion Gap BUN Creatinine Est GFR ( Amer) Est GFR (Non-Af Amer) POC Glucose (mg/dL) 141 H 187 H Random Glucose Calcium Total Bilirubin AST ALT Alkaline Phosphatase Total Protein Albumin Globulin Albumin/Globulin Ratio Urine Color Urine Appearance Urine pH Ur Specific [place] Urine Protein Urine Glucose (UA) Urine Ketones Urine Blood Urine Nitrate Urine Bilirubin Urine Urobilinogen Ur Leukocyte Esterase Blood Type Antibody Screen Crossmatch BBK History Checked Critical Care Progress Note - Nutrition Nutrition: Nutrition Category Date Time Status Heart Healthy Diet [DIET] Diets 06/04/17 Lunch Ordered Attending/Attestation - Attestation I have personally seen and examined this patient.: Yes I have fully participated in the care of the patient.: Yes I have reviewed all pertinent clinical information: Yes Notes (Text): 06/04/17 17:44 56 yo male with biventricular failure, now resolved cardiogenic shock. Off of pressors. Dobutamine 5 mcg/kg/min ongoing. wbc-osis improved, on abx. If septic w/u not yielding may consider peeling abx off. will check procalcitonin. Ok to downgrade to tele ccm time 40 min
--- NOTE | 2017-06-04 14:54 | CON ---
DATE: HISTORY OF PRESENT ILLNESS: I saw Mr. Parsons this morning. He is a 56-year-old white male with past medical history of cardiomyopathy, previous ejection fraction extending from 20% up to 51%, which he indicated was his last value. He presented with atrial fibrillation and a near syncopal episode several days ago. Consult was called to rule out mesenteric ischemia. His clinical course today has included syncopal episode, ventricular tachycardia, atrial fibrillation, and evaluation for pacemaker. At the current time point, the patient denies any problem with nausea, vomiting, abdominal pain, rectal bleeding. He indicates that when he eats at home, there is no abdominal pain, no dysphagia. He has reasonable bowel movements, using prune juice and stool softener. In the hospital, the patient is not complaining about chronic abdominal pain or discomfort in the abdomen lasting for several hours, or bleeding as well. He has never had any issues suggestive of mesenteric ischemia at home. The patient was mildly tachycardic on evaluation in the ICU this morning, rate was roughly 105._. PHYSICAL EXAMINATION VITAL SIGNS: I reviewed this patient's vital signs. HEENT: Noncontributory. LUNGS: Decreased breath sounds, the bases are not clear. HEART: Regular rhythm, but mildly tachycardic. ABDOMEN: Soft, nontender in all quadrants. No bowel sounds were heard. LABORATORY DATA: The patient had abdominopelvic CT scan performed yesterday, which is negative for acute intraabdominal findings. I reviewed this patient's laboratory data, which was significant for increasing white count. Last white count as of yesterday afternoon 28,000 with an H and H of 7.6 and 21. His platelet count is 284,000. Chemistry indicates mild increase in LFT, ALT; normal alkaline phosphatase, bilirubin and AST. ASSESSMENT AND PLAN: This is a 56-year-old white male with past medical history of cardiomyopathy, currently being treated for atrial fibrillation and history of recent ventricular tachycardia. The issue was implantation of a pacemaker because of recent events and because of his functional capability at home. He is being followed up by Cardiology later on this morning. Based on history and physical exam, the patient does not have findings suggestive of mesenteric ischemia. Most likely, in his particular case, may have had a gas pocket or possibly some stool in the proximal ascending colon, which may have caused the discomfort. Note that mesenteric ischemia is a very difficult diagnosis to make. As of this point in time, the patient does not seem to be a candidate for this diagnosis. Reason for this patient's anemia is unclear. This will be addressed later on this morning by the house staff as well as the ICU attending. Mitch Qureshi DO, PhD SAMANTHA
[2017-06-04] MEDS: DOBUTamine 500mg/250ml D5W 500 MG/250 ML BAG IV PRN (18:52)
--- NOTE | 2017-06-04 21:01 | CP.PCM.PN ---
Subjective - Date & Time of Evaluation Date of Evaluation: 06/04/17 Time of Evaluation: 09:30 - Subjective Subjective: Comfortable in bed, abdominal pain has improved, no fevers, not in distress, no nausea or vomiting. Objective - Vital Signs/Intake and Output Vital Signs (last 24 hours): Temp Pulse Resp BP Pulse Ox 97.8 F 99 H 18 137/73 99 06/04/17 16:00 06/04/17 18:52 06/04/17 16:50 06/04/17 18:52 06/04/17 16:50 Intake and Output: 06/04/17 06/05/17 18:59 06:59 Intake Total 1021 Output Total 800 Balance 221 - Medications Medications: Current Medications Amiodarone HCl (Cordarone) 200 mg PO DAILY [facility] Last Admin: 06/04/17 10:52 Dose: 200 mg Apixaban (Eliquis) 5 mg PO BID [facility] PRN Reason: Protocol Last Admin: 06/03/17 09:17 Dose: 5 mg Aspirin (Ecotrin) 81 mg PO DAILY [facility] Last Admin: 06/03/17 09:17 Dose: 81 mg Atorvastatin Calcium (Lipitor) 20 mg PO DAILY [facility] Last Admin: 06/04/17 10:52 Dose: 20 mg Carvedilol (Coreg) 3.125 mg PO BID [facility] Famotidine (Pepcid) 20 mg PO DAILY [facility] Last Admin: 06/04/17 10:55 Dose: 20 mg Furosemide (Lasix) 20 mg PO BID [facility] Dobutamine HCl/Dextrose (Dobutamine/Dextrose 5% 500mg/250ml) 500 mg in 250 mls @ 8.301 mls/hr IV .Q24H PRN; Protocol; 2.5 MCG/KG/MIN PRN Reason: TITRATE PER PROTOCOL Last Admin: 06/04/17 18:52 Dose: 5 mcg/kg/min, 16.602 mls/hr Meropenem (Merrem Iv 1 Gm Premix) 50 mls @ 100 mls/hr IVPB Q12 [facility] PRN Reason: Protocol Stop: 06/12/17 13:16 Last Admin: 06/04/17 10:54 Dose: 100 mls/hr Levothyroxine Sodium (Synthroid) 88 mcg PO DAILY [facility] Last Admin: 06/04/17 10:56 Dose: 88 mcg Lisinopril (Zestril) 2.5 mg PO DAILY [facility] Midodrine (Proamatine) 10 mg PO TID [facility] Last Admin: 06/04/17 17:58 Dose: 10 mg Non-Formulary Medication (Eplerenone [Inspra]) 25 mg PO DAILY [facility] Ondansetron HCl (Zofran Inj) 4 mg IVP Q4H PRN PRN Reason: Nausea/Vomiting Last Admin: 06/03/17 11:24 Dose: 4 mg - Labs Labs: 06/04/17 05:45 06/04/17 05:45 - Constitutional Appears: Non-toxic - Head Exam Head Exam: NORMAL INSPECTION - ENT Exam ENT Exam: Mucous Membranes Moist - Neck Exam Neck Exam: absent: Meningismus - Respiratory Exam Respiratory Exam: Decreased Breath Sounds - Cardiovascular Exam Cardiovascular Exam: +S1, +S2 - GI/Abdominal Exam GI & Abdominal Exam: Soft. absent: Tenderness Assessment and Plan - Assessment and Plan (Free Text) Plan: Assessment systemic inflammatory response syndrome, R/O mesenteric ischemia vs. ischemic colitis obstructive sleep apnea obesity with BMI 35 hypothyroidism HTN history of ventricular tachycardia non-ischemic cardiomyopathy with EF 20% Plan Follow up CT abdomen / pelvis with contrast / angiography continue Merrem for now follow up further Surgery recommendations will monitor clinically
[2017-06-05 07:38] LABS: BASO # 0.01 K/mm3 (0.0-2.0); BASO % 0.1 % (0.0-3.0); EOS % 0.3 % (1.5-5.0); GRAN # 8.71 (1.4-6.5); GRAN % 70.7 % (50.0-68.0); LYMPH # 2.7 (1.2-3.4); LYMPH % 22.2 % (22.0-35.0); MEAN CELL VOLUME 90.2 fl (80.0-105.0); MEAN CORPUSCULAR HEMOGLOBIN 31.1 pg (25.0-35.0); MEAN CORPUSCULAR HGB CONC 34.5 g/dl (31.0-37.0); MEAN PLATELET VOLUME 8.7 fl (7.0-11.0); MONO # 0.8 (0.1-0.6); MONO % 6.7 % (1.0-6.0); RBC 2.25 10^6/uL (3.5-6.1); RED CELL DISTRIBUTION WIDTH 14.9 % (11.5-14.5); WHITE BLOOD COUNT 12.3 10^3/ul (4.5-11.0)
[2017-06-05 07:54] LABS: ALB/GLOB RATIO 1.2 (1.1-1.8); ALBUMIN 2.6 g/dL (3.0-4.8); ALT/SGPT 49 U/L (7-56); AST/SGOT 19 U/L (17-59); BLOOD UREA NITROGEN 20 mg/dL (7-21); CALCIUM 8.3 mg/dL (8.4-10.5); GFR AFRICAN-AMERICAN > 60; GFR NON-AFRICAN AMERICAN > 60
--- NOTE | 2017-06-05 08:07 | CP.PCM.PN ---
Subjective - Date & Time of Evaluation Date of Evaluation: 06/05/17 Time of Evaluation: 08:02 - Subjective Subjective: Surgery: Dr. Castellon covering for Dr. Montelongo Patient out of ICU. Patient denies abdominal pain, n/v. He overall reports feeling better. He reports black colored bowel movement today, first BM since admission. He denies chest pain, SOB, dizziness. Objective - Vital Signs/Intake and Output Vital Signs (last 24 hours): Temp Pulse Resp BP Pulse Ox 98 F 89 20 150/74 99 06/05/17 06:00 06/05/17 06:00 06/05/17 06:00 06/05/17 06:00 06/05/17 06:00 Intake and Output: 06/05/17 06/05/17 06:59 18:59 Intake Total 498 Output Total 750 Balance -252 - Medications Medications: Current Medications Amiodarone HCl (Cordarone) 200 mg PO DAILY [facility] Last Admin: 06/04/17 10:52 Dose: 200 mg Apixaban (Eliquis) 5 mg PO BID [facility] PRN Reason: Protocol Last Admin: 06/03/17 09:17 Dose: 5 mg Aspirin (Ecotrin) 81 mg PO DAILY [facility] Last Admin: 06/03/17 09:17 Dose: 81 mg Atorvastatin Calcium (Lipitor) 20 mg PO DAILY [facility] Last Admin: 06/04/17 10:52 Dose: 20 mg Carvedilol (Coreg) 3.125 mg PO BID [facility] Famotidine (Pepcid) 20 mg PO DAILY [facility] Last Admin: 06/04/17 10:55 Dose: 20 mg Furosemide (Lasix) 20 mg PO BID [facility] Dobutamine HCl/Dextrose (Dobutamine/Dextrose 5% 500mg/250ml) 500 mg in 250 mls @ 8.301 mls/hr IV .Q24H PRN; Protocol; 2.5 MCG/KG/MIN PRN Reason: TITRATE PER PROTOCOL Last Admin: 06/04/17 18:52 Dose: 5 mcg/kg/min, 16.602 mls/hr Meropenem (Merrem Iv 1 Gm Premix) 50 mls @ 100 mls/hr IVPB Q12 [facility] PRN Reason: Protocol Stop: 06/12/17 13:16 Last Admin: 06/04/17 21:41 Dose: 100 mls/hr Levothyroxine Sodium (Synthroid) 88 mcg PO DAILY [facility] Last Admin: 06/04/17 10:56 Dose: 88 mcg Lisinopril (Zestril) 2.5 mg PO DAILY [facility] Midodrine (Proamatine) 10 mg PO TID [facility] Last Admin: 06/04/17 17:58 Dose: 10 mg Non-Formulary Medication (Eplerenone [Inspra]) 25 mg PO DAILY [facility] Ondansetron HCl (Zofran Inj) 4 mg IVP Q4H PRN PRN Reason: Nausea/Vomiting Last Admin: 06/03/17 11:24 Dose: 4 mg - Labs Labs: 06/05/17 07:00 06/05/17 07:00 - Constitutional Appears: Non-toxic, No Acute Distress - Head Exam Head Exam: ATRAUMATIC, NORMOCEPHALIC - Eye Exam Eye Exam: EOMI, Normal appearance - ENT Exam ENT Exam: Mucous Membranes Moist - Respiratory Exam Respiratory Exam: NORMAL BREATHING PATTERN. absent: Respiratory Distress - Cardiovascular Exam Cardiovascular Exam: REGULAR RHYTHM. absent: Tachycardia - GI/Abdominal Exam GI & Abdominal Exam: Soft. absent: Distended, Guarding, Rigid, Tenderness, Rebound - Neurological Exam Neurological Exam: Alert, Awake, Oriented x3 - Psychiatric Exam Psychiatric exam: Normal Affect, Normal Mood Assessment and Plan - Assessment and Plan (Free Text) Assessment: 56 y/o male w/ abdominal pain, resolved, and acute worsening anemia most likely 2/2 GI bleed Plan: -hold anticoagulation if possible -VSS, however in setting with recent cardiac issues recommend transfusing 2 units PRBC -GI evaluation, for upper endoscopy on Wednesday -recommend protonix BID -daily CBC -abdominal pain resolved, no clinical signs of acute mesenteric ischemia -no acute surgical intervention at this time -will follow -further recs per Dr. Ravinder Mtz PGY3
[2017-06-05] MEDS: Meropenem IV 1 gm in NS 50 ML IVPB SCH ×2 (09:45→21:10)
[2017-06-05] MEDS: Levothyroxine 88 MCG TAB PO SCH (09:46)
[2017-06-05] MEDS: DOBUTamine 500mg/250ml D5W 500 MG/250 ML BAG IV PRN (09:51)
--- NOTE | 2017-06-05 10:34 | PN ---
SUBJECTIVE: I saw Mr. Parsons this morning. He is a 56-year-old white male admitted with complaints relative to cardiac arrhythmias, both V-tach and AFib. Consult was initially called to evaluate the patient for mesenteric ischemia in a setting of right lower quadrant pain. Note that this has resolved significantly. He has not had repeat issue. The patient denies any dysphagia, significant chest pain, abdominal pain, trouble breathing etc. At the bedside this morning, the patient indicated he had his first bowel movement in roughly about five to six days. This was dark, but did not see any blood in the toilet. PHYSICAL EXAMINATION VITAL SIGNS: I reviewed this patient's vital signs. HEENT: Noncontributory. LUNGS: Decreased breath sounds, basilar. HEART: Irregular rhythm. ABDOMEN: Soft, mildly protuberant. No tenderness elicited in any quadrant. LABORATORY DATA: Significant for a white count as of yesterday morning 22,000. His H&H as of yesterday morning 10/27. Platelet count 244,000. Chemistry was really noncontributory yesterday. AST and ALT ratio 19/53. Blood sugar is mildly elevated continually between 120 and 187. I reviewed the respective consults of Cardiology, Dr. Brown and Dr. Chin. Dr. Chin's recommendation is followup CT abdomen and pelvis with contrast, also continuation of meropenem. OVERALL ASSESSMENT A 56-year-old white male with history of cardiomyopathy. His last coronary catheterization, according to Dr. Brothers, was in 2012. The patient will be evaluated by house staff as well as Cardiology and Renal this morning. There is an issue with anemia in this particular patient. Note that he has been on aspirin and anticoagulation for sometime. The patient is tentatively scheduled for an upper endoscopy on Wednesday, roughly around 08:30. I reviewed this issue with the patient. He is more than willing to have the procedure performed. Note that, I would maintain the patient on his current aspirin anticoagulation therapy upto the time of the procedure. I would not anticipate to do a colonoscopy on this patient at this point in time due to labile cardiology issues. If the EGD is diagnostic, we will consider doing a colonoscopy as an outpatient. At this point in time, continue him on the current regimen. Again, as indicated above, he will be followed up by Cardiology later on this morning. Mitch Qureshi DO, PhD SAMANTHA
--- NOTE | 2017-06-05 14:06 | CP.PCM.PN ---
<Lia Cardenas - Last Filed: 06/05/17 14:01> Subjective - Date & Time of Evaluation Date of Evaluation: 06/05/17 Time of Evaluation: 07:30 - Subjective Subjective: Kelmynornilson Theresa DO PGY1 - IM Progress Note Patient seen and examined at bedside. Per nursing staff, patient reported a melanotic bowel movement overnight, but not witnessed as patient reflexively flushed. Patient again denies abdominal pain today, no fever, chills, nausea, vomiting, diarrhea, constipation. Objective - Vital Signs/Intake and Output Vital Signs (last 24 hours): Temp Pulse Resp BP Pulse Ox 98.1 F 94 H 20 132/70 99 06/05/17 12:00 06/05/17 12:00 06/05/17 12:00 06/05/17 12:00 06/05/17 06:00 Intake and Output: 06/05/17 06/05/17 06:59 18:59 Intake Total 498 250 Output Total 750 Balance -252 250 - Medications Medications: Current Medications Amiodarone HCl (Cordarone) 200 mg PO DAILY [facility] Last Admin: 06/05/17 09:46 Dose: 200 mg Apixaban (Eliquis) 5 mg PO BID [facility] PRN Reason: Protocol Last Admin: 06/03/17 09:17 Dose: 5 mg Atorvastatin Calcium (Lipitor) 20 mg PO DAILY [facility] Last Admin: 06/05/17 09:46 Dose: 20 mg Carvedilol (Coreg) 3.125 mg PO BID [facility] Furosemide (Lasix) 20 mg PO BID [facility] Dobutamine HCl/Dextrose (Dobutamine/Dextrose 5% 500mg/250ml) 500 mg in 250 mls @ 8.301 mls/hr IV .Q24H PRN; Protocol; 2.5 MCG/KG/MIN PRN Reason: TITRATE PER PROTOCOL Last Admin: 06/05/17 09:51 Dose: 5 mcg/kg/min, 16.602 mls/hr Meropenem (Merrem Iv 1 Gm Premix) 50 mls @ 100 mls/hr IVPB Q12 [facility] PRN Reason: Protocol Stop: 06/12/17 13:16 Last Admin: 06/05/17 09:45 Dose: 100 mls/hr Levothyroxine Sodium (Synthroid) 88 mcg PO DAILY [facility] Last Admin: 06/05/17 09:46 Dose: 88 mcg Lisinopril (Zestril) 2.5 mg PO DAILY [facility] Midodrine (Proamatine) 10 mg PO TID [facility] Last Admin: 06/05/17 09:46 Dose: 10 mg Non-Formulary Medication (Eplerenone [Inspra]) 25 mg PO DAILY [facility] Ondansetron HCl (Zofran Inj) 4 mg IVP Q4H PRN PRN Reason: Nausea/Vomiting Last Admin: 06/03/17 11:24 Dose: 4 mg Pantoprazole Sodium (Protonix Inj) 40 mg IVP Q12 [facility] Last Admin: 06/05/17 09:45 Dose: 40 mg - Labs Labs: 06/05/17 07:00 06/05/17 07:00 - Constitutional Appears: Non-toxic, No Acute Distress - Head Exam Head Exam: ATRAUMATIC, NORMOCEPHALIC - Eye Exam Eye Exam: EOMI, Normal appearance, PERRL - ENT Exam ENT Exam: Mucous Membranes Moist - Neck Exam Neck Exam: Normal Inspection - Respiratory Exam Respiratory Exam: Clear to Ausculation Bilateral, NORMAL BREATHING PATTERN - Cardiovascular Exam Cardiovascular Exam: RRR, +S1, +S2 Additional comments: Regular rhythm, intermittent tachycardia - GI/Abdominal Exam GI & Abdominal Exam: Soft, Normal Bowel Sounds. absent: Distended, Firm, Guarding, Rigid, Tenderness - Rectal Exam Rectal Exam: Black Stool Additional comments: Melena noted on external exam Large boggy prostate on internal exam; bedside GUIAC positive - Extremities Exam Extremities Exam: Normal Capillary Refill, Normal Inspection. 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 fib presents with palpitation and near syncopal episode. Patient developed hypotension with tachycardia was transferred to ICU and started on levophed, dobutamine and midodrine. Patient transferred out of ICU, off pressors, with acute anemia and melena overnight Plan: Hypotension and syncope - Likely 2/2 hypovolemia 2/2 GIB; vs possible Septic vs cardiogenic shock; downtrending acute anemia since admission and melena noted on exam today - Patient off levophed; on dobutamine 5mcg/kg/min and midodrine 10mg PO TID - BP stable; will titrate off dobutamine today, then midodrine if BP remains stable - Continue to hold blood pressure medication - Blood and urine cultures negative; procal low - Cardiology on consult Dr Brothers - Echo from 05/25 shows four chamber dilation, EF 20-25%, moderate MR/TR, RVSP 50 , no thrombus Leukocytosis - Downtrending; patient is afebrile; likely reactive - Patient has no abdominal pain, no hematochezia, tolerating PO, and no lactic acidosis; extremely unlikely to have mesenteric ischemia - UA, UCx, and Blood cultures negative; procalcitonin low - CXR negative for acute disease - Noncontrast CT A/P negative - On meropenem per ID - ID consulted Anemia - Likely acute on chronic; H&H downtrending since admission; 2/2 GIB; melena noted on rectal exam - Agree with transfusion 1u PRBC; will monitor CV status before transfusing more considering low LVEF - Per GI, patient will go for EGD on Wednesday - Start Protonix 40mg IV BID for UGIB Urinary retention - Maintain guillen - Large boggy prostate noted on rectal exam - Will start flomax when BP is stable off pressors Nonischemic cardiomyopathy - Patient will need to be transferred to [facility] for AICD placement with Dr. Moura, his primary attendant [employer]; discussed yesterday with fellow at [facility] - Holding lasix, lisinopril, coreg, eplerenone due to hypotension - Continue lipitor - Continue amiodarone - Cardiology on consult Atrial fibrillation - Currently rate controlled; on amiodarone - Holding eliquis for GIB - Hold coreg for hypotension - Continue to monitor History of hypothyroidism - Continue home synthroid - TSH wnl GI/DVT Ppx: Pepcid; holding eliquis due to potential bleed; SCDs Case discussed and reviewed with attending Dr. Walton <Patricia Walton - Last Filed: 06/05/17 15:01> Objective - Vital Signs/Intake and Output Vital Signs (last 24 hours): Temp Pulse Resp BP Pulse Ox 98.5 F 90 20 112/64 99 06/05/17 14:28 06/05/17 14:30 06/05/17 14:28 06/05/17 14:30 06/05/17 06:00 Intake and Output: 06/05/17 06/05/17 06:59 18:59 Intake Total 498 270 Output Total 750 Balance -252 270 - Medications Medications: Current Medications Amiodarone HCl (Cordarone) 200 mg PO DAILY [facility] Last Admin: 06/05/17 09:46 Dose: 200 mg Apixaban (Eliquis) 5 mg PO BID [facility] PRN Reason: Protocol Last Admin: 06/03/17 09:17 Dose: 5 mg Atorvastatin Calcium (Lipitor) 20 mg PO DAILY [facility] Last Admin: 06/05/17 09:46 Dose: 20 mg Carvedilol (Coreg) 3.125 mg PO BID [facility] Furosemide (Lasix) 20 mg PO BID [facility] Meropenem (Merrem Iv 1 Gm Premix) 50 mls @ 100 mls/hr IVPB Q12 [facility] PRN Reason: Protocol Stop: 06/12/17 13:16 Last Admin: 06/05/17 09:45 Dose: 100 mls/hr Dobutamine HCl/Dextrose (Dobutamine/Dextrose 5% 500mg/250ml) 500 mg in 250 mls @ 9.015 mls/hr IV .Q24H PRN; 2.5 MCG/KG/MIN PRN Reason: hypotension Last Admin: 06/05/17 14:30 Dose: 9.015 mls/hr Levothyroxine Sodium (Synthroid) 88 mcg PO DAILY [facility] Last Admin: 06/05/17 09:46 Dose: 88 mcg Lisinopril (Zestril) 2.5 mg PO DAILY [facility] Midodrine (Proamatine) 10 mg PO TID [facility] Last Admin: 06/05/17 14:51 Dose: 10 mg Non-Formulary Medication (Eplerenone [Inspra]) 25 mg PO DAILY [facility] Ondansetron HCl (Zofran Inj) 4 mg IVP Q4H PRN PRN Reason: Nausea/Vomiting Last Admin: 06/03/17 11:24 Dose: 4 mg Pantoprazole Sodium (Protonix Inj) 40 mg IVP Q12 [facility] Last Admin: 06/05/17 09:45 Dose: 40 mg - Labs Labs: 06/05/17 07:00 06/05/17 07:00 Attending/Attestation - Attestation I have personally seen and examined this patient.: Yes I have fully participated in the care of the patient.: Yes I have reviewed all pertinent clinical information, including history, physical exam and plan: Yes Notes (Text): 06/05/17 14:56 56 year old male with past medical history of cardioyopathy and atrial fibrillation who presented with complaint of chest pain and near syncope. Serial cardiac enzymes were negative and ACS was ruled out. He later became hypotensive, started on pressors and transferred to ICU. Blood pressure has improved. Continue to wean off dobutamine as tolerated. He is also on midodrine. Cardiology is following. Case was also discussed with cardiology associate yesterday regarding possible transfer once stable. Leukocytosis is also improving. He is currently on iv antibiotics. Consider to discontinue antibiotics if cultures are negative. GI is following patient for anemia and possible GI bleed. Will transfuse prbc today for anemia. Plan for EGD on Wednesday. His anticoagulation is on hold for now secondary to above. His abdominal pain has resolved. Lactic acid was negative. Surgery is following; less likely mesenteric ischemia. Patricia Walton MD Hospitalist.
[2017-06-05] MEDS ORDERED: DOBUTamine 500mg/250ml D5W 500 MG/250 ML BAG IV PRN (14:21)
[2017-06-05 20:43] LABS: BASO # 0.02 K/mm3 (0.0-2.0); BASO % 0.1 % (0.0-3.0); EOS # 0.1 (0.0-0.7); EOS % 0.7 % (1.5-5.0); GRAN # 9.81 (1.4-6.5); GRAN % 67.9 % (50.0-68.0); HEMOGLOBIN 7.4 g/dL (14.0-18.0); LYMPH # 3.2 (1.2-3.4); MEAN CELL VOLUME 90.4 fl (80.0-105.0); MEAN CORPUSCULAR HGB CONC 34.3 g/dl (31.0-37.0); MEAN PLATELET VOLUME 8.6 fl (7.0-11.0); MONO # 1.3 (0.1-0.6); MONO % 9.3 % (1.0-6.0); RBC 2.39 10^6/uL (3.5-6.1); RED CELL DISTRIBUTION WIDTH 14.4 % (11.5-14.5); WHITE BLOOD COUNT 14.4 10^3/ul (4.5-11.0)
--- NOTE | 2017-06-06 00:46 | PN ---
DATE: SUBJECTIVE: There is a CAT scan showing no acute intra-abdominal findings. At the moment, he has no abdominal pain. Has a recent anemia. The abdomen is soft and nontender. This is a consult for Dr. Montelongo. The patient is seen by Dr. Qureshi. Will have an upper endoscopy on Wednesday. Dr. Montelongo will be back on Wednesday. Mahad Castellon MD
--- NOTE | 2017-06-06 02:49 | PN ---
DATE: 06/05/2017 SUBJECTIVE: Patient is in bed, in no acute distress, nontoxic. PHYSICAL EXAMINATION: VITAL SIGNS: Temperature is 98, blood pressure is 120/70, respiratory rate of 18, heart rate of 74. HEENT: Unremarkable. NECK: Supple. LUNGS: Have decreased breath sounds. HEART: Normal S1 and S2. ABDOMEN: Soft. LABORATORY DATA: Reveals a white count of 14,400, hemoglobin of 7. Chemistries reveal a BUN of 20, creatinine of 1.0. Urinalysis is noted. Microbiology is noted. ASSESSMENT AND PLAN: This is a 56-year-old male with systemic inflammatory response syndrome with abdominal pain that is completely resolved. The patient was seen early this morning, doing well, obstructive sleep apnea, obesity, hypothyroidism, hypertension, and currently on meropenem with cultures negative. Dr. Chin's note is reviewed. Yohannes Barnes MD
[2017-06-06 07:10] LABS: BASO # 0.03 K/mm3 (0.0-2.0); BASO % 0.3 % (0.0-3.0); EOS # 0.2 (0.0-0.7); GRAN # 6.5 (1.4-6.5); GRAN % 64.8 % (50.0-68.0); HEMOGLOBIN 7.3 g/dL (14.0-18.0); LYMPH # 2.5 (1.2-3.4); LYMPH % 24.4 % (22.0-35.0); MEAN CELL VOLUME 90.6 fl (80.0-105.0); MEAN CORPUSCULAR HEMOGLOBIN 31.2 pg (25.0-35.0); MEAN CORPUSCULAR HGB CONC 34.4 g/dl (31.0-37.0); MEAN PLATELET VOLUME 8.9 fl (7.0-11.0); MONO # 0.9 (0.1-0.6); MONO % 8.5 % (1.0-6.0); RBC 2.34 10^6/uL (3.5-6.1); RED CELL DISTRIBUTION WIDTH 14.7 % (11.5-14.5)
[2017-06-06 07:27] LABS: ALB/GLOB RATIO 1.2 (1.1-1.8); ALBUMIN 2.6 g/dL (3.0-4.8); ALT/SGPT 49 U/L (7-56); AST/SGOT 31 U/L (17-59); BLOOD UREA NITROGEN 13 mg/dL (7-21); CALCIUM 8.4 mg/dL (8.4-10.5); GFR AFRICAN-AMERICAN > 60; GFR NON-AFRICAN AMERICAN > 60
--- NOTE | 2017-06-06 07:49 | CP.PCM.PN ---
Subjective - Date & Time of Evaluation Date of Evaluation: 06/06/17 Time of Evaluation: 07:45 - Subjective Subjective: Surgery Pt seen and examined. Denies acute events. Pt had melena yesterday and tansfused. Hgbwas found to be low. Hgb 7.3 today. Denies weakness, dizziness Objective - Vital Signs/Intake and Output Vital Signs (last 24 hours): Temp Pulse Resp BP Pulse Ox 98.2 F 69 20 136/80 98 06/06/17 06:00 06/06/17 06:00 06/06/17 06:00 06/06/17 06:00 06/06/17 06:00 Intake and Output: 06/06/17 06/06/17 06:59 18:59 Intake Total 1178 Output Total 500 Balance 678 - Medications Medications: Current Medications Amiodarone HCl (Cordarone) 200 mg PO DAILY [facility] Last Admin: 06/05/17 09:46 Dose: 200 mg Apixaban (Eliquis) 5 mg PO BID [facility] PRN Reason: Protocol Last Admin: 06/03/17 09:17 Dose: 5 mg Atorvastatin Calcium (Lipitor) 20 mg PO DAILY [facility] Last Admin: 06/05/17 09:46 Dose: 20 mg Carvedilol (Coreg) 3.125 mg PO BID [facility] Furosemide (Lasix) 20 mg PO BID [facility] Meropenem (Merrem Iv 1 Gm Premix) 50 mls @ 100 mls/hr IVPB Q12 [facility] PRN Reason: Protocol Stop: 06/12/17 13:16 Last Admin: 06/05/17 21:10 Dose: 100 mls/hr Dobutamine HCl/Dextrose (Dobutamine/Dextrose 5% 500mg/250ml) 500 mg in 250 mls @ 9.015 mls/hr IV .Q24H PRN; 2.5 MCG/KG/MIN PRN Reason: hypotension Last Admin: 06/05/17 14:30 Dose: 9.015 mls/hr Levothyroxine Sodium (Synthroid) 88 mcg PO DAILY [facility] Last Admin: 06/05/17 09:46 Dose: 88 mcg Lisinopril (Zestril) 2.5 mg PO DAILY [facility] Midodrine (Proamatine) 10 mg PO TID [facility] Last Admin: 06/05/17 18:37 Dose: 10 mg Non-Formulary Medication (Eplerenone [Inspra]) 25 mg PO DAILY [facility] Ondansetron HCl (Zofran Inj) 4 mg IVP Q4H PRN PRN Reason: Nausea/Vomiting Last Admin: 06/03/17 11:24 Dose: 4 mg Pantoprazole Sodium (Protonix Inj) 40 mg IVP Q12 [facility] Last Admin: 06/05/17 21:11 Dose: 40 mg - Labs Labs: 06/06/17 06:15 06/06/17 06:15 - Constitutional Appears: No Acute Distress - Head Exam Head Exam: ATRAUMATIC, NORMAL INSPECTION, NORMOCEPHALIC - Eye Exam Eye Exam: EOMI, Normal appearance, PERRL Pupil Exam: NORMAL ACCOMODATION, PERRL - ENT Exam ENT Exam: Mucous Membranes Moist, Normal Exam Additional comments: R IJ in place - Neck Exam Neck Exam: Full ROM - Respiratory Exam Respiratory Exam: Clear to Ausculation Bilateral, NORMAL BREATHING PATTERN - Cardiovascular Exam Cardiovascular Exam: REGULAR RHYTHM, +S1, +S2. absent: Murmur - GI/Abdominal Exam GI & Abdominal Exam: Soft, Normal Bowel Sounds. absent: Distended, Firm, Guarding, Rigid, Tenderness - Extremities Exam Extremities Exam: Full ROM, Normal Capillary Refill, Normal Inspection. absent : Joint Swelling, Pedal Edema - Back Exam Back Exam: NORMAL INSPECTION - Neurological Exam Neurological Exam: Alert, Awake, CN II-XII Intact, Normal Gait, Oriented x3 - Psychiatric Exam Psychiatric exam: Normal Affect, Normal Mood - Skin Skin Exam: Dry, Intact, Normal Color, Warm Assessment and Plan - Assessment and Plan (Free Text) Assessment: 56 y/o male w/ abdominal pain, resolved, and acute worsening anemia most likely 2/2 GI bleed Hgb 7.3 continues to be low s/p 3 PRBC transfusion Plan: -hold anticoagulation if possible -VSS, however in setting with recent cardiac issues recommend transfusing 2 units PRBC -GI evaluation, for upper endoscopy on Wednesday -recommend protonix BID -daily CBC -abdominal pain resolved, no clinical signs of acute mesenteric ischemia -no acute surgical intervention at this time -will follow -further recs per Dr. Castellon
--- NOTE | 2017-06-06 08:31 | CP.PCM.PN ---
Subjective - Date & Time of Evaluation Date of Evaluation: 06/06/17 Time of Evaluation: 07:00 - Subjective Subjective: Stable on 3R No CP or SOB. He feels well. Anemic with GI w/u underway. V/S noted. RSR PE: Lungs: Clear Cor.: S1S2 Abd.: soft Ext.: no edema Neuro.: alert I/O= 1773/500 recorded Labs: H/H 7.3/21/2 K+= 3.4, Cr.= 0.8 BC X 3 NG at [address] A/P noted. No acute findings Objective - Vital Signs/Intake and Output Vital Signs (last 24 hours): Temp Pulse Resp BP Pulse Ox 98.2 F 69 20 136/80 98 06/06/17 06:00 06/06/17 06:00 06/06/17 06:00 06/06/17 06:00 06/06/17 06:00 Intake and Output: 06/06/17 06/06/17 06:59 18:59 Intake Total 1178 Output Total 500 Balance 678 - Medications Medications: Current Medications Amiodarone HCl (Cordarone) 200 mg PO DAILY [facility] Last Admin: 06/05/17 09:46 Dose: 200 mg Apixaban (Eliquis) 5 mg PO BID [facility] PRN Reason: Protocol Last Admin: 06/03/17 09:17 Dose: 5 mg Atorvastatin Calcium (Lipitor) 20 mg PO DAILY [facility] Last Admin: 06/05/17 09:46 Dose: 20 mg Carvedilol (Coreg) 3.125 mg PO BID [facility] Furosemide (Lasix) 20 mg PO BID [facility] Meropenem (Merrem Iv 1 Gm Premix) 50 mls @ 100 mls/hr IVPB Q12 [facility] PRN Reason: Protocol Stop: 06/12/17 13:16 Last Admin: 06/05/17 21:10 Dose: 100 mls/hr Dobutamine HCl/Dextrose (Dobutamine/Dextrose 5% 500mg/250ml) 500 mg in 250 mls @ 9.015 mls/hr IV .Q24H PRN; 2.5 MCG/KG/MIN PRN Reason: hypotension Last Admin: 06/05/17 14:30 Dose: 9.015 mls/hr Levothyroxine Sodium (Synthroid) 88 mcg PO DAILY [facility] Last Admin: 06/05/17 09:46 Dose: 88 mcg Lisinopril (Zestril) 2.5 mg PO DAILY [facility] Midodrine (Proamatine) 10 mg PO TID [facility] Last Admin: 06/05/17 18:37 Dose: 10 mg Non-Formulary Medication (Eplerenone [Inspra]) 25 mg PO DAILY [facility] Ondansetron HCl (Zofran Inj) 4 mg IVP Q4H PRN PRN Reason: Nausea/Vomiting Last Admin: 06/03/17 11:24 Dose: 4 mg Pantoprazole Sodium (Protonix Inj) 40 mg IVP Q12 [facility] Last Admin: 06/05/17 21:11 Dose: 40 mg - Labs Labs: 06/06/17 06:15 06/06/17 06:15 Assessment and Plan - Assessment and Plan (Free Text) Assessment: Weak/Near syncope initially Severe Anemia Abdominal Pain, resolved. Melena. H/O VT with cadioversion last admission PAF CCM with nl cors at cath 2012 H/O ETOH HBP Hypothyroidism [place]/Uvulectomy Plan: Transfuse. As per medical team and GI. Wean off . D/C ASA, Eliquis, midodrine - done Continue cardiac meds: amiod., Coreg, lisinopril, atorvastatin Replace K+ EP evaluation and ICD at GI evaluation: EGD tomorrow Monitor: labs, I/O, H/H, K+, Mg.++, sats., cultures, etc.
--- NOTE | 2017-06-06 11:03 | PN ---
DATE: SUBJECTIVE: I saw Mr. Parsons this morning. He is a 56-year-old white male with complaints of chest pain, cardiac arrhythmias including V-tach as well as atrial fibrillation. The patient has not had any recurrent episodes of abdominal pain, for which this consult was initially requested. The patient noted that he has had bowel movements, but not melanotic in type. There is no complaints of acid reflux, dysphagia, etc. Abdomen is not distended. There is no pain elicited anywhere. PHYSICAL EXAMINATION VITAL SIGNS: I reviewed this patient's vital signs. HEENT: Noncontributory. LUNGS: Decreased breath sounds, basilar. HEART: Irregular rhythm. ABDOMEN: Soft. No tenderness elicited. OVERALL ASSESSMENT: A 56-year-old white male, admitted for cardiac arrhythmia issues, found to be improving on current therapeutic regimen. The consultation was requested for abdominal pain as well as anemia. Review of his most recent labs indicates as of yesterday, hemoglobin and hematocrit of 7.4 and 21, with a platelet count of 261. Comprehensive metabolic as of yesterday is noncontributory. Note that I scheduled this patient for an upper endoscopy tomorrow tomorrow at roughly 8:30. This is to evaluate whether he has possible ulceration in the distal esophagus, hiatal hernia, or the gastric mucosa. He will be n.p.o. after midnight. Maintain the patient on his anticoagulation regimen. Mitch Qureshi DO
[2017-06-06] MEDS: Levothyroxine 88 MCG TAB PO SCH (11:45)
[2017-06-06] MEDS: Potassium Chloride 20 mEq ER Tab PO SCH ×2 (11:45→17:43)
[2017-06-06] MEDS: cefTRIAXone 1 gm 1 GM/100 ML BAG IVPB SCH (11:45)
--- NOTE | 2017-06-06 15:16 | PN ---
DATE: 06/06/2017 SUBJECTIVE: The patient is in bed in no acute distress, nontoxic. PHYSICAL EXAMINATION: VITAL SIGNS: Temperature is 98, blood pressure is 130/80, respiratory rate of 18, heart rate of 78. HEENT: Unremarkable. NECK: Supple. LUNGS: Have decreased breath sounds. HEART: Normal S1 and S2. ABDOMEN: Soft, nontender. No rebound or guarding. No masses. LABORATORY DATA: Reveals the patient's white count is down to 10,000, hemoglobin of 7, platelets of 265. Chemistries reveals a BUN of 13, creatinine of 0.8 and procalcitonin is negative x2. Urinalysis is noted. Stool for occult blood is positive. Dr. Brothers's note is reviewed. Dr. Castellon's note is reviewed. ASSESSMENT AND PLAN: A 56-year-old male with systemic inflammatory response syndrome and occult blood positive gastrointestinal bleed, obstructive sleep apnea, hypothyroidism, hypertension, afebrile, doing well. Patient is scheduled for endoscopy. All cultures are negative. The patient with nonischemic cardiomyopathy and normal coronaries and hypertension, ventricular tachycardia, obesity, sleep apnea. We will discontinue meropenem and use ceftriaxone. Pending his endoscopy tomorrow. Yohannes Barnes MD
--- NOTE | 2017-06-06 16:09 | CP.PCM.PN ---
<TheresaKelporter - Last Filed: 06/06/17 16:06> Subjective - Date & Time of Evaluation Date of Evaluation: 06/06/17 Time of Evaluation: 07:30 - Subjective Subjective: Lia Cardenas DO PGY1 - IM Progress Note Patient seen and examined at bedside. Per nursing staff, no acute events overnight. Patient has had no further melanotic bowel movements overnight. Patient denies abdominal pain today, no fever, chills, nausea, vomiting, diarrhea, constipation. He also denies chest pain, shortness of breath, or palpitations. Objective - Vital Signs/Intake and Output Vital Signs (last 24 hours): Temp Pulse Resp BP Pulse Ox 98.8 F 72 20 106/61 98 06/06/17 15:09 06/06/17 15:09 06/06/17 15:06/06/17 15:06/06/17 06:00 Intake and Output: 06/06/17 06/06/17 06:59 18:59 Intake Total 1178 325 Output Total 500 Balance 678 325 - Medications Medications: Current Medications Amiodarone HCl (Cordarone) 200 mg PO DAILY [facility] Last Admin: 06/06/17 11:46 Dose: 200 mg Apixaban (Eliquis) 5 mg PO BID [facility] PRN Reason: Protocol Last Admin: 06/03/17 09:17 Dose: 5 mg Atorvastatin Calcium (Lipitor) 20 mg PO DAILY [facility] Last Admin: 06/06/17 11:45 Dose: 20 mg Carvedilol (Coreg) 3.125 mg PO BID [facility] Furosemide (Lasix) 20 mg PO DAILY [facility] Ceftriaxone Sodium (Rocephin 1 Gram Ivpb) 1 gm in 100 mls @ 100 mls/hr IVPB DAILY [facility] PRN Reason: Protocol Stop: 06/11/17 10:01 Last Admin: 06/06/17 11:45 Dose: 100 mls/hr Levothyroxine Sodium (Synthroid) 88 mcg PO DAILY [facility] Last Admin: 06/06/17 11:45 Dose: 88 mcg Lisinopril (Zestril) 2.5 mg PO DAILY [facility] Non-Formulary Medication (Eplerenone [Inspra]) 25 mg PO DAILY [facility] Ondansetron HCl (Zofran Inj) 4 mg IVP Q4H PRN PRN Reason: Nausea/Vomiting Last Admin: 06/03/17 11:24 Dose: 4 mg Pantoprazole Sodium (Protonix Inj) 40 mg IVP Q12 [facility] Last Admin: 06/06/17 11:45 Dose: 40 mg Potassium Chloride (K-Dur 20 Meq Er Tab) 20 meq PO BID [facility] Last Admin: 06/06/17 11:45 Dose: 20 meq - Labs Labs: 06/06/17 06:15 06/06/17 06:15 - Additional Findings Additional findings: - Constitutional Appears: Non-toxic, No Acute Distress - Head Exam Head Exam: ATRAUMATIC, NORMOCEPHALIC - Eye Exam Eye Exam: EOMI, Normal appearance, PERRL - ENT Exam ENT Exam: Mucous Membranes Moist - Neck Exam Neck Exam: Normal Inspection - Respiratory Exam Respiratory Exam: Clear to Ausculation Bilateral, NORMAL BREATHING PATTERN - Cardiovascular Exam Cardiovascular Exam: RRR, +S1, +S2 Additional comments: Regular rhythm, intermittent tachycardia - GI/Abdominal Exam GI & Abdominal Exam: Soft, Normal Bowel Sounds. absent: Distended, Firm, Guarding, Rigid, Tenderness - Extremities Exam Extremities Exam: Normal Capillary Refill, Normal Inspection. 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 fib presents with palpitation and near syncopal episode. Patient developed hypotension with tachycardia was transferred to ICU and started on levophed, dobutamine and midodrine. Patient transferred out of ICU, off pressors, with acute anemia and melena. No further episodes of melena. Plan: Hypotension and syncope - Likely 2/2 hypovolemia 2/2 GIB; vs possible Septic vs cardiogenic shock; GIB with melena noted yesterday - Continue midodrine 10mg PO TID - BP stable; decreased dobutamine yesterday to 2.5mcg/hr; will discontinue today - Resume low dose BB and Lasix per cardio - Cardiology on consult Dr Brothers - Echo from 05/25 shows four chamber dilation, EF 20-25%, moderate MR/TR, RVSP 50 , no thrombus Leukocytosis - Downtrending; patient is afebrile; likely reactive - Septic workup negative - Merrem changed to Rocephin per ID - ID consulted Anemia - Likely acute on chronic; H&H downtrending since admission; 2/2 GIB; melena noted on rectal exam - H&H slightly improved after 1u PRBC; ordered 1u PRBC for today; recheck CBC 3 hours after transfusion - Per GI, patient will go for EGD on Wednesday - Continue Protonix 40mg IV BID for UGIB Urinary retention - Maintain guillen - Large boggy prostate noted on rectal exam - Will start flomax when BP is stable off pressors Nonischemic cardiomyopathy - Patient will need to be transferred to [facility] for AICD placement with Dr. 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 Walton <Patricia Walton - Last Filed: 06/06/17 16:47> Objective - Vital Signs/Intake and Output Vital Signs (last 24 hours): Temp Pulse Resp BP Pulse Ox 98.8 F 72 20 106/61 98 06/06/17 15:09 06/06/17 15:09 06/06/17 15:09 06/06/17 15:09 06/06/17 06:00 Intake and Output: 06/06/17 06/06/17 06:59 18:59 Intake Total 1178 325 Output Total 500 Balance 678 325 - Medications Medications: Current Medications Amiodarone HCl (Cordarone) 200 mg PO DAILY [facility] Last Admin: 06/06/17 11:46 Dose: 200 mg Apixaban (Eliquis) 5 mg PO BID [facility] PRN Reason: Protocol Last Admin: 06/03/17 09:17 Dose: 5 mg Atorvastatin Calcium (Lipitor) 20 mg PO DAILY [facility] Last Admin: 06/06/17 11:45 Dose: 20 mg Carvedilol (Coreg) 3.125 mg PO BID [facility] Furosemide (Lasix) 20 mg PO DAILY [facility] Ceftriaxone Sodium (Rocephin 1 Gram Ivpb) 1 gm in 100 mls @ 100 mls/hr IVPB DAILY [facility] PRN Reason: Protocol Stop: 06/11/17 10:01 Last Admin: 06/06/17 11:45 Dose: 100 mls/hr Levothyroxine Sodium (Synthroid) 88 mcg PO DAILY [facility] Last Admin: 06/06/17 11:45 Dose: 88 mcg Lisinopril (Zestril) 2.5 mg PO DAILY [facility] Non-Formulary Medication (Eplerenone [Inspra]) 25 mg PO DAILY [facility] Ondansetron HCl (Zofran Inj) 4 mg IVP Q4H PRN PRN Reason: Nausea/Vomiting Last Admin: 06/03/17 11:24 Dose: 4 mg Pantoprazole Sodium (Protonix Inj) 40 mg IVP Q12 [facility] Last Admin: 06/06/17 11:45 Dose: 40 mg Potassium Chloride (K-Dur 20 Meq Er Tab) 20 meq PO BID [facility] Last Admin: 06/06/17 11:45 Dose: 20 meq Tamsulosin HCl (Flomax) 0.4 mg PO DAILY [facility] - Labs Labs: 06/06/17 06:15 06/06/17 06:15 Attending/Attestation - Attestation I have personally seen and examined this patient.: Yes I have fully participated in the care of the patient.: Yes I have reviewed all pertinent clinical information, including history, physical exam and plan: Yes Notes (Text): 06/06/17 16:45 56 year old male with past medical history of cardioyopathy and atrial fibrillation who presented with complaint of chest pain and near syncope. Serial cardiac enzymes were negative and ACS was ruled out. He later became hypotensive, started on pressors and transferred to ICU. Blood pressure has improved and today he is weaned off dobutamine. Can resume bp medications as tolerated as per cardiology. Case was discussed with folder stitcher operator regarding possible transfer once stable. GI is following patient for anemia and possible GI bleed. Will transfuse prbc today for anemia. Plan is for EGD tomorrow. His anticoagulation is on hold for now secondary to above. His abdominal pain has resolved. Lactic acid was negative. Surgery is following; less likely mesenteric ischemia. Patricia Walton MD Hospitalist.
[2017-06-06 17:58] LABS: BASO # 0.02 K/mm3 (0.0-2.0); BASO % 0.2 % (0.0-3.0); EOS # 0.4 (0.0-0.7); EOS % 3.9 % (1.5-5.0); GRAN # 7.67 (1.4-6.5); GRAN % 67.7 % (50.0-68.0); HEMOGLOBIN 8.2 g/dL (14.0-18.0); LYMPH # 2.6 (1.2-3.4); LYMPH % 22.7 % (22.0-35.0); MEAN CELL VOLUME 89.2 fl (80.0-105.0); MEAN CORPUSCULAR HEMOGLOBIN 30.6 pg (25.0-35.0); MEAN CORPUSCULAR HGB CONC 34.3 g/dl (31.0-37.0); MEAN PLATELET VOLUME 8.4 fl (7.0-11.0); MONO # 0.6 (0.1-0.6); MONO % 5.5 % (1.0-6.0); RBC 2.68 10^6/uL (3.5-6.1); RED CELL DISTRIBUTION WIDTH 15.2 % (11.5-14.5); WHITE BLOOD COUNT 11.3 10^3/ul (4.5-11.0)
[2017-06-07 06:19] LABS: BASO # 0.03 K/mm3 (0.0-2.0); BASO % 0.3 % (0.0-3.0); EOS # 0.4 (0.0-0.7); EOS % 4.3 % (1.5-5.0); GRAN # 6.47 (1.4-6.5); GRAN % 64.7 % (50.0-68.0); HEMOGLOBIN 8.2 g/dL (14.0-18.0); LYMPH # 2.4 (1.2-3.4); LYMPH % 24.1 % (22.0-35.0); MEAN CELL VOLUME 89.4 fl (80.0-105.0); MEAN CORPUSCULAR HGB CONC 33.6 g/dl (31.0-37.0); MEAN PLATELET VOLUME 8.5 fl (7.0-11.0); MONO # 0.7 (0.1-0.6); MONO % 6.6 % (1.0-6.0); RBC 2.73 10^6/uL (3.5-6.1); RED CELL DISTRIBUTION WIDTH 15.9 % (11.5-14.5)
[2017-06-07 07:04] LABS: BLOOD UREA NITROGEN 11 mg/dL (7-21); CALCIUM 8.7 mg/dL (8.4-10.5); GFR AFRICAN-AMERICAN > 60; GFR NON-AFRICAN AMERICAN > 60
[2017-06-07] MEDS ORDERED: Propofol 10 mg/ml Inj (20 ML) ONE (08:24)
[2017-06-07] MEDS ORDERED: Sodium Chloride 0.9% 1,000 ML IV SCH (09:00)
--- NOTE | 2017-06-07 09:00 | CP.PCM.PN ---
Subjective - Date & Time of Evaluation Date of Evaluation: 06/07/17 Time of Evaluation: 08:57 - Subjective Subjective: Surgery: Dr. Castellon covering for Dr. Montelongo Patient reports feeling well today. He denies n/v/f/c. He reports nomal BM last night. NPO for EGD today. Objective - Vital Signs/Intake and Output Vital Signs (last 24 hours): Temp Pulse Resp BP Pulse Ox 97.4 F L 71 20 109/68 100 06/07/17 06:00 06/07/17 06:00 06/07/17 06:00 06/07/17 06:00 06/07/17 08:38 Intake and Output: 06/07/17 06/07/17 06:59 18:59 Intake Total 240 Output Total 1600 Balance -1360 - Medications Medications: Current Medications Amiodarone HCl (Cordarone) 200 mg PO DAILY [facility] Last Admin: 06/06/17 11:46 Dose: 200 mg Apixaban (Eliquis) 5 mg PO BID [facility] PRN Reason: Protocol Last Admin: 06/03/17 09:17 Dose: 5 mg Atorvastatin Calcium (Lipitor) 20 mg PO DAILY [facility] Last Admin: 06/06/17 11:45 Dose: 20 mg Carvedilol (Coreg) 3.125 mg PO BID [facility] Last Admin: 06/06/17 17:43 Dose: 3.125 mg Furosemide (Lasix) 20 mg PO DAILY [facility] Ceftriaxone Sodium (Rocephin 1 Gram Ivpb) 1 gm in 100 mls @ 100 mls/hr IVPB DAILY [facility] PRN Reason: Protocol Stop: 06/11/17 10:01 Last Admin: 06/06/17 11:45 Dose: 100 mls/hr Sodium Chloride (Sodium Chloride 0.9%) 1,000 mls @ 75 mls/hr IV .[id number] [facility] Stop: 06/07/17 11:01 Levothyroxine Sodium (Synthroid) 88 mcg PO DAILY [facility] Last Admin: 06/06/17 11:45 Dose: 88 mcg Lisinopril (Zestril) 2.5 mg PO DAILY [facility] Non-Formulary Medication (Eplerenone [Inspra]) 25 mg PO DAILY [facility] Ondansetron HCl (Zofran Inj) 4 mg IVP Q4H PRN PRN Reason: Nausea/Vomiting Last Admin: 06/03/17 11:24 Dose: 4 mg Pantoprazole Sodium (Protonix Inj) 40 mg IVP Q12 [facility] Last Admin: 06/06/17 21:13 Dose: 40 mg Potassium Chloride (K-Dur 20 Meq Er Tab) 20 meq PO BID [facility] Last Admin: 06/06/17 17:43 Dose: 20 meq Tamsulosin HCl (Flomax) 0.4 mg PO DAILY [facility] Last Admin: 06/06/17 17:43 Dose: 0.4 mg - Labs Labs: 06/07/17 05:40 06/07/17 05:40 - Constitutional Appears: Non-toxic, No Acute Distress - Head Exam Head Exam: ATRAUMATIC, NORMOCEPHALIC - Eye Exam Eye Exam: EOMI, Normal appearance - ENT Exam ENT Exam: Mucous Membranes Moist - Respiratory Exam Respiratory Exam: NORMAL BREATHING PATTERN. absent: Respiratory Distress - Cardiovascular Exam Cardiovascular Exam: REGULAR RHYTHM. absent: Tachycardia - GI/Abdominal Exam GI & Abdominal Exam: Soft. absent: Distended, Guarding, Rigid, Tenderness, Rebound Assessment and Plan - Assessment and Plan (Free Text) Assessment: 56 y/o male w/ anemia most likely 2/2 GI bleed Plan: -black stools resolved, for upper endo today -cont protonix BID -daily HGb -diet per GI post EGD -no acute surgical intervention at this time -further recs per Dr. Ravinder Mtz PGY3
--- NOTE | 2017-06-07 09:33 | CP.PCM.PN ---
Subjective - Date & Time of Evaluation Date of Evaluation: 06/07/17 Time of Evaluation: 07:00 - Subjective Subjective: Stable on 3R No CP or SOB. He feels well. Anemic with GI w/u underway. EGD today. S/P transfusion. V/S noted. RSR PE: Lungs: Clear Cor.: S1S2 Abd.: soft Ext.: no edema Neuro.: alert I/O= 565/1600 recorded Labs: H/H = 8.2/24.4, BMP OK, Mg++= 2.0 BC X 3 NG at [address] A/P noted. No acute findings EGD report noted. Multiple non-bleeding ulcerations. See report. Objective - Vital Signs/Intake and Output Vital Signs (last 24 hours): Temp Pulse Resp BP Pulse Ox 98 F 65 14 107/61 100 06/07/17 09:07 06/07/17 09:07 06/07/17 09:07 06/07/17 09:07 06/07/17 09:07 Intake and Output: 06/07/17 06/07/17 06:59 18:59 Intake Total 240 Output Total 1600 Balance -1360 - Medications Medications: Current Medications Amiodarone HCl (Cordarone) 200 mg PO DAILY [facility] Last Admin: 06/06/17 11:46 Dose: 200 mg Apixaban (Eliquis) 5 mg PO BID [facility] PRN Reason: Protocol Last Admin: 06/03/17 09:17 Dose: 5 mg Atorvastatin Calcium (Lipitor) 20 mg PO DAILY [facility] Last Admin: 06/06/17 11:45 Dose: 20 mg Carvedilol (Coreg) 3.125 mg PO BID [facility] Last Admin: 06/06/17 17:43 Dose: 3.125 mg Furosemide (Lasix) 20 mg PO DAILY [facility] Ceftriaxone Sodium (Rocephin 1 Gram Ivpb) 1 gm in 100 mls @ 100 mls/hr IVPB DAILY [facility] PRN Reason: Protocol Stop: 06/11/17 10:01 Last Admin: 06/06/17 11:45 Dose: 100 mls/hr Sodium Chloride (Sodium Chloride 0.9%) 1,000 mls @ 75 mls/hr IV .[id number] [facility] Stop: 06/07/17 11:01 Levothyroxine Sodium (Synthroid) 88 mcg PO DAILY [facility] Last Admin: 06/06/17 11:45 Dose: 88 mcg Lisinopril (Zestril) 2.5 mg PO DAILY [facility] Non-Formulary Medication (Eplerenone [Inspra]) 25 mg PO DAILY [facility] Ondansetron HCl (Zofran Inj) 4 mg IVP Q4H PRN PRN Reason: Nausea/Vomiting Last Admin: 06/03/17 11:24 Dose: 4 mg Pantoprazole Sodium (Protonix Inj) 40 mg IVP Q12 [facility] Last Admin: 06/06/17 21:13 Dose: 40 mg Potassium Chloride (K-Dur 20 Meq Er Tab) 20 meq PO BID [facility] Last Admin: 06/06/17 17:43 Dose: 20 meq Sucralfate (Carafate Oral Susp) 1 gm PO 0630,1130,1630,2200 [facility] Stop: 06/11/17 23:59 Tamsulosin HCl (Flomax) 0.4 mg PO DAILY [facility] Last Admin: 06/06/17 17:43 Dose: 0.4 mg - Labs Labs: 06/07/17 05:40 06/07/17 05:40 Assessment and Plan - Assessment and Plan (Free Text) Assessment: Weak/Near syncope initially Severe Anemia PUD with multiple ulcerations (E,G and D) Abdominal Pain, resolved. Melena. H/O VT with cadioversion last admission PAF CCM with nl cors at cath 2012 H/O ETOH HBP Hypothyroidism [place]/Uvulectomy Plan: D/C ASA, Eliquis - done. Resume as per GI. Continue cardiac meds: Lasix, amiod., Coreg, lisinopril, atorvastatin Replace K+ EP evaluation and ICD at Monitor: labs, I/O, H/H, sats., cultures, etc.
--- NOTE | 2017-06-07 10:18 | PN ---
DATE: 06/07/2017 SUBJECTIVE: I saw Mr. Parsons this morning. He is a 56-year-old white male admitted for complaints of chest pain, found to have previously cardiac arrhythmias including ventricular tachycardia, atrial fibrillation, hypertension, cardiogenic shock, previously on Levophed, pressors in the unit. The patient denies any abdominal pain, chest pain, hematemesis, or rectal bleeding. The patient is currently being seen by multiple consultants including Cardiology, House Staff, Surgery as well as ID. The patient feels well this morning. PHYSICAL EXAMINATION VITAL SIGNS: I reviewed this patient's vital signs. HEENT: Noncontributory. LUNGS: Decreased breath sounds at the bases. HEART: Irregular rhythm. ABDOMEN: Soft and nontender. LABORATORY DATA: Pending for today. OVERALL ASSESSMENT: This is a 56-year-old white male admitted with chest pain and found to have multiple cardiac arrhythmias, also cardiomyopathy, recent ventricular tachycardia and atrial fibrillation, cardiogenic shock requiring pressors. The patient has exhibited an anemia during admission, which is the reason why the upper endoscopy is being done. He has had no recent melanotic episodes. I reviewed the risks, benefits, and alternatives of the procedure that is the upper endoscopy including the risk of hemorrhage, perforation and surgery. I was at the bedside this morning. The alternative of no procedure was also explained. The patient was signed consent later on this morning and consented for his endoscopic procedure. Mitch Qureshi DO
[2017-06-07] MEDS: cefTRIAXone 1 gm 1 GM/100 ML BAG IVPB SCH (11:12)
[2017-06-07] MEDS: Potassium Chloride 20 mEq ER Tab PO SCH ×2 (11:13→18:45)
[2017-06-07] MEDS: Sucralfate 1 gm/10 ml Oral Susp UD PO SCH ×3 (11:13→21:54)
[2017-06-07] MEDS: Levothyroxine 88 MCG TAB PO SCH (11:13)
--- NOTE | 2017-06-07 18:02 | CP.PCM.PN ---
<Lia Cardenas - Last Filed: 06/07/17 17:49> Subjective - Date & Time of Evaluation Date of Evaluation: 06/07/17 Time of Evaluation: 07:30 - Subjective Subjective: Lia Cardenas DO PGY1 - IM Progress Note Patient seen and examined at bedside. Per nursing staff, no acute events overnight. Patient denies any more melena. Patient denies abdominal pain today, no fever, chills, nausea, vomiting, diarrhea, constipation. He also denies chest pain, shortness of breath, or palpitations. Patient is for EGD this AM with Dr. Qureshi Objective - Vital Signs/Intake and Output Vital Signs (last 24 hours): Temp Pulse Resp BP Pulse Ox 98 F 85 14 125/78 100 06/07/17 09:37 06/07/17 14:58 06/07/17 09:37 06/07/17 14:58 06/07/17 09:37 Intake and Output: 06/07/17 06/07/17 06:59 18:59 Intake Total 240 Output Total 1600 Balance -1360 - Medications Medications: Current Medications Amiodarone HCl (Cordarone) 200 mg PO DAILY [facility] Last Admin: 06/07/17 11:14 Dose: 200 mg Atorvastatin Calcium (Lipitor) 20 mg PO DAILY [facility] Last Admin: 06/07/17 11:13 Dose: 20 mg Carvedilol (Coreg) 3.125 mg PO BID [facility] Last Admin: 06/07/17 11:14 Dose: 3.125 mg Furosemide (Lasix) 20 mg PO DAILY [facility] Last Admin: 06/07/17 11:13 Dose: 20 mg Ceftriaxone Sodium (Rocephin 1 Gram Ivpb) 1 gm in 100 mls @ 100 mls/hr IVPB DAILY [facility] PRN Reason: Protocol Stop: 06/11/17 10:01 Last Admin: 06/07/17 11:12 Dose: 100 mls/hr Levothyroxine Sodium (Synthroid) 88 mcg PO DAILY [facility] Last Admin: 06/07/17 11:13 Dose: 88 mcg Lisinopril (Zestril) 2.5 mg PO DAILY [facility] Non-Formulary Medication (Eplerenone [Inspra]) 25 mg PO DAILY [facility] Ondansetron HCl (Zofran Inj) 4 mg IVP Q4H PRN PRN Reason: Nausea/Vomiting Last Admin: 06/03/17 11:24 Dose: 4 mg Pantoprazole Sodium (Protonix Ec Tab) 40 mg PO 0600,1600 [facility] Potassium Chloride (K-Dur 20 Meq Er Tab) 20 meq PO BID [facility] Last Admin: 06/07/17 11:13 Dose: 20 meq Sucralfate (Carafate Oral Susp) 1 gm PO 0630,1130,1630,2200 [facility] Stop: 06/11/17 23:59 Last Admin: 06/07/17 11:13 Dose: 1 gm Tamsulosin HCl (Flomax) 0.4 mg PO DAILY [facility] Last Admin: 06/07/17 11:13 Dose: 0.4 mg - Labs Labs: 06/07/17 05:40 06/07/17 05:40 - Additional Findings Additional findings: - Constitutional Appears: Non-toxic, No Acute Distress - Head Exam Head Exam: ATRAUMATIC, NORMOCEPHALIC - Eye Exam Eye Exam: EOMI, Normal appearance, PERRL - ENT Exam ENT Exam: Mucous Membranes Moist - Neck Exam Neck Exam: Normal Inspection - Respiratory Exam Respiratory Exam: Clear to Ausculation Bilateral, NORMAL BREATHING PATTERN - Cardiovascular Exam Cardiovascular Exam: RRR, +S1, +S2 Additional comments: Regular rhythm, intermittent tachycardia - GI/Abdominal Exam GI & Abdominal Exam: Soft, Normal Bowel Sounds. absent: Distended, Firm, Guarding, Rigid, Tenderness - Extremities Exam Extremities Exam: Normal Capillary Refill, Normal Inspection. 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 fib presents with palpitation and near syncopal episode. Patient developed hypotension with tachycardia was transferred to ICU and started on levophed, dobutamine and midodrine. Patient transferred out of ICU, off pressors, with acute anemia and melena. No further episodes of melena. Pending EGD today Plan: Hypotension and syncope - Likely 2/2 hypovolemia 2/2 GIB - BP stable off all pressors; midodrine discontinued yesterday per cardio - Continue low dose BB and Lasix per cardio - Cardiology on consult Dr Brothers - Echo from 05/25 shows four chamber dilation, EF 20-25%, moderate MR/TR, RVSP 50 , no thrombus Leukocytosis - Resolved - Septic workup negative - Continue Rocephin per ID - ID consulted Anemia 2/2 GIB - H&H stable, s/p 4uPRBC - Patient had EGD in AM which showed multiple nonbleeding ulcers - Continue high dose PPI; Protonix 40mg PO BID - Per GI, can resume anticoagulation Urinary retention - Discontinue guillen today - Large boggy prostate noted on rectal exam - Start flomax daily Nonischemic cardiomyopathy - Continue low dose coreg and lasix per cardio; Continue holding eplerenone due to hypotension - Resume low dose ACEi - lisinopril 2.5mg PO daily - Continue lipitor - Continue amiodarone - Cardiology on consult Atrial fibrillation - Currently rate controlled; on amiodarone - Discussed with patient risks of bleeding, including recurrent GI bleed, versus risk of stroke in atrial fibrillation; patient verbalized understanding and agreement, and agrees with plan to restart anticoagulation - CHADSVASC 2, HASBLED 1 - Start coumadin 5mg PO daily; check INR in AM - Continue to monitor History of hypothyroidism - Continue home synthroid - TSH wnl GI/DVT Ppx: Protonix; SCDs Case discussed and reviewed with attending Dr. Werner <Lenny Werner - Last Filed: 06/09/17 17:20> Objective - Vital Signs/Intake and Output Vital Signs (last 24 hours): Temp Pulse Resp BP Pulse Ox 99.2 F 92 H 20 104/63 93 L 06/09/17 12:00 06/09/17 14:00 06/09/17 12:00 06/09/17 12:00 06/09/17 06:00 Intake and Output: 06/09/17 06/09/17 06:59 18:59 Intake Total 840 Output Total 2350 Balance -1510 - Medications Medications: Current Medications Amiodarone HCl (Cordarone) 200 mg PO DAILY [facility] Last Admin: 06/09/17 09:26 Dose: 200 mg Atorvastatin Calcium (Lipitor) 20 mg PO DAILY [facility] Last Admin: 06/09/17 09:26 Dose: 20 mg Carvedilol (Coreg) 3.125 mg PO BID [facility] Last Admin: 06/09/17 09:27 Dose: 3.125 mg Furosemide (Lasix) 20 mg PO DAILY [facility] Last Admin: 06/09/17 09:26 Dose: 20 mg Levothyroxine Sodium (Synthroid) 88 mcg PO DAILY [facility] Last Admin: 06/09/17 09:26 Dose: 88 mcg Lisinopril (Zestril) 2.5 mg PO DAILY [facility] Last Admin: 06/09/17 09:26 Dose: 2.5 mg Non-Formulary Medication (Eplerenone [Inspra]) 25 mg PO DAILY [facility] Ondansetron HCl (Zofran Inj) 4 mg IVP Q4H PRN PRN Reason: Nausea/Vomiting Last Admin: 06/03/17 11:24 Dose: 4 mg Pantoprazole Sodium (Protonix Ec Tab) 40 mg PO 0600,1600 [facility] Last Admin: 06/09/17 15:56 Dose: 40 mg Potassium Chloride (K-Dur 20 Meq Er Tab) 20 meq PO BID [facility] Last Admin: 06/09/17 09:26 Dose: 20 meq Spironolactone (Aldactone) 12.5 mg PO DAILY [facility] Last Admin: 06/09/17 15:56 Dose: 12.5 mg Sucralfate (Carafate Oral Susp) 1 gm PO 0630,1130,1630,2200 [facility] Stop: 06/11/17 23:59 Last Admin: 06/09/17 15:56 Dose: 1 gm Tamsulosin HCl (Flomax) 0.4 mg PO DAILY [facility] Last Admin: 06/09/17 09:26 Dose: 0.4 mg Warfarin Sodium (Coumadin) 7.5 mg PO 1800 [facility] PRN Reason: Protocol Last Admin: 06/08/17 17:59 Dose: 7.5 mg - Labs Labs: 06/09/17 06:15 06/09/17 06:15 PT 12.7 SECONDS (9.4-12.5) H 06/09/17 06:15 INR 1.10 (0.93-1.08) H 06/09/17 06:15 Attending/Attestation - Attestation I have personally seen and examined this patient.: Yes I have fully participated in the care of the patient.: Yes I have reviewed all pertinent clinical information, including history, physical exam and plan: Yes Notes (Text): 06/09/17 17:16 Medical record note made by the resident after discussion with my direction and input after the patient was personally seen and examined by me. I have reviewed the chart and agree that the record accurately reflects by personal performance of the history, physical exam, data review, and medical decision-making, in the course for the patient. I have also personally directed the plan of care. Patient underwent Endoscopy today that showed multiple ulcers in esophagus, antrum of stomach and duodenum.There is no active bleeding.Hemoglobin is stable.Patient case was discussed with GI , the issue of anticoagulation was discussed.After discussion with GI, the decision has been made to restart patient on Warfarin.The risk and benefit was discussed in detail with patient. Management plan was discussed in detail with patient. Education was provided. 06/09/17 17:17
[2017-06-07] MEDS: Pantoprazole 40 mg EC Tab PO SCH (18:45)
[2017-06-08] MEDS: Sucralfate 1 gm/10 ml Oral Susp UD PO SCH ×4 (05:51→21:19)
[2017-06-08] MEDS: Pantoprazole 40 mg EC Tab PO SCH ×2 (05:52→16:08)
[2017-06-08 06:52] LABS: HEMOGLOBIN 8.8 g/dL (14.0-18.0); MEAN CELL VOLUME 89.2 fl (80.0-105.0); MEAN CORPUSCULAR HEMOGLOBIN 30.8 pg (25.0-35.0); MEAN CORPUSCULAR HGB CONC 34.5 g/dl (31.0-37.0); MEAN PLATELET VOLUME 8.4 fl (7.0-11.0); RBC 2.86 10^6/uL (3.5-6.1); RED CELL DISTRIBUTION WIDTH 15.9 % (11.5-14.5)
[2017-06-08 07:02] LABS: PROTHROMBIN TIME 11.5 SECONDS (9.4-12.5)
[2017-06-08 07:31] LABS: ALB/GLOB RATIO 1.2 (1.1-1.8); ALBUMIN 2.7 g/dL (3.0-4.8); ALT/SGPT 84 U/L (7-56); AST/SGOT 50 U/L (17-59); BLOOD UREA NITROGEN 12 mg/dL (7-21); CALCIUM 8.4 mg/dL (8.4-10.5); GFR AFRICAN-AMERICAN > 60; GFR NON-AFRICAN AMERICAN > 60
[2017-06-08] MEDS: Potassium Chloride 20 mEq ER Tab PO SCH ×2 (09:52→17:59)
[2017-06-08] MEDS: Levothyroxine 88 MCG TAB PO SCH (09:52)
[2017-06-08] MEDS: cefTRIAXone 1 gm 1 GM/100 ML BAG IVPB SCH (09:52)
--- NOTE | 2017-06-08 10:37 | PN ---
DATE: SUBJECTIVE: At the bedside this morning, I reviewed the patient's endoscopy results from yesterday. Also, discussed the medication use, including a proton pump inhibitor, Carafate suspension, and his anticoagulation. Overall, the patient feels significant improvement relative to the day of admission. Antireflux precautions were also reviewed. The patient, overall, had no complaints. ASSESSMENT AND PLAN: Overall at this point in time, let us say that the most likely etiology for the patient's anemia is multiple ulcerations including ulcerations in the esophagus, distal stomach, and especially, post bulbar. As I have discussed with the patient yesterday, the patient needs a followup endoscopy somewhere in the range of at least 6 to 8 weeks now. I do not see any utility for performing colonoscopy at this point in time. As discussed with the hospitalist yesterday, I feel anticoagulation is in the patient's best interest to avoid any neurological or cardiology type events. I will sign off the case today. Mitch Qureshi DO
--- NOTE | 2017-06-08 12:34 | CP.PCM.PN ---
Subjective - Date & Time of Evaluation Date of Evaluation: 06/08/17 Time of Evaluation: 11:00 - Subjective Subjective: Comfortable in bed, no fevers. Had EGD done yesterday. No GI bleeding currently. Objective - Vital Signs/Intake and Output Vital Signs (last 24 hours): Temp Pulse Resp BP Pulse Ox 98.2 F 87 20 129/68 99 06/08/17 06:00 06/08/17 09:53 06/08/17 06:00 06/08/17 09:53 06/08/17 06:00 Intake and Output: 06/08/17 06/08/17 06:59 18:59 Intake Total 300 Output Total 700 Balance -400 - Medications Medications: Current Medications Amiodarone HCl (Cordarone) 200 mg PO DAILY [facility] Last Admin: 06/08/17 09:52 Dose: 200 mg Atorvastatin Calcium (Lipitor) 20 mg PO DAILY [facility] Last Admin: 06/08/17 09:52 Dose: 20 mg Carvedilol (Coreg) 3.125 mg PO BID [facility] Last Admin: 06/08/17 09:53 Dose: 3.125 mg Furosemide (Lasix) 20 mg PO DAILY [facility] Last Admin: 06/08/17 09:53 Dose: 20 mg Ceftriaxone Sodium (Rocephin 1 Gram Ivpb) 1 gm in 100 mls @ 100 mls/hr IVPB DAILY [facility] PRN Reason: Protocol Stop: 06/11/17 10:01 Last Admin: 06/08/17 09:52 Dose: 100 mls/hr Levothyroxine Sodium (Synthroid) 88 mcg PO DAILY [facility] Last Admin: 06/08/17 09:52 Dose: 88 mcg Lisinopril (Zestril) 2.5 mg PO DAILY [facility] Last Admin: 06/08/17 09:53 Dose: 2.5 mg Non-Formulary Medication (Eplerenone [Inspra]) 25 mg PO DAILY [facility] Ondansetron HCl (Zofran Inj) 4 mg IVP Q4H PRN PRN Reason: Nausea/Vomiting Last Admin: 06/03/17 11:24 Dose: 4 mg Pantoprazole Sodium (Protonix Ec Tab) 40 mg PO 0600,1600 [facility] Last Admin: 06/08/17 05:52 Dose: 40 mg Potassium Chloride (K-Dur 20 Meq Er Tab) 20 meq PO BID [facility] Last Admin: 06/08/17 09:52 Dose: 20 meq Sucralfate (Carafate Oral Susp) 1 gm PO 0630,1130,1630,2200 [facility] Stop: 06/11/17 23:59 Last Admin: 06/08/17 05:51 Dose: 1 gm Tamsulosin HCl (Flomax) 0.4 mg PO DAILY [facility] Last Admin: 06/08/17 09:52 Dose: 0.4 mg Warfarin Sodium (Coumadin) 5 mg PO 1800 [facility] PRN Reason: Protocol Last Admin: 06/07/17 18:45 Dose: 5 mg - Labs Labs: 06/08/17 06:32 06/08/17 06:32 PT 11.5 SECONDS (9.4-12.5) 06/08/17 06:32 INR 1.00 (0.93-1.08) 06/08/17 06:32 - Constitutional Appears: Chronically Ill - Head Exam Head Exam: NORMAL INSPECTION - Respiratory Exam Respiratory Exam: Decreased Breath Sounds - Cardiovascular Exam Cardiovascular Exam: +S1, +S2 - GI/Abdominal Exam GI & Abdominal Exam: Soft. absent: Tenderness Assessment and Plan - Assessment and Plan (Free Text) Plan: Assessment systemic inflammatory response syndrome, probably from upper GI bleeding, with EGD showing multiple esophageal and gastric ulcers, without note of varices or variceal bleeding obstructive sleep apnea obesity with BMI 38 hypothyroidism HTN history of ventricular tachycardia non-ischemic cardiomyopathy with EF 20% Plan currently on Rocephin - we can d/c since there is no variceal bleeding and will monitor off antibiotics
--- NOTE | 2017-06-08 17:26 | CP.PCM.PN ---
<Lia Cardenas - Last Filed: 06/08/17 17:21> Subjective - Date & Time of Evaluation Date of Evaluation: 06/08/17 Time of Evaluation: 07:30 - Subjective Subjective: Lia Theresa DO PGY1 - IM Progress Note Patient seen and examined at bedside. Per nursing staff, patient had episode of afib overnight, without tachycardia. Patient denies abdominal pain today, no fever, chills, nausea, vomiting, diarrhea, constipation. He also denies chest pain, shortness of breath, or palpitations. Patient is for EGD this AM with Dr. Qureshi Objective - Vital Signs/Intake and Output Vital Signs (last 24 hours): Temp Pulse Resp BP Pulse Ox 99 F 83 19 108/68 99 06/08/17 12:00 06/08/17 12:00 06/08/17 12:00 06/08/17 12:00 06/08/17 06:00 Intake and Output: 06/08/17 06/08/17 06:59 18:59 Intake Total 300 Output Total 700 Balance -400 - Medications Medications: Current Medications Amiodarone HCl (Cordarone) 200 mg PO DAILY [facility] Last Admin: 06/08/17 09:52 Dose: 200 mg Atorvastatin Calcium (Lipitor) 20 mg PO DAILY [facility] Last Admin: 06/08/17 09:52 Dose: 20 mg Carvedilol (Coreg) 3.125 mg PO BID [facility] Last Admin: 06/08/17 09:53 Dose: 3.125 mg Furosemide (Lasix) 20 mg PO DAILY [facility] Last Admin: 06/08/17 09:53 Dose: 20 mg Levothyroxine Sodium (Synthroid) 88 mcg PO DAILY [facility] Last Admin: 06/08/17 09:52 Dose: 88 mcg Lisinopril (Zestril) 2.5 mg PO DAILY [facility] Last Admin: 06/08/17 09:53 Dose: 2.5 mg Non-Formulary Medication (Eplerenone [Inspra]) 25 mg PO DAILY [facility] Ondansetron HCl (Zofran Inj) 4 mg IVP Q4H PRN PRN Reason: Nausea/Vomiting Last Admin: 06/03/17 11:24 Dose: 4 mg Pantoprazole Sodium (Protonix Ec Tab) 40 mg PO 0600,1600 [facility] Last Admin: 06/08/17 16:08 Dose: 40 mg Potassium Chloride (K-Dur 20 Meq Er Tab) 20 meq PO BID [facility] Last Admin: 06/08/17 09:52 Dose: 20 meq Sucralfate (Carafate Oral Susp) 1 gm PO 0630,1130,1630,2200 [facility] Stop: 06/11/17 23:59 Last Admin: 06/08/17 16:32 Dose: 1 gm Tamsulosin HCl (Flomax) 0.4 mg PO DAILY [facility] Last Admin: 06/08/17 09:52 Dose: 0.4 mg Warfarin Sodium (Coumadin) 7.5 mg PO 1800 [facility] PRN Reason: Protocol - Labs Labs: 06/08/17 06:32 06/08/17 06:32 PT 11.5 SECONDS (9.4-12.5) 06/08/17 06:32 INR 1.00 (0.93-1.08) 06/08/17 06:32 - Additional Findings Additional findings: - Constitutional Appears: Non-toxic, No Acute Distress - Head Exam Head Exam: ATRAUMATIC, NORMOCEPHALIC - Eye Exam Eye Exam: EOMI, Normal appearance, PERRL - ENT Exam ENT Exam: Mucous Membranes Moist - Neck Exam Neck Exam: Normal Inspection - Respiratory Exam Respiratory Exam: Clear to Ausculation Bilateral, NORMAL BREATHING PATTERN - Cardiovascular Exam Cardiovascular Exam: RRR, +S1, +S2 - GI/Abdominal Exam GI & Abdominal Exam: Soft, Normal Bowel Sounds. absent: Distended, Firm, Guarding, Rigid, Tenderness - Extremities Exam Extremities Exam: Normal Capillary Refill, Normal Inspection. 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 fib presents with palpitation and near syncopal episode. Patient developed hypotension with tachycardia was transferred to ICU and started on levophed, dobutamine and midodrine. Patient transferred out of ICU, off pressors, with acute anemia and melena. No further episodes of melena. s/p EGD 06/07/17 with multiple esophageal, gastric, and duodenal ulcers; nonbleeding. Plan: Hypotension and syncope - Likely 2/2 hypovolemia 2/2 GIB; resolved - Continue low dose BB and Lasix per cardio - Cardiology on consult Dr Brothers - Echo from 05/25 shows four chamber dilation, EF 20-25%, moderate MR/TR, RVSP 50 , no thrombus Anemia 2/2 GIB - H&H stable, s/p 4uPRBC - s/p EGD yesterday which showed multiple nonbleeding ulcers - Continue high dose PPI; Protonix 40mg PO BID - Per GI, can resume anticoagulation Urinary retention - Hardy discontinued yesterday; urinating without difficulty - Continue flomax Nonischemic cardiomyopathy - Continue low dose coreg, lisinopril, and lasix per cardio; Continue holding eplerenone due to borderline hypotension - Continue lipitor - Continue amiodarone - Cardiology on consult Atrial fibrillation - Currently rate controlled; on amiodarone - Discussed again with patient risks of bleeding, including recurrent GI bleed, versus risk of stroke in atrial fibrillation; patient verbalized understanding and agreement, and agrees with anticoagulation - CHADSVASC 2, HASBLED 1 - INR 1.0; coumadin 7.5mg PO today; check INR in AM - Continue to monitor History of hypothyroidism - Continue home synthroid - TSH wnl GI/DVT Ppx: Protonix; SCDs Case discussed and reviewed with attending Dr. Werner <Lenny Werner - Last Filed: 06/09/17 17:23> Objective - Vital Signs/Intake and Output Vital Signs (last 24 hours): Temp Pulse Resp BP Pulse Ox 99.2 F 92 H 20 104/63 93 L 06/09/17 12:00 06/09/17 14:00 06/09/17 12:00 06/09/17 12:00 06/09/17 06:00 Intake and Output: 06/09/17 06/09/17 06:59 18:59 Intake Total 840 Output Total 2350 Balance -1510 - Medications Medications: Current Medications Amiodarone HCl (Cordarone) 200 mg PO DAILY [facility] Last Admin: 06/09/17 09:26 Dose: 200 mg Atorvastatin Calcium (Lipitor) 20 mg PO DAILY [facility] Last Admin: 06/09/17 09:26 Dose: 20 mg Carvedilol (Coreg) 3.125 mg PO BID [facility] Last Admin: 06/09/17 09:27 Dose: 3.125 mg Furosemide (Lasix) 20 mg PO DAILY [facility] Last Admin: 06/09/17 09:26 Dose: 20 mg Levothyroxine Sodium (Synthroid) 88 mcg PO DAILY [facility] Last Admin: 06/09/17 09:26 Dose: 88 mcg Lisinopril (Zestril) 2.5 mg PO DAILY [facility] Last Admin: 06/09/17 09:26 Dose: 2.5 mg Non-Formulary Medication (Eplerenone [Inspra]) 25 mg PO DAILY [facility] Ondansetron HCl (Zofran Inj) 4 mg IVP Q4H PRN PRN Reason: Nausea/Vomiting Last Admin: 06/03/17 11:24 Dose: 4 mg Pantoprazole Sodium (Protonix Ec Tab) 40 mg PO 0600,1600 [facility] Last Admin: 06/09/17 15:56 Dose: 40 mg Potassium Chloride (K-Dur 20 Meq Er Tab) 20 meq PO BID [facility] Last Admin: 06/09/17 09:26 Dose: 20 meq Spironolactone (Aldactone) 12.5 mg PO DAILY [facility] Last Admin: 06/09/17 15:56 Dose: 12.5 mg Sucralfate (Carafate Oral Susp) 1 gm PO 0630,1130,1630,2200 [facility] Stop: 06/11/17 23:59 Last Admin: 06/09/17 15:56 Dose: 1 gm Tamsulosin HCl (Flomax) 0.4 mg PO DAILY [facility] Last Admin: 06/09/17 09:26 Dose: 0.4 mg Warfarin Sodium (Coumadin) 7.5 mg PO 1800 [facility] PRN Reason: Protocol Last Admin: 06/08/17 17:59 Dose: 7.5 mg - Labs Labs: 06/09/17 06:15 06/09/17 06:15 PT 12.7 SECONDS (9.4-12.5) H 06/09/17 06:15 INR 1.10 (0.93-1.08) H 06/09/17 06:15 Attending/Attestation - Attestation I have personally seen and examined this patient.: Yes I have fully participated in the care of the patient.: Yes I have reviewed all pertinent clinical information, including history, physical exam and plan: Yes Notes (Text): 06/09/17 17:21 Medical record note made by the resident after discussion with my direction and input after the patient was personally seen and examined by me. I have reviewed the chart and agree that the record accurately reflects by personal performance of the history, physical exam, data review, and medical decision-making, in the course for the patient. I have also personally directed the plan of care . Patient hemoglobin is stable..After discussion with GI, patient was restarted on Warfarin. Patient is euvolemic, continue lasix/coreg for systolic CHF, we will add low dose of lisinopril. Management plan was discussed in detail with patient. Education was provided.
[2017-06-09] MEDS: Pantoprazole 40 mg EC Tab PO SCH ×2 (05:39→15:56)
[2017-06-09] MEDS: Sucralfate 1 gm/10 ml Oral Susp UD PO SCH ×4 (05:40→21:38)
[2017-06-09 07:02] LABS: INR 1.1 (0.93-1.08); PROTHROMBIN TIME 12.7 SECONDS (9.4-12.5)
[2017-06-09 07:03] LABS: BASO # 0.03 K/mm3 (0.0-2.0); BASO % 0.3 % (0.0-3.0); EOS # 0.4 (0.0-0.7); GRAN # 8.79 (1.4-6.5); GRAN % 74.6 % (50.0-68.0); HEMOGLOBIN 9.3 g/dL (14.0-18.0); LYMPH # 1.8 (1.2-3.4); LYMPH % 14.9 % (22.0-35.0); MEAN CELL VOLUME 90.2 fl (80.0-105.0); MEAN CORPUSCULAR HEMOGLOBIN 30.3 pg (25.0-35.0); MEAN CORPUSCULAR HGB CONC 33.6 g/dl (31.0-37.0); MEAN PLATELET VOLUME 8.5 fl (7.0-11.0); MONO # 0.9 (0.1-0.6); MONO % 7.2 % (1.0-6.0); RBC 3.07 10^6/uL (3.5-6.1); RED CELL DISTRIBUTION WIDTH 15.9 % (11.5-14.5); WHITE BLOOD COUNT 11.8 10^3/ul (4.5-11.0)
[2017-06-09 07:04] LABS: ALB/GLOB RATIO 1.1 (1.1-1.8); ALBUMIN 2.9 g/dL (3.0-4.8); ALT/SGPT 66 U/L (7-56); AST/SGOT 36 U/L (17-59); BLOOD UREA NITROGEN 11 mg/dL (7-21); CALCIUM 8.9 mg/dL (8.4-10.5); GFR AFRICAN-AMERICAN > 60; GFR NON-AFRICAN AMERICAN > 60
[2017-06-09] MEDS: Levothyroxine 88 MCG TAB PO SCH (09:26)
[2017-06-09] MEDS: Potassium Chloride 20 mEq ER Tab PO SCH ×2 (09:26→18:09)
--- NOTE | 2017-06-09 13:52 | PN ---
DATE: 06/09/2017 SUBJECTIVE: The patient is seen lying in bed on telemetry. He is currently comfortable. He denies any chest pain. He has had no recurrent tachyarrhythmias. MEDICATIONS: His current medications remain Carafate, amiodarone 200 mg daily, carvedilol 3.125 mg b.i.d., warfarin, Inspra 25 mg daily, Flomax, potassium, Lasix 20 mg daily, Lipitor, Protonix 40 mg daily, Synthroid 88 mcg daily and Zestril 2.5 mg daily. OBJECTIVE GENERAL: He is an overweight middle-aged male. VITAL SIGNS: His blood pressure is 110/68 with pulse of 80 and sinus, respirations are 14. He is afebrile. HEENT: No JVD. CHEST: Bilateral scattered rhonchi. HEART: PMI displaced laterally with soft tones noted. ABDOMEN: Soft, obese, nontender. Normoactive bowel sounds. EXTREMITIES: 1+ leg edema. DIAGNOSTIC DATA: Potassium 4, BUN and creatinine 11 and 0.9. White count 11.8, hemoglobin and hematocrit 9.3 and 27.7, platelet count of 280,000. INR is 1.10. IMPRESSION: 1. Severe anemia, clinically improved after transfusion. 2. Peptic ulcer disease. 3. Congestive cardiomyopathy. 4. Recent ventricular tachycardia. 5. Paroxysmal atrial fibrillation. RECOMMENDATIONS: Plans are being made for possible transfer to [facility] under the care of his primary shactor to arrange for ICD implant. If so, Coumadin therapy should be withheld for now. The rest of his oral medications should continue. Gradual increase in his carvedilol dose as tolerated would be helpful. Close monitoring of his potassium with concomitant Zestril and Inspra use is advised. Once the Coumadin is resumed, caution will need to be regarding titrating his dose with concomitant amiodarone use and risk of elevated INR. From a cardiac standpoint, he is stable for transfer to [facility] whenever arrangements have been made. Aneesh Dill MD
--- NOTE | 2017-06-09 14:43 | CP.PCM.PN ---
<Kel Cardenasmynornilson - Last Filed: 06/09/17 14:44> Subjective - Date & Time of Evaluation Date of Evaluation: 06/09/17 Time of Evaluation: 07:30 - Subjective Subjective: Lia Cardenas DO PGY1 - IM Progress Note Patient seen and examined at bedside. Per nursing staff, no acute events overnight. Patient denies abdominal pain today, no fever, chills, nausea, vomiting, diarrhea, constipation. He also denies chest pain, shortness of breath , or palpitations. Patient requesting information abotu AICD Objective - Vital Signs/Intake and Output Vital Signs (last 24 hours): Temp Pulse Resp BP Pulse Ox 99.2 F 89 20 104/63 93 L 06/09/17 12:00 06/09/17 12:00 06/09/17 12:00 06/09/17 12:00 06/09/17 06:00 Intake and Output: 06/09/17 06/09/17 06:59 18:59 Intake Total 840 Output Total 2350 Balance -1510 - Medications Medications: Current Medications Amiodarone HCl (Cordarone) 200 mg PO DAILY [facility] Last Admin: 06/09/17 09:26 Dose: 200 mg Atorvastatin Calcium (Lipitor) 20 mg PO DAILY [facility] Last Admin: 06/09/17 09:26 Dose: 20 mg Carvedilol (Coreg) 3.125 mg PO BID [facility] Last Admin: 06/09/17 09:27 Dose: 3.125 mg Furosemide (Lasix) 20 mg PO DAILY [facility] Last Admin: 06/09/17 09:26 Dose: 20 mg Levothyroxine Sodium (Synthroid) 88 mcg PO DAILY [facility] Last Admin: 06/09/17 09:26 Dose: 88 mcg Lisinopril (Zestril) 2.5 mg PO DAILY [facility] Last Admin: 06/09/17 09:26 Dose: 2.5 mg Non-Formulary Medication (Eplerenone [Inspra]) 25 mg PO DAILY [facility] Ondansetron HCl (Zofran Inj) 4 mg IVP Q4H PRN PRN Reason: Nausea/Vomiting Last Admin: 06/03/17 11:24 Dose: 4 mg Pantoprazole Sodium (Protonix Ec Tab) 40 mg PO 0600,1600 [facility] Last Admin: 06/09/17 05:39 Dose: 40 mg Potassium Chloride (K-Dur 20 Meq Er Tab) 20 meq PO BID [facility] Last Admin: 06/09/17 09:26 Dose: 20 meq Spironolactone (Aldactone) 12.5 mg PO DAILY [facility] Sucralfate (Carafate Oral Susp) 1 gm PO 0630,1130,1630,2200 [facility] Stop: 06/11/17 23:59 Last Admin: 06/09/17 11:23 Dose: 1 gm Tamsulosin HCl (Flomax) 0.4 mg PO DAILY [facility] Last Admin: 06/09/17 09:26 Dose: 0.4 mg Warfarin Sodium (Coumadin) 7.5 mg PO 1800 [facility] PRN Reason: Protocol Last Admin: 06/08/17 17:59 Dose: 7.5 mg - Labs Labs: 06/09/17 06:15 06/09/17 06:15 PT 12.7 SECONDS (9.4-12.5) H 06/09/17 06:15 INR 1.10 (0.93-1.08) H 06/09/17 06:15 - Additional Findings Additional findings: - Constitutional Appears: Non-toxic, No Acute Distress - Head Exam Head Exam: ATRAUMATIC, NORMOCEPHALIC - Eye Exam Eye Exam: EOMI, Normal appearance, PERRL - ENT Exam ENT Exam: Mucous Membranes Moist - Neck Exam Neck Exam: Normal Inspection - Respiratory Exam Respiratory Exam: Clear to Ausculation Bilateral, NORMAL BREATHING PATTERN - Cardiovascular Exam Cardiovascular Exam: RRR, +S1, +S2 - GI/Abdominal Exam GI & Abdominal Exam: Soft, Normal Bowel Sounds. absent: Distended, Firm, Guarding, Rigid, Tenderness - Extremities Exam Extremities Exam: Normal Capillary Refill, Normal Inspection. 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 fib presents with palpitation and near syncopal episode. Patient developed hypotension with tachycardia was transferred to ICU and started on levophed, dobutamine and midodrine. Patient transferred out of ICU, off pressors, with acute anemia and melena. No further episodes of melena. s/p EGD 06/07/17 with multiple esophageal, gastric, and duodenal ulcers; nonbleeding. Plan: Hypotension and syncope - Likely 2/2 hypovolemia 2/2 GIB; resolved - Continue low dose BB and Lasix per cardio - Cardiology on consult Dr Brothers/Aniyah - Echo from 05/25 shows four chamber dilation, EF 20-25%, moderate MR/TR, RVSP 50 , no thrombus Anemia 2/2 GIB - H&H stable, s/p 4uPRBC - s/p EGD yesterday which showed multiple nonbleeding ulcers - Continue high dose PPI; Protonix 40mg PO BID - Per GI, can resume anticoagulation Urinary retention - Urinating without difficulty - Continue flomax Nonischemic cardiomyopathy - Continue low dose coreg, lisinopril, lasix per cardio - Will resume low dose aldactone 12.5 PO daily - Continue lipitor - Continue amiodarone - Cardiology on consult - Will discuss with cardiology regarding possible inpatient transfer for AICD evaluation and placement Atrial fibrillation - Currently rate controlled; on amiodarone - Discussed again with patient risks of bleeding, including recurrent GI bleed, versus risk of stroke in atrial fibrillation; patient verbalized understanding and agreement, and agrees with anticoagulation - CHADSVASC 2, HASBLED 1 - INR 1.1; coumadin 7.5mg PO today; check INR in AM - Continue to monitor History of hypothyroidism - Continue home synthroid - TSH wnl GI/DVT Ppx: Protonix; SCDs Case discussed and reviewed with attending Dr. Werner <Lenny Werner - Last Filed: 06/09/17 17:28> Objective - Vital Signs/Intake and Output Vital Signs (last 24 hours): Temp Pulse Resp BP Pulse Ox 99.2 F 92 H 20 104/63 93 L 06/09/17 12:00 06/09/17 14:00 06/09/17 12:00 06/09/17 12:00 06/09/17 06:00 Intake and Output: 06/09/17 06/09/17 06:59 18:59 Intake Total 840 Output Total 2350 Balance -1510 - Medications Medications: Current Medications Amiodarone HCl (Cordarone) 200 mg PO DAILY [facility] Last Admin: 04/04/18 09:26 Dose: 200 mg Atorvastatin Calcium (Lipitor) 20 mg PO DAILY [facility] Last Admin: 06/09/17 09:26 Dose: 20 mg Carvedilol (Coreg) 3.125 mg PO BID [facility] Last Admin: 06/09/17 09:27 Dose: 3.125 mg Furosemide (Lasix) 20 mg PO DAILY [facility] Last Admin: 06/09/17 09:26 Dose: 20 mg Levothyroxine Sodium (Synthroid) 88 mcg PO DAILY [facility] Last Admin: 06/09/17 09:26 Dose: 88 mcg Lisinopril (Zestril) 2.5 mg PO DAILY [facility] Last Admin: 06/09/17 09:26 Dose: 2.5 mg Non-Formulary Medication (Eplerenone [Inspra]) 25 mg PO DAILY [facility] Ondansetron HCl (Zofran Inj) 4 mg IVP Q4H PRN PRN Reason: Nausea/Vomiting Last Admin: 06/03/17 11:24 Dose: 4 mg Pantoprazole Sodium (Protonix Ec Tab) 40 mg PO 0600,1600 [facility] Last Admin: 06/09/17 15:56 Dose: 40 mg Potassium Chloride (K-Dur 20 Meq Er Tab) 20 meq PO BID [facility] Last Admin: 06/09/17 09:26 Dose: 20 meq Spironolactone (Aldactone) 12.5 mg PO DAILY [facility] Last Admin: 06/09/17 15:56 Dose: 12.5 mg Sucralfate (Carafate Oral Susp) 1 gm PO 0630,1130,1630,2200 [facility] Stop: 06/11/17 23:59 Last Admin: 06/09/17 15:56 Dose: 1 gm Tamsulosin HCl (Flomax) 0.4 mg PO DAILY [facility] Last Admin: 06/09/17 09:26 Dose: 0.4 mg Warfarin Sodium (Coumadin) 7.5 mg PO 1800 [facility] PRN Reason: Protocol Last Admin: 06/08/17 17:59 Dose: 7.5 mg - Labs Labs: 06/09/17 06:15 06/09/17 06:15 PT 12.7 SECONDS (9.4-12.5) H 06/09/17 06:15 INR 1.10 (0.93-1.08) H 06/09/17 06:15 Attending/Attestation - Attestation I have personally seen and examined this patient.: Yes I have fully participated in the care of the patient.: Yes I have reviewed all pertinent clinical information, including history, physical exam and plan: Yes Notes (Text): 06/09/17 17:24 Medical record note made by the resident after discussion with my direction and input after the patient was personally seen and examined by me. I have reviewed the chart and agree that the record accurately reflects by personal performance of the history, physical exam, data review, and medical decision-making, in the course for the patient. I have also personally directed the plan of care. Patient remain stable.Hemoglobin and blood pressure is sable. Patient case was discussed by with the Primary [employer].At this time, patient primary client service professional feel that there is no need for AICD as this low EF is new, patient medication for CHF will be optimized and he will need repeat Echo in 3 month for re evaluation of EF.Life vest is recommended .If patient would agree for life vest, Life vest will be arranged prior to discharge. Management plan was discussed in detail with patient. Education was provided.
[2017-06-10 00:26] VITALS: O2SAT 99
[2017-06-10] MEDS: Pantoprazole 40 mg EC Tab PO SCH (05:55)
[2017-06-10] MEDS: Sucralfate 1 gm/10 ml Oral Susp UD PO SCH ×2 (05:56→11:18)
[2017-06-10 06:54] LABS: INR 1.19 (0.93-1.08); PROTHROMBIN TIME 13.7 SECONDS (9.4-12.5)
[2017-06-10 06:55] LABS: BASO # 0.03 K/mm3 (0.0-2.0); BASO % 0.4 % (0.0-3.0); EOS # 0.4 (0.0-0.7); EOS % 4.6 % (1.5-5.0); GRAN # 5.63 (1.4-6.5); GRAN % 66.9 % (50.0-68.0); HEMOGLOBIN 9.5 g/dL (14.0-18.0); LYMPH # 1.5 (1.2-3.4); LYMPH % 17.5 % (22.0-35.0); MEAN CELL VOLUME 90.2 fl (80.0-105.0); MEAN CORPUSCULAR HEMOGLOBIN 30.2 pg (25.0-35.0); MEAN CORPUSCULAR HGB CONC 33.5 g/dl (31.0-37.0); MEAN PLATELET VOLUME 8.4 fl (7.0-11.0); MONO # 0.9 (0.1-0.6); MONO % 10.6 % (1.0-6.0); RBC 3.15 10^6/uL (3.5-6.1); RED CELL DISTRIBUTION WIDTH 15.1 % (11.5-14.5); WHITE BLOOD COUNT 8.4 10^3/ul (4.5-11.0)
[2017-06-10 06:58] LABS: ALB/GLOB RATIO 1.1 (1.1-1.8); ALBUMIN 3.1 g/dL (3.0-4.8); ALT/SGPT 64 U/L (7-56); AST/SGOT 30 U/L (17-59); BLOOD UREA NITROGEN 9 mg/dL (7-21); CALCIUM 9.1 mg/dL (8.4-10.5); GFR AFRICAN-AMERICAN > 60; GFR NON-AFRICAN AMERICAN > 60
--- NOTE | 2017-06-10 09:25 | CP.PCM.DIS ---
<TheresaLia - Last Filed: 06/10/17 12:49> Provider - Provider Date of Admission: 06/02/17 10:02 Attending physician: Lenny Werner MD Consults: Cardio: Zev GI: Titus Time Spent in preparation of Discharge (in minutes): 65 Diagnosis - Discharge Diagnosis (1) Gastrointestinal bleed Status: Acute (2) Peptic ulcer disease Status: Acute (3) Atrial fibrillation Status: Acute Priority: High (4) Congestive heart failure Status: Acute Priority: High Hospital Course - Lab Results Lab Results: Micro Results 06/02/17 19:29 Blood-Venous Blood Culture - Final NO GROWTH AFTER 5 DAYS 06/02/17 19:29 Blood-Venous Gram Stain - Final TEST NOT PERFORMED 06/02/17 19:29 Blood-Venous Blood Culture - Final NO GROWTH AFTER 5 DAYS 06/02/17 14:30 Blood Blood Culture - Final NO GROWTH AFTER 5 DAYS 06/02/17 20:30 Naris MRSA Culture (Admit) - Final MRSA NOT DETECTED 06/02/17 19:20 Urine Urine Culture - Final No Growth (<1,000 CFU/ML) Most Recent Lab Values WBC 8.4 10^3/ul (4.5-11.0) D 06/10/17 06:00 RBC 3.15 10^6/uL (3.5-6.1) L 06/10/17 06:00 Hgb 9.5 g/dL (14.0-18.0) L 06/10/17 06:00 Hct 28.4 % (42.0-52.0) L 06/10/17 06:00 MCV 90.2 fl (80.0-105.0) 06/10/17 06:00 MCH 30.2 pg (25.0-35.0) 06/10/17 06:00 MCHC 33.5 g/dl (31.0-37.0) 06/10/17 06:00 RDW 15.1 % (11.5-14.5) H 06/10/17 06:00 Plt Count 283 10^3/uL (120.0-450.0) 06/10/17 06:00 MPV 8.4 fl (7.0-11.0) 06/10/17 06:00 Gran % 66.9 % (50.0-68.0) 06/10/17 06:00 Lymph % (Auto) 17.5 % (22.0-35.0) L 06/10/17 06:00 Jones % (Auto) 10.6 % (1.0-6.0) H 06/10/17 06:00 Eos % (Auto) 4.6 % (1.5-5.0) 06/10/17 06:00 Baso % (Auto) 0.4 % (0.0-3.0) 06/10/17 06:00 Gran # 5.63 (1.4-6.5) 06/10/17 06:00 Lymph # (Auto) 1.5 (1.2-3.4) 06/10/17 06:00 Jones # (Auto) 0.9 (0.1-0.6) H 06/10/17 06:00 Eos # (Auto) 0.4 (0.0-0.7) 06/10/17 06:00 Baso # (Auto) 0.03 K/mm3 (0.0-2.0) 06/10/17 06:00 Retic Count 2.33 % (0.5-1.5) H 06/03/17 06:00 Haptoglobin 108.5 mg/dL (30.0-200.0) 06/05/17 07:00 PT 13.7 SECONDS (9.4-12.5) H 06/10/17 06:00 INR 1.19 (0.93-1.08) H 06/10/17 06:00 pO2 51 mm/Hg (30-55) 06/03/17 15:57 VBG pH 7.41 (7.32-7.43) 06/03/17 15:57 VBG pCO2 33.0 (40-60) L 06/03/17 15:57 VBG HCO3 20.9 mmol/l (21-28) L 06/03/17 15:57 VBG Total CO2 21.9 mmol.L (22-28) L 06/03/17 15:57 VBG O2 Sat (Calc) 91.4 % (40-65) H 06/03/17 15:57 VBG Base Excess -2.9 mmol/L (0.0-2.0) L 06/03/17 15:57 VBG Potassium 4.5 mmol/L (3.6-5.2) 06/03/17 15:57 Sodium 130.0 mmol/L (132-148) L 06/03/17 15:57 Chloride 105.0 mmol/L (98-107) 06/03/17 15:57 Glucose 159 mg/dl (75-110) H 06/03/17 15:57 Lactate 1.3 mmol/L (0.7-2.1) 06/03/17 15:57 FiO2 21.0 % 06/03/17 15:57 Sodium 138 mmol/L (132-148) 06/10/17 06:00 Potassium 4.2 mmol/L (3.6-5.0) 06/10/17 06:00 Chloride 104 mmol/L (98-107) 06/10/17 06:00 Carbon Dioxide 28 mmol/L (21-33) 06/10/17 06:00 Anion Gap 11 (10-20) 06/10/17 06:00 BUN 9 mg/dL (7-21) 06/10/17 06:00 Creatinine 0.8 mg/dl (0.8-1.5) 06/10/17 06:00 Est GFR ( Amer) > 60 06/10/17 06:00 Est GFR (Non-Af Amer) > 60 06/10/17 06:00 POC Glucose (mg/dL) 100 mg/dL (65-110) 06/08/17 20:40 Random Glucose 96 mg/dL (70-110) 06/10/17 06:00 Lactic Acid 1.5 mmol/L (0.7-2.1) 06/03/17 13:20 Calcium 9.1 mg/dL (8.4-10.5) 06/10/17 06:00 Magnesium 1.7 mg/dL (1.7-2.2) 06/09/17 06:15 Iron 10 ug/dL (45-180) L 06/02/17 19:29 TIBC 174 ug/dL (261-462) L 06/02/17 19:29 % Saturation 6 % (20-55) L 06/02/17 19:29 Ferritin 201.0 ng/mL 06/02/17 20:34 Total Bilirubin 0.7 mg/dL (0.2-1.3) 06/10/17 06:00 Direct Bilirubin 0.3 mg/dL (0.0-0.4) 06/04/17 05:30 AST 30 U/L (17-59) 06/10/17 06:00 ALT 64 U/L (7-56) H 06/10/17 06:00 Alkaline Phosphatase 53 U/L (38-126) 06/10/17 06:00 Lactate Dehydrogenase 335 U/L (333-699) 06/03/17 00:35 Total Creatine Kinase 36 U/L (35-230) 06/03/17 00:35 Troponin I 0.05 ng/mL 06/03/17 00:35 NT-Pro-B Natriuret Pep 408 pg/mL (0-450) 06/02/17 19:29 Total Protein 5.9 g/dL (5.8-8.3) 06/10/17 06:00 Albumin 3.1 g/dL (3.0-4.8) 06/10/17 06:00 Globulin 2.8 gm/dL 06/10/17 06:00 Albumin/Globulin Ratio 1.1 (1.1-1.8) 06/10/17 06:00 Amylase 43 U/L (35-125) 06/03/17 11:45 Lipase 122 U/L (23-300) 06/03/17 11:45 Procalcitonin < 0.05 NG/ML (0.19-0.49) L 06/02/17 19:29 TSH 3rd Generation 2.79 mIU/mL (0.46-4.68) 06/02/17 07:46 Venous Blood Potassium 4.5 mmol/L (3.6-5.2) 06/03/17 15:57 Urine Color Yellow (YELLOW) 06/03/17 21:20 Urine Appearance Clear (CLEAR) 06/03/17 21:20 Urine pH 6.0 (4.7-8.0) 06/03/17 21:20 Ur Specific [place] 1.015 (1.005-1.035) 06/03/17 21:20 Urine Protein Negative mg/dL (<30 mg/dL) 06/03/17 21:20 Urine Glucose (UA) Negative mg/dL (NEGATIVE) 06/03/17 21:20 Urine Ketones Negative mg/dL (NEGATIVE) 06/03/17 21:20 Urine Blood Negative (NEGATIVE) 06/03/17 21:20 Urine Nitrate Negative (NEGATIVE) 06/03/17 21:20 Urine Bilirubin Negative (NEGATIVE) 06/03/17 21:20 Urine Urobilinogen 0.2 E.U./dL (<1 E.U./dL) 06/03/17 21:20 Ur Leukocyte Esterase Negative [place]/uL (NEGATIVE) 06/03/17 21:20 Stool Occult Blood Positive (NEGATIVE) H 06/06/17 03:30 Digoxin 0.5 ng/mL (0.8-2.0) L 06/02/17 19:29 Blood Type A NEGATIVE 06/06/17 08:30 Blood Type Confirm A NEGATIVE 06/03/17 15:57 Antibody Screen Negative 06/06/17 08:30 Crossmatch See Detail 06/06/17 08:30 BBK History Checked Patient has bt 06/06/17 08:30 - Hospital Course Hospital Course: 56 yo male with PMH of nonischemic cardiomyopathy (EF 20-25%), a fib who initially presented to the ED after a near syncopal episode. The night of admission, HAND COREMAKER was called for hypotension and altered mental status. Patient was later found to be acutely anemic secondary to a GI bleed, with reported melena. Anticoagulants and antiplatelets were stopped, and patient was transfused total of 4 units of blood throughout admission. When he was slightly more stable, patient went for EGD, which showed diffuse esophageal, gastric, and duodenal ulcers, which were nonbleeding. Patient was started on high-dose PPI therapy and carafate. After discussion with the cash processing specialist, and with the patient, anticoagulation was resumed, for atrial fibrillation. Risks and benefits of anticoagulation were repeatedly discussed, and patient repeatedly expressed understanding and agreement. Patient was also considering AICD placement, and possible inpatient transfer to in [place] to his primary client services analyst, Dr. Moura. After discussion with Dr. Moura, as well as corrosion control technician here, patient was deemed stable to discharge and pursue outpatient follow up for AICD evaluation. Patient was offered ZOLL LifeVest, to be used until an AICD can be placed, or his heart function improved with medical management. Patient was started on warfarin for anticoagulation for atrial fibrillation. Patient was also started on Flomax for urinary retention. The remainder of his cardiac medications were resumed. Today, patient reports feeling well overall. He denies any chest pain, shortness of breath, palpitations, abdominal pain, fever, chills, nausea, vomiting, diarrhea, constipation. He has had no further melena or hematochezia since the endoscopy. Anticoagulation and the LifeVest were again discussed, and patient agreed with anticoagulation and medical management, but refused to use the LifeVest. He was given new prescriptions for all his medications, and advised to avoid all NSAIDs. He was given instructions on follow up. All questions were answered to his satisfaction, and he was discharged to home. Discharge Exam - Head Exam Head Exam: NORMAL INSPECTION - Eye Exam Eye Exam: EOMI, Normal appearance, PERRL - ENT Exam ENT Exam: Mucous Membranes Moist - Neck Exam Neck exam: Normal Inspection - Respiratory Exam Respiratory Exam: Clear to PA & Lateral, NORMAL BREATHING PATTERN - Cardiovascular Exam Cardiovascular Exam: RRR, +S1, +S2 - GI/Abdominal Exam GI & Abdominal Exam: Normal Bowel Sounds, Soft. absent: Tenderness - Extremities Exam Extremities exam: full ROM, normal capillary refill, normal inspection - Neurological Exam Neurological exam: Alert, CN II-XII Intact, Oriented x3 - Psychiatric Exam Psychiatric exam: Normal Affect, Normal Mood - Skin Skin Exam: Dry, Intact, Normal Color Discharge Plan - Discharge Medications Prescriptions: Pantoprazole [Protonix EC Tab] 40 mg PO 0600,1600 #60 ect Potassium Chloride [K-Dur 20 mEq ER Tab] 20 meq PO BID #60 tab Spironolactone [Aldactone] 12.5 mg PO DAILY #30 tab Sucralfate [Carafate Oral Susp] 1 gm PO 0630,1130,1630,2200 30 Days udc Tamsulosin [Flomax] 0.4 mg PO DAILY #30 cap Warfarin [Coumadin] 7.5 mg PO 1800 #4 tab - Follow Up Plan Condition: GUARDED Disposition: HOME/ ROUTINE Instructions: Atrial Fibrillation, Gastrointestinal Bleeding, What to Do When Your INR Is Too High , Anti-Clotting Medicines: Warfarin (Coumadin), Warfarin Additional Instructions: - Continue to take protonix twice daily, 30-60 minutes before first and last meals of the day - Continue to take carafate 3-4 times daily, for 4-6 weeks - Avoid NSAIDS (aspirin, ibuprofen, naproxen) - Stop taking Eliquis - Continue to take warfarin 7.5mg daily; follow up with your primary care doctor or the [facility] clinic tomorrow for INR check, and again on Wednesday - If you have any blood in your stool, or black stool, or urinating blood, or any other major bleed, or if you fall and hit your head, come to the ER right away - Continue to take all other medications as previously prescribed - Spironolactone 12.5mg daily - Lasix 20mg daily - Carvedilol 3.125mg twice daily - Amiodarone 200mg daily - Lisinopril 2.5mg daily - Flomax 0.4mg daily - Follow up with your client services analyst within one week - You will need repeat endoscopy in 4-6 weeks - For any new or worsening concerns, return to the ER Referrals: Mitch Qureshi DO [Staff Provider] - Aneesh Dill MD [Staff Provider] - <Lenny Werner - Last Filed: 06/10/17 14:06> Provider - Provider Date of Admission: 06/02/17 10:02 Attending physician: Lenny Werner MD Time Spent in preparation of Discharge (in minutes): 35 Hospital Course - Lab Results Lab Results: Micro Results 06/02/17 19:29 Blood-Venous Blood Culture - Final NO GROWTH AFTER 5 DAYS 06/02/17 19:29 Blood-Venous Gram Stain - Final TEST NOT PERFORMED 06/02/17 19:29 Blood-Venous Blood Culture - Final NO GROWTH AFTER 5 DAYS 06/02/17 14:30 Blood Blood Culture - Final NO GROWTH AFTER 5 DAYS 06/02/17 20:30 Naris MRSA Culture (Admit) - Final MRSA NOT DETECTED 06/02/17 19:20 Urine Urine Culture - Final No Growth (<1,000 CFU/ML) Most Recent Lab Values WBC 8.4 10^3/ul (4.5-11.0) D 06/10/17 06:00 RBC 3.15 10^6/uL (3.5-6.1) L 06/10/17 06:00 Hgb 9.5 g/dL (14.0-18.0) L 06/10/17 06:00 Hct 28.4 % (42.0-52.0) L 06/10/17 06:00 MCV 90.2 fl (80.0-105.0) 06/10/17 06:00 MCH 30.2 pg (25.0-35.0) 06/10/17 06:00 MCHC 33.5 g/dl (31.0-37.0) 06/10/17 06:00 RDW 15.1 % (11.5-14.5) H 06/10/17 06:00 Plt Count 283 10^3/uL (120.0-450.0) 06/10/17 06:00 MPV 8.4 fl (7.0-11.0) 06/10/17 06:00 Gran % 66.9 % (50.0-68.0) 06/10/17 06:00 Lymph % (Auto) 17.5 % (22.0-35.0) L 06/10/17 06:00 Jones % (Auto) 10.6 % (1.0-6.0) H 06/10/17 06:00 Eos % (Auto) 4.6 % (1.5-5.0) 06/10/17 06:00 Baso % (Auto) 0.4 % (0.0-3.0) 06/10/17 06:00 Gran # 5.63 (1.4-6.5) 06/10/17 06:00 Lymph # (Auto) 1.5 (1.2-3.4) 06/10/17 06:00 Jones # (Auto) 0.9 (0.1-0.6) H 06/10/17 06:00 Eos # (Auto) 0.4 (0.0-0.7) 06/10/17 06:00 Baso # (Auto) 0.03 K/mm3 (0.0-2.0) 06/10/17 06:00 Retic Count 2.33 % (0.5-1.5) H 06/03/17 06:00 Haptoglobin 108.5 mg/dL (30.0-200.0) 06/05/17 07:00 PT 13.7 SECONDS (9.4-12.5) H 06/10/17 06:00 INR 1.19 (0.93-1.08) H 06/10/17 06:00 pO2 51 mm/Hg (30-55) 06/03/17 15:57 VBG pH 7.41 (7.32-7.43) 06/03/17 15:57 VBG pCO2 33.0 (40-60) L 06/03/17 15:57 VBG HCO3 20.9 mmol/l (21-28) L 06/03/17 15:57 VBG Total CO2 21.9 mmol.L (22-28) L 06/03/17 15:57 VBG O2 Sat (Calc) 91.4 % (40-65) H 06/03/17 15:57 VBG Base Excess -2.9 mmol/L (0.0-2.0) L 06/03/17 15:57 VBG Potassium 4.5 mmol/L (3.6-5.2) 06/03/17 15:57 Sodium 130.0 mmol/L (132-148) L 06/03/17 15:57 Chloride 105.0 mmol/L (98-107) 06/03/17 15:57 Glucose 159 mg/dl (75-110) H 06/03/17 15:57 Lactate 1.3 mmol/L (0.7-2.1) 06/03/17 15:57 FiO2 21.0 % 06/03/17 15:57 Sodium 138 mmol/L (132-148) 06/10/17 06:00 Potassium 4.2 mmol/L (3.6-5.0) 06/10/17 06:00 Chloride 104 mmol/L (98-107) 06/10/17 06:00 Carbon Dioxide 28 mmol/L (21-33) 06/10/17 06:00 Anion Gap 11 (10-20) 06/10/17 06:00 BUN 9 mg/dL (7-21) 06/10/17 06:00 Creatinine 0.8 mg/dl (0.8-1.5) 06/10/17 06:00 Est GFR ( Amer) > 60 06/10/17 06:00 Est GFR (Non-Af Amer) > 60 06/10/17 06:00 POC Glucose (mg/dL) 100 mg/dL (65-110) 06/08/17 20:40 Random Glucose 96 mg/dL (70-110) 06/10/17 06:00 Lactic Acid 1.5 mmol/L (0.7-2.1) 06/03/17 13:20 Calcium 9.1 mg/dL (8.4-10.5) 06/10/17 06:00 Magnesium 1.7 mg/dL (1.7-2.2) 06/09/17 06:15 Iron 10 ug/dL (45-180) L 06/02/17 19:29 TIBC 174 ug/dL (261-462) L 06/02/17 19:29 % Saturation 6 % (20-55) L 06/02/17 19:29 Ferritin 201.0 ng/mL 06/02/17 20:34 Total Bilirubin 0.7 mg/dL (0.2-1.3) 06/10/17 06:00 Direct Bilirubin 0.3 mg/dL (0.0-0.4) 06/04/17 05:30 AST 30 U/L (17-59) 06/10/17 06:00 ALT 64 U/L (7-56) H 06/10/17 06:00 Alkaline Phosphatase 53 U/L (38-126) 06/10/17 06:00 Lactate Dehydrogenase 335 U/L (333-699) 06/03/17 00:35 Total Creatine Kinase 36 U/L (35-230) 06/03/17 00:35 Troponin I 0.05 ng/mL 06/03/17 00:35 NT-Pro-B Natriuret Pep 408 pg/mL (0-450) 06/02/17 19:29 Total Protein 5.9 g/dL (5.8-8.3) 06/10/17 06:00 Albumin 3.1 g/dL (3.0-4.8) 06/10/17 06:00 Globulin 2.8 gm/dL 06/10/17 06:00 Albumin/Globulin Ratio 1.1 (1.1-1.8) 06/10/17 06:00 Amylase 43 U/L (35-125) 06/03/17 11:45 Lipase 122 U/L (23-300) 06/03/17 11:45 Procalcitonin < 0.05 NG/ML (0.19-0.49) L 06/02/17 19:29 TSH 3rd Generation 2.79 mIU/mL (0.46-4.68) 06/02/17 07:46 Venous Blood Potassium 4.5 mmol/L (3.6-5.2) 06/03/17 15:57 Urine Color Yellow (YELLOW) 06/03/17 21:20 Urine Appearance Clear (CLEAR) 06/03/17 21:20 Urine pH 6.0 (4.7-8.0) 06/03/17 21:20 Ur Specific [place] 1.015 (1.005-1.035) 06/03/17 21:20 Urine Protein Negative mg/dL (<30 mg/dL) 06/03/17 21:20 Urine Glucose (UA) Negative mg/dL (NEGATIVE) 06/03/17 21:20 Urine Ketones Negative mg/dL (NEGATIVE) 06/03/17 21:20 Urine Blood Negative (NEGATIVE) 06/03/17 21:20 Urine Nitrate Negative (NEGATIVE) 06/03/17 21:20 Urine Bilirubin Negative (NEGATIVE) 06/03/17 21:20 Urine Urobilinogen 0.2 E.U./dL (<1 E.U./dL) 06/03/17 21:20 Ur Leukocyte Esterase Negative [place]/uL (NEGATIVE) 06/03/17 21:20 Stool Occult Blood Positive (NEGATIVE) H 06/06/17 03:30 Digoxin 0.5 ng/mL (0.8-2.0) L 06/02/17 19:29 Blood Type A NEGATIVE 06/06/17 08:30 Blood Type Confirm A NEGATIVE 06/03/17 15:57 Antibody Screen Negative 06/06/17 08:30 Crossmatch See Detail 06/06/17 08:30 BBK History Checked Patient has bt 06/06/17 08:30 Attending/Attestation - Attestation I have personally seen and examined this patient.: Yes I have fully participated in the care of the patient.: Yes I have reviewed all pertinent clinical information, including history, physical exam and plan: Yes Notes (Text): 06/10/17 14:04 Medical record note made by the resident after discussion with my direction and input after the patient was personally seen and examined by me. I have reviewed the chart and agree that the record accurately reflects by personal performance of the history, physical exam, data review, and medical decision-making, in the course for the patient. I have also personally directed the plan of care. 56 year old male with past medical history of cardiomyopathy and atrial fibrillation who presented with complaint of chest pain and near syncope. Serial cardiac enzymes were negative He later became hypotensive, started on pressor and transferred to ICU. Blood pressure has improved and today he is weaned off dobutamine. He was found to be anemic, upper GI bleeding.Patient underwent Endoscopy that showed multiple ulcers in esophagus, antrum of stomach and duodenum. There is no active bleeding. Hemoglobin is stable. Patient case was discussed with GI , the issue of anticoagulation was discussed. After discussion with GI, the decision has been made to restart patient on Warfarin. The risk and benefit was discussed in detail with patient. Patient hemoglobin remain stable on Warfarin. His INR is not therapeutic at the time of discharge. He has scheduled appointment with his client services analyst tomorrow.Patient has refused Life Vest , This issue was discussed in detail with him.Risk was discussed. Patient will be discharged home and will follow up with his Child Care. Management plan was discussed in detail with patient. Education was provided.
[2017-06-10] MEDS: Levothyroxine 88 MCG TAB PO SCH (09:52)
[2017-06-10] MEDS: Potassium Chloride 20 mEq ER Tab PO SCH (09:53)
[2017-06-10 12:14] VITALS: BP 107/70; PULSE 78; RESP 16; TEMP 97.8
== END 2017-06-10 13:31 | disposition home or self-care (01) | DRG 552 ==
LOC: ED 07:15 → ERH 10:02 → 2RNO 14:16 → CCU 20:21 → 3RSO 06-04 18:17
PROVIDERS: ADMIT Internal Medicine; ATTEND Internal Medicine
PROC: 05HM33Z Insertion of Infusion Device into Right Internal Jugular Vein, Percutaneous Approach (ICD-10-PCS; 2017-06-02)
PROC: B543ZZA Ultrasonography of Right Jugular Veins, Guidance (ICD-10-PCS; 2017-06-02)
PROC: 3E043XZ Introduction of Vasopressor into Central Vein, Percutaneous Approach (ICD-10-PCS; 2017-06-02)
PROC: 30233N1 Transfusion of Nonautologous Red Blood Cells into Peripheral Vein, Percutaneous Approach (ICD-10-PCS; 2017-06-03)
PROC: 0DJ08ZZ Inspection of Upper Intestinal Tract, Via Natural or Artificial Opening Endoscopic (ICD-10-PCS; principal; 2017-06-07 08:30)
DX: K92.2 Gastrointestinal hemorrhage, unspecified (principal); R57.0 Cardiogenic shock; I50.20 Unspecified systolic (congestive) heart failure; N17.9 Acute kidney failure, unspecified; I11.0 Hypertensive heart disease with heart failure; I42.0 Dilated cardiomyopathy; I50.82 Biventricular heart failure; E86.1 Hypovolemia; I47.2 Ventricular tachycardia; D62 Acute posthemorrhagic anemia; I48.0 Paroxysmal atrial fibrillation; E03.9 Hypothyroidism, unspecified; R33.9 Retention of urine, unspecified; I49.3 Ventricular premature depolarization; K22.10 Ulcer of esophagus without bleeding; K26.9 Duodenal ulcer, unspecified as acute or chronic, without hemorrhage or perforation; K44.9 Diaphragmatic hernia without obstruction or gangrene; K25.9 Gastric ulcer, unspecified as acute or chronic, without hemorrhage or perforation; K21.9 Gastro-esophageal reflux disease without esophagitis; I95.9 Hypotension, unspecified; R55 Syncope and collapse; E78.00 Pure hypercholesterolemia, unspecified; G47.33 Obstructive sleep apnea (adult) (pediatric); E66.9 Obesity, unspecified; Z68.36 Body mass index [BMI] 36.0-36.9, adult; Z79.01 Long term (current) use of anticoagulants

== ENCOUNTER 2017-06-14 19:09 | Inpatient (IN) | payer MEDICAID, OTHER ==
[2017-06-14 19:09] VITALS: BMI 34.9
[2017-06-14] MEDS ORDERED: Amiodarone 150 mg/D5W 100 ml 150 MG/100 ML BAG IVPB ONE (19:23)
[2017-06-14] MEDS ORDERED: Midazolam 5 MG/ML IVP ONE (19:33)
[2017-06-14] MEDS ORDERED: Midazolam 2 MG/2 ML VIAL ONE (19:33)
[2017-06-14 19:45] LABS: BASO # 0.02 K/mm3 (0.0-2.0); BASO % 0.2 % (0.0-3.0); EOS # 0.1 (0.0-0.7); GRAN # 5.22 (1.4-6.5); HEMOGLOBIN 10.8 g/dL (14.0-18.0); LYMPH # 2.7 (1.2-3.4); LYMPH % 31.5 % (22.0-35.0); MEAN CELL VOLUME 89.1 fl (80.0-105.0); MEAN CORPUSCULAR HEMOGLOBIN 29.4 pg (25.0-35.0); MEAN PLATELET VOLUME 9.2 fl (7.0-11.0); MONO # 0.6 (0.1-0.6); MONO % 7.3 % (1.0-6.0); RBC 3.67 10^6/uL (3.5-6.1); RED CELL DISTRIBUTION WIDTH 14.6 % (11.5-14.5); WHITE BLOOD COUNT 8.7 10^3/ul (4.5-11.0)
[2017-06-14] MEDS ORDERED: Amiodarone 360 mg/D5W 200 ml 360 MG/200 ML BAG IV ONE (19:45)
--- NOTE | 2017-06-14 19:47 | ED PDOC ---
Arrival/HPI - General Chief Complaint: Chest Pain Time Seen by Provider: 06/14/17 19:15 - History of Present Illness Narrative History of Present Illness (Text): 06/14/17 19:47 Patient is a 56 y/o M with htn, non-ischemic cardiomyopathy with EF:20% on coumadin, with hx of recurrent vtach, on list for AICD placement at [facility], presenting with palpitations. Past Medical History - Infectious Disease Hx of Infectious Diseases: None - Tetanus Immunization Tetanus Immunization: Unknown - Cardiac Hx Cardiac Disorders: Yes Hx Atrial Fibrillation: Yes Hx Cardiac Arrhythmia: Yes Hx Congestive Heart Failure: Yes Hx Hypertension: Yes - Pulmonary Hx Respiratory Disorders: No - Neurological Hx Neurological Disorder: No - HEENT Hx HEENT Disorder: No - Renal Hx Renal Disorder: No - Endocrine/Metabolic Hx Endocrine Disorders: No - Hematological/Oncological Hx Blood Disorders: Yes Hx Blood Transfusions: Yes - Integumentary Hx Dermatological Disorder: No - Musculoskeletal/Rheumatological Hx Musculoskeletal Disorders: No - Gastrointestinal Hx Gastrointestinal Disorders: Yes Other/Comment: GI BLEED - Genitourinary/Gynecological Hx Genitourinary Disorders: No - Psychiatric Hx Psychophysiologic Disorder: No Hx Substance Use: No - Surgical History Hx Cardiac Catheterization: Yes (01/05/13) Other/Comment: pt had sleep apnea, had throat sx to have ovula removed, sleep apnea stopped post sx as per ptsharon picc 01/10/2013 in and out in 2 days as per pt - Anesthesia Hx Anesthesia Reactions: No Hx Malignant Hyperthermia: No - Suicidal Assessment Feels Threatened In Home Enviroment: No Family/Social History Family/Social History: No Known Family HX Smoking Status: Never Smoked Hx Alcohol Use: No Hx Substance Use: No Allergies/Home Meds Allergies/Adverse Reactions: Allergies No Known Allergies Allergy (Verified 06/14/17 19:15) Home Medications: Home Meds Medication Instructions Recorded Confirmed Atorvastatin [Lipitor] 20 mg PO DAILY 05/25/17 06/14/17 Levothyroxine [Synthroid] 0.088 mg PO DAILY 05/25/17 06/14/17 Eplerenone [Inspra] 25 mg PO DAILY 06/14/17 06/14/17 Furosemide [Lasix] 20 mg PO PRN PRN 06/14/17 06/14/17 Lisinopril [Zestril] 5 mg PO DAILY 06/14/17 06/14/17 Metoprolol Succinate [Toprol Xl] 50 mg PO DAILY 06/14/17 06/14/17 Pantoprazole [Protonix EC Tab] 40 mg PO BID 06/14/17 06/14/17 Warfarin [Coumadin] 8.5 mg PO 1800 06/14/17 06/14/17 Review of Systems - Physician Review All systems were reviewed & negative as marked: Yes - Review of Systems Systems not reviewed;Unavailable: Acuity of Condition Respiratory: absent: SOB, Cough, Sputum Cardiovascular: Chest Pain, Palpitations. absent: Edema, Calf Pain Gastrointestinal: absent: Abdominal Pain, Constipation, Diarrhea, Nausea, Vomiting Genitourinary Male: absent: Dysuria Neurological: absent: Headache, Dizziness Physical Exam Vital Signs Temp Pulse Resp BP Pulse Ox 06/14/17 20:17 80 12 79/59 L 100 06/14/17 19:43 85 25 H 88/57 L 100 06/14/17 19:32 185 H 12 78/54 L 100 06/14/17 19:25 185 H 15 122/81 100 06/14/17 19:17 98.1 F 186 H 25 H 55/36 L 92 L Temperature: Afebrile Blood Pressure: Hypotensive Pulse: Tachycardic Respiratory Rate: Normal Appearance: Positive for: Well-Appearing, Non-Toxic, Comfortable Pain Distress: None Mental Status: Positive for: Alert and Oriented X 3 - Systems Exam Head: Present: Atraumatic, Normocephalic Pupils: Present: PERRL Extroacular Muscles: Present: EOMI Conjunctiva: Present: Normal Mouth: Present: Moist Mucous Membranes Neck: Present: Normal Range of Motion Respiratory/Chest: Present: Clear to Auscultation, Good Air Exchange. No: Respiratory Distress, Accessory Muscle Use Cardiovascular: Present: Tachycardic Abdomen: No: Tenderness, Distention Upper Extremity: Present: NORMAL PULSES Neurological: Present: GCS=15, CN II-XII Intact, Speech Normal Skin: Present: Warm, Dry Medical Decision Making ED Course and Treatment: 06/14/17 20:06 Patient seen immediately by me. EKG consistent with ventricular tachycardia. Patient had b/l upper extremity pulses, was mentating with SBP >100. Amiodarone 150mg bolus ordered. Patient's BP began to drop and with ICU and cardiology at bedside, decision made to cardiovert. 5mg versed given and cardioverted. Repeat ekg showed sinus rhythm at 80bpm. Amiodarone drip ordered. Electrolytes corrected. Accepted by the ICU. 06/14/17 20:31 - Lab Interpretations Lab Results: 06/14/17 19:20 06/14/17 19:20 Lab Results 06/14/17 19:20: Sodium 139, Potassium 3.6, Chloride 104, Carbon Dioxide 23, Anion Gap 15, BUN 10, Creatinine 1.2, Est GFR ( Amer) > 60, Est GFR (Non- Af Amer) > 60, Random Glucose 116 H, Calcium 9.5, Phosphorus 3.4, Magnesium 1.5 L, Total Bilirubin 0.4, AST 28, ALT 56, Alkaline Phosphatase 59, Total Creatine Kinase 40, Troponin I 0.03 D, Total Protein 6.3, Albumin 3.5, Globulin 2.8, Albumin/Globulin Ratio 1.3 06/14/17 19:20: PT 16.8 H, INR 1.46 H, APTT 28.3 06/14/17 19:20: WBC 8.7, RBC 3.67, Hgb 10.8 L, Hct 32.7 L, MCV 89.1, MCH 29.4, MCHC 33.0, RDW 14.6 H, Plt Count 389, MPV 9.2, Gran % 60.0, Lymph % (Auto) 31.5 , [place] % (Auto) 7.3 H, Eos % (Auto) 1.0 L, Baso % (Auto) 0.2, Gran # 5.22, Lymph # (Auto) 2.7, [place] # (Auto) 0.6, Eos # (Auto) 0.1, Baso # (Auto) 0.02 - RAD Interpretation Radiology Orders: 06/14/17 19:48 CHEST PORTABLE [RAD] Stat - Medication Orders Current Medication Orders: Amiodarone HCl/Dextrose (Nexterone 360 Mg In D5w 200 Ml (Premix)) 360 mg in 200 mls @ 33.333 mls/hr IV .Q6H BEATRIZ; 1 MG/MIN PRN Reason: Protocol Last Admin: 06/14/17 19:57 Dose: 33.333 mls/hr eMAR Start Stop Document 06/14/17 19:57 CNR (Rec: 06/14/17 19:58 CNR [id number]) Intravenous Solution Start Date 06/14/17 Start Time 19:55 Magnesium Sulfate 2 gm/ Sodium (Chloride) 104 mls @ 102 mls/hr IVPB ONCE ONE Stop: 06/14/17 21:06 Discontinued Medications Amiodarone HCl/Dextrose (Nexterone 150 Mg In Dextrose 100 Ml (Premix)) 150 mg in 100 mls @ 600 mls/hr IVPB ONCE ONE PRN Reason: Protocol Stop: 06/14/17 19:32 Last Admin: 06/14/17 20:00 Dose: 600 mls/hr eMAR Start Stop Document 06/14/17 20:00 CNR (Rec: 06/14/17 20:01 CNR [id number]) Intravenous Solution Start Date 06/14/17 Start Time 19:23 End Date 06/14/17 End time 19:33 Total Infusion Time 10 Midazolam HCl (Versed Inj) 5 mg IVP ONCE ONE Stop: 06/14/17 19:34 Last Admin: 06/14/17 19:33 Dose: 5 mg IVP Administration Document 06/14/17 19:33 CNR (Rec: 06/14/17 19:59 CNR [id number]) Charges for Administration # of IVP Administrations 1 Disposition/Present on Arrival - Present on Arrival Any Indicators Present on Arrival: No History of DVT/PE: No History of Uncontrolled Diabetes: No Urinary Catheter: No History of Decub. Ulcer: No History Surgical Site Infection Following: None - Disposition Have Diagnosis and Disposition been Completed?: No Diagnosis: Ventricular tachycardia Disposition: HOSPITALIZED Disposition Time: 20:12 Patient Plan: ICU Patient Problems: Current Active Problems Problem Status Onset Ventricular tachycardia Acute Condition: FAIR Referrals: [facility], [Primary Care Provider] - Follow up with primary Forms: [employer] ([place]) Critical Care Time - Critical Care Note Total Time (in mins): 30 Documented critical care: time excludes all time spent performing seperately billable procedures.
[2017-06-14 19:57] LABS: ALB/GLOB RATIO 1.3 (1.1-1.8); ALBUMIN 3.5 g/dL (3.0-4.8); ALT/SGPT 56 U/L (7-56); AST/SGOT 28 U/L (17-59); BLOOD UREA NITROGEN 10 mg/dL (7-21); CALCIUM 9.5 mg/dL (8.4-10.5); GFR AFRICAN-AMERICAN > 60; GFR NON-AFRICAN AMERICAN > 60; PROTHROMBIN TIME 16.8 SECONDS (9.4-12.5)
[2017-06-14] MEDS: Amiodarone 360 mg/D5W 200 ml 360 MG/200 ML BAG IV SCH (19:57)
[2017-06-14 19:58] LABS: INR 1.46 (0.93-1.08); PARTIAL THROMBOPLASTIN TIME 28.3 Seconds (25.1-36.5)
[2017-06-14 20:03] LABS: TROPONIN I 0.03 ng/mL
[2017-06-14] MEDS ORDERED: Magnesium Sulfate 2 GM in Sodium Chloride 0.9% 100 ML IVPB ONE (20:05)
[2017-06-14] MEDS ORDERED: Enoxaparin 120 mg Syringe SC ONE (20:51)
--- NOTE | 2017-06-14 21:10 | CP.PCM.HP ---
History of Present Illness - History of Present Illness History of Present Illness: This is a 56yo male with past medical history of a.fib, nonischemic cardiomyopathy (EF 20-25%), GI bleed, peptic ulcer disease who came to ED for tachycardia. He was having palpitations at home and noticed on his monitor that his HR was in the 180s. Patient then decided to come into ED. He was found to be in V.tach with hypotension. Patient was given Versed and was then cardioverted and placed on Amiodarone drip. Patient's HR returned to NSR @ 80bpm. He was recently at [facility] for GI bleed secondary to peptic ulcer disease. Patient continues to be on Coumadin after discussion with GI and Cardiology, but was found to be subtherapeutic in ED. Hgb was noted to be stable. He was given one therapeutic dose of Lovenox. Of note, patient refused Life vest in past. He will need to be evaluated for AICD, but his outpatient donation worker, Dr. Moura is on vacation for the next 3 weeks. Patient denies having any chest pain, shortness of breath, nausea/vomiting/diarrhea, hematochezia or melena, fever/chills, dizziness or vision changes. Past medical history: a.fib, nonischemic cardiomyopathy (EF 20-25%), GI bleed, peptic ulcer disease Past surgical history: Denies Home meds: As per MAR All: NKDA Social history: Former alcoholic (quit in 2012), denies tobacco or drug use. Present on Admission - Present on Admission Any Indicators Present on Admission: No Review of Systems - Review of Systems All systems: reviewed and no additional remarkable complaints except Review of Systems: As per HPI Past Patient History - Infectious Disease Hx of Infectious Diseases: None - Tetanus Immunizations Tetanus Immunization: Unknown - Past Medical History & Family History Past Medical History?: Yes - Past Social History Smoking Status: Never Smoked - CARDIAC Hx Cardiac Disorders: Yes Hx Atrial Fibrillation: Yes Hx Cardia Arrhythmia: Yes Hx Congestive Heart Failure: Yes Hx Hypertension: Yes - PULMONARY Hx Respiratory Disorders: No - NEUROLOGICAL Hx Neurological Disorder: No - HEENT Hx HEENT Problems: No - RENAL Hx Chronic Kidney Disease: No - ENDOCRINE/METABOLIC Hx Endocrine Disorders: No - HEMATOLOGICAL/ONCOLOGICAL Hx Blood Disorders: Yes Hx Blood Transfusions: Yes - INTEGUMENTARY Hx Dermatological Problems: No - MUSCULOSKELETAL/RHEUMATOLOGICAL Hx Musculoskeletal Disorders: No - GASTROINTESTINAL Hx Gastrointestinal Disorders: Yes Other/Comment: GI BLEED - GENITOURINARY/GYNECOLOGICAL Hx Genitourinary Disorders: No - PSYCHIATRIC Hx Psychophysiologic Disorder: No Hx Substance Use: No - SURGICAL HISTORY Hx Cardiac Catheterization: Yes (01/05/13) Other/Comment: pt had sleep apnea, had throat sx to have ovula removed, sleep apnea stopped post sx as per pt, [facility] 01/10/2013 in and out in 2 days as per pt - ANESTHESIA Hx Anesthesia Reactions: No Hx Malignant Hyperthermia: No Meds Allergies/Adverse Reactions: Allergies Allergy/AdvReac Type Severity Reaction Status Date / Time No Known Allergies Allergy Verified 06/14/17 19:15 Physical Exam - Constitutional Appears: No Acute Distress - Head Exam Head Exam: ATRAUMATIC, NORMAL INSPECTION, NORMOCEPHALIC - Eye Exam Eye Exam: Normal appearance, PERRL Pupil Exam: NORMAL ACCOMODATION, PERRL - ENT Exam ENT Exam: Mucous Membranes Moist - Respiratory Exam Respiratory Exam: Clear to Auscultation Bilateral, NORMAL BREATHING PATTERN. absent: Rales, Rhonchi, Wheezes - Cardiovascular Exam Cardiovascular Exam: Tachycardia, REGULAR RHYTHM, +S1, +S2. absent: Gallop, Rubs, Systolic Murmur - GI/Abdominal Exam GI & Abdominal Exam: Normal Bowel Sounds, Soft. absent: Rebound, Rigid, Tenderness - Extremities Exam Extremities exam: Positive for: normal inspection. Negative for: calf tenderness, pedal edema - Neurological Exam Neurological exam: Alert, CN II-XII Intact, Oriented x3 - Psychiatric Exam Psychiatric exam: Normal Affect, Normal Mood - Skin Skin Exam: Dry, Normal Color, Warm Results - Vital Signs Recent Vital Signs: Last Vital Signs Temp 98.1 F 06/14/17 19:17 Pulse 80 06/14/17 20:17 Resp 12 06/14/17 20:17 BP 79/59 L 06/14/17 20:17 Pulse Ox 100 06/14/17 20:17 - Labs Result Diagrams: 06/14/17 19:20 06/14/17 19:20 Labs: Laboratory Results - last 24 hr 06/14/17 06/14/17 06/14/17 19:20 19:20 19:20 WBC 8.7 RBC 3.67 Hgb 10.8 L Hct 32.7 L MCV 89.1 MCH 29.4 MCHC 33.0 RDW 14.6 H Plt Count 389 MPV 9.2 Gran % 60.0 Lymph % (Auto) 31.5 [place] % (Auto) 7.3 H Eos % (Auto) 1.0 L Baso % (Auto) 0.2 Gran # 5.22 Lymph # (Auto) 2.7 [place] # (Auto) 0.6 Eos # (Auto) 0.1 Baso # (Auto) 0.02 PT 16.8 H INR 1.46 H APTT 28.3 Sodium 139 Potassium 3.6 Chloride 104 Carbon Dioxide 23 Anion Gap 15 BUN 10 Creatinine 1.2 Est GFR ( Amer) > 60 Est GFR (Non-Af Amer) > 60 Random Glucose 116 H Calcium 9.5 Phosphorus 3.4 Magnesium 1.5 L Total Bilirubin 0.4 AST 28 ALT 56 Alkaline Phosphatase 59 Total Creatine Kinase 40 Troponin I 0.03 D Total Protein 6.3 Albumin 3.5 Globulin 2.8 Albumin/Globulin Ratio 1.3 Assessment & Plan - Assessment and Plan (Free Text) Assessment: This is a 56yo male with past medical history of a.fib, nonischemic cardiomyopathy (EF 20-25%), GI bleed, peptic ulcer disease admitted to ICU for unstable vtach s/p cardioversion. Plan: 1. Unstable V.tach s/p cardioversion- now in NSR - secondary to 4 chamber cardiomyopathy - Cardio consulted - Amiodarone drip - Hold other antihypertensives for hypotension on admission - Troponin 0.03- will trend - Keep defibrillator pads in place - INR subtherapeutic- given one dose of therapeutic Lovenox 2. Recent GI bleed - Hgb stable at 10.8 - Continue Protonix BID - Continue Carafate - At last admission -GI and cardiology report continue Coumadin - Will monitor Hgb 3. Nonischemic cardiomyopathy - Will need AICD - Continue Amio drip - Hold other home medications for now (Metoprolol, Lasix, Lisinopril, Amiodarone PO) - Continue Lipitor and Inspra - Echo from 05/25 shows four chamber dilation, EF 20-25%, moderate MR/TR, RVSP 50 , no thrombus 4. A.fib - INR subtherapeutic at 1.48 - Will start Coumadin 8.5 tomorrow - Given one dose therapeutic lovenox - Monitor INR 5. Hx of Hypothyroidism - Continue synthroid home dose 6. Hx of Urinary retention - Continue Flomax GI ppx: Protonix DVT ppx: Coumadin/SCDs Dispo: Patient will be monitored in ICU. Case seen, discussed and reviewed with attending. Prosper Maher PGY2 - Date & Time Date: 06/14/17 Time: 21:21
[2017-06-14] MEDS: Sucralfate 1 gm/10 ml Oral Susp UD PO SCH (23:04)
[2017-06-15 01:59] LABS: TROPONIN I 0.14 ng/mL
[2017-06-15 06:54] LABS: BASO # 0.03 K/mm3 (0.0-2.0); BASO % 0.5 % (0.0-3.0); EOS # 0.1 (0.0-0.7); EOS % 1.6 % (1.5-5.0); GRAN # 2.74 (1.4-6.5); GRAN % 47.3 % (50.0-68.0); HEMOGLOBIN 9.4 g/dL (14.0-18.0); LYMPH # 2.3 (1.2-3.4); LYMPH % 40.1 % (22.0-35.0); MEAN CELL VOLUME 89.4 fl (80.0-105.0); MEAN CORPUSCULAR HEMOGLOBIN 29.3 pg (25.0-35.0); MEAN CORPUSCULAR HGB CONC 32.8 g/dl (31.0-37.0); MEAN PLATELET VOLUME 8.9 fl (7.0-11.0); MONO # 0.6 (0.1-0.6); MONO % 10.5 % (1.0-6.0); RBC 3.21 10^6/uL (3.5-6.1); RED CELL DISTRIBUTION WIDTH 14.8 % (11.5-14.5); WHITE BLOOD COUNT 5.8 10^3/ul (4.5-11.0)
[2017-06-15 07:23] LABS: INR 1.55 (0.93-1.08)
[2017-06-15] MEDS ORDERED: Pantoprazole 40 mg EC Tab PO SCH (07:30)
[2017-06-15 07:46] LABS: ALB/GLOB RATIO 1.1 (1.1-1.8); ALT/SGPT 48 U/L (7-56); AST/SGOT 24 U/L (17-59); BLOOD UREA NITROGEN 11 mg/dL (7-21); GFR AFRICAN-AMERICAN > 60; GFR NON-AFRICAN AMERICAN > 60
[2017-06-15 08:13] LABS: TROPONIN I 0.15 ng/mL
[2017-06-15] MEDS: Amiodarone 360 mg/D5W 200 ml 360 MG/200 ML BAG IV SCH ×2 (09:04→16:14)
[2017-06-15] MEDS: Levothyroxine 88 MCG TAB PO SCH (09:18)
[2017-06-15] MEDS: Pantoprazole 40 mg EC Tab PO SCH ×2 (09:19→17:35)
--- NOTE | 2017-06-15 09:35 | RAD ---
HISTORY: chest pain COMPARISON: 06/02/2017 FINDINGS: LUNGS: No active pulmonary disease. PLEURA: No significant pleural effusion identified, no pneumothorax apparent. CARDIOVASCULAR: Normal. OSSEOUS STRUCTURES: No significant abnormalities. VISUALIZED UPPER ABDOMEN: Normal. OTHER FINDINGS: None. IMPRESSION: No active disease.
--- NOTE | 2017-06-15 10:33 | CARD ---
APPROVED REPORT EKG Measurement Heart [id number] <Conclusion> Sinus rhythm with 1st degree AV block Left axis deviation Left bundle branch block
--- NOTE | 2017-06-15 11:01 | CON ---
DATE: 06/14/2017 CARDIOLOGY CONSULTATION HISTORY: The patient is a 56-year-old male, who presented to the emergency room with a ventricular tachycardia, which required defibrillation. The patient's past medical history is notable for documented dilated cardiomyopathy for several years. He is followed at [facility] in which he was advised to wear a LifeVest in which the patient refused. He was on amiodarone, which he stopped several years ago. He denies chest pain. Denies shortness of breath. He does admit to feeling like flu-like symptoms over the past couple of days until he presented with ventricular tachycardia. He denies hypertension. Denies diabetes mellitus. He has a history of noncompliance. SOCIAL HISTORY: Denies smoking. REVIEW OF SYSTEMS: Fourteen-point review of systems was reviewed in detail. The patient feels well now. MEDICATIONS: He is currently on IV amiodarone. PHYSICAL EXAMINATION VITAL SIGNS: Stable. NECK: Negative JVD. LUNGS: Without rales. HEART: Reveals S1, S2. EXTREMITIES: Without edema. EKG shows no acute changes. His rhythm during the shock was a monomorphic VT. LABORATORY DATA: Potassium and magnesium have been corrected. The troponins are elevating. IMPRESSION: 1. Hemodynamically significant ventricular tachycardia requiring defibrillation. 2. Elevated troponins consistent with [id number] myocardial infarction versus elevated troponins from his defibrillation 3. Dilated cardiomyopathy. 4. Obesity. 5. Noncompliance with medical followup and advice. PLAN: Given these findings, the patient is currently on IV amiodarone. We will check the magnesium today and correct. The patient will need cardiac catheterization to rule out coronary artery disease. If negative, the patient would benefit from a defibrillator. Valentin Flynn MD
[2017-06-15] MEDS ORDERED: Lidocaine 2% Inj (20ml) ONE (11:44)
[2017-06-15] MEDS ORDERED: Iodixanol 320 MG/ML 200 ML BOTTLE IV ONE (11:45)
[2017-06-15] MEDS ORDERED: Iodixanol 320 MG/ML 100 ML BOTTLE IV ONE (13:09)
[2017-06-15] MEDS: Midazolam 2 MG/2 ML VIAL ONE ×4 (13:10→14:57)
[2017-06-15] MEDS ORDERED: Magnesium Sulfate 1 gm in D5W 1 GM/100 ML BAG IVPB ONE (13:42)
[2017-06-15] MEDS ORDERED: Sodium Chloride 0.9% 1,000 ML IV SCH (13:45)
--- NOTE | 2017-06-15 13:47 | CP.CCUPN ---
Addendum entered and electronically signed by Abel Castellanos, 06/15/17 16 :36: Assessment and Plan -LifeVest is indicated as patient was found to be in ventricular tachycardia with shock. Original Note: <Abel Castellanos - Last Filed: 06/15/17 16:27> CCU Subjective - Physician Review Events Since Last Encounter (Free Text): 06/15/17 13:57 Subjective (Free Text): 06/15/17 14:04 Patient seen and evaluated at bedside with no acute complaints. Patient states he initially felt as though there was a brick sitting on his chest which has resolved. Denies fevers, chills, nausea, vomiting, diarrhea, abdominal pain, chest pain, shortness of breath. Critical Care Time Spent (in minutes): 40 CCU Objective - Vital Signs / Intake & Output Vital Signs (Last 4 hours): Vital Signs Temp Pulse Resp BP Pulse Ox 06/15/17 12:20 67 14 88 L 06/15/17 12:10 66 16 96 06/15/17 12:00 98.3 F 86 16 91/47 L 100 06/15/17 11:50 68 14 97 06/15/17 11:40 69 18 97 06/15/17 11:30 73 34 H 81 L 06/15/17 11:20 68 28 H 80 L 06/15/17 11:10 69 21 92 L 06/15/17 11:01 70 25 H 95/55 L 80 L 06/15/17 11:00 67 11 L 84 L 06/15/17 10:50 71 37 H 100 06/15/17 10:40 68 17 100 06/15/17 10:30 70 17 96 06/15/17 10:20 74 17 99 06/15/17 10:10 78 53 H 93 L 06/15/17 10:07 75 23 99/47 L 86 L 06/15/17 10:00 76 19 100 06/15/17 09:50 90 81 H 74 L - Physical Exam Head: Positive for: Atraumatic, Normocephalic. Negative for: Tenderness, Contusion Pupils: Positive for: PERRL Extroacular Muscles: Positive for: EOMI Conjunctiva: Positive for: Normal Mouth: Positive for: Moist Mucous Membranes Neck: Positive for: Normal Range of Motion Respiratory/Chest: Positive for: Clear to Auscultation, Good Air Exchange. Negative for: Respiratory Distress, Accessory Muscle Use Cardiovascular: Positive for: Tachycardic. Negative for: Irregular Rhythm Abdomen: Negative for: Tenderness, Distention Upper Extremity: Positive for: NORMAL PULSES Lower Extremity: Positive for: Normal Inspection Neurological: Positive for: GCS=15, Speech Normal Skin: Positive for: Warm, Dry Psychiatric: Positive for: Alert, Oriented x 3, Normal Insight, Normal Concentration - Medications Active Medications: Active Medications Generic Name Dose Route Start Last Admin Trade Name Freq PRN Reason Stop Dose Admin Atorvastatin Calcium 20 mg 06/15/17 10:00 06/15/17 09:19 Lipitor PO 20 mg DAILY BEATRIZ Administration Amiodarone HCl/Dextrose 360 mg in 200 mls @ 33.333 mls/hr 06/14/17 19:45 12/23 09:04 Nexterone 360 Mg In D5w 200 Ml (Premix) IV 33.333 mls/hr .Q6H BEATRIZ Administration Protocol 1 MG/MIN Sodium Chloride 1,000 mls @ 50 mls/hr 06/15/17 13:45 Sodium Chloride 0.9% IV 06/15/17 20:00 .Q20H BEATRIZ Levothyroxine Sodium 88 mcg 06/15/17 10:00 06/15/17 09:18 Synthroid PO 88 mcg DAILY BEATRIZ Administration Eplerenone [Inspra] 25 mg 06/15/17 10:00 06/15/17 09:19 25 Mg PO Not Given DAILY BEATRIZ Pantoprazole Sodium 40 mg 06/15/17 10:00 06/15/17 09:19 Protonix Ec Tab PO 40 mg BID BEATRIZ Administration Sucralfate 1 gm 06/14/17 22:00 06/14/17 23:04 Carafate Oral Susp PO 1 gm 0630,1130,1630,2200 BEATRIZ Administration Tamsulosin HCl 0.4 mg 06/15/17 10:00 06/15/17 09:19 Flomax PO 0.4 mg DAILY BEATRIZ Administration Warfarin Sodium 7.5 mg 06/15/17 18:00 Coumadin PO 1800 BEATRIZ Protocol Warfarin Sodium 1 mg 06/15/17 18:00 Coumadin PO 1800 BEATRIZ - Patient Studies Lab Studies: Lab Studies 06/15/17 06/15/17 06/15/17 Range/Units 09:50 05:50 05:50 WBC (4.5-11.0) 10^3/ul RBC (3.5-6.1) 10^6/uL Hgb (14.0-18.0) g/dL Hct (42.0-52.0) % MCV (80.0-105.0) fl MCH (25.0-35.0) pg MCHC (31.0-37.0) g/dl RDW (11.5-14.5) % Plt Count (120.0-450.0) 10^3/uL MPV (7.0-11.0) fl Gran % (50.0-68.0) % Lymph % (Auto) (22.0-35.0) % [place] % (Auto) (1.0-6.0) % Eos % (Auto) (1.5-5.0) % Baso % (Auto) (0.0-3.0) % Gran # (1.4-6.5) Lymph # (Auto) (1.2-3.4) [place] # (Auto) (0.1-0.6) Eos # (Auto) (0.0-0.7) Baso # (Auto) (0.0-2.0) K/mm3 PT 18.0 H (9.4-12.5) SECONDS INR 1.55 H (0.93-1.08) Sodium 139 (132-148) mmol/L Potassium 3.9 (3.6-5.0) mmol/L Chloride 104 (98-107) mmol/L Carbon Dioxide 27 (21-33) mmol/L Anion Gap 13 (10-20) BUN 11 (7-21) mg/dL Creatinine 1.0 (0.8-1.5) mg/dl Est GFR ( Amer) > 60 Est GFR (Non-Af Amer) > 60 Random Glucose 88 (70-110) mg/dL Calcium 9.0 (8.4-10.5) mg/dL Phosphorus 4.1 (2.5-4.5) mg/dL Magnesium 2.0 (1.7-2.2) mg/dL Total Bilirubin 0.2 (0.2-1.3) mg/dL AST 24 (17-59) U/L ALT 48 (7-56) U/L Alkaline Phosphatase 50 (38-126) U/L Lactate Dehydrogenase 344 (333-699) U/L Total Creatine Kinase 29 L (35-230) U/L Troponin I 0.15 H* ng/mL Total Protein 5.5 L (5.8-8.3) g/dL Albumin 3.0 (3.0-4.8) g/dL Globulin 2.6 gm/dL Albumin/Globulin Ratio 1.1 (1.1-1.8) TSH 3rd Generation 1.63 (0.46-4.68) mIU/mL 06/15/17 06/15/17 Range/Units 05:50 01:15 WBC 5.8 D (4.5-11.0) 10^3/ul RBC 3.21 L (3.5-6.1) 10^6/uL Hgb 9.4 L (14.0-18.0) g/dL Hct 28.7 L (42.0-52.0) % MCV 89.4 (80.0-105.0) fl MCH 29.3 (25.0-35.0) pg MCHC 32.8 (31.0-37.0) g/dl RDW 14.8 H (11.5-14.5) % Plt Count 291 (120.0-450.0) 10^3/uL MPV 8.9 (7.0-11.0) fl Gran % 47.3 L (50.0-68.0) % Lymph % (Auto) 40.1 H (22.0-35.0) % [place] % (Auto) 10.5 H (1.0-6.0) % Eos % (Auto) 1.6 (1.5-5.0) % Baso % (Auto) 0.5 (0.0-3.0) % Gran # 2.74 (1.4-6.5) Lymph # (Auto) 2.3 (1.2-3.4) [place] # (Auto) 0.6 (0.1-0.6) Eos # (Auto) 0.1 (0.0-0.7) Baso # (Auto) 0.03 (0.0-2.0) K/mm3 PT (9.4-12.5) SECONDS INR (0.93-1.08) Sodium (132-148) mmol/L Potassium (3.6-5.0) mmol/L Chloride (98-107) mmol/L Carbon Dioxide (21-33) mmol/L Anion Gap (10-20) BUN (7-21) mg/dL Creatinine (0.8-1.5) mg/dl Est GFR ( Amer) Est GFR (Non-Af Amer) Random Glucose (70-110) mg/dL Calcium (8.4-10.5) mg/dL Phosphorus (2.5-4.5) mg/dL Magnesium (1.7-2.2) mg/dL Total Bilirubin (0.2-1.3) mg/dL AST (17-59) U/L ALT (7-56) U/L Alkaline Phosphatase (38-126) U/L Lactate Dehydrogenase 326 L (333-699) U/L Total Creatine Kinase 32 L (35-230) U/L Troponin I 0.14 H* D ng/mL Total Protein (5.8-8.3) g/dL Albumin (3.0-4.8) g/dL Globulin gm/dL Albumin/Globulin Ratio (1.1-1.8) TSH 3rd Generation (0.46-4.68) mIU/mL Laboratory Results - last 24 hr 06/15/17 06/15/17 06/15/17 01:15 05:50 05:50 WBC 5.8 D RBC 3.21 L Hgb 9.4 L Hct 28.7 L MCV 89.4 MCH 29.3 MCHC 32.8 RDW 14.8 H Plt Count 291 MPV 8.9 Gran % 47.3 L Lymph % (Auto) 40.1 H [place] % (Auto) 10.5 H Eos % (Auto) 1.6 Baso % (Auto) 0.5 Gran # 2.74 Lymph # (Auto) 2.3 [place] # (Auto) 0.6 Eos # (Auto) 0.1 Baso # (Auto) 0.03 PT 18.0 H INR 1.55 H Sodium Potassium Chloride Carbon Dioxide Anion Gap BUN Creatinine Est GFR ( Amer) Est GFR (Non-Af Amer) Random Glucose Calcium Phosphorus Magnesium Total Bilirubin AST ALT Alkaline Phosphatase Lactate Dehydrogenase 326 L Total Creatine Kinase 32 L Troponin I 0.14 H* D Total Protein Albumin Globulin Albumin/Globulin Ratio TSH 3rd Generation 06/15/17 06/15/17 05:50 09:50 WBC RBC Hgb Hct MCV MCH MCHC RDW Plt Count MPV Gran % Lymph % (Auto) [place] % (Auto) Eos % (Auto) Baso % (Auto) Gran # Lymph # (Auto) [place] # (Auto) Eos # (Auto) Baso # (Auto) PT INR Sodium 139 Potassium 3.9 Chloride 104 Carbon Dioxide 27 Anion Gap 13 BUN 11 Creatinine 1.0 Est GFR ( Amer) > 60 Est GFR (Non-Af Amer) > 60 Random Glucose 88 Calcium 9.0 Phosphorus 4.1 Magnesium 2.0 Total Bilirubin 0.2 AST 24 ALT 48 Alkaline Phosphatase 50 Lactate Dehydrogenase 344 Total Creatine Kinase 29 L Troponin I 0.15 H* Total Protein 5.5 L Albumin 3.0 Globulin 2.6 Albumin/Globulin Ratio 1.1 TSH 3rd Generation 1.63 EKG/Cardiology Studies: Cardiology / EKG Studies 06/14/17 19:46 EKG [ELECTROCARDIOGRAM] Stat Comment: Reason For Exam: CHEST PAIN 06/15/17 19:17 EKG [ELECTROCARDIOGRAM] Stat Comment: Reason For Exam: CHEST PAIN Review of Systems - Constitutional Constitutional: absent: Fever, Chills, Sweats, Weakness - EENT Eyes: UNREMARKABLE. absent: Blurred Vision, Change in Vision Ears: UNREMARKABLE Nose/Mouth/Throat: UNREMARKABLE - Cardiovascular Cardiovascular: UNREMARKABLE. absent: Chest Pain at Rest - Gastrointestinal Gastrointestinal: UNREMARKABLE. absent: Diarrhea, Nausea, Vomiting - Genitourinary Genitourinary: UNREMARKABLE. absent: Dysuria - Musculoskeletal Musculoskeletal: UNREMARKABLE - Integumentary Integumentary: UNREMARKABLE - Neurological Neurological: absent: Confusion, Dizziness - Psychiatric Psychiatric: UNREMARKABLE. absent: Anxiety - Endocrine Endocrine: absent: Fatigue Critical Care Progress Note - Nutrition Nutrition: Nutrition Category Date Time Status Heart Healthy Diet [DIET] Diets 06/14/17 Breakfast Ordered Assessment/Plan - Assessment and Plan (Free Text) Assessment: Patient is a 56 year old male with a history of atrial fibrillation,nonischemic cardiomyopathy (EF 20-25%), GI bleed secondary to peptic ulcer disease who came to ED for tachycardia and complaints of chest pain described as a brick sitting on his chest. Patient was found to be in v tach and hypotensive in the ED for which he was cardioverted, placed on amiodarone drip and sent to the ICU. Patient admitted himself to ED due to the combination of hypotension plus tachycardia which he was instructed to do so by his strategic partnership specialist Dr. Moura. Neurologic: -Patient is AAOx 3 -well aware of his surroundings and his current condition and disposition plan Cardiovascular: -Cardiology and Electrophysiology consulted -Echo from 05/25 shows 4 chamber dilated cardiomyopathy, EF 20-25%, moderate MR/ TR, negative for thrombus -Patient has sustained ventricular tachycardia. Patient originally placed on amiodarone drip. Catheterization shows patient has CAD, will await official read. Patient will need AICD placement. In the mean time patient will be given life vest to use temporarily. Patient will now continue on amiodarone drip protocol and will be started on PO amiodarone. -Patient has a history of atrial fibrillation which he is currently on 8.5 mg warfarin for. Warfarin has been steadily increased by patient's PMD due to subtherapeutic INR. Patient will continue to receive warfarin as dosed, no no further heparin for bridging at this moment as per cardiology -Patient had initial increase in troponins. Patient was taken to cath. Troponin leakage was not due to NSTEMI but most likely due to cardioversion. -Patient will continue on lipitor and Inspra -continue to monitor patients BP and HR Pulmonary: -CXR revealed no acute disease, negative for pneumothorax -No further interventions needed at this moment as patient O2 sat is 100% on room air Gastrointestinal: -Patient has recent history of GI bleed secondary to peptic ulcer disease -Patient currently has a stable H&H; no further intervention needed at this moment -Continue with Carafate and protonix Disposition: Patient will be transferred to telemetry once life vest is placed. <Rivera Brown - Last Filed: 06/16/17 12:38> CCU Objective - Vital Signs / Intake & Output Vital Signs (Last 4 hours): Vital Signs Temp Pulse Resp BP Pulse Ox 06/16/17 12:00 99.7 F H 75 18 95/60 L 100 06/16/17 11:50 73 15 79 L 06/16/17 11:40 75 27 H 100 06/16/17 11:30 78 15 100 06/16/17 11:20 81 28 H 94 L 06/16/17 11:10 77 25 H 95 06/16/17 11:02 78 35 H 06/16/17 11:01 76 16 06/16/17 11:00 77 22 98/66 L 100 06/16/17 10:51 77 19 06/16/17 10:50 79 25 H 06/16/17 10:40 77 18 99 06/16/17 10:30 72 17 100 06/16/17 10:20 71 15 100 06/16/17 10:10 83 13 100 06/16/17 10:00 72 18 93/45 L 97 06/16/17 09:50 69 15 100 06/16/17 09:40 73 17 100 06/16/17 09:30 75 15 99 06/16/17 09:20 73 18 100 06/16/17 09:10 67 17 100 06/16/17 09:00 98/54 L 06/16/17 08:50 76 30 H 100 06/16/17 08:44 70 17 100/59 L 100 06/16/17 08:40 70 21 88 L Intake and Output (Last 8hrs): Intake & Output 06/15/17 06/16/17 06/16/17 22:59 06:59 14:59 Intake Total 1200 20 Output Total 800 700 Balance 400 -680 Intake: Oral 1200 20 Output: Urine 800 700 Urine, Voided 800 700 - Medications Active Medications: Active Medications Generic Name Dose Route Start Last Admin Trade Name Freq PRN Reason Stop Dose Admin Amiodarone HCl 400 mg 06/15/17 17:00 06/16/17 08:44 Cordarone PO 400 mg BRKDIN BEATRIZ Administration Atorvastatin Calcium 20 mg 06/15/17 10:00 06/16/17 09:11 Lipitor PO 20 mg DAILY BEATRIZ Administration Levothyroxine Sodium 88 mcg 06/15/17 10:00 06/16/17 09:09 Synthroid PO 88 mcg DAILY BEATRIZ Administration Eplerenone [Inspra] 25 mg 06/15/17 10:00 06/16/17 09:14 25 Mg PO Not Given DAILY BEATRIZ Pantoprazole Sodium 40 mg 06/15/17 10:00 06/16/17 09:09 Protonix Ec Tab PO 40 mg BID BEATRIZ Administration Sucralfate 1 gm 06/14/17 22:00 06/16/17 05:38 Carafate Oral Susp PO 1 gm 0630,1130,1630,2200 BEATRIZ Administration Tamsulosin HCl 0.4 mg 06/15/17 10:00 06/16/17 09:09 Flomax PO 0.4 mg DAILY BEATRIZ Administration Warfarin Sodium 7.5 mg 06/15/17 18:00 06/15/17 17:35 Coumadin PO 7.5 mg 1800 BEATRIZ Administration Protocol Warfarin Sodium 1 mg 06/15/17 18:00 06/15/17 17:35 Coumadin PO 1 mg 1800 BEATRIZ Administration - Patient Studies Lab Studies: Microbiology Studies 06/15/17 10:30 MRSA Culture (Admit) - Final Nose MRSA NOT DETECTED Lab Studies 06/16/17 06/16/17 06/16/17 Range/Units 05:00 05:00 05:00 WBC 5.3 (4.5-11.0) 10^3/ul RBC 3.32 L (3.5-6.1) 10^6/uL Hgb 9.7 L (14.0-18.0) g/dL Hct 29.8 L (42.0-52.0) % MCV 89.8 (80.0-105.0) fl MCH 29.2 (25.0-35.0) pg MCHC 32.6 (31.0-37.0) g/dl RDW 14.8 H (11.5-14.5) % Plt Count 285 (120.0-450.0) 10^3/uL MPV 8.9 (7.0-11.0) fl Gran % 63.8 (50.0-68.0) % Lymph % (Auto) 25.0 (22.0-35.0) % [place] % (Auto) 9.5 H (1.0-6.0) % Eos % (Auto) 1.3 L (1.5-5.0) % Baso % (Auto) 0.4 (0.0-3.0) % Gran # 3.38 (1.4-6.5) Lymph # (Auto) 1.3 (1.2-3.4) [place] # (Auto) 0.5 (0.1-0.6) Eos # (Auto) 0.1 (0.0-0.7) Baso # (Auto) 0.02 (0.0-2.0) K/mm3 PT 22.0 H (9.4-12.5) SECONDS INR 1.89 H (0.93-1.08) Sodium 139 (132-148) mmol/L Potassium 4.0 (3.6-5.0) mmol/L Chloride 106 (98-107) mmol/L Carbon Dioxide 28 (21-33) mmol/L Anion Gap 9 L (10-20) BUN 9 (7-21) mg/dL Creatinine 0.8 (0.8-1.5) mg/dl Est GFR ( Amer) > 60 Est GFR (Non-Af Amer) > 60 Random Glucose 89 (70-110) mg/dL Calcium 8.7 (8.4-10.5) mg/dL Phosphorus 3.1 (2.5-4.5) mg/dL Magnesium 1.9 (1.7-2.2) mg/dL Total Bilirubin 0.2 (0.2-1.3) mg/dL AST 21 (17-59) U/L ALT 49 (7-56) U/L Alkaline Phosphatase 52 (38-126) U/L Total Protein 5.7 L (5.8-8.3) g/dL Albumin 3.1 (3.0-4.8) g/dL Globulin 2.6 gm/dL Albumin/Globulin Ratio 1.2 (1.1-1.8) Laboratory Results - last 24 hr 06/16/17 06/16/17 06/16/17 05:00 05:00 05:00 WBC 5.3 RBC 3.32 L Hgb 9.7 L Hct 29.8 L MCV 89.8 MCH 29.2 MCHC 32.6 RDW 14.8 H Plt Count 285 MPV 8.9 Gran % 63.8 Lymph % (Auto) 25.0 [place] % (Auto) 9.5 H Eos % (Auto) 1.3 L Baso % (Auto) 0.4 Gran # 3.38 Lymph # (Auto) 1.3 [place] # (Auto) 0.5 Eos # (Auto) 0.1 Baso # (Auto) 0.02 PT 22.0 H INR 1.89 H Sodium 139 Potassium 4.0 Chloride 106 Carbon Dioxide 28 Anion Gap 9 L BUN 9 Creatinine 0.8 Est GFR ( Amer) > 60 Est GFR (Non-Af Amer) > 60 Random Glucose 89 Calcium 8.7 Phosphorus 3.1 Magnesium 1.9 Total Bilirubin 0.2 AST 21 ALT 49 Alkaline Phosphatase 52 Total Protein 5.7 L Albumin 3.1 Globulin 2.6 Albumin/Globulin Ratio 1.2 EKG/Cardiology Studies: Cardiology / EKG Studies 06/15/17 19:17 EKG [ELECTROCARDIOGRAM] Stat Comment: Reason For Exam: CHEST PAIN 06/16/17 08:00 EKG [ELECTROCARDIOGRAM] DAILY Comment: Reason For Exam: vtach, f/u Critical Care Progress Note - Nutrition Nutrition: Nutrition Category Date Time Status Heart Healthy Diet [DIET] Diets 06/14/17 Breakfast Ordered Attending/Attestation - Attestation I have personally seen and examined this patient.: Yes I have fully participated in the care of the patient.: Yes I have reviewed all pertinent clinical information: Yes Notes (Text): 06/16/17 12:36 56 yo male with severe cardiomyopathy, and intermittent unstable Vtach, requiring cardioversion. Now in sinus rhtyhm with low normal BP, mentating well , making good urine, respiratory giraldo comfortable and stable. Vest was ordered, amiodarone drip continued. dvt/gi prophylaxis ccm time 40 min
--- NOTE | 2017-06-15 13:58 | CP.PCM.PN ---
<Emiliano Casper - Last Filed: 06/15/17 13:50> Subjective - Date & Time of Evaluation Date of Evaluation: 06/15/17 Time of Evaluation: 09:00 - Subjective Subjective: IM Progress Note for Hospitalist Service Patient seen and examined at bedside in the ICU. No acute events reported since admission. Remains on Amiodarone drip, maintaining NSR on drip. BP noted to be low-normal, but as per patient, his baseline is mid-80's-90's systolic, which his outpt large animal husbandry technician is aware of and ok with. He denies any chest pain, palpitations, shortness of breath, lightheadedness, dizziness, or feeling of near-syncope at time of exam. Understands the need for AICD, and is ammenable, but remains adamantly against wearing a life vest. States he doesn' t care who does the AICD (in house EP or EP referred by his outpt Print Shop Chief Clerk) , just wants it to get done. Again denies any alcohol use since 2012, denies any illicit use as outpt including cocaine. Objective - Vital Signs/Intake and Output Vital Signs (last 24 hours): Temp Pulse Resp BP Pulse Ox 98.3 F 67 14 91/47 L 88 L 06/15/17 12:00 06/15/17 12:20 06/15/17 12:20 06/15/17 12:00 06/15/17 12:20 - Medications Medications: Current Medications Amiodarone HCl (Cordarone) 400 mg PO [facility]IN [facility] Atorvastatin Calcium (Lipitor) 20 mg PO DAILY [facility] Last Admin: 06/15/17 09:19 Dose: 20 mg Amiodarone HCl/Dextrose (Nexterone 360 Mg In D5w 200 Ml (Premix)) 360 mg in 200 mls @ 33.333 mls/hr IV .Q6H [facility]; 1 MG/MIN PRN Reason: Protocol Last Admin: 06/15/17 09:04 Dose: 33.333 mls/hr Sodium Chloride (Sodium Chloride 0.9%) 1,000 mls @ 50 mls/hr IV .Q20H [facility] Stop: 06/15/17 20:00 Magnesium Sulfate/Dextrose (Magnesium Sulfate 1 Gm/100 Ml D5w) 1 gm in 100 mls @ 100 mls/hr IVPB ONCE ONE Stop: 06/15/17 14:41 Levothyroxine Sodium (Synthroid) 88 mcg PO DAILY [facility] Last Admin: 06/15/17 09:18 Dose: 88 mcg Eplerenone [Inspra] (25 Mg) 25 mg PO DAILY [facility] Last Admin: 06/15/17 09:19 Dose: Not Given Pantoprazole Sodium (Protonix Ec Tab) 40 mg PO BID [facility] Last Admin: 06/15/17 09:19 Dose: 40 mg Sucralfate (Carafate Oral Susp) 1 gm PO 0630,1130,1630,2200 [facility] Last Admin: 06/14/17 23:04 Dose: 1 gm Tamsulosin HCl (Flomax) 0.4 mg PO DAILY [facility] Last Admin: 06/15/17 09:19 Dose: 0.4 mg Warfarin Sodium (Coumadin) 7.5 mg PO 1800 [facility] PRN Reason: Protocol Warfarin Sodium (Coumadin) 1 mg PO 1800 [facility] - Labs Labs: 06/15/17 05:50 06/15/17 05:50 PT 18.0 SECONDS (9.4-12.5) H 06/15/17 05:50 INR 1.55 (0.93-1.08) H 06/15/17 05:50 APTT 28.3 Seconds (25.1-36.5) 06/14/17 19:20 - Constitutional Appears: Non-toxic, No Acute Distress - Head Exam Head Exam: ATRAUMATIC, NORMAL INSPECTION, NORMOCEPHALIC - Eye Exam Eye Exam: EOMI, Normal appearance. absent: Conjunctival injection, Scleral icterus Pupil Exam: absent: Irregular, Unequal - ENT Exam ENT Exam: Mucous Membranes Moist - Neck Exam Neck Exam: Full ROM. absent: Lymphadenopathy, Tenderness, Thyromegaly - Respiratory Exam Respiratory Exam: Clear to Ausculation Bilateral, NORMAL BREATHING PATTERN. absent: Accessory Muscle Use, Chest Wall Tenderness, Decreased Breath Sounds, Rales, Rhonchi, Wheezes - Cardiovascular Exam Cardiovascular Exam: REGULAR RHYTHM, RRR, +S1, +S2. absent: Bradycardia, Tachycardia, Irregular Rhythm, JVD, +S4 Additional comments: slightly faint heart sounds, but otherwise RRR with +S1/2 - GI/Abdominal Exam GI & Abdominal Exam: Soft, Normal Bowel Sounds. absent: Distended, Firm, Rigid , Tenderness - Extremities Exam Extremities Exam: Full ROM, Normal Capillary Refill, Normal Inspection. absent : Calf Tenderness, Pedal Edema, Tenderness - Neurological Exam Neurological Exam: Alert, Awake, Oriented x3 (self, location, year, situation) - Psychiatric Exam Psychiatric exam: Normal Affect, Normal Mood - Skin Skin Exam: Dry, Intact, Normal Color, Warm Assessment and Plan - Assessment and Plan (Free Text) Assessment: This is a 56yo male with past medical history of a-fib, non-ischemic cardiomyopathy (EF 20-25%), GI bleed, and peptic ulcer disease who was admitted for unstable vtach s/p cardioversion, now on Amiodarone drip and in the ICU. Plan: 1) Unstable V.tach s/p cardioversion- now in NSR - secondary to 4 chamber cardiomyopathy - Cardio consulted, pending cath today - Amiodarone drip to continue, s/p amio bolus in ED on presentation - Hold other antihypertensives for hypotension on admission, trending 80's-90's systolic in the ICU but completely awake/alert/animated, appears to be adequately perfusing - Troponin increased from 0.03 to 0.14, pending another check, Cardio aware - Keep defibrillator pads in place - INR subtherapeutic- 1.55 today, holding off additional dose of Lovenox or heparin drip as per Cardio, b/c pt pending cath today, can continue PM coumadin dosing as per Cardio, continue daily coags trending 2) Recent GI bleed - Hgb 9.4, hemodynamically stable, if drops below 8 or drops with signs of hemodynamically unstable/signs of end-organ damage consider transfusing pRBCs - Continue Protonix BID - Continue Carafate - Was recommended to continue Anticoag given cardiac hx as per GI and Cardio during last admission, will continue as documented above - Will monitor Hgb daily 3) Nonischemic cardiomyopathy - Will need AICD, cardio following - Continue Amio drip - Hold other home medications for now (Metoprolol, Lasix, Lisinopril, Amiodarone PO) - Continue Lipitor and Inspra - Echo from 05/25 shows four chamber dilation, EF 20-25%, moderate MR/TR, RVSP 50 , no thrombus 4) A-fib - INR subtherapeutic at 1.55 - Coumadin 8.5 tonight acceptable as per cardio, hold off on additional coverage with Lovenox or heparin drip as per Cardio - Monitor INR daily 5) Hx of Hypothyroidism - Continue synthroid home dose 6) Hx of Urinary retention - Continue Flomax Dispo: ICU, pending cardiac cath today, pending discussion with pt's outpt large animal husbandry technician's coverage to determine if possible transfer for AICD or if need to consult EP here for AICD FEN: NPO pending cath Access: Peripheral IVs Consults: Cardio, EP, ICU Ppx: Protonix for GI, SCDs/Coumadin (when therapeutic) for DVT Patient seen, reviewed, and discussed with attending, Dr. Grayson <Corrie Grayson - Last Filed: 06/15/17 16:09> Objective - Vital Signs/Intake and Output Vital Signs (last 24 hours): Temp Pulse Resp BP Pulse Ox 98.3 F 68 13 83/48 L 100 06/15/17 12:00 06/15/17 15:31 06/15/17 15:31 06/15/17 15:31 06/15/17 15:31 - Medications Medications: Current Medications Amiodarone HCl (Cordarone) 400 mg PO [facility]IN [facility] Atorvastatin Calcium (Lipitor) 20 mg PO DAILY [facility] Last Admin: 06/15/17 09:19 Dose: 20 mg Amiodarone HCl/Dextrose (Nexterone 360 Mg In D5w 200 Ml (Premix)) 360 mg in 200 mls @ 33.333 mls/hr IV .Q6H [facility]; 1 MG/MIN PRN Reason: Protocol Last Admin: 06/15/17 09:04 Dose: 33.333 mls/hr Sodium Chloride (Sodium Chloride 0.9%) 1,000 mls @ 50 mls/hr IV .Q20H [facility] Stop: 06/15/17 20:00 Levothyroxine Sodium (Synthroid) 88 mcg PO DAILY [facility] Last Admin: 06/15/17 09:18 Dose: 88 mcg Eplerenone [Inspra] (25 Mg) 25 mg PO DAILY [facility] Last Admin: 06/15/17 09:19 Dose: Not Given Pantoprazole Sodium (Protonix Ec Tab) 40 mg PO BID [facility] Last Admin: 06/15/17 09:19 Dose: 40 mg Sucralfate (Carafate Oral Susp) 1 gm PO 0630,1130,1630,2200 [facility] Last Admin: 06/15/17 14:56 Dose: Not Given Tamsulosin HCl (Flomax) 0.4 mg PO DAILY [facility] Last Admin: 06/15/17 09:19 Dose: 0.4 mg Warfarin Sodium (Coumadin) 7.5 mg PO 1800 [facility] PRN Reason: Protocol Warfarin Sodium (Coumadin) 1 mg PO 1800 [facility] - Labs Labs: 06/15/17 05:50 06/15/17 05:50 PT 18.0 SECONDS (9.4-12.5) H 06/15/17 05:50 INR 1.55 (0.93-1.08) H 06/15/17 05:50 APTT 28.3 Seconds (25.1-36.5) 06/14/17 19:20 Attending/Attestation - Attestation I have personally seen and examined this patient.: Yes I have fully participated in the care of the patient.: Yes I have reviewed all pertinent clinical information, including history, physical exam and plan: Yes Notes (Text): I have seen and examined the patient at bedside. Agree with the above note with the following additions/ exceptions: Briefly this is 56 year old male with past medical history of hypothyroidism, chronic a-fib, non-ischemic cardiomyopathy ( EF 20-25%), GI bleed, peptic ulcer disease, vtach in the past who was admitted for evaluation of unstable vtach s/p cardioversion, now on Amiodarone drip and in the ICU. Patient denies any chest pain, sob, palpitations, headache, anxiety , abdominal pain or leg edema. BP is slightly on the lower side. As per patient , BP is usually around 90's systolic. Troponins are also elevated. There is a plan for Cardiac cath today. INR was subtherapeutic. Lovenox was given last night. Hb is stable. Patient need defibrillator vest. He was in discussion with his private large animal husbandry technician regarding AICD placement. Upon discharge patient will follow up with Dr Moura. Dr Corrie Grayson
--- NOTE | 2017-06-15 14:29 | CARD ---
APPROVED REPORT EKG Measurement Heart [id number] <Conclusion> Ventricular tachycardia Abnormal ECG
--- NOTE | 2017-06-15 14:43 | CARDCATH ---
PROCEDURE DATE: 06/15/2017 HISTORY OF PRESENT ILLNESS: The patient is a 56-year-old male with a documented dilated cardiomyopathy followed at [facility]. According to the patient, an ICD was planned for the near future, followed by his lead software development engineer with whom the patient has been there for a while. He presents to the emergency room with V-tach. His troponins were mildly elevated. Because of this, cardiac catheterization was recommended. PROCEDURE: Left heart catheterization with coronary arteriography and left ventriculogram with supra-aortic valvular injection. The right femoral artery was cannulated with a 6-Malay sheath. There were no complications. I performed moderate sedation, which included the presence of an independent trained observer that assisted in monitoring the patient's level of consciousness and physiologic status. After administration of Versed and fentanyl, my intra service time was 15 minutes. The findings on catheterization revealed a left ventricle that was dilated and diffusely hypokinetic. Estimated ejection fraction is approximately 30-35%. No mitral regurgitation was noted. Supra-aortic valvular injection revealed no aortic insufficiency. His coronary anatomy revealed a right dominant circulation. The RCA was unremarkable. The left main artery was unremarkable. The LAD and diagonal vessels were free of significant disease. The circumflex artery and obtuse marginal branches were free of significant disease. Angio-Seal was used to close the femoral artery site. The patient tolerated the procedure well. In summary, the procedure revealed a dilated cardiomyopathy with an EF of 30-35%. No aortic insufficiency was noted. No significant coronary artery disease was noted. Given these findings, the patient's treatment needs to be directed as ventricular tachycardia. We will replace his magnesium We will begin p.o. magnesium at 400 b.i.d. and stop his infusion in the morning. I have ordered a defibrillating Vest to be placed on the patient. We will ambulate the patient on the floor for the next 24 hours. If stable, the patient will be discharged and sent back to his lead software development engineer for an implantation of a defibrillator. The patient understands and wishes to have his internal defibrillator placed at [facility] with his lead software development engineer who has been following him. Valentin Flynn MD
[2017-06-15] MEDS: Sucralfate 1 gm/10 ml Oral Susp UD PO SCH ×3 (14:56→22:15)
[2017-06-16] MEDS: Sucralfate 1 gm/10 ml Oral Susp UD PO SCH ×4 (05:38→22:13)
[2017-06-16 06:54] LABS: BASO # 0.02 K/mm3 (0.0-2.0); BASO % 0.4 % (0.0-3.0); EOS # 0.1 (0.0-0.7); EOS % 1.3 % (1.5-5.0); GRAN # 3.38 (1.4-6.5); GRAN % 63.8 % (50.0-68.0); HEMOGLOBIN 9.7 g/dL (14.0-18.0); LYMPH # 1.3 (1.2-3.4); MEAN CELL VOLUME 89.8 fl (80.0-105.0); MEAN CORPUSCULAR HEMOGLOBIN 29.2 pg (25.0-35.0); MEAN CORPUSCULAR HGB CONC 32.6 g/dl (31.0-37.0); MEAN PLATELET VOLUME 8.9 fl (7.0-11.0); MONO # 0.5 (0.1-0.6); MONO % 9.5 % (1.0-6.0); RBC 3.32 10^6/uL (3.5-6.1); RED CELL DISTRIBUTION WIDTH 14.8 % (11.5-14.5); WHITE BLOOD COUNT 5.3 10^3/ul (4.5-11.0)
[2017-06-16 07:22] LABS: ALB/GLOB RATIO 1.2 (1.1-1.8); ALBUMIN 3.1 g/dL (3.0-4.8); ALT/SGPT 49 U/L (7-56); AST/SGOT 21 U/L (17-59); BLOOD UREA NITROGEN 9 mg/dL (7-21); CALCIUM 8.7 mg/dL (8.4-10.5); GFR AFRICAN-AMERICAN > 60; GFR NON-AFRICAN AMERICAN > 60
[2017-06-16] MEDS ORDERED: Magnesium Sulfate 1 gm in D5W 1 GM/100 ML BAG IVPB ONE (07:23)
[2017-06-16 07:24] LABS: INR 1.89 (0.93-1.08)
[2017-06-16] MEDS: Pantoprazole 40 mg EC Tab PO SCH ×2 (09:09→17:02)
[2017-06-16] MEDS: Levothyroxine 88 MCG TAB PO SCH (09:09)
--- NOTE | 2017-06-16 09:44 | PN ---
DATE: 06/16/2017 CARDIOLOGY FOLLOWUP SUBJECTIVE: The patient is asymptomatic post cardiac catheterization. PHYSICAL EXAMINATION: VITAL SIGNS: Stable. NECK: Negative JVD. LUNGS: Without rales. HEART: Reveals S1, S2. EXTREMITIES: Without edema. LABORATORY DATA: Hemoglobin is 9.7. Potassium is 4, magnesium is 1.9. IMPRESSION: 1. Ventricular tachycardia. 2. Dilated cardiomyopathy. 3. Hypomagnesemia. 4. Elevated troponin, is likely due to the defibrillation. PLAN: Given these findings, the patient will be transferred to the telemetry. Arrangements have been made to have a vest placed on the patient. The patient will then return to [facility] where his watermaster has been planning on placing an ICD. Valentin Flynn MD MTDD
--- NOTE | 2017-06-16 11:18 | CARD ---
APPROVED REPORT EKG Measurement Heart [id number] <Conclusion> Sinus rhythm with 1st degree AV block Left axis deviation Left bundle branch block Abnormal ECG
--- NOTE | 2017-06-16 11:38 | CP.PCM.PN ---
<Emiliano Casper - Last Filed: 06/16/17 12:55> Subjective - Date & Time of Evaluation Date of Evaluation: 06/16/17 Time of Evaluation: 09:00 - Subjective Subjective: IM Progress Note for Hospitalist Service Patient seen and examined at bedside in the ICU. No acute events overnight. Now off Amiodarone drip, stable on Amio 400mg PO BID. Cardiac cath yesterday, clean coronaries, EF 30-35%. After discussion with Specimen Accessioner, pt to get life -vest and follow up with his outpt surgical territory manager for AICD placement. Pt in agreement with this plan. No acute complaints today, denies chest pain, nausea , emesis, shortness of breath, palpitations, dizziness. Objective - Vital Signs/Intake and Output Vital Signs (last 24 hours): Temp Pulse Resp BP Pulse Ox 98.4 F 83 13 93/45 L 100 06/16/17 08:00 06/16/17 10:10 06/16/17 10:10 06/16/17 10:00 06/16/17 10:10 Intake and Output: 06/16/17 06/16/17 06:59 18:59 Intake Total 20 Output Total 700 Balance -680 - Medications Medications: Current Medications Amiodarone HCl (Cordarone) 400 mg PO BRKDIN [facility] Last Admin: 06/16/17 08:44 Dose: 400 mg Atorvastatin Calcium (Lipitor) 20 mg PO DAILY [facility] Last Admin: 06/16/17 09:11 Dose: 20 mg Levothyroxine Sodium (Synthroid) 88 mcg PO DAILY [facility] Last Admin: 06/16/17 09:09 Dose: 88 mcg Eplerenone [Inspra] (25 Mg) 25 mg PO DAILY [facility] Last Admin: 06/16/17 09:14 Dose: Not Given Pantoprazole Sodium (Protonix Ec Tab) 40 mg PO BID [facility] Last Admin: 06/16/17 09:09 Dose: 40 mg Sucralfate (Carafate Oral Susp) 1 gm PO 0630,1130,1630,2200 [facility] Last Admin: 06/16/17 05:38 Dose: 1 gm Tamsulosin HCl (Flomax) 0.4 mg PO DAILY [facility] Last Admin: 06/16/17 09:09 Dose: 0.4 mg Warfarin Sodium (Coumadin) 7.5 mg PO 1800 [facility] PRN Reason: Protocol Last Admin: 06/15/17 17:35 Dose: 7.5 mg Warfarin Sodium (Coumadin) 1 mg PO 1800 [facility] Last Admin: 06/15/17 17:35 Dose: 1 mg - Labs Labs: 06/16/17 05:00 06/16/17 05:00 PT 22.0 SECONDS (9.4-12.5) H 06/16/17 05:00 INR 1.89 (0.93-1.08) H 06/16/17 05:00 APTT 28.3 Seconds (25.1-36.5) 06/14/17 19:20 - Additional Findings Additional findings: - Constitutional Appears: Non-toxic, No Acute Distress - Head Exam Head Exam: ATRAUMATIC, NORMAL INSPECTION, NORMOCEPHALIC - Eye Exam Eye Exam: EOMI, Normal appearance. absent: Conjunctival injection, Scleral icterus Pupil Exam: absent: Irregular, Unequal - ENT Exam ENT Exam: Mucous Membranes Moist - Neck Exam Neck Exam: Full ROM. absent: Lymphadenopathy, Tenderness, Thyromegaly - Respiratory Exam Respiratory Exam: Clear to Ausculation Bilateral, NORMAL BREATHING PATTERN. absent: Accessory Muscle Use, Chest Wall Tenderness, Decreased Breath Sounds, Rales, Rhonchi, Wheezes - Cardiovascular Exam Cardiovascular Exam: REGULAR RHYTHM, RRR, +S1, +S2. absent: Bradycardia, Tachycardia, Irregular Rhythm, JVD, +S4 - GI/Abdominal Exam GI & Abdominal Exam: Soft, Normal Bowel Sounds. absent: Distended, Firm, Rigid , Tenderness - Extremities Exam Extremities Exam: Full ROM, Normal Capillary Refill, Normal Inspection. absent : Calf Tenderness, Pedal Edema, Tenderness - Neurological Exam Neurological Exam: Alert, Awake, Oriented x3 (self, location, year, situation) - Psychiatric Exam Psychiatric exam: Normal Affect, Normal Mood - Skin Skin Exam: Dry, Intact (except as documented below), Normal Color, Warm Additional Comments: Right femoral access site for cath bandaged, no local fluctuance, no oozing or bleeding from bandage site, no pain on palpation, good distal pulses Assessment and Plan - Assessment and Plan (Free Text) Assessment: This is a 56yo male with past medical history of a-fib, non-ischemic cardiomyopathy (EF 20-25%), GI bleed, and peptic ulcer disease who was admitted for unstable vtach s/p cardioversion, now off Amiodarone drip and stable on PO Amio. Pending LifeVest and transfer out of ICU. Plan: 1) Unstable V.tach s/p cardioversion- remains in NSR - secondary to 4 chamber cardiomyopathy - Cardio consulted, pending cath today - Converted from Amio Drip to PO Amio 400mg BID - Hold other antihypertensives for hypotension on admission, trending 80's-90's systolic in the ICU but completely awake/alert/animated, appears to be adequately perfusing - Troponin increased from 0.03 to 0.14 to 0.15, Cardio aware, additional trending would be falsely elevated 2/2 cath yesterday - Keep defibrillator pads in place - INR subtherapeutic but improved, 1.89 today, continue current coumadin dose 2) Recent GI bleed - Hgb 9.7, hemodynamically stable, if drops below 8 or drops with signs of hemodynamically unstable/signs of end-organ damage consider transfusing pRBCs - Continue Protonix BID - Continue Carafate - Was recommended to continue Anticoag given cardiac hx as per GI and Cardio during last admission, will continue as documented above - Will monitor Hgb daily 3) Nonischemic cardiomyopathy - Will need AICD, cardio following; pending LifeVest while waiting for AICD, to get AICD with outpt Cardio - Converted from Amio Drip to PO Amio 400mg BID - Hold other home medications for now (Metoprolol, Lasix, Lisinopril) - Continue Lipitor and Inspra - Echo from 05/25 shows four chamber dilation, EF 20-25%, moderate MR/TR, RVSP 50 , no thrombus; Cath was clear coronaries with EF 30-35% 4) A-fib - INR increased to 1.89, continue current coumadin dose - Monitor INR daily 5) Hx of Hypothyroidism - Continue synthroid home dose 6) Hx of Urinary retention - Continue Flomax Dispo: ICU, s/p cath with clean coronaries, pending LifeVest, pending tele, possible d/c tmr FEN: Heart-healthy diet Access: Peripheral IVs Consults: Cardio, EP, ICU Ppx: Protonix for GI, SCDs/Coumadin (when therapeutic) for DVT Patient seen, reviewed, and discussed with attending, Dr. Grayson <Corrie Grayson B - Last Filed: 06/17/17 16:28> Objective - Vital Signs/Intake and Output Vital Signs (last 24 hours): Temp Pulse Resp BP Pulse Ox 99.7 F H 75 20 95/60 L 98 06/16/17 12:00 06/16/17 12:00 06/16/17 12:00 06/16/17 12:00 06/16/17 12:00 Intake and Output: 06/16/17 06/16/17 06:59 18:59 Intake Total 20 Output Total 700 Balance -680 - Medications Medications: Current Medications Amiodarone HCl (Cordarone) 400 mg PO BRKDIN [facility] Last Admin: 06/16/17 08:44 Dose: 400 mg Atorvastatin Calcium (Lipitor) 20 mg PO DAILY [facility] Last Admin: 06/16/17 09:11 Dose: 20 mg Levothyroxine Sodium (Synthroid) 88 mcg PO DAILY [facility] Last Admin: 06/16/17 09:09 Dose: 88 mcg Eplerenone [Inspra] (25 Mg) 25 mg PO DAILY [facility] Last Admin: 06/16/17 09:14 Dose: Not Given Pantoprazole Sodium (Protonix Ec Tab) 40 mg PO BID [facility] Last Admin: 06/16/17 09:09 Dose: 40 mg Sucralfate (Carafate Oral Susp) 1 gm PO 0630,1130,1630,2200 [facility] Last Admin: 06/16/17 13:07 Dose: 1 gm Tamsulosin HCl (Flomax) 0.4 mg PO DAILY [facility] Last Admin: 06/16/17 09:09 Dose: 0.4 mg Warfarin Sodium (Coumadin) 7.5 mg PO 1800 [facility] PRN Reason: Protocol Last Admin: 06/15/17 17:35 Dose: 7.5 mg Warfarin Sodium (Coumadin) 1 mg PO 1800 [facility] Last Admin: 06/15/17 17:35 Dose: 1 mg - Labs Labs: 06/16/17 05:00 06/16/17 05:00 PT 22.0 SECONDS (9.4-12.5) H 06/16/17 05:00 INR 1.89 (0.93-1.08) H 06/16/17 05:00 APTT 28.3 Seconds (25.1-36.5) 06/14/17 19:20 Attending/Attestation - Attestation I have personally seen and examined this patient.: Yes I have fully participated in the care of the patient.: Yes I have reviewed all pertinent clinical information, including history, physical exam and plan: Yes Notes (Text): I have seen and examined the patient at bedside. Agree with the above note with the following additions/ exceptions: Briefly this is 56 year old male with past medical history of hypothyroidism, chronic a-fib, non-ischemic cardiomyopathy ( EF 20-25%), GI bleed, peptic ulcer disease, vtach in the past who was admitted for evaluation of unstable vtach s/p cardioversion. Patient denies any chest pain, sob, palpitations, headache, anxiety, abdominal pain or leg edema. BP is slightly on the lower side. As per patient, BP is usually around 90's systolic. Troponins were elevated and cardiac cath was done which was normal. INR was subtherapeutic. Hb is stable. Patient is waiting for defibrillator vest. He was in discussion with his private surgical territory manager regarding AICD placement. Upon discharge patient will follow up with Dr Moura. Dr Corrie Grayson
--- NOTE | 2017-06-16 12:27 | CP.CCUPN ---
<Abel Castellanos - Last Filed: 06/16/17 12:57> CCU Subjective - Physician Review Events Since Last Encounter (Free Text): 06/16/17 12:19 no acute events overnight Subjective (Free Text): 06/15/17 14:04 Patient seen and evaluated at bedside with no acute complaints. Patient states he initially felt as though there was a brick sitting on his chest which has resolved. Denies fevers, chills, nausea, vomiting, diarrhea, abdominal pain, chest pain, shortness of breath. 06/16/17 12:19 Patient seen and examined at bedside in no acute distress. Patient is aware of plan for lifevest and eventually setting up and appointment for AICD with his negotiator at [facility]. Denies fevers, chills, chest pain, abdominal pain, shortness of breath, fatigue. Critical Care Time Spent (in minutes): 40 CCU Objective - Vital Signs / Intake & Output Vital Signs (Last 4 hours): Vital Signs Temp Pulse Resp BP Pulse Ox 06/16/17 12:00 99.7 F H 75 18 95/60 L 100 06/16/17 11:50 73 15 79 L 06/16/17 11:40 75 27 H 100 06/16/17 11:30 78 15 100 06/16/17 11:20 81 28 H 94 L 06/16/17 11:10 77 25 H 95 06/16/17 11:02 78 35 H 06/16/17 11:01 76 16 06/16/17 11:00 77 22 98/66 L 100 06/16/17 10:51 77 19 06/16/17 10:50 79 25 H 06/16/17 10:40 77 18 99 06/16/17 10:30 72 17 100 06/16/17 10:20 71 15 100 06/16/17 10:10 83 13 100 06/16/17 10:00 72 18 93/45 L 97 06/16/17 09:50 69 15 100 06/16/17 09:40 73 17 100 06/16/17 09:30 75 15 99 06/16/17 09:20 73 18 100 06/16/17 09:10 67 17 100 06/16/17 09:00 98/54 L 06/16/17 08:50 76 30 H 100 06/16/17 08:44 70 17 100/59 L 100 06/16/17 08:40 70 21 88 L 06/16/17 08:30 74 76 H 89 L 06/16/17 08:20 67 15 100 Intake and Output (Last 8hrs): Intake & Output 06/15/17 06/16/17 06/16/17 22:59 06:59 14:59 Intake Total 1200 20 Output Total 800 700 Balance 400 -680 Intake: Oral 1200 20 Output: Urine 800 700 Urine, Voided 800 700 - Physical Exam Head: Positive for: Atraumatic, Normocephalic. Negative for: Tenderness, Contusion Pupils: Positive for: PERRL Extroacular Muscles: Positive for: EOMI Conjunctiva: Positive for: Normal Mouth: Positive for: Moist Mucous Membranes Neck: Positive for: Normal Range of Motion Respiratory/Chest: Positive for: Clear to Auscultation, Good Air Exchange. Negative for: Respiratory Distress, Accessory Muscle Use Cardiovascular: Positive for: Regular Rate and Rhythm. Negative for: Irregular Rhythm Abdomen: Negative for: Tenderness, Distention Upper Extremity: Positive for: NORMAL PULSES Lower Extremity: Positive for: Normal Inspection Neurological: Positive for: GCS=15, Speech Normal Skin: Positive for: Warm, Dry Psychiatric: Positive for: Alert, Oriented x 3, Normal Insight, Normal Concentration - Medications Active Medications: Active Medications Generic Name Dose Route Start Last Admin Trade Name Freq PRN Reason Stop Dose Admin Amiodarone HCl 400 mg 06/15/17 17:00 06/16/17 08:44 Cordarone PO 400 mg BRKDIN BEATRIZ Administration Atorvastatin Calcium 20 mg 06/15/17 10:00 06/16/17 09:11 Lipitor PO 20 mg DAILY BEATRIZ Administration Levothyroxine Sodium 88 mcg 06/15/17 10:00 06/16/17 09:09 Synthroid PO 88 mcg DAILY BEATRIZ Administration Eplerenone [Inspra] 25 mg 06/15/17 10:00 06/16/17 09:14 25 Mg PO Not Given DAILY BEATRZI Pantoprazole Sodium 40 mg 06/15/17 10:00 06/16/17 09:09 Protonix Ec Tab PO 40 mg BID BEATRIZ Administration Sucralfate 1 gm 06/14/17 22:00 06/16/17 05:38 Carafate Oral Susp PO 1 gm 0630,1130,1630,2200 BEATRIZ Administration Tamsulosin HCl 0.4 mg 06/15/17 10:00 06/16/17 09:09 Flomax PO 0.4 mg DAILY BEATRIZ Administration Warfarin Sodium 7.5 mg 06/15/17 18:00 06/15/17 17:35 Coumadin PO 7.5 mg 1800 BEATRIZ Administration Protocol Warfarin Sodium 1 mg 06/15/17 18:00 06/15/17 17:35 Coumadin PO 1 mg 1800 BEATRIZ Administration - Patient Studies Lab Studies: Microbiology Studies 06/15/17 10:30 MRSA Culture (Admit) - Final Nose MRSA NOT DETECTED Lab Studies 06/16/17 06/16/17 06/16/17 Range/Units 05:00 05:00 05:00 WBC 5.3 (4.5-11.0) 10^3/ul RBC 3.32 L (3.5-6.1) 10^6/uL Hgb 9.7 L (14.0-18.0) g/dL Hct 29.8 L (42.0-52.0) % MCV 89.8 (80.0-105.0) fl MCH 29.2 (25.0-35.0) pg MCHC 32.6 (31.0-37.0) g/dl RDW 14.8 H (11.5-14.5) % Plt Count 285 (120.0-450.0) 10^3/uL MPV 8.9 (7.0-11.0) fl Gran % 63.8 (50.0-68.0) % Lymph % (Auto) 25.0 (22.0-35.0) % [place] % (Auto) 9.5 H (1.0-6.0) % Eos % (Auto) 1.3 L (1.5-5.0) % Baso % (Auto) 0.4 (0.0-3.0) % Gran # 3.38 (1.4-6.5) Lymph # (Auto) 1.3 (1.2-3.4) [place] # (Auto) 0.5 (0.1-0.6) Eos # (Auto) 0.1 (0.0-0.7) Baso # (Auto) 0.02 (0.0-2.0) K/mm3 PT 22.0 H (9.4-12.5) SECONDS INR 1.89 H (0.93-1.08) Sodium 139 (132-148) mmol/L Potassium 4.0 (3.6-5.0) mmol/L Chloride 106 (98-107) mmol/L Carbon Dioxide 28 (21-33) mmol/L Anion Gap 9 L (10-20) BUN 9 (7-21) mg/dL Creatinine 0.8 (0.8-1.5) mg/dl Est GFR ( Amer) > 60 Est GFR (Non-Af Amer) > 60 Random Glucose 89 (70-110) mg/dL Calcium 8.7 (8.4-10.5) mg/dL Phosphorus 3.1 (2.5-4.5) mg/dL Magnesium 1.9 (1.7-2.2) mg/dL Total Bilirubin 0.2 (0.2-1.3) mg/dL AST 21 (17-59) U/L ALT 49 (7-56) U/L Alkaline Phosphatase 52 (38-126) U/L Total Protein 5.7 L (5.8-8.3) g/dL Albumin 3.1 (3.0-4.8) g/dL Globulin 2.6 gm/dL Albumin/Globulin Ratio 1.2 (1.1-1.8) Laboratory Results - last 24 hr 06/16/17 06/16/17 06/16/17 05:00 05:00 05:00 WBC 5.3 RBC 3.32 L Hgb 9.7 L Hct 29.8 L MCV 89.8 MCH 29.2 MCHC 32.6 RDW 14.8 H Plt Count 285 MPV 8.9 Gran % 63.8 Lymph % (Auto) 25.0 [place] % (Auto) 9.5 H Eos % (Auto) 1.3 L Baso % (Auto) 0.4 Gran # 3.38 Lymph # (Auto) 1.3 [place] # (Auto) 0.5 Eos # (Auto) 0.1 Baso # (Auto) 0.02 PT 22.0 H INR 1.89 H Sodium 139 Potassium 4.0 Chloride 106 Carbon Dioxide 28 Anion Gap 9 L BUN 9 Creatinine 0.8 Est GFR ( Amer) > 60 Est GFR (Non-Af Amer) > 60 Random Glucose 89 Calcium 8.7 Phosphorus 3.1 Magnesium 1.9 Total Bilirubin 0.2 AST 21 ALT 49 Alkaline Phosphatase 52 Total Protein 5.7 L Albumin 3.1 Globulin 2.6 Albumin/Globulin Ratio 1.2 EKG/Cardiology Studies: Cardiology / EKG Studies 06/15/17 19:17 EKG [ELECTROCARDIOGRAM] Stat Comment: Reason For Exam: CHEST PAIN 06/16/17 08:00 EKG [ELECTROCARDIOGRAM] DAILY Comment: Reason For Exam: vtach, f/u Review of Systems - EENT Eyes: absent: Blurred Vision, Change in Vision Ears: absent: Ear Pain - Cardiovascular Cardiovascular: absent: Chest Pain, Dyspnea - Respiratory Respiratory: UNREMARKABLE Critical Care Progress Note - Nutrition Nutrition: Nutrition Category Date Time Status Heart Healthy Diet [DIET] Diets 06/14/17 Breakfast Ordered Assessment/Plan - Assessment and Plan (Free Text) Assessment: Patient is a 56 year old male with a history of atrial fibrillation,nonischemic cardiomyopathy (EF 20-25%), GI bleed secondary to peptic ulcer disease who came to ED for tachycardia and complaints of chest pain described as a brick sitting on his chest. Patient was found to be in v tach and hypotensive in the ED for which he was cardioverted, placed on amiodarone drip and sent to the ICU. Patient admitted himself to ED due to the combination of hypotension plus tachycardia which he was instructed to do so by his negotiator Dr. Moura. Neurologic: -Patient is AAOx 3 -well aware of his surroundings and his current condition and disposition plan Cardiovascular: -Cardiology and Electrophysiology consulted -Echo from 05/25 shows 4 chamber dilated cardiomyopathy, EF 20-25%, moderate MR/ TR, negative for thrombus -Patient has sustained ventricular tachycardia. Patient originally placed on amiodarone drip. Catheterization shows patient has CAD, will await official read. Patient will need AICD placement. In the mean time patient will be given life vest to use temporarily. Amiodarone drip protocol completed, patient started on PO amiodarone. -Patient has a history of atrial fibrillation which he is currently on 8.5 mg warfarin for. Warfarin has been steadily increased by patient's PMD due to subtherapeutic INR. Patient will continue to receive warfarin as dosed, no no further heparin for bridging at this moment as per cardiology. Patient's INR is continuing to improve-keep with current dose of warfarin. -Patient had initial increase in troponins. Patient was taken to cath. Troponin leakage was not due to NSTEMI but most likely due to cardioversion. -Patient will continue on lipitor and Inspra -continue to monitor patients BP and HR Pulmonary: -CXR revealed no acute disease, negative for pneumothorax -No further interventions needed at this moment as patient O2 sat is 100% on room air Gastrointestinal: -Patient has recent history of GI bleed secondary to peptic ulcer disease -Patient currently has a stable H&H; no further intervention needed at this moment -Continue with Carafate and protonix Disposition: Patient will be transferred to telemetry once life vest is placed. LifeVest will be placed around 1 pm. <Rivera Brown B - Last Filed: 06/16/17 14:50> CCU Objective - Vital Signs / Intake & Output Vital Signs (Last 4 hours): Vital Signs Temp Pulse Resp BP Pulse Ox 06/16/17 14:00 80 06/16/17 13:40 80 20 100 06/16/17 13:30 79 23 100 06/16/17 13:20 77 17 100 06/16/17 13:10 79 16 100 06/16/17 13:01 94/47 L 06/16/17 13:00 83 31 H 99 06/16/17 12:50 85 17 100 06/16/17 12:40 87 23 100 06/16/17 12:30 77 18 100 06/16/17 12:20 83 91 L 06/16/17 12:10 84 14 87 L 06/16/17 12:00 99.7 F H 75 18 95/60 L 100 06/16/17 11:50 73 15 79 L 06/16/17 11:40 75 27 H 100 06/16/17 11:30 78 15 100 06/16/17 11:20 81 28 H 94 L 06/16/17 11:10 77 25 H 95 06/16/17 11:02 78 35 H 06/16/17 11:01 76 16 06/16/17 11:00 77 22 98/66 L 100 06/16/17 10:51 77 19 06/16/17 10:50 79 25 H 06/16/17 10:40 77 18 99 Intake and Output (Last 8hrs): Intake & Output 06/15/17 06/16/17 06/16/17 22:59 06:59 14:59 Intake Total 1200 20 Output Total 800 700 Balance 400 -680 Intake: Oral 1200 20 Output: Urine 800 700 Urine, Voided 800 700 - Medications Active Medications: Active Medications Generic Name Dose Route Start Last Admin Trade Name Rikiq PRN Reason Stop Dose Admin Amiodarone HCl 400 mg 06/15/17 17:00 06/16/17 08:44 Cordarone PO 400 mg BRKDIN BEATRIZ Administration Atorvastatin Calcium 20 mg 06/15/17 10:00 06/16/17 09:11 Lipitor PO 20 mg DAILY BEATRIZ Administration Levothyroxine Sodium 88 mcg 06/15/17 10:00 06/16/17 09:09 Synthroid PO 88 mcg DAILY BEATRIZ Administration Eplerenone [Inspra] 25 mg 06/15/17 10:00 06/16/17 09:14 25 Mg PO Not Given DAILY BEATRIZ Pantoprazole Sodium 40 mg 06/15/17 10:00 06/16/17 09:09 Protonix Ec Tab PO 40 mg BID BEATRIZ Administration Sucralfate 1 gm 06/14/17 22:00 06/16/17 13:07 Carafate Oral Susp PO 1 gm 0630,1130,1630,2200 BEATRIZ Administration Tamsulosin HCl 0.4 mg 06/15/17 10:00 06/16/17 09:09 Flomax PO 0.4 mg DAILY BEATRIZ Administration Warfarin Sodium 7.5 mg 06/15/17 18:00 06/15/17 17:35 Coumadin PO 7.5 mg 1800 BEATRIZ Administration Protocol Warfarin Sodium 1 mg 06/15/17 18:00 06/15/17 17:35 Coumadin PO 1 mg 1800 BEATRIZ Administration - Patient Studies Lab Studies: Microbiology Studies 06/15/17 10:30 MRSA Culture (Admit) - Final Nose MRSA NOT DETECTED Lab Studies 06/16/17 06/16/17 06/16/17 Range/Units 05:00 05:00 05:00 WBC 5.3 (4.5-11.0) 10^3/ul RBC 3.32 L (3.5-6.1) 10^6/uL Hgb 9.7 L (14.0-18.0) g/dL Hct 29.8 L (42.0-52.0) % MCV 89.8 (80.0-105.0) fl MCH 29.2 (25.0-35.0) pg MCHC 32.6 (31.0-37.0) g/dl RDW 14.8 H (11.5-14.5) % Plt Count 285 (120.0-450.0) 10^3/uL MPV 8.9 (7.0-11.0) fl Gran % 63.8 (50.0-68.0) % Lymph % (Auto) 25.0 (22.0-35.0) % [place] % (Auto) 9.5 H (1.0-6.0) % Eos % (Auto) 1.3 L (1.5-5.0) % Baso % (Auto) 0.4 (0.0-3.0) % Gran # 3.38 (1.4-6.5) Lymph # (Auto) 1.3 (1.2-3.4) [place] # (Auto) 0.5 (0.1-0.6) Eos # (Auto) 0.1 (0.0-0.7) Baso # (Auto) 0.02 (0.0-2.0) K/mm3 PT 22.0 H (9.4-12.5) SECONDS INR 1.89 H (0.93-1.08) Sodium 139 (132-148) mmol/L Potassium 4.0 (3.6-5.0) mmol/L Chloride 106 (98-107) mmol/L Carbon Dioxide 28 (21-33) mmol/L Anion Gap 9 L (10-20) BUN 9 (7-21) mg/dL Creatinine 0.8 (0.8-1.5) mg/dl Est GFR ( Amer) > 60 Est GFR (Non-Af Amer) > 60 Random Glucose 89 (70-110) mg/dL Calcium 8.7 (8.4-10.5) mg/dL Phosphorus 3.1 (2.5-4.5) mg/dL Magnesium 1.9 (1.7-2.2) mg/dL Total Bilirubin 0.2 (0.2-1.3) mg/dL AST 21 (17-59) U/L ALT 49 (7-56) U/L Alkaline Phosphatase 52 (38-126) U/L Total Protein 5.7 L (5.8-8.3) g/dL Albumin 3.1 (3.0-4.8) g/dL Globulin 2.6 gm/dL Albumin/Globulin Ratio 1.2 (1.1-1.8) Laboratory Results - last 24 hr 06/16/17 06/16/17 06/16/17 05:00 05:00 05:00 WBC 5.3 RBC 3.32 L Hgb 9.7 L Hct 29.8 L MCV 89.8 MCH 29.2 MCHC 32.6 RDW 14.8 H Plt Count 285 MPV 8.9 Gran % 63.8 Lymph % (Auto) 25.0 [place] % (Auto) 9.5 H Eos % (Auto) 1.3 L Baso % (Auto) 0.4 Gran # 3.38 Lymph # (Auto) 1.3 [place] # (Auto) 0.5 Eos # (Auto) 0.1 Baso # (Auto) 0.02 PT 22.0 H INR 1.89 H Sodium 139 Potassium 4.0 Chloride 106 Carbon Dioxide 28 Anion Gap 9 L BUN 9 Creatinine 0.8 Est GFR ( Amer) > 60 Est GFR (Non-Af Amer) > 60 Random Glucose 89 Calcium 8.7 Phosphorus 3.1 Magnesium 1.9 Total Bilirubin 0.2 AST 21 ALT 49 Alkaline Phosphatase 52 Total Protein 5.7 L Albumin 3.1 Globulin 2.6 Albumin/Globulin Ratio 1.2 EKG/Cardiology Studies: Cardiology / EKG Studies 06/15/17 19:17 EKG [ELECTROCARDIOGRAM] Stat Comment: Reason For Exam: CHEST PAIN 06/16/17 08:00 EKG [ELECTROCARDIOGRAM] DAILY Comment: Reason For Exam: vtach, f/u Critical Care Progress Note - Nutrition Nutrition: Nutrition Category Date Time Status Heart Healthy Diet [DIET] Diets 06/14/17 Breakfast Ordered Attending/Attestation - Attestation I have personally seen and examined this patient.: Yes I have fully participated in the care of the patient.: Yes I have reviewed all pertinent clinical information: Yes Notes (Text): 06/16/17 14:36 56 yo male with severe cardiomyopathy and paroxysmal Vtach, who had to be cardioverted yesterday due to ensuing hemodynamic compromise. Now patient is in sinus rhythm and hymodynamically stable without signs of related end -organ dysfunction. ok to downgrade to tele ccm time 40 min
[2017-06-16 16:10] VITALS: TEMP 98.9
[2017-06-17] MEDS: Sucralfate 1 gm/10 ml Oral Susp UD PO SCH ×2 (05:44→11:09)
[2017-06-17 06:15] VITALS: O2SAT 100
[2017-06-17 07:10] LABS: BASO # 0.01 K/mm3 (0.0-2.0); BASO % 0.2 % (0.0-3.0); EOS # 0.1 (0.0-0.7); EOS % 1.9 % (1.5-5.0); GRAN # 2.84 (1.4-6.5); GRAN % 59.4 % (50.0-68.0); HEMOGLOBIN 9.8 g/dL (14.0-18.0); LYMPH # 1.3 (1.2-3.4); LYMPH % 27.2 % (22.0-35.0); MEAN CELL VOLUME 90.3 fl (80.0-105.0); MEAN CORPUSCULAR HEMOGLOBIN 29.7 pg (25.0-35.0); MEAN CORPUSCULAR HGB CONC 32.9 g/dl (31.0-37.0); MEAN PLATELET VOLUME 8.9 fl (7.0-11.0); MONO # 0.5 (0.1-0.6); MONO % 11.3 % (1.0-6.0); RBC 3.3 10^6/uL (3.5-6.1); RED CELL DISTRIBUTION WIDTH 14.7 % (11.5-14.5); WHITE BLOOD COUNT 4.8 10^3/ul (4.5-11.0)
[2017-06-17 07:26] LABS: INR 2.22 (0.93-1.08); PROTHROMBIN TIME 25.9 SECONDS (9.4-12.5)
[2017-06-17 07:32] LABS: ALB/GLOB RATIO 1.1 (1.1-1.8); ALT/SGPT 35 U/L (7-56); AST/SGOT 24 U/L (17-59); BLOOD UREA NITROGEN 9 mg/dL (7-21); GFR AFRICAN-AMERICAN > 60; GFR NON-AFRICAN AMERICAN > 60
[2017-06-17 08:26] VITALS: BP 95/64
[2017-06-17] MEDS ORDERED: Magnesium Sulfate 1 gm in D5W 1 GM/100 ML BAG IVPB ONE (09:04)
[2017-06-17] MEDS: Levothyroxine 88 MCG TAB PO SCH (09:28)
[2017-06-17] MEDS: Pantoprazole 40 mg EC Tab PO SCH (09:29)
--- NOTE | 2017-06-17 12:04 | CP.PCM.DIS ---
<Emiliano Casper - Last Filed: 06/17/17 11:58> Provider - Provider Date of Admission: 06/14/17 19:43 Attending physician: Corrie Grayson MD Consults: Cardio: [facility] Time Spent in preparation of Discharge (in minutes): 35 Diagnosis - Discharge Diagnosis (1) Ventricular tachycardia Status: Resolved Priority: High (2) Atrial fibrillation Status: Chronic Priority: Medium (3) NSTEMI (non-ST elevated myocardial infarction) Status: Acute Priority: High (4) Peptic ulcer disease Status: Chronic Priority: Medium Hospital Course - Lab Results Lab Results: Micro Results 06/15/17 10:30 Nose MRSA Culture (Admit) - Final MRSA NOT DETECTED Most Recent Lab Values WBC 4.8 10^3/ul (4.5-11.0) 06/17/17 05:50 RBC 3.30 10^6/uL (3.5-6.1) L 06/17/17 05:50 Hgb 9.8 g/dL (14.0-18.0) L 06/17/17 05:50 Hct 29.8 % (42.0-52.0) L 06/17/17 05:50 MCV 90.3 fl (80.0-105.0) 06/17/17 05:50 MCH 29.7 pg (25.0-35.0) 06/17/17 05:50 MCHC 32.9 g/dl (31.0-37.0) 06/17/17 05:50 RDW 14.7 % (11.5-14.5) H 06/17/17 05:50 Plt Count 267 10^3/uL (120.0-450.0) 06/17/17 05:50 MPV 8.9 fl (7.0-11.0) 06/17/17 05:50 Gran % 59.4 % (50.0-68.0) 06/17/17 05:50 Lymph % (Auto) 27.2 % (22.0-35.0) 06/17/17 05:50 [place] % (Auto) 11.3 % (1.0-6.0) H 06/17/17 05:50 Eos % (Auto) 1.9 % (1.5-5.0) 06/17/17 05:50 Baso % (Auto) 0.2 % (0.0-3.0) 06/17/17 05:50 Gran # 2.84 (1.4-6.5) 06/17/17 05:50 Lymph # (Auto) 1.3 (1.2-3.4) 06/17/17 05:50 [place] # (Auto) 0.5 (0.1-0.6) 06/17/17 05:50 Eos # (Auto) 0.1 (0.0-0.7) 06/17/17 05:50 Baso # (Auto) 0.01 K/mm3 (0.0-2.0) 06/17/17 05:50 PT 25.9 SECONDS (9.4-12.5) H 06/17/17 05:50 INR 2.22 (0.93-1.08) H 06/17/17 05:50 APTT 28.3 Seconds (25.1-36.5) 06/14/17 19:20 Sodium 139 mmol/L (132-148) 06/17/17 05:50 Potassium 4.1 mmol/L (3.6-5.0) 06/17/17 05:50 Chloride 104 mmol/L (98-107) 06/17/17 05:50 Carbon Dioxide 29 mmol/L (21-33) 06/17/17 05:50 Anion Gap 10 (10-20) 06/17/17 05:50 BUN 9 mg/dL (7-21) 06/17/17 05:50 Creatinine 0.9 mg/dl (0.8-1.5) 06/17/17 05:50 Est GFR ( Amer) > 60 06/17/17 05:50 Est GFR (Non-Af Amer) > 60 06/17/17 05:50 Random Glucose 82 mg/dL (70-110) 06/17/17 05:50 Calcium 9.0 mg/dL (8.4-10.5) 06/17/17 05:50 Phosphorus 3.1 mg/dL (2.5-4.5) 06/17/17 05:50 Magnesium 1.8 mg/dL (1.7-2.2) 06/17/17 09:50 Total Bilirubin 0.3 mg/dL (0.2-1.3) 06/17/17 05:50 AST 24 U/L (17-59) 06/17/17 05:50 ALT 35 U/L (7-56) 06/17/17 05:50 Alkaline Phosphatase 45 U/L (38-126) 06/17/17 05:50 Lactate Dehydrogenase 344 U/L (333-699) 06/15/17 05:50 Total Creatine Kinase 29 U/L (35-230) L 06/15/17 05:50 Troponin I 0.15 ng/mL H* 06/15/17 05:50 Total Protein 5.6 g/dL (5.8-8.3) L 06/17/17 05:50 Albumin 3.0 g/dL (3.0-4.8) 06/17/17 05:50 Globulin 2.6 gm/dL 06/17/17 05:50 Albumin/Globulin Ratio 1.1 (1.1-1.8) 06/17/17 05:50 TSH 3rd Generation 1.63 mIU/mL (0.46-4.68) 06/15/17 09:50 - Hospital Course Hospital Course: This is a 56yo male with past medical history of a-fib, non-ischemic cardiomyopathy (EF 20-25%), GI bleed, and peptic ulcer disease who was admitted for unstable vtach s/p cardioversion. He was started on an Amiodarone drip post cardioversion, and has since been transitioned to PO Amiodarone, which he has remained in sinus rhythm on. He is s/p cardiac cath, with clean coronaries. He has now received a LifeVest, and is cleared for discharge. As per Cardio, he is to be discharged on Amiodarone PO 400mg BID. He is also being started on PO Magnesium due to chronically low magnesium despite several IV repletions. Today, patient was seen and examined at bedside. No acute complaints overnight , feeling well today. Denies chest pain, palpitations, shortness of breath, or lightheadedness. He was instructed to wear the LifeVest on discharge, but he insists on waiting until after he goes home and takes a shower first. He was additionally instructed to follow up with his Airport Operations Supervisor at [facility] on June 27 and an EP at [facility] on June 29. He was also told to stop taking his old Amiodarone dosage, to stop taking his Lisinopril (due to persistently low- normal blood pressures inpt while off antihypertensives). He expressed understanding and agreement with these instructions. All questions answered to his satisfaction, and then he was discharged to home. Patient seen, reviewed, and discussed with attending, Dr. Grayson. Discharge Exam - Additional Findings Additional findings: - Constitutional Appears: Non-toxic, No Acute Distress - Head Exam Head Exam: ATRAUMATIC, NORMAL INSPECTION, NORMOCEPHALIC - Eye Exam Eye Exam: EOMI, Normal appearance. absent: Conjunctival injection, Scleral icterus Pupil Exam: absent: Irregular, Unequal - ENT Exam ENT Exam: Mucous Membranes Moist - Neck Exam Neck Exam: Full ROM. absent: Lymphadenopathy, Tenderness, Thyromegaly - Respiratory Exam Respiratory Exam: Clear to Ausculation Bilateral, NORMAL BREATHING PATTERN. absent: Accessory Muscle Use, Chest Wall Tenderness, Decreased Breath Sounds, Rales, Rhonchi, Wheezes - Cardiovascular Exam Cardiovascular Exam: REGULAR RHYTHM, RRR, +S1, +S2. absent: Bradycardia, Tachycardia, Irregular Rhythm, JVD, +S4 - GI/Abdominal Exam GI & Abdominal Exam: Soft, Normal Bowel Sounds. absent: Distended, Firm, Rigid , Tenderness - Extremities Exam Extremities Exam: Full ROM, Normal Capillary Refill, Normal Inspection. absent : Calf Tenderness, Pedal Edema, Tenderness - Neurological Exam Neurological Exam: Alert, Awake, Oriented x3 (self, location, year, situation) - Psychiatric Exam Psychiatric exam: Normal Affect, Normal Mood - Skin Skin Exam: Dry, Intact (except as documented below), Normal Color, Warm Additional Comments: Right femoral access site healed, no local fluctuance, no oozing or bleeding from site, no pain on palpation, good distal pulses Discharge Plan - Discharge Medications Prescriptions: Amiodarone [Cordarone] 400 mg PO BRKDIN #60 tab Magnesium Oxide [Magnesium] 400 mg PO BID #60 tablet Warfarin [Coumadin] 8.5 mg PO 1800 #30 tab - Follow Up Plan Condition: FAIR Disposition: HOME/ ROUTINE Patient education suggested?: Yes Instructions: Sudden Cardiac Arrest, Atrial Fibrillation (DC), Vitamin K Diet, Cardioversion (DC), Ventricular Tachycardia (DC), Warfarin Additional Instructions: Please wear your LifeVest until cleared to remove by your outpatient rn acute Please follow up with your outpatient rn acute as previously scheduled and with the Rental Agent you were also referred to. Please follow up with your PMD within 1 month. Please stop taking your Lisinopril due to your low blood pressure. Your home Amiodarone has been increased to 400mg PO twice a day, please only take the new dose. Please resume all other home medications as prescribed. Please follow up with your PMD within 1 week of discharge. Please return to the hospital if you experience new or concerning symptoms. <Corrie Grayson - Last Filed: 06/17/17 17:06> Provider - Provider Date of Admission: 06/14/17 19:43 Attending physician: Corrie Grayson MD Hospital Course - Lab Results Lab Results: Micro Results 06/15/17 10:30 Nose MRSA Culture (Admit) - Final MRSA NOT DETECTED Most Recent Lab Values WBC 4.8 10^3/ul (4.5-11.0) 06/17/17 05:50 RBC 3.30 10^6/uL (3.5-6.1) L 06/17/17 05:50 Hgb 9.8 g/dL (14.0-18.0) L 06/17/17 05:50 Hct 29.8 % (42.0-52.0) L 06/17/17 05:50 MCV 90.3 fl (80.0-105.0) 06/17/17 05:50 MCH 29.7 pg (25.0-35.0) 06/17/17 05:50 MCHC 32.9 g/dl (31.0-37.0) 06/17/17 05:50 RDW 14.7 % (11.5-14.5) H 06/17/17 05:50 Plt Count 267 10^3/uL (120.0-450.0) 06/17/17 05:50 MPV 8.9 fl (7.0-11.0) 06/17/17 05:50 Gran % 59.4 % (50.0-68.0) 06/17/17 05:50 Lymph % (Auto) 27.2 % (22.0-35.0) 06/17/17 05:50 [place] % (Auto) 11.3 % (1.0-6.0) H 06/17/17 05:50 Eos % (Auto) 1.9 % (1.5-5.0) 06/17/17 05:50 Baso % (Auto) 0.2 % (0.0-3.0) 06/17/17 05:50 Gran # 2.84 (1.4-6.5) 06/17/17 05:50 Lymph # (Auto) 1.3 (1.2-3.4) 06/17/17 05:50 [place] # (Auto) 0.5 (0.1-0.6) 06/17/17 05:50 Eos # (Auto) 0.1 (0.0-0.7) 06/17/17 05:50 Baso # (Auto) 0.01 K/mm3 (0.0-2.0) 06/17/17 05:50 PT 25.9 SECONDS (9.4-12.5) H 06/17/17 05:50 INR 2.22 (0.93-1.08) H 06/17/17 05:50 APTT 28.3 Seconds (25.1-36.5) 06/14/17 19:20 Sodium 139 mmol/L (132-148) 06/17/17 05:50 Potassium 4.1 mmol/L (3.6-5.0) 06/17/17 05:50 Chloride 104 mmol/L (98-107) 06/17/17 05:50 Carbon Dioxide 29 mmol/L (21-33) 06/17/17 05:50 Anion Gap 10 (10-20) 06/17/17 05:50 BUN 9 mg/dL (7-21) 06/17/17 05:50 Creatinine 0.9 mg/dl (0.8-1.5) 06/17/17 05:50 Est GFR ( Amer) > 60 06/17/17 05:50 Est GFR (Non-Af Amer) > 60 06/17/17 05:50 Random Glucose 82 mg/dL (70-110) 06/17/17 05:50 Calcium 9.0 mg/dL (8.4-10.5) 06/17/17 05:50 Phosphorus 3.1 mg/dL (2.5-4.5) 06/17/17 05:50 Magnesium 1.8 mg/dL (1.7-2.2) 06/17/17 09:50 Total Bilirubin 0.3 mg/dL (0.2-1.3) 06/17/17 05:50 AST 24 U/L (17-59) 06/17/17 05:50 ALT 35 U/L (7-56) 06/17/17 05:50 Alkaline Phosphatase 45 U/L (38-126) 06/17/17 05:50 Lactate Dehydrogenase 344 U/L (333-699) 06/15/17 05:50 Total Creatine Kinase 29 U/L (35-230) L 06/15/17 05:50 Troponin I 0.15 ng/mL H* 06/15/17 05:50 Total Protein 5.6 g/dL (5.8-8.3) L 06/17/17 05:50 Albumin 3.0 g/dL (3.0-4.8) 06/17/17 05:50 Globulin 2.6 gm/dL 06/17/17 05:50 Albumin/Globulin Ratio 1.1 (1.1-1.8) 06/17/17 05:50 TSH 3rd Generation 1.63 mIU/mL (0.46-4.68) 06/15/17 09:50 Attending/Attestation - Attestation I have personally seen and examined this patient.: Yes I have fully participated in the care of the patient.: Yes I have reviewed all pertinent clinical information, including history, physical exam and plan: Yes Notes (Text): I have seen and examined the patient at bedside. Agree with the above note with the following additions/ exceptions: Briefly this is 56 year old male with past medical history of hypothyroidism, chronic a-fib, non-ischemic cardiomyopathy ( EF 20-25%), GI bleed, peptic ulcer disease, vtach in the past who was admitted for evaluation of unstable vtach s/p cardioversion. Patient denies any chest pain, sob, palpitations, headache, anxiety, abdominal pain or leg edema. Patient was started on amiodarone drip and was switched to amiodarone 400 bid. Troponins were elevated and cardiac cath was done which was normal. INR is therapeutic. Hb is stable. Patient received defibrillator vest and he wants to wear that at home after taking a shower. He was explained in detail that he needs to wear that all the time. He was in discussion with his private rn acute regarding AICD placement. Upon discharge patient will follow up with Dr Moura. Dr Corrie Grayson
--- NOTE | 2017-06-17 14:18 | PN ---
DATE: 06/17/2017 CARDIOLOGY FOLLOWUP SUBJECTIVE: The patient is feeling well. No shortness of breath. No chest pain. PHYSICAL EXAMINATION: VITAL SIGNS: Blood pressure is 95/64, the heart rate in the 70s. NECK: Negative JVD. LUNGS: Without rales. HEART: Reveals S1, S2. EXTREMITIES: Without edema. LABORATORY DATA: Hemoglobin is 9.8. Chemistries, potassium is 4.1, magnesium is 1.8. IMPRESSION: 1. Ventricular tachycardia. 2. Dilated cardiomyopathy. 3. Hypomagnesemia. 4. Anemia. PLAN: Given these findings, the patient is stable for discharge. We will replace the magnesium today. The patient should go home on 400 b.i.d. of amiodarone. has been ordered for the patient in which he has agreed to wear. The patient is scheduled for followup with his EP at [facility] for ICD implantation. Valentin Flynn MD
[2017-06-17 14:37] VITALS: PULSE 87; RESP 23
== END 2017-06-17 15:24 | disposition home or self-care (01) | DRG 121 ==
LOC: ED 19:09 → ERH 19:43 → CCU 06-15 00:57
PROVIDERS: ADMIT Hospitalist; ATTEND Hospitalist
PROC: 5A2204Z Restoration of Cardiac Rhythm, Single (ICD-10-PCS; 2017-06-14)
PROC: 4A023N7 Measurement of Cardiac Sampling and Pressure, Left Heart, Percutaneous Approach (ICD-10-PCS; principal; 2017-06-15)
PROC: B2151ZZ Fluoroscopy of Left Heart using Low Osmolar Contrast (ICD-10-PCS; 2017-06-15)
PROC: B2111ZZ Fluoroscopy of Multiple Coronary Arteries using Low Osmolar Contrast (ICD-10-PCS; 2017-06-15)
DX: I47.2 Ventricular tachycardia (principal); I21.4 Non-ST elevation (NSTEMI) myocardial infarction; I42.0 Dilated cardiomyopathy; I48.2 Chronic atrial fibrillation; K27.9 Peptic ulcer, site unspecified, unspecified as acute or chronic, without hemorrhage or perforation; E03.9 Hypothyroidism, unspecified; R33.9 Retention of urine, unspecified; E83.42 Hypomagnesemia; E66.9 Obesity, unspecified; D64.9 Anemia, unspecified; Z68.34 Body mass index [BMI] 34.0-34.9, adult; Z91.19 Patient's noncompliance with other medical treatment and regimen

== ENCOUNTER 2017-07-06 13:17 | Emergency (ER) | payer MEDICARE ==
[2017-07-06 13:23] VITALS: BMI 34.5
[2017-07-06 13:46] VITALS: RESP 18; TEMP 98.5; O2SAT 98
[2017-07-06 14:22] LABS: HEMOGLOBIN 12.3 g/dL (14.0-18.0); MEAN CELL VOLUME 88.2 fl (80.0-105.0); MEAN CORPUSCULAR HEMOGLOBIN 29.1 pg (25.0-35.0); MEAN CORPUSCULAR HGB CONC 33.1 g/dl (31.0-37.0); MEAN PLATELET VOLUME 9.9 fl (7.0-11.0); RBC 4.22 10^6/uL (3.5-6.1); RED CELL DISTRIBUTION WIDTH 14.1 % (11.5-14.5); WHITE BLOOD COUNT 6.2 10^3/ul (4.5-11.0)
--- NOTE | 2017-07-06 14:32 | ED PDOC ---
Arrival/HPI - General Historian: Patient - History of Present Illness Symptom Onset: Other Symptom Course: Other Quality: Other - General Chief Complaint: Abnormal Labs Time Seen by Provider: 07/06/17 13:35 - History of Present Illness Narrative History of Present Illness (Text): 07/06/17 15:12 56yo male with past medical history of a.fib, nonischemic cardiomyopathy (EF 20- 25%) on Lifevest, GI bleed, peptic ulcer disease who came to ED sent by his PMD for elevated INR. Patient had bloodwork with his doctor (Dr. Alicea) yesterday , and was called about an INR of 7.2 and told to go to the ER. Patient takes 8.5mg coumadin daily for atrial fibrillation. Patient denies any hematochezia, melena, hemoptysis, hematemesis, hematuria, epistaxis, or easy bruising. He also denies chest pain, shortness of breath, abdominal pain, fever, chills, nausea, vomiting, diarrhea, constipation. He reports strict compliance with all his medications and his prescribed diet. (Lia Cardenas) Past Medical History - Provider Review Nursing Documentation Reviewed: Yes - Travel History Have you recently traveled outside [place] w/in the past 3 mons?: No - Infectious Disease Hx of Infectious Diseases: None - Tetanus Immunization Tetanus Immunization: Unknown - Cardiac Hx Cardiac Disorders: (mi 2012) Hx Cardiac Arrhythmia: Yes (vtach) - Pulmonary Hx Respiratory Disorders: No - Neurological Hx Neurological Disorder: No - HEENT Hx HEENT Disorder: No - Renal Hx Renal Disorder: No - Endocrine/Metabolic Hx Hypothyroidism: Yes - Hematological/Oncological Hx Blood Disorders: No - Integumentary Hx Dermatological Disorder: No - Musculoskeletal/Rheumatological Hx Musculoskeletal Disorders: No - Gastrointestinal Hx Gastrointestinal Disorders: No - Genitourinary/Gynecological Hx Genitourinary Disorders: No - Psychiatric Hx Psychophysiologic Disorder: (morbidly obese) Hx Substance Use: No - Surgical History Hx Cardiac Catheterization: Yes - Anesthesia Hx Anesthesia Reactions: No Hx Malignant Hyperthermia: No - Suicidal Assessment Feels Threatened In Home Enviroment: No - Patient History Narrative Patient History: a.fib, nonischemic cardiomyopathy (EF 20-25%) on Lifevest, GI bleed, peptic ulcer disease (Lia Cardenas) Family/Social History Family/Social History: Unknown Family HX Smoking Status: Never Smoked Hx Alcohol Use: No Hx Substance Use: No Allergies/Home Meds Allergies/Adverse Reactions: Allergies No Known Allergies Allergy (Verified 06/14/17 19:15) Home Medications: Home Meds Medication Instructions Recorded Confirmed Atorvastatin [Lipitor] 20 mg PO DAILY 05/25/17 06/14/17 Levothyroxine [Synthroid] 0.088 mg PO DAILY 05/25/17 06/14/17 Eplerenone [Inspra] 25 mg PO DAILY 06/14/17 06/14/17 Furosemide [Lasix] 20 mg PO PRN PRN 06/14/17 06/14/17 Metoprolol Succinate [Toprol Xl] 50 mg PO DAILY 06/14/17 06/14/17 Pantoprazole [Protonix EC Tab] 40 mg PO BID 06/14/17 06/14/17 Review of Systems - Review of Systems Constitutional: Normal Eyes: Normal ENT: Normal Respiratory: Normal Cardiovascular: Normal Gastrointestinal: Normal Genitourinary Male: Normal Musculoskeletal: Normal Skin: Normal Neurological: Normal Endocrine: Normal Hemo/Lymphatic: Normal Psychiatric: Normal Physical Exam Vital Signs Reviewed: Yes Temperature: Afebrile Blood Pressure: Normal Pulse: Regular Respiratory Rate: Normal Appearance: Positive for: Well-Appearing, Non-Toxic, Comfortable Pain Distress: None Mental Status: Positive for: Alert and Oriented X 3 - Systems Exam Head: Present: Atraumatic, Normocephalic Pupils: Present: PERRL Extroacular Muscles: Present: EOMI Conjunctiva: Present: Normal Mouth: Present: Moist Mucous Membranes Neck: Present: Normal Range of Motion Respiratory/Chest: Present: Clear to Auscultation, Good Air Exchange Cardiovascular: Present: Regular Rate and Rhythm, Normal S1, S2 Abdomen: Present: Normal Bowel Sounds. No: Tenderness, Distention Upper Extremity: Present: Normal Inspection. No: Cyanosis, Edema Lower Extremity: Present: Normal Inspection. No: Edema, CALF TENDERNESS Neurological: Present: GCS=15, CN II-XII Intact Skin: Present: Warm, Dry, Normal Color Psychiatric: Present: Alert, Oriented x 3, Normal Insight, Normal Concentration Vital Signs Temp Pulse Resp BP Pulse Ox 07/06/17 16:22 68 18 113/65 98 07/06/17 13:45 98.5 F 70 18 111/66 98 Medical Decision Making ED Course and Treatment: 07/06/17 14:01 Impression: Elevated INR, coagulopathy Differential diagnoses include, but are not limited to: diet noncompliance, overdose, medication interactions Plan: -- Labs: CBC, CMP, PT/PTT -- Reassess and dispo Progress notes: 07/06/17 15:00 -- CBC and CMP unremarkable; H&H stable; VSS -- coags pending 07/06/17 15:52 -- INR 5.66 -- Will order one dose of oral vitamin K and discharge with instructions to hold coumadin. -- Called Dr. Alicea to discuss; agrees with plan, patient to follow up with her in 2 days for INR check, hold coumadin for 2 days. -- Instructed patient to watch for signs of bleeding, especially hematochezia, melena, hemoptysis, hematemesis; return to ER for new or worsening concerns ( Lia Cardenas) Patient seen and evaluated with medical receptionist medical assistant. On my exam, patient is asymptomatic. Denies chest pain or shortness of breath. No active bleeding. No dark or bloody stools, no hemoptysis or hematemesis. He is comfortable. INR 5.66. Reviewed INR with DR. Alicea. Will administer dose of oral Vitamin K , and as per Dr. Alicea patient will follow-up in 2 days for INR recheck. Patient asymptomatic in ED. (Luis Farley) - Lab Interpretations Lab Results: 07/06/17 14:00 07/06/17 14:00 Lab Results 07/06/17 14:00: Sodium 137, Potassium 4.2, Chloride 100, Carbon Dioxide 28, Anion Gap 14, BUN 17, Creatinine 1.0, Est GFR ( Amer) > 60, Est GFR (Non- Af Amer) > 60, Random Glucose 92, Calcium 9.2, Total Bilirubin 0.5, AST 23, ALT 36, Alkaline Phosphatase 60, Total Protein 7.1, Albumin 4.3, Globulin 2.8, Albumin/Globulin Ratio 1.5 07/06/17 14:00: PT 66.8 H, INR 5.66 H*, APTT 52.7 H 07/06/17 14:00: WBC 6.2 D, RBC 4.22, Hgb 12.3 L D, Hct 37.2 L, MCV 88.2, MCH 29.1, MCHC 33.1, RDW 14.1, Plt Count 241, MPV 9.9 - Medication Orders Current Medication Orders: Discontinued Medications Phytonadione (Vitamin K Tab) 2.5 mg PO ONCE ONE Stop: 07/06/17 15:48 Last Admin: 07/06/17 16:16 Dose: 2.5 mg Disposition/Present on Arrival - Present on Arrival Any Indicators Present on Arrival: No History of DVT/PE: No History of Uncontrolled Diabetes: No Urinary Catheter: No History of Decub. Ulcer: No History Surgical Site Infection Following: None - Disposition Have Diagnosis and Disposition been Completed?: Yes Disposition Time: 16:00 Patient Plan: Discharge - Disposition Diagnosis: Elevated INR, Peptic ulcer disease, Atrial fibrillation Disposition: HOME/ ROUTINE Condition: FAIR Discharge Instructions (ExitCare): What to Do When Your INR Is Too High Additional Instructions: -- Watch for signs of bleeding, especially black stools, bloody stools, abdominal pain, vomiting/coughing black or red stuff, blood in urine -- Don't take your coumadin today or tomorrow -- Go to Dr. Alicea's office on to check your INR -- Return to the ER for any new or worsening concerns Referrals: Pool Alicea MD [Family Provider] - Follow up with primary Forms: [employer] ([place])
[2017-07-06 14:36] LABS: ALB/GLOB RATIO 1.5 (1.1-1.8); ALBUMIN 4.3 g/dL (3.0-4.8); ALT/SGPT 36 U/L (7-56); AST/SGOT 23 U/L (17-59); BLOOD UREA NITROGEN 17 mg/dL (7-21); CALCIUM 9.2 mg/dL (8.4-10.5); GFR AFRICAN-AMERICAN > 60; GFR NON-AFRICAN AMERICAN > 60
[2017-07-06 15:26] LABS: PROTHROMBIN TIME 66.8 SECONDS (9.4-12.5)
[2017-07-06 15:27] LABS: INR 5.66 (0.93-1.08); PARTIAL THROMBOPLASTIN TIME 52.7 Seconds (25.1-36.5)
[2017-07-06 16:23] VITALS: BP 113/65; PULSE 68
== END 2017-07-06 17:00 | disposition home or self-care (01) ==
LOC: ED 13:17
DX: K27.9 Peptic ulcer, site unspecified, unspecified as acute or chronic, without hemorrhage or perforation (principal); R79.1 Abnormal coagulation profile; I48.91 Unspecified atrial fibrillation

== ENCOUNTER 2018-06-01 06:54 | Day surgery (SDC) | payer MEDICARE ==
[2018-05-23 17:11] VITALS: BMI 36.2
[2018-06-01] MEDS ORDERED: Propofol 10 mg/ml Inj (20 ML) ONE (08:40)
[2018-06-01] MEDS ORDERED: Sodium Chloride 0.9% 1,000 ML IV SCH (09:15)
[2018-06-01 09:22] VITALS: TEMP 98
[2018-06-01 09:29] VITALS: PULSE 60
[2018-06-01 11:11] VITALS: RESP 16; O2SAT 99
[2018-06-01 11:18] VITALS: BP 106/57
== END 2018-06-01 10:43 | disposition home or self-care (01) ==
LOC: ENDO 06:54
PROVIDERS: ATTEND Specialist
DX: Z12.11 Encounter for screening for malignant neoplasm of colon (principal); D12.0 Benign neoplasm of cecum; K57.30 Diverticulosis of large intestine without perforation or abscess without bleeding; K64.8 Other hemorrhoids; I48.91 Unspecified atrial fibrillation; I42.9 Cardiomyopathy, unspecified
CPT/HCPCS: 45380; 88305; J2704; J7030; J7040